=== PATIENT | female | born 1940 | race Caucasian/White ===

== ENCOUNTER 2022-04-17 00:36 | Outpatient (CLI) | payer MEDICARE, BC, SELFPAY ==
--- NOTE | 2022-04-17 10:15 | DI.US_ITS ---
APPROVED REPORT EXAM: Comprehensive 2D, Doppler, and color-flow Echocardiogram Patient Location: Out-Patient Interactive Media Designer: Paula Roque RDCS (AE) Indications: Severe Aortic Regurgitation Other Information Study Quality: Adequate Conclusion Normal left ventricular wall thickness and chamber size. Estimated ejection fraction is 60 to 65%. Wall motion is normal Normal right ventricular size and systolic function Left atrium is mildly dilated. Right atrial size is normal Aortic valve is calcified and trileaflet. There is no aortic stenosis. There is moderate to severe aortic regurgitation Normal mitral valve with trace to mild regurgitation Normal tricuspid valve with mild to moderate regurgitation. Estimated right ventricular systolic pre ssure is 32 mmHg Related ascending aorta measuring 4.09 cm Wall motion Left Ventricle The left ventricle is normal size. The left ventricular systolic function is normal. The left ventric ular ejection fraction is within the normal range. There is normal left ventricular wall thickness. T here is normal LV segmental wall motion. There is no ventricular septal defect visualized. LVEF is 60 -65%. Right Ventricle The right ventricle is normal size. The right ventricular systolic function is normal. The RVSP is 32 .2 mmHg. Atria Left atrium is mildly dilated. The right atrium size is normal.. The interatrial septum is intact wit h no evidence for an atrial septal defect. Aortic Valve Aortic valve is calcified. Aortic valve is trileaflet. No hemodynamically significant valvular aortic stenosis. Moderate to severe aortic regurgitation Mitral Valve The mitral valve is normal in structure. No evidence of mitral valve stenosis. Trace to mild mitral r egurgitation. Tricuspid Valve The tricuspid valve is normal in structure. There is no tricuspid valve stenosis. Mild to moderate tr icuspid regurgitation. Pulmonic Valve The pulmonary valve is normal in structure. There is no pulmonic valvular stenosis. Mild pulmonic reg urgitation. Great Vessels The aortic root is normal in size. The ascending aorta is moderately dilated. Aortic arch is normal in caliber. IVC is normal in size and collapses >50% with inspiration. Pericardium There is no pericardial effusion. 2D Dimensions IVSD d PLAX 1.07 cm F: 0.6-1.0 LV Vol A2C d MOD 114.8 mL LVPW d PLAX 1.12 cm F: 0.6 - 1.0 LV Vol A4C d MOD 121.3 mL LVID d PLAX 5.24 cm F: 3.8 - 5.2 LA vol/ BSA A2C s A-L 40.3 mL/m2 LVDs 3.25 cm F: 2.2 - 3.5 LA vol/ BSA A4C s A-L 41.5 mL/m2 Ao Root d 3.07 cm F: 2.7 - 3.3 LA Vol/ BSA Biplane s A-L 41.0 mL/m2 RA Area A4C 14.24 cm2 LA Area A4C s MOD 22.53 cm2 RA Vol/ BSA A4C s A-L 20.0 mL/m2 LA Area A2C s MOD 22.16 cm2 Ao Asc Diam d 4.09 cm F: 2.3 - 3.1 LV EF A4C MOD 60.2 % LV EF Teichholz 67.4 % LV EF A2C MOD 61.7 % LVEF (Grande's) 59.93 % F: 54 - 74 LV EF Biplane MOD 59.9 % LV Volume 95.47 mL F: 46 - 106 SV 71.29 mL LV Volume Index 57.86 mL/m2 F: 29 - 61 SV Index 43.16 mL/m2 LV Vol Biplane MOD 118.9 mL FS 37.70 % M-Mode TAPSE 2.08 cm (M/F) >1.7 LV Diastology MV E' medial 0.123 (>0.07 m/s) E/A Ratio 0.7 LV E/e MED 4.40 (<14) MV E Vmax 0.55 (0.4-1.3 m/s) MV E' lateral 0.059 (>0.1 m/s) MV A Vmax 0.80 (0.4-1.3 m/s) LV E/e LAT 9.35 (<14) MV E/A Ratio 0.68 MV E/E' medial 4.45 MV E/E' lateral 9.36 Aortic Valve LVOT Area 3.02 cm2 AoV Area Vmax 2.11 cm2 LVOT Vmax 1.54 m/s AoV Area/ BSA (Vmax) 1.28 cm2/m2 LVOT Mean Ramiro. 0.96 m/s VIANEY Mean Ramiro. 2.06 cm2 LVOT Peak Grad 9.5 mmHg VIANEY Mean Ramiro. Index 1.25 cm2/m2 LVOT Mean Grad 4.4 mmHg AR DT 1748 msec LVOT VTI 0.376 m AR PHT 507 msec LVOT Diam s 1.95 cm AoV Vmax 2.21 m/s Velocity Ratio 0.70 AoV Mean Ramiro. 1.41 m/s AoV Peak Grad 19.5 mmHg LVOT SV 113.65 mL AoV Mean Grad 9.3 mmHg AoV VTI 0.454 m AoV Area VTI 2.50 cm2 AoV Area/ BSA (VTI) 1.51 cm/m2 Mitral Valve MV DT 258 (160-240 msec) MR Vmax 4.56 m/s MV PHT 75 msec MR VTI 1.755 m MV Area PHT 2.94 cm2 MR Peak Grad 83.3 mmHg MV VTI 0.320 m MR Mean Grad 57.4 mmHg MV Area VTI 3.55 (4.0-6.0 cm2) Pulmonary Valve PV Vmax 0.93 (0.5-1.5 m/s) RVOT Peak Gr. 1.70 mmHg PV Peak Grad 3.5 mmHg RVOT Mean Gr. 0.90 mmHg PV Mean Grad 1.8 mmHg RVOT VTI 0.161 m PV VTI 0.232 m RVOT Vmax 0.65 m/s Tricuspid Valve TR Peak Grad 29.1 mmHg TR Vmax 2.70 m/s RA Pressure 3.00 mmHg RVSP (TR) 32.2 mmHg
== END 2022-04-17 00:56 ==
PROVIDERS: Visit Provider Internal Medicine Cardiovascular Disease
DX: I35.1 Nonrheumatic aortic (valve) insufficiency (principal)
CPT/HCPCS: 93306

== ENCOUNTER 2022-06-05 01:31 | Outpatient (CLI) | payer MEDICARE, SELFPAY ==
[2022-06-05 13:29] LABS: Abs Immature Grans 0.02 10^3/uL (0.0-0.06); Absolute Basophil Count 0.02 10^3/uL (0.0-0.2); Absolute Eosinophil Count 0.08 10^3/uL (0.0-0.7); Absolute Lymphocyte Count 0.83 10^3/uL (1.2-3.4); Absolute Monocyte Count 0.45 10^3/uL (0.1-0.8); Absolute Neutrophil Count 3.07 10^3/uL (1.2-6.7); Basophils % 0.4; Eosinophils % 1.8; HCT 31.7 % (36.0-46.0); HGB 10.4 g/dL (11.2-15.7); Immature Grans % 0.4; Lymphocytes % 18.6; MCH 32.1 pg (27.0-33.0); MCHC 32.8 % (32.0-36.0); MCV 98 fL (80-95); MPV 10.1 fL (8.0-11.0); Monocytes % 10.1; Neutrophils % 68.7; Platelet Count 144 10^3/uL (130-400); RBC 3.24 10^6/uL (3.93-5.22); RDW-SD 46.3 fL; WBC 4.47 10^3/uL (4.4-10.8)
[2022-06-05 13:49] LABS: ALT 17 U/L (14-59); AST 16 U/L (15-37); Albumin 3.6 g/dL (3.4-5.0); Alkaline Phosphatase 104 U/L (46-116); Anion Gap 9.2 mmol/L (3-11); BUN 25 mg/dL (7-18); Bilirubin, Total 0.5 mg/dL (0.2-1.0); CO2 25.8 mmol/L (21.0-32.0); CREATININE 0.8 mg/dL (0.55-1.02); Chloride 104 mmol/L (98-107); Estimated GFR 74.44 (mL/min/1.73m2); Glucose 106 mg/dL (74-106); Potassium 3.9 mmol/L (3.5-5.1); Sodium 139 mmol/L (136-145); Total Protein 6.8 g/dL (6.4-8.2)
[2022-06-08 09:59] LABS: CA 19-9 151 U/mL (<35)
== END 2022-06-05 01:32 | disposition home or self-care (01) ==
PROVIDERS: Visit Provider Internal Medicine Hematology & Oncology
DX: C25.9 Malignant neoplasm of pancreas, unspecified (principal); C78.00 Secondary malignant neoplasm of unspecified lung
CPT/HCPCS: 36415; 80053; 85025; 86301

== ENCOUNTER 2022-09-23 16:47 | Outpatient (REF) | payer MEDICARE, BC, SELFPAY ==
[2022-09-23 17:15] LABS: HCT 31.5 % (36.0-46.0); HGB 10.2 g/dL (11.2-15.7); MCH 30.3 pg (27.0-33.0); MCHC 32.4 % (32.0-36.0); MCV 94 fL (80-95); MPV 10.6 fL (8.0-11.0); Platelet Count 177 10^3/uL (130-400); RBC 3.37 10^6/uL (3.93-5.22); RDW 13.3 % (11.7-14.6); RDW-SD 45.4 fL; WBC 5.73 10^3/uL (4.4-10.8)
[2022-09-23 17:44] LABS: Anion Gap 13.2 mmol/L (3-11); BUN 16 mg/dL (7-18); CO2 21.8 mmol/L (21.0-32.0); CREATININE 1.1 mg/dL (0.55-1.02); Calcium 8.7 mg/dL (8.5-10.1); Chloride 108 mmol/L (98-107); Estimated GFR 50.48 (mL/min/1.73m2); Glucose 100 mg/dL (74-106); Potassium 3.9 mmol/L (3.5-5.1); Sodium 143 mmol/L (136-145)
[2022-09-23 18:00] LABS: C Diff PCR Negative (Negative)
[2022-09-25 12:36] LABS: Campylobacter PCR Negative (Negative); Salmonella PCR Negative (Negative); Shiga Toxin PCR Negative (Negative); Shigella/Enteroinvasive Ecoli Negative (Negative)
== END 2022-09-23 16:48 | disposition home or self-care (01) ==
LOC: LBN 16:47
PROVIDERS: Visit Provider Physician Assistant Medical
DX: R19.7 Diarrhea, unspecified (principal)
CPT/HCPCS: 80048; 85027; 87329; 87493; 87505; 87177

== ENCOUNTER 2022-10-01 01:26 | Outpatient (CLI) | payer MEDICARE, BC, SELFPAY ==
[2022-10-01] MEDS: Barium Sulfate 2% W/V-Berry Smoothie 450 ML BTL PO ×2 (07:30)
[2022-10-01] MEDS: Normal Saline Flush 10 ML SYR IJ (09:41)
[2022-10-01] MEDS: Normal Saline - Diluent 50 ML VIAL IJ (09:41)
[2022-10-01] MEDS: Omnipaque 350 MG/ML 500 ML BTL-Imaging package 100 ML IJ (09:47)
--- NOTE | 2022-10-01 09:54 | DI.CT_ITS ---
Exam(s) CT ABDOMEN PELVIS W EXAM: CT ABDOMEN PELVIS W CLINICAL HISTORY: DIARRHEA,R19.7,H/O DIVERTICULUM ON COLONOSCOPY. TECHNIQUE: Imaging Protocol: Axial computed tomography images with coronal and sagittal reformatted images were created and reviewed CONTRAST MATERIAL: Intravenous: Omnipaque-350 100cc Oral: Yes. Oral contrast was administered for bowel opacification. COMPARISON: No exams were available for comparison FINDINGS: VISUALIZED LUNG BASES: Evidence of chronic interstitial lung disease noted in the visualized lung bas es but there are no ominous pulmonary nodules evident in the lung bases and there are no pleural effu sions.. ABDOMEN: There is no ascites. LIVER: There is a subtle in abnormal area of hypodensity in the subcapsular aspect of the right hepat ic lobe measuring 1.8 by 1.8 cm. A few other slightly smaller similar hypodensities noted in the rig ht hepatic lobe. These are not cysts. May represent of angiomas but cannot exclude metastatic disea se on this type of study. Also, without priors for comparison. There is some air within intrahepatic ducts in this patient who has had prior Whipple's procedure. GALLBLADDER/BILIARY: Gallbladder surgically absent. PANCREAS: Pancreatic body and tail are somewhat atrophic. There is and a area of abnormal density ad jacent to the superior mesenteric artery which measures 3.4 by 3.0 x 2.8 cm. There is also a 2 x 2.4 cm hypodensity just above this level. This is just below the portal vein confluence. This may rela joanne to a small bowel loop. There is surgical material in this region. This is difficult to differen tiate between unopacified bowel loop versus mass at this level. SPLEEN: Spleen size upper normal. No splenic lesions. Splenic and portal veins are patent. ADRENALS: There are no significant adrenal masses. KIDNEYS:No significant focal renal findings. No hydronephrosis evident. No calculi.. ABDOMINAL AORTA: Abdominal aorta is not enlarged. LYMPH NODES:There is no retroperitoneal nor paraaortic adenopathy. ABDOMINAL WALL: No evidence of significant anterior abdominal wall nor inguinal hernia. GI: There is no evidence of bowel obstruction, free air, nor abscess. PELVIS: GI: No evidence of appendicitis.Redundant sigmoid without evidence of obvious significant diverticula r disease. LYMPH NODES: There is no intrapelvic nor inguinal adenopathy. REPRODUCTIVE: Uterus is atrophic or surgically. Pelvis. URINARY BLADDER: No calculi nor obvious masses evident OSSEOUS: No fractures and no significant osseous lesions. Anterolisthesis L5 upon S1 due to pars defects at L5 level and there is advanced disc space narrowing at this level also evident. IMPRESSION: 1. Evidence of previous Whipple's procedure. 2. There are 2 areas of abnormal density in the retroperitoneum in the region of the presumably resec joanne pancreatic head/neck, with measurements as above. May represent recurrent neoplastic disease but interpretation is somewhat difficult because of lack of oral contrast in the immediately adjacent bi easton enterostomy small-bowel loop. Nevertheless, suspect significant disease at this surgical site le kelly. 3. There are abnormal areas of subtle hypodensity in the liver which measure up to 1.8 x 1.8 cm, thes e not being cysts. May represent atypical appearing metastatic disease. 4. Recommend comparison to prior CT scans which are not available time of this interpretation. Other consideration would be for PET-CT scan and/or MRI. RADIATION DOSE DELIVERED: 1,277.84mGy.cm Total DLP DATA REPOSITORY: All CT scans at this facility are submitted to the National Radiology Data Registry (NRDR) Dose Index Registry (DIR) with the [employer] (ACR). RADIATION OPTIMIZATION: All CT scans at this facility use at least one of these dose optimization te chniques: automated exposure control; mA and/or kV adjustment per patient size (includes targeted exa ms where dose is matched to clinical indication); or iterative reconstruction.
--- NOTE | 2022-10-01 12:43 | DI.VRAD_ITS ---
Addendum created by Suman Dove MD on 10/01/2022 12:52:01 PM EDT: THIS REPORT CONTAINS FINDINGS THAT MAY BE CRITICAL TO PATIENT CARE. The findings were verbally communicated via telephone conference at 12:51 PM EDT on 10/01/2022 with [place]. The findings were acknowledged and understood. Initial report created on 10/01/2022 12:43:02 PM EDT: PROCEDURE INFORMATION: Exam: CT Abdomen And Pelvis With Contrast Exam date and time: 10/01/2022 9:45 AM Age: 82 years old Clinical indication: Other: Diarrhea, h/o diverticulum on colonoscopy; Additional info: PT has pancreatic cancer, had a whipple procedure in 2020 TECHNIQUE: Imaging protocol: Computed tomography of the abdomen and pelvis with contrast. 1747image(s) are provided. Contrast material: 350; Contrast volume: 100 ml; Contrast route: INTRAVENOUS (IV); Other technique: Axial images are available with sagittal and coronal reconstruction views. Automated dose exposure control is utilized. The DLP is 1278. COMPARISON: No relevant prior studies are currently available to evaluate for stability or interval change. FINDINGS: Tubes, catheters and devices: There appears to be a right port catheter on the partnership marketing manager radiograph. Lungs: There is some subsegmental atelectasis versus post inflammatory interstitial fibrotic scarring demonstrated.No lobar consolidation is appreciated. Heart: There is some cardiac chamber enlargement overall. No significant pericardial fluid collection is appreciated. Liver: There is some slightly heterogeneous overall attenuation of the liver parenchyma along with some subtle periportal tracking and some biliary air. For example there is overall some central and subcortical heterogeneity including the right liver lobe and cortical margins. The central focus measures approximately 1.3 x 1.4 cm. Gallbladder and bile ducts: There appear to be cholecystectomy changes. Pancreas: There are postsurgical appearing changes of the pancreas. There is some cystic irregularity about the expected proximal pancreas and postsurgical margin. This area measures approximately 2.5 x 2.7 cm with the adjacent interventional clip type appearing changes. There is some bandlike density within and could be seen with some intervention or drainage type related change. There is some subtle stranding of the adjacent. Some inflammation could also present in this fashion. Spleen: There is some cystic or hemangioma type averaging of the spleen also present. Adrenal glands: Unremarkable. Kidneys and ureters: There is relatively homogeneous renal parenchymal enhancement with subcentimeter fluid dense cystic appearance and some extrarenal pelvis averaging. No radiopaque obstructive calculus or overt hydronephrosis is appreciated along the expected course. There is some chronic left superior renal cortical scarring and thinning. Stomach and bowel: Some aspects of the colon are undistended. This may also be peristaltic related.There is abundant stool present limiting mucosal detail evaluation.The bowel gas pattern appears nonobstructive. There is a small sliding-type hiatal hernia demonstrated with some gastroesophageal fold thickening. There appears to be some ingested gastric level content. There is some luminal fluid demonstrated of the [place] duodenal C-loop. There is some sigmoid redundancy demonstrated. There is incomplete overall contrast filling of the colon. For example there appears to be some transitioning of the descending colon level as well as some prominence of the ileocecal valve. There is also some narrowing for example at the splenic flexure. There is subtle stranding of the adjacent. Appendix: The appendix is not definitively identified for evaluation although no adjacent fluid collections are currently appreciated. Intraperitoneal space: There is some subtle mesenteric and omental stranding overall. No gross free air or organized fluid collections are currently appreciated. Vasculature: No saccular aortic aneurysmal dilatation or intimal irregularity is appreciated with overall branch vessel enhancement. There is overall narrowing of the superior mesenteric vein with the adjacent lesional and postsurgical related change. There appears to be some overall vascular collateralization. Lymph nodes: There are some reactive borderline appearing perivascular and mesenteric lymph nodes. Urinary bladder: The bladder is incompletely fluid filled for evaluation which may exagerate the wall thickness. This can also be seen with post inflammation sequela. Reproductive: There are hysterectomy changes present. Bones/joints: Osseous alignment is maintained.No displaced fracture or dislocation is appreciated.There is slightly decreased bone mineralization overall. There are chronic appearing degenerative changes present. There is chronic disc space narrowing along with spondylolysis and slight anterolisthesis at the lumbosacral junction. Soft tissues: No radiopaque foreign body or subcutaneous emphysema is appreciated. There appears to be some subtle subcutaneous overall edematous appearance. IMPRESSION: 1. There are areas of incomplete overall colonic filling and narrowing which could be peristaltic related although some processes including internal filling defects mucosal thickening with narrowing could also present in this fashion. For example there is some transitioning demonstrated at the descending colon persisting on both phases of the study. Some focal narrowing or lesional related change as well as transient intussusception could also present in this fashion with some subtle stranding directly adjacent. Colonoscopy is recommended. 2. There is history of pancreatic cancer and Whipple procedure provided. There is some cystic dense mass-effect about the expected proximal pancreas and surgical site. Without comparison studies currently available residual or recurrent changes could also present in this fashion with the adjacent bowel loop averaging. 3. There is some heterogeneity of the liver overall which could represent lesional or infiltrative related change. Consider comparison previous if clinically available or PET-CT if clinically feasible. Otherwise consider MRI of the abdomen with and without contrast for further evaluation. Dictated and Authenticated by: Suman Dove MD. Ordering:APRIL Villa MD
== END 2022-10-01 01:46 ==
PROVIDERS: Visit Provider Physician Assistant Medical
DX: R19.7 Diarrhea, unspecified (principal); K76.89 Other specified diseases of liver; Z90.49 Acquired absence of other specified parts of digestive tract; Z98.890 Other specified postprocedural states; C25.9 Malignant neoplasm of pancreas, unspecified
CPT/HCPCS: 96523; 74177

== ENCOUNTER 2022-10-02 15:39 | Outpatient (REF) | payer MEDICARE, BC, SELFPAY ==
[2022-10-02 16:59] LABS: C Diff PCR Negative (Negative)
== END 2022-10-02 15:40 | disposition home or self-care (01) ==
LOC: LBN 15:39
PROVIDERS: Visit Provider Physician Assistant Medical
DX: R19.7 Diarrhea, unspecified (principal)
CPT/HCPCS: 87493

== ENCOUNTER 2022-10-18 | Outpatient (RCR) | payer MEDICARE, BC, SELFPAY ==
[2022-10-01] MEDS: Normal Saline Flush 10 ML SYR IVP (07:06)
[2022-10-01] MEDS: Heparin 500 UNITS/5 ML SYRINGE IVP (07:07)
[2022-10-07] MEDS: Normal Saline Flush 10 ML SYR IVP (11:22)
[2022-10-07] MEDS: Heparin 500 UNITS/5 ML SYRINGE IV (11:23)
[2022-10-07 11:44] LABS: Abs Immature Grans 0.02 10^3/uL (0.0-0.06); Absolute Basophil Count 0.01 10^3/uL (0.0-0.2); Absolute Lymphocyte Count 0.42 10^3/uL (1.2-3.4); Absolute Monocyte Count 0.33 10^3/uL (0.1-0.8); Absolute Neutrophil Count 3.36 10^3/uL (1.2-6.7); Basophils % 0.2; Eosinophils % 2.4; HCT 28.8 % (36.0-46.0); HGB 9.1 g/dL (11.2-15.7); Immature Grans % 0.5; Lymphocytes % 9.9; MCH 30.3 pg (27.0-33.0); MCHC 31.6 % (32.0-36.0); MCV 96 fL (80-95); MPV 10.3 fL (8.0-11.0); Monocytes % 7.8; Neutrophils % 79.2; Platelet Count 121 10^3/uL (130-400); RDW-SD 49.1 fL; WBC 4.24 10^3/uL (4.4-10.8)
[2022-10-07 11:58] LABS: ALT 13 U/L (14-59); AST 15 U/L (15-37); Albumin 3.1 g/dL (3.4-5.0); Alkaline Phosphatase 112 U/L (46-116); Anion Gap 10.3 mmol/L (3-11); BUN 6 mg/dL (7-18); Bilirubin, Total 0.5 mg/dL (0.2-1.0); CO2 21.7 mmol/L (21.0-32.0); CREATININE 0.9 mg/dL (0.55-1.02); Calcium 8.2 mg/dL (8.5-10.1); Chloride 110 mmol/L (98-107); Estimated GFR 64.23 (mL/min/1.73m2); Glucose 102 mg/dL (74-106); Potassium 3.2 mmol/L (3.5-5.1); Sodium 142 mmol/L (136-145); Total Protein 6.2 g/dL (6.4-8.2)
[2022-10-09 16:12] LABS: CA 19-9 14718 U/mL (<35)
[2022-10-16] MEDS: Normal Saline Flush 10 ML SYR IVP (11:25)
[2022-10-16 11:47] LABS: Abs Immature Grans 0.03 10^3/uL (0.0-0.06); Absolute Basophil Count 0.03 10^3/uL (0.0-0.2); Absolute Eosinophil Count 0.14 10^3/uL (0.0-0.7); Absolute Monocyte Count 0.54 10^3/uL (0.1-0.8); Absolute Neutrophil Count 4.76 10^3/uL (1.2-6.7); Basophils % 0.5; Eosinophils % 2.2; HCT 33.3 % (36.0-46.0); HGB 10.5 g/dL (11.2-15.7); Immature Grans % 0.5; Lymphocytes % 14.1; MCHC 31.5 % (32.0-36.0); MCV 95 fL (80-95); MPV 10.1 fL (8.0-11.0); Monocytes % 8.4; Neutrophils % 74.3; Platelet Count 167 10^3/uL (130-400); RDW 14.3 % (11.7-14.6); RDW-SD 49.4 fL
[2022-10-16 12:03] LABS: ALT 23 U/L (14-59); AST 22 U/L (15-37); Albumin 3.5 g/dL (3.4-5.0); Alkaline Phosphatase 146 U/L (46-116); Anion Gap 11.1 mmol/L (3-11); BUN 19 mg/dL (7-18); Bilirubin, Total 0.7 mg/dL (0.2-1.0); CO2 20.9 mmol/L (21.0-32.0); CREATININE 0.9 mg/dL (0.55-1.02); Calcium 8.7 mg/dL (8.5-10.1); Chloride 107 mmol/L (98-107); Estimated GFR 64.23 (mL/min/1.73m2); Glucose 102 mg/dL (74-106); Sodium 139 mmol/L (136-145)
[2022-10-18 12:52] VITALS: BP 137/75; PULSE 61; RESP 18; TEMP 36.9; O2SAT 98
[2022-10-21 13:02] LABS: CA 19-9 18354 U/mL (<35)
== END 2022-10-19 23:59 | disposition home or self-care (01) ==
LOC: INF
PROVIDERS: Internal Medicine Hematology & Oncology; Visit Provider Physician Assistant Medical
DX: R19.7 Diarrhea, unspecified (principal); C25.9 Malignant neoplasm of pancreas, unspecified; Z45.2 Encounter for adjustment and management of vascular access device
CPT/HCPCS: 36591; 80053; 96523; 85025; 86301; 87230

== ENCOUNTER 2022-10-30 14:31 | Observation (INO) | payer MEDICARE, BC, SELFPAY ==
[2022-10-30] VITALS (40 sets, daily range): BP systolic 112–176; BP diastolic 54–98; PULSE 58–121; RESP 13–31; TEMP 35.9–37; O2SAT 96–98
--- NOTE | 2022-10-30 14:30 | RT.EKG_ITS ---
APPROVED REPORT Exam: Resting ECG Reason for Exam: sob Patient Location: E HR:70 bpm ECG Measurements Heart Rate 70 AXIS ND 166 P 0 QRSd 97 QRS -8 QT 424 T 22 QTc 459 Conclusion Sinus rhythm...normal P axis, V-rate 60- 99 LAD, Q waves in I, aVL no STEMI
--- NOTE | 2022-10-30 15:00 | DI.CT_ITS ---
Exam(s) CT CHEST PE CTA EXAM: CT CHEST PE CTA CLINICAL HISTORY: h/o metastatic CA, Acute SOB/hypoxia. TECHNIQUE: Imaging Protocol: Axial CT angiography was performed with multi-slice acquisition and mu lti-planar reconstructions as well as axial, coronal and sagittal MIP reconstructions. CONTRAST MATERIAL: Intravenous: Omnipaque 350 Contrast volume:100 ml COMPARISON: CT CT ABDOMEN PELVIS W from 10/01/2022 FINDINGS: Pulmonary Arteries: Prominent. No evidence of filling defect to suggest pulmonary emboli. Tracheobronchial tree: Patent where visualized. Mediastinum and Keysha: No dominant adenopathy or fluid collection. Pulmonary parenchyma: Mild emphysematous. Changes. Severe fibrotic changes. No consolidation or do minant measurable mass. Pleura: No effusion or pneumothorax. Heart: The heart is moderately dilated. Coronary artery calcifications are seen. Aorta: Ascending aorta measures 4.2 cm.. No aneurysm. No dissection. Upper abdomen: Prior Whipple procedure. Air in the biliary ducts. Bones: Scoliosis and degenerative changes. Port over right upper chest wall. IMPRESSION: No evidence of pulmonary embolism. Severe pulmonary fibrosis. No acute abnormality. RADIATION DOSE DELIVERED: 260.03mGy.cm Total DLP DATA REPOSITORY: All CT scans at this facility are submitted to the National Radiology Data Registry (NRDR) Dose Index Registry (DIR) with the [employer] (ACR). RADIATION OPTIMIZATION: All CT scans at this facility use at least one of these dose optimization te chniques: automated exposure control; mA and/or kV adjustment per patient size (includes targeted exa ms where dose is matched to clinical indication); or iterative reconstruction.
--- NOTE | 2022-10-30 15:15 | W.ED.GENAD ---
Discharge Plan Discharge Details Chief Complaint: SOB/SuddenOnset Admit Date/Time: 10/30/22 17:37 Admit Provider: Aj Hicks Attending Provider: Aj Hicks Primary Care Provider: None,None ED Provider: Rochelle Hogan Medical Decision Making This is an unfortunate 82-year-old female with recurrent metastatic pancreatic cancer who presents with acute onset of shortness of breath that began after finishing chemotherapy. She does appear very dyspneic but her lungs are clear. The concern is for pulmonary embolus since cancer is a predisposing factor. It appears that the patient was here earlier today but she did not volunteer this. Her renal function was checked and was normal so we can proceed with a CTA of the chest. We will keep her on a nonrebreather. I have reviewed her EKG which does not show any acute ST elevation. She is not having any chest pain. She does not have any respiratory symptoms that would indicate a infectious process. Other acute causes for shortness of breath would include a pneumothorax though she has bilateral breath sounds and no evidence of tension. Given her clinical condition she will likely be admitted. She repeated several times that she is healthy as a horse, except for cancer. She would like everything done. We will consider thrombolytics if she does have a large PE. Differential Diagnosis Differential Diagnosis: Pulmonary embolus, congestive heart failure, pneumothorax, pneumonia, [place] Medical Records Medical records reviewed: Yes I reviewed the patient's medical records. Medical records narrative: Recurrent pancreatic carcinoma Imaging Data Radiologic Study: Imaging: CT Scan (CT angio of the chest) Radiologist's impression: No evidence of pulmonary embolus. Severe pulmonary fibrosis. No acute abnormality. Lab Data Lab results reviewed: Yes I reviewed the patient's lab results. Lab results narrative: Mild renal insufficiency, respiratory alkalosis ECG Data Attestation: I personally reviewed and interpreted this ECG (s) as follows: Prior ECG tracings: available for review HPI General Date/Time Provider Initiated Documentation: 10/30/22 14:57. Limitations to Documentation: no limitations and physical limitation (The patient is very short of breath). Information obtained by: patient, family, RN notes reviewed and old records reviewed. History of Present Illness described as severe, HPI Narrative: Time seen was 1500 in bed 7. The patient is an 82-year-old female with recurrent metastatic pancreatic cancer who has no history of PE or underlying lung disease. She presents today with acute onset of shortness of breath not associated with chest pain that began just prior to arrival as she was leaving after her second chemotherapy appointment. The patient tells me that in the past she has had a Whipple procedure for pancreatic cancer and underwent an initial round of treatment. Recently she was found to have mets and has restarted on chemotherapy. She is denying any pain. She denies any leg pain or swelling. She denies any previous similar episodes. No other aggravating or alleviating factors. The shortness of breath was acute in onset. It began while she was leaving the chemotherapy center. No history of fever, sore throat, URI symptoms, chest pain, abdominal pain, leg pain. The patient does not smoke. The patient states that she would like everything done including intubation. Related Data Home Medications Medication Instructions Recorded Confirmed amlodipine 5 mg tablet 5 mg PO PRN PRN 10/30/22 10/30/22 gabapentin 300 mg capsule 300 mg PO PRN PRN 10/30/22 10/30/22 hydrochlorothiazide 25 mg tablet 25 mg PO DAILY 10/30/22 10/30/22 losartan 100 mg tablet 100 mg PO DAILY 10/30/22 10/30/22 potassium chloride 20 mEq 20 meq PO DAILY 10/30/22 10/30/22 tablet,extended release(part/cryst) tramadol 50 mg tablet 50 mg PO PRN PRN 10/30/22 10/30/22 Allergies Allergy/AdvReac Type Severity Reaction Status Date / Time acetaminophen [From [facility]] AdvReac Dizziness/L Unverified 10/30/22 14:42 [place] hydrocodone [From [facility]] AdvReac Dizziness/L Unverified 10/30/22 14:42 [place] General Stated Complaint: SOB/SuddenOnset HANNAH: 3 Review of Systems Narrative: see hpi Constitutional Constitutional: Denies chills and Denies fever(s) Eyes Eyes: Reports as per HPI and Denies blurry vision ENT Ears, Nose, Mouth, and Throat: Denies change in voice, Denies dental pain, Denies dysphagia, Denies mouth lesions, Denies nasal discharge, Denies odynophagia and Denies tongue swelling Cardiovascular Cardiovascular: Reports as per HPI, Denies chest pain and Reports dyspnea Respiratory Respiratory: Reports as per HPI, Reports cough, Denies pain on inspiration and Reports dyspnea Comments: After the initial evaluation the patient endorsed a history of pulmonary fibrosis. She was first diagnosed after a trip to [place] where she contracted a respiratory infection. The pulmonary fibrosis was worsened after her first chemotherapy treatments following her initial diagnosis and what the procedure Gastrointestinal Gastrointestinal: Denies abdominal pain, Denies dysphagia and Denies odynophagia Genitourinary Genitourinary: Reports system reviewed and no additional complaints, except as documented and Reports as per HPI Musculoskeletal Comments: No leg pain or swelling Neurologic Neurologic: Reports system reviewed and no additional complaints, except as documented Hematologic/Lymphatic Hematologic/Lymphatic: Reports system reviewed and no additional complaints, except as documented Allergic/Immunologic Allergic/Immunologic: Denies tongue swelling Comments: The patient does have some immunocompromise PFSH All Active Problems Essential hypertension (Acute) Pancreatic cancer (Acute) Congestive heart failure (Chronic) Pulmonary fibrosis (Acute) Social History Smoking/Tobacco Use Status: Never Smoking risk assessment performed?: Yes Housing: apartment Exam Narrative Exam Narrative: The patient is a thin well-developed female who is dyspneic at rest on a nonrebreather. Her sats are 99% on the nonrebreather. She is normotensive. She is not tachycardic. She is afebrile. She is unable to speak in full sentences. She is obviously using accessory muscles. There is no stridor. She has normal phonation. She does appear thin. GCS is 15. She is normocephalic atraumatic. Pupils are equal round react light. Her extraocular muscles are intact. No photophobia. Her nasopharynx is clear. There is no evidence of upper airway obstruction. No evidence of Ludewig's angina. Her neck is supple. Her trachea is midline. No cricoid tenderness no meningeal signs. Her chest is nontender. She has mild retractions. She has symmetric expansion. She had normal inspiratory and expiratory phase. Her lungs are clear to auscultation without wheezing rales or rhonchi. Her heart has regular rate and rhythm. There is no murmur rub or gallop. PMI is not displaced. Her abdomen is soft. She has well-healed surgical scars. Her extremities are without edema cyanosis or clubbing. No Homans signs or cords. No unilateral leg swelling. Peripheral pulses are intact. Cap refills less than 2 seconds. Neurologic exam cranial nerves II through XII are intact. No gross focal neurologic deficits. Psychiatric: The patient appears to have capacity make medical decisions. She is not clinically intoxicated Const General: cooperative, well developed, well groomed and well hydrated Nutritional Appearance: thin and underweight Orientation: alert, awake and oriented x3 Other: The patient was tachypneic on arrival as above. [facility] Head: normal to inspection, normocephalic and atraumatic Ears: hearing grossly normal bilaterally and external ears normal General nose exam: external nose normal, nares normal and no nasal discharge Face and sinus: normal facial exam, sinuses nontender and face symmetric Mouth: oral mucosae normal, lip normal, tongue normal, oropharynx normal, moist mucous membranes, no drooling, No mouth trauma, no muffled voice, oral mucosa abnormal and other (Normal phonation. The patient is handling secretions.) Throat: posterior oropharynx normal and uvula midline Other: No stridor normal phonation Eyes General: appearance normal, both eyes and all related structures Eyelids: eyelids normal Conjunctivae: conjunctivae normal Sclera: sclerae normal Cornea: corneas normal Pupils: PERRL EOM: EOM intact bilaterally and No nystagmus Neck Neck: normal visual inspection, full ROM, no lymphadenopathy, no meningeal signs, trachea midline and supple Lymphatic: no lymphadenopathy noted Chest Chest: normal inspection of the chest Resp Effort & Inspection: no audible wheezes, no nasal flaring, no respiratory distress, no retractions, no stridor, tachypneic, no tracheal deviation, no use of accessory muscles, No prolonged expiratory phase and other (Normal inspiratory to expiratory ratio.) Auscultation: clear to auscultation bilaterally, no rales, no rhonchi, no wheezes and no rubs Tactile Fremitus: tactile fremitus absent Other: The patient is tachypneic Cardio Jugular venous pressure: no JVD Palpation: normal PMI Rate: regular rate Rhythm: regular rhythm Heart Sounds: S1 normal, S2 normal, no gallops, no murmurs and no rubs GI Inspection: normal to inspection and non-distended Palpation: soft, no hepatosplenomegaly, no guarding and nontender Percussion: normal to percussion Auscultation: normal bowel sounds General: No CVA tenderness Back/Spine/Pelvis Back: no CVA tenderness and No back tenderness Cervical Spine: normal cervical lordosis, cervical ROM normal, No cervical muscular tenderness, No pain with cervical ROM, No cervical spinal tenderness and No step off deformity Thoracic/Lumbar Spine: thoracic and lumbar spine normal to inspection, No thoracic spinal tenderness and No lumbar spinal tenderness Pelvis: no pain with anterior-posterior compression and no pain with lateral compression Skin General skin exam: no rashes or lesions noted, turgor normal, no petechiae, no purpura and other (Skin is normal for ethnicity.) Lesions: no lesions Rashes: no rashes Trauma: no lacerations or abrasions Neuro General: patient alert, patient awake, patient oriented x3, moves all extremities, no meningeal signs, no focal motor deficits and CN's II-XI intact bilaterally Cranial Nerves: CN's II-XI intact bilaterally, PERRL, accommodation normal, EOM intact bilaterally, no nystagmus, facial strength normal, tongue midline, hearing normal and no nystagmus Cognition: normal cognition Speech: speech normal Motor: muscle tone normal throughout and strength 5/5 throughout Sensory Exam: no sensory deficits noted Extrem General: normal to inspection, full ROM, capillary refill normal, no clubbing, cyanosis or edema and no calf tenderness Other: No Homans signs or cords Psych Appearance: grossly normal Affect: normal affect Attitude: cooperative Thought Process: normal Thought Content: normal Insight: insight good Judgment: judgment good Other: The patient appears to have capacity make medical decisions. Course The patient improved while in the emergency department. She was weaned off oxygen and appears more comfortable without any significant intervention Vital Signs Vital signs: Vital Signs Temperature 37.0 C 10/30/22 14:37 Pulse 77 10/30/22 14:37 Respiratory Rate 20 10/30/22 14:37 Blood Pressure 147/98 H 10/30/22 14:37 Pulse Oximetry 98 10/30/22 14:37 Temperature 37.0 C 10/30/22 14:37 Temperature Source Oral 10/30/22 14:37 Pulse 72 10/30/22 15:01 Pulse 69 10/30/22 15:01 Respiratory Rate 17 10/30/22 15:01 Respiratory Effort Labored 10/30/22 14:47 Respiratory Depth Normal 10/30/22 14:47 Respiratory Pattern Normal 10/30/22 14:47 Blood Pressure 176/70 H 10/30/22 15:01 Blood Pressure Mean 96 10/30/22 15:01 Pulse Oximetry 98 10/30/22 14:37 Oxygen Delivery Method Room Air 10/30/22 14:37 Oxygen Flow Rate 0 10/30/22 14:37 Pain Level 0 10/30/22 14:37 Lab/Test Results Lab/Test Results: Labs reveal a respiratory alkalosis. Elevated BNP and mild renal insufficiency Critical Care Time Critical Care Time Critical Care Time: Yes Total Critical Care Time: 38 Attestation: This includes time at the bedside, review of old records and review of radiographs and interpretation of EKG, and consultation with hospitalist
[2022-10-30 15:30] LABS: Abs Immature Grans 0.03 10^3/uL (0.0-0.06); Absolute Basophil Count 0.02 10^3/uL (0.0-0.2); Absolute Eosinophil Count 0.07 10^3/uL (0.0-0.7); Absolute Lymphocyte Count 0.96 10^3/uL (1.2-3.4); Absolute Monocyte Count 0.21 10^3/uL (0.1-0.8); Absolute Neutrophil Count 5.33 10^3/uL (1.2-6.7); Basophils % 0.3; Eosinophils % 1.1; HCT 31.4 % (36.0-46.0); HGB 10.1 g/dL (11.2-15.7); Immature Grans % 0.5; Lymphocytes % 14.5; MCH 29.9 pg (27.0-33.0); MCHC 32.2 % (32.0-36.0); MCV 93 fL (80-95); MPV 10.2 fL (8.0-11.0); Monocytes % 3.2; Neutrophils % 80.4; Platelet Count 226 10^3/uL (130-400); RBC 3.38 10^6/uL (3.93-5.22); RDW 15.9 % (11.7-14.6); RDW-SD 53.1 fL; WBC 6.62 10^3/uL (4.4-10.8)
[2022-10-30 15:36] LABS: BE -7 mmol/L (-2-3); HCO3 16 mmol/L (22-26); pH 7.53 (7.35-7.45); pO2 145 mmHg (80-105); sO2 95 % (95-98); tCO2 15 mmol/L (23-27)
[2022-10-30 15:39] LABS: Site Left Radial; pCO2 20 mmHg (35-45)
[2022-10-30] MEDS: Normal Saline - Diluent 50 ML VIAL IJ (15:46)
[2022-10-30] MEDS: Omnipaque 350 MG/ML 500 ML BTL-Imaging package IJ (15:47)
[2022-10-30 15:51] LABS: INR 1.1 (0.9-1.1); PTT Activated 28.5 sec (21.5-31.9); Prothrombin Time 10.9 sec (9.3-11.0)
[2022-10-30 16:07] LABS: ALT 13 U/L (14-59); AST 16 U/L (15-37); Albumin 3.7 g/dL (3.4-5.0); Alkaline Phosphatase 146 U/L (46-116); Anion Gap 15.5 mmol/L (3-11); BUN 14 mg/dL (7-18); Bilirubin, Total 0.7 mg/dL (0.2-1.0); CO2 19.5 mmol/L (21.0-32.0); CREATININE 0.9 mg/dL (0.55-1.02); Chloride 103 mmol/L (98-107); Estimated GFR 64.23 (mL/min/1.73m2); Glucose 131 mg/dL (74-106); Magnesium 1.9 mg/dL (1.8-2.4); NT-proBNP 2151 pg/mL (<300); Potassium 3.5 mmol/L (3.5-5.1); Sodium 138 mmol/L (136-145); Total Protein 7.4 g/dL (6.4-8.2); Troponin I < 50 ng/L (<or=60)
[2022-10-30 16:09] LABS: D-Dimer 1830 ng/mlFEU (<500)
[2022-10-30] MEDS: Furosemide 20 MG/2 ML VIAL IVP (17:37)
--- NOTE | 2022-10-30 17:44 | HPE_ITS ---
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 Not on supplemental O2 and now back on RA. Monitor. (2) Congestive heart failure: Status: Chronic Assessment and plan: Elevated BNP. Troponin negative; repeat is pending. Diereses to continue with IV lasix. Monitor K and creatinine. Will need an echocardiogram that won't be available this weekend. Should be OK to obtain as outpt. (3) Pancreatic cancer: Status: Acute Assessment and plan: She has a PMH of Whipple procedure in 2020. Now undergoing chemotherapy for metastatic pancreatic CA. She has also undergone radiation treatment of lung mets. Day of this admission she received her second round of chemotherapy. She did not have any untoward side effects with the initial chemo. (4) Essential hypertension: Status: Acute Assessment and plan: Cont amlodipine and losartan Monitor. History of Present Illness History of Present Illness Chief Complaint: Shortness of breath Narrative: This is an 82 yo female with a PMH of recurrent metastatic pancreatic cancer actively undergoing chemotherapy, pulmonary fibrosis, HTN. On the day of admission she walking out of her treatment when she experienced a sudden onset of shortness of breath. No CP/palpitations, fever/chills. She was noted to be tachynpneic on arrival and placed on a nonrebreather. She was subsequently weaned back to room air and was only mildly to moderately tachypneic. WBC count normal. Hgb 10.1. Initial troponin negative. Second troponin pending at time of admission. CT chest w/o pulmonary embolism but + for extensive pulmonary fibrosis. NTProBNP elevated at 2151. She was administered IV lasix in the ED. She has no history of previous CHF. She will be admitted as observation for further diuresis. Review of Systems All systems reviewed & are unremarkable except as noted in HPI and below PFSH All Active Problems (Updated 10/31/22 @ 00:47 by Castro Strickland) Atrial arrhythmia (Acute) NSTEMI (non-ST elevated myocardial infarction) (Acute) Essential hypertension (Acute) Pancreatic cancer (Acute) Congestive heart failure (Chronic) Pulmonary fibrosis (Acute) Social History Smoking/Tobacco Use Status: Never Smoking risk assessment performed?: Yes Housing: apartment Meds Allergies and Home Medications Allergies Allergy/AdvReac Type Severity Reaction Status Date / Time acetaminophen [From [place]] AdvReac Dizziness/L Unverified 10/30/22 14:42 [place] hydrocodone [From [place]] AdvReac Dizziness/L Unverified 10/30/22 14:42 [place] Home Medications Medication Instructions Recorded Confirmed Type amlodipine 5 mg tablet 5 mg PO PRN PRN 10/30/22 10/30/22 History gabapentin 300 mg capsule 300 mg PO PRN PRN 10/30/22 10/30/22 History hydrochlorothiazide 25 mg tablet 25 mg PO DAILY 10/30/22 10/30/22 History losartan 100 mg tablet 100 mg PO DAILY 10/30/22 10/30/22 History potassium chloride 20 mEq 20 meq PO DAILY 10/30/22 10/30/22 History tablet,extended release(part/cryst) tramadol 50 mg tablet 50 mg PO PRN PRN 10/30/22 10/30/22 History Exam Narrative Exam Narrative: GEn: Pt is sitting upright in bed. Smiling and conversant. No c/o CP or shortn ess of breath. HEENT: sclera clear. Pupils equal. MMM Neck: No JVD, FROM. Lungs: crackles throughout. Nonlabored breathing. CV: RRR. Abd: soft, NT, +BS Neuro: No focal motor deficits. No facial asymmetry. Exts: No edema, cyanosis, calf tenderness. Psych: affect is appropriate. Medical fund of knowledge regarding her diagnoses is good. Results Labs 10/30/22 15:00 10/31/22 06:45 Labs: Laboratory Results - last 24 hr 10/30/22 10/30/22 10/30/22 15:00 15:00 15:00 WBC 6.62 RBC 3.38 L Hgb 10.1 L Hct 31.4 L MCV 93 MCH 29.9 MCHC 32.2 RDW 15.9 H Plt Count 226 MPV 10.2 Immature Gran % 0.5 Neutrophils % 80.4 Lymphocytes % 14.5 Monocytes % 3.2 Eosinophils % 1.1 Basophils % 0.3 Nucleated RBC % 0.0 Absolute Neutrophils 5.33 Absolute Lymphocytes 0.96 L Absolute Monocytes 0.21 Absolute Eosinophils 0.07 Absolute Basophils 0.02 PT 10.9 INR 1.1 APTT 28.5 D-Dimer 1830 H ABG Sample Site ABG pH ABG pCO2 ABG pO2 ABG HCO3 ABG Total CO2 ABG O2 Saturation ABG Base Excess Sodium 138 Potassium 3.5 Chloride 103 Carbon Dioxide 19.5 L Anion Gap 15.5 H BUN 14 Creatinine 0.9 Est GFR (CKD-EPI 2020) 64.23 Glucose 131 H Calcium 9.0 Magnesium 1.9 Total Bilirubin 0.7 AST 16 ALT 13 L Alkaline Phosphatase 146 H Troponin I < 50 NT-Pro-B Natriuret Pep 2151 H Total Protein 7.4 Albumin 3.7 10/30/22 15:11 WBC RBC Hgb Hct MCV MCH MCHC RDW Plt Count MPV Immature Gran % Neutrophils % Lymphocytes % Monocytes % Eosinophils % Basophils % Nucleated RBC % Absolute Neutrophils Absolute Lymphocytes Absolute Monocytes Absolute Eosinophils Absolute Basophils PT INR APTT D-Dimer ABG Sample Site Left Radial ABG pH 7.53 H ABG pCO2 20 L ABG pO2 145 H ABG HCO3 16 L ABG Total CO2 15 L ABG O2 Saturation 95 ABG Base Excess -7 L Sodium Potassium Chloride Carbon Dioxide Anion Gap BUN Creatinine Est GFR (CKD-EPI 2020) Glucose Calcium Magnesium Total Bilirubin AST ALT Alkaline Phosphatase Troponin I NT-Pro-B Natriuret Pep Total Protein Albumin Last Vital Signs Temp 37.0 C 10/30/22 14:37 Pulse 60 10/30/22 16:31 Resp 25 H 10/30/22 16:40 BP 134/59 L 10/30/22 16:31 Pulse Ox 98 10/30/22 14:37 Time Spent Time spent with Patient: 40-54 minutes Time was spent: preparing to see the patient(eg.review tests), obtaining and/or reviewing separately otained hiistory, ordering medications,tests, procedures, referring, communicating with other health director critical care, indepentently interpreting results, counseling the patient and care coordination
[2022-10-30] MEDS: Potassium Chloride 20 MEQ TABCR PO (19:34)
[2022-10-30] MEDS: Cholestyramine/Aspartame PKT 1 EACH PO (20:41)
--- NOTE | 2022-10-30 22:30 | RT.EKG_ITS ---
APPROVED REPORT Exam: Resting ECG Reason for Exam: critical troponin Patient Location: I HR:90 bpm ECG Measurements Heart Rate 90 AXIS NM [id number] P [id number] QRSd 97 QRS -28 QT 379 T 85 QTc 464 Conclusion Sinus rhythm with PACs Ventricular bigeminy...bigeminy string>4 w/ V complexes Borderline left axis deviation...QRS axis (-15,-29) Probable lateral infarct, old...Q>35mS, abnormal ST-T, V5-6 I aVL
[2022-10-31] VITALS (59 sets, daily range): BP systolic 92–116; BP diastolic 50–67; PULSE 58–133; RESP 12–34; TEMP 36–36.7; O2SAT 94–97
[2022-10-31 00:19] LABS: Troponin I 5663 ng/L (<or=60)
[2022-10-31] MEDS: Atorvastatin 40 MG TAB 80 MG PO ×2 (00:45→00:46)
[2022-10-31] MEDS: Aspirin 81 MG CHEW 324 MG CH (00:45)
--- NOTE | 2022-10-31 00:45 | W.PM.PROGNOT ---
Date of Service Date of service: 10/31/22 Time of Service: 00:45 Assessment and Plan Assessment and plan (1) NSTEMI (non-ST elevated myocardial infarction): Status: Acute Assessment and plan: With troponin bump, this likely reflects an acute coronary event that caused her initial presentation. I did repeat troponin given the rapid rise to confirm. Case reviewed with Dr. Dempsey stock preparer at [facility] [place]. Will start ASA and heparin drip, atorvastatin, low dose metoprolol. They accepted the patient under cardiology Dr. Zelalem Dyson for possible PCI tomorrow. She was made NPO. SHe does see Dr. Kim at [facility] [place], history of Aortic Insufficiency. (2) Atrial arrhythmia: Status: Acute Assessment and plan: Afib vs many PACs. Does not change acute management. Subjective Subjective Interval history since last seen: SOB much better. No chest pain. back pain bothers her, for past 1-2 mo. Exam Narrative Exam Narrative: GEN: A&O, NAD LUNGS: CTAB, nl effort at rest CV: Irregular, no murmurs, rubs ext: No C/C/E Objective Last Vital Signs Temp 35.9 C L 10/30/22 22:34 Pulse 94 H 10/31/22 00:00 Resp 18 10/30/22 23:40 BP 115/65 10/30/22 23:40 Pulse Ox 96 10/30/22 23:40 Laboratory Results - last 24 hr 10/30/22 10/30/22 10/30/22 15:00 15:00 15:00 WBC 6.62 RBC 3.38 L Hgb 10.1 L Hct 31.4 L MCV 93 MCH 29.9 MCHC 32.2 RDW 15.9 H Plt Count 226 MPV 10.2 Immature Gran % 0.5 Neutrophils % 80.4 Lymphocytes % 14.5 Monocytes % 3.2 Eosinophils % 1.1 Basophils % 0.3 Nucleated RBC % 0.0 Absolute Neutrophils 5.33 Absolute Lymphocytes 0.96 L Absolute Monocytes 0.21 Absolute Eosinophils 0.07 Absolute Basophils 0.02 PT 10.9 INR 1.1 APTT 28.5 D-Dimer 1830 H ABG Sample Site ABG pH ABG pCO2 ABG pO2 ABG HCO3 ABG Total CO2 ABG O2 Saturation ABG Base Excess Sodium 138 Potassium 3.5 Chloride 103 Carbon Dioxide 19.5 L Anion Gap 15.5 H BUN 14 Creatinine 0.9 Est GFR (CKD-EPI 2020) 64.23 Glucose 131 H Calcium 9.0 Magnesium 1.9 Total Bilirubin 0.7 AST 16 ALT 13 L Alkaline Phosphatase 146 H Troponin I < 50 NT-Pro-B Natriuret Pep 2151 H Total Protein 7.4 Albumin 3.7 10/30/22 10/30/22 10/30/22 15:11 21:55 23:42 WBC RBC Hgb Hct MCV MCH MCHC RDW Plt Count MPV Immature Gran % Neutrophils % Lymphocytes % Monocytes % Eosinophils % Basophils % Nucleated RBC % Absolute Neutrophils Absolute Lymphocytes Absolute Monocytes Absolute Eosinophils Absolute Basophils PT INR APTT D-Dimer ABG Sample Site Left Radial ABG pH 7.53 H ABG pCO2 20 L ABG pO2 145 H ABG HCO3 16 L ABG Total CO2 15 L ABG O2 Saturation 95 ABG Base Excess -7 L Sodium Potassium Chloride Carbon Dioxide Anion Gap BUN Creatinine Est GFR (CKD-EPI 2020) Glucose Calcium Magnesium Total Bilirubin AST ALT Alkaline Phosphatase Troponin I 4161 H* 5663 H* NT-Pro-B Natriuret Pep Total Protein Albumin Time Spent with Patient Time Spent with Patient: 35-49 minutes Time was spent: preparing to see the patient(eg.review tests), obtaining and/or reviewing separately otained hiistory, ordering medications,tests, procedures, referring, communicating with other health pharmacy care coordinator, indepentently interpreting results and counseling the patient
[2022-10-31] MEDS: Heparin in 0.45% NaCl 25,000 UNIT/250 ML BAG 7 UNIT IV (00:57)
[2022-10-31] MEDS: Metoprolol 12.5 MG TAB PO (01:06)
[2022-10-31] MEDS: traMADol 50 MG TAB PO (01:14)
[2022-10-31 07:04] LABS: Anion Gap 11.5 mmol/L (3-11); BUN 20 mg/dL (7-18); CO2 22.5 mmol/L (21.0-32.0); CREATININE 0.9 mg/dL (0.55-1.02); Calcium 8.3 mg/dL (8.5-10.1); Chloride 106 mmol/L (98-107); Estimated GFR 64.23 (mL/min/1.73m2); Glucose 112 mg/dL (74-106); Magnesium 1.7 mg/dL (1.8-2.4); Potassium 3.5 mmol/L (3.5-5.1); Sodium 140 mmol/L (136-145)
[2022-10-31] MEDS: Normal Saline Flush 10 ML SYR IVP (07:38)
[2022-10-31] MEDS: Furosemide 20 MG/2 ML VIAL IVP (07:39)
[2022-10-31 07:53] LABS: PTT Activated > 155.0 sec (21.5-31.9)
[2022-10-31 08:30] LABS: Troponin I 5529 ng/L (<or=60)
--- NOTE | 2022-10-31 12:45 | RT.EKG_ITS ---
APPROVED REPORT Exam: Resting ECG Reason for Exam: NSTEMI. Upper back pain currently Patient Location: I HR:74 bpm ECG Measurements Heart Rate 74 AXIS OH 168 P -6 QRSd 98 QRS -14 QT 458 T 155 QTc 509 Conclusion Sinus rhythm...normal P axis, V-rate 50- 99 Low voltage, precordial leads...precordial leads <1.0mV Abnrm T, consider ischemia, anterolateral lds...T <-0.20mV, I aVL V2-V6 Prolonged QT interval...QTc >500mS
[2022-10-31] MEDS: nitroGLYcerin 0.4 MG TAB SL (12:55)
--- NOTE | 2022-10-31 13:00 | RT.EKG_ITS ---
APPROVED REPORT Exam: Resting ECG Reason for Exam: Back pain w/elevated trops (right sided EKG) Patient Location: I HR:61 bpm ECG Measurements Heart Rate 61 AXIS NV 178 P 53 QRSd 101 QRS -20 QT 470 T 147 QTc 474 Conclusion Sinus rhythm...normal P axis, V-rate 50- 99 Borderline left axis deviation...QRS axis (-15,-29) Probable lateral infarct, age indeterminate...Q >35mS, T neg, V5-V6 I aVL
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
--- NOTE | 2022-10-31 13:32 | PDOC.CMIN ---
Date of service: 10/31/22 Time of Service: 13:32 Care Management Initial Assmt Initial Assessment REASON FOR HOSPITALIZATION:: Congestive Heart Failure PREVIOUS FUNCTIONAL STATUS/SOCIAL/FAMILY SUPPORTS:: Sarita lives in [facility], [facility]. She recently moved to [place] from [place], to be closer to her daughter, Eliza, and her grand daughter. She has another daughter who lives in [place]. Her children are very supportive, and Sarita is very independent. CURRENT FUNCTIONAL STATUS:: Sarita was visiting with her daughter, Eliza, when CM met with her. She was pleasant and engaged well in conversation. She stated that she feels she is being taken care of very well at [facility], and is appreciative of the staff. She stated that per [place], she has been accepted in transfer to [facility], awaiting bed availability. She will be transported via EMS once a bed becomes available. CM will continue to follow. ADVANCE DIRECTIVES:: Not on file, CM will offer forms. Has patient been provided with info about the portal/API?: Yes Did the patient sign up for the portal?: Yes CODE STATUS:: Full Code INSURANCE COVERAGE / FINANCIAL ISSUES:: MCR/BCBS CURRENT HOME/COMMUNITY SERVICES/EQUIPMENT:: No current services or equipment. PRIMARY CARE PHYSICIAN:: No local PCP POTENTIAL DISCHARGE NEEDS:: transfer to [facility], transportation PATIENT/FAMILY EDUCATION NEEDS:: Review discharge instructions, expectations for transfer of care. ANTICIPATED BARRIERS TO DISCHARGE:: Bed availability at accepting facility. TRANSPORTATION:: EMS transport PLAN:: Sarita was accepted in transfer to [facility], pending bed availability. RN field pipelines supervisor will coordinate EMS transport once a bed becomes available. She will follow up with her discharge plan of care. CM will continue to follow. PFSH All Active Problems (Updated 10/31/22 @ 00:47 by Castro Strickland) Atrial arrhythmia (Acute) NSTEMI (non-ST elevated myocardial infarction) (Acute) Essential hypertension (Acute) Pancreatic cancer (Acute) Congestive heart failure (Chronic) Pulmonary fibrosis (Acute) Social History Smoking/Tobacco Use Status: Never Smoking risk assessment performed?: Yes Housing: apartment
[2022-10-31] MEDS: Normal Saline 500 ML 250 ML IV (13:55)
--- NOTE | 2022-10-31 14:07 | NUR.NOTE ---
Nursing Note: Patient transferred to ICU 14:00, report given to Pam Angelo RN at that time. Patient and all belongings were brought to room 222.
[2022-10-31 14:13] LABS: PTT Activated 69.5 sec (21.5-31.9)
[2022-10-31] MEDS: nitroGLYcerin in D5W 50 MG/250 ML BTL IV (14:34)
--- NOTE | 2022-10-31 15:13 | DSE_ITS ---
Date of service: 10/31/22 Time of Service: 15:19 DS: Diagnosis Discharge Diagnosis (1) NSTEMI (non-ST elevated myocardial infarction): Status: Acute Asessment and Plan: Initial troponin negative. She has had intermittent upper back pain between the scapula. She does now state that this was occurring at the time of her acute shortness of air that brought in to the ED. Her back pain is likely an anginal equivelent. On day of discharge she was noted to have EKG changes on telemetry. EKG showed new lateral T-wave inversions. At the same time she endorsed upper back pain between her scapula as well as a pressure-like discomfort in the lower left chest. She was given a nitorglycerine and a bolus of 250ml NS given SBP of 98. [facility] cardiology consulted. Nitro drip initiated. Continuing on a heparin drip. On Aspirin and atorvastatin. (2) Pulmonary fibrosis: Status: Acute Asessment and Plan: Known history. Is not followed by pulmonary medicine but is agreeable to being referred. Not on supplemental O2 chronically. (3) Congestive heart failure: Status: Chronic Asessment and Plan: New onset. No peripheral edema. Diuresed with lasix. Secondary to NSTEMI. (4) Pancreatic cancer: Status: Acute Asessment and Plan: [place]ipple in 2020 with more recent recurrence and mets to lung. Lung mets responded to radiation tx. She has now received 2 rounds of chemotherapy. On Creon with meals as well as cholestyramine. (5) Essential hypertension: Status: Acute Asessment and Plan: Holding antihypertensives at this time d/t low BP. Discharge Plan Disposition Patient Disposition: Transfer-Acute Inpatient Care Specific Acute In Facility: [facility] Condition: Serious Discharge Details Reason For Visit: NSTEMI, Congestive heart failure Admit Date/Time: 10/30/22 17:37 Admit Provider: Aj Hicks Attending Provider: Aj Hicks Primary Care Provider: None,None Hospital Course Hospital Course: This is an 82 yo female with a PMH of recurrent metastatic pancreatic cancer actively undergoing chemotherapy, pulmonary fibrosis, HTN.? On the day of admission she walking out of her treatment when she experienced a sudden onset of shortness of breath.? No CP/palpitations, fever/chills.? She was noted to be tachynpneic on arrival and placed on a nonrebreather.? She was subsequently weaned back to room air and was only mildly to moderately tachypneic.? WBC count normal. Hgb 10.1.? Initial troponin negative.? Second troponin pending at time of admission. CT chest w/o pulmonary embolism but + for extensive pulmonary fibrosis.? NTProBNP elevated at 2151. She was administered IV lasix in the ED.? She has no history of previous CHF.? She will be admitted as observation for further diuresis. See Diagnosis Home Meds and New Rx's Prescriptions: No Action amlodipine 5 mg tablet 5 mg PO PRN PRN Patient Comments: TAKE ONE TABLET BY MOUTH EVERY DAY tramadol 50 mg tablet 50 mg PO PRN PRN Patient Comments: TAKE 1 TABLET BY MOUTH EVERY 6 HOURS NEEDED FOR PAIN potassium chloride 20 mEq tablet,ER particles/crystals 20 meq PO DAILY Patient Comments: TAKE ONE TABLET BY MOUTH EVERY DAY gabapentin 300 mg capsule 300 mg PO PRN PRN Patient Comments: TAKE ONE CAPSULE BY MOUTH THREE TIMES DAILY hydrochlorothiazide 25 mg tablet 25 mg PO DAILY Patient Comments: TAKE 1 TABLET BY MOUTH DAILY losartan 100 mg tablet 100 mg PO DAILY Patient Comments: TAKE ONE TABLET BY MOUTH EVERY DAY Discharge Instructions Activity:: bedrest Equipment/Supplies:: No Equipment Needed Diet:: per [facility] Discharge Orders Discharge Orders: Discharge Order (Routine); Ordered 10/31/22 Ordered By: Aj Hicks DS: Summary Time Spent with Patient providing and/or coordinating discharge services: Greater than 30 minutes Status at Discharge Functional status at discharge: independent ambulation Overall status at discharge: patient is not back to baseline Mental Status: mental status grossly normal Speech and Movement: speech and movement normal Mood: congruent mood Affect: normal affect Exam Psych Mental Status: mental status grossly normal Speech and Movement: speech and movement normal Mood: congruent mood Affect: normal affect DS: Data Vitals/I&O Vitals and I&O: Vital Signs Temperature 36.2 C L 10/31/22 14:49 Temperature Source Temporal Artery Scan 10/31/22 14:49 Pulse 60 10/31/22 14:49 Pulse Rhythm Irregular 10/31/22 09:10 Pulse 70 10/31/22 14:31 Respiratory Rate 20 10/31/22 14:49 Respiratory Effort Normal, Non-Labored 10/31/22 14:49 Respiratory Depth Normal 10/31/22 14:49 Respiratory Pattern Normal 10/31/22 14:49 Blood Pressure 111/56 L 10/31/22 14:49 Blood Pressure Mean 74 10/31/22 14:49 Pulse Oximetry 95 10/31/22 14:49 Oxygen Delivery Method Room Air 10/31/22 12:46 Oxygen Flow Rate 0 10/31/22 12:46 Pain Level 5 10/31/22 14:49 Intake & Output 10/30/22 10/31/22 10/31/22 23:59 11:59 23:59 Intake Total 49.35 / 49.35 0 / 49.35 Output Total 400 / 900 500 / 900 Balance -350.65 / -850.65 -500 / -850.65 Weight 60.328 kg 59.2 kg 59.2 kg Intake: IV 49.35 / 49.35 0 / 49.35 Output: Urine 400 / 900 500 / 900 Other: Urine Color Yellow Yellow Urine Appearance Clear Clear Cloudy Data Completed and Pending Labs on day of discharge: Labs from last 24 hours 10/31/22 10/31/22 10/31/22 13:30 07:50 06:45 WBC RBC Hgb Hct MCV MCH MCHC RDW Plt Count MPV Immature Gran % Neutrophils % Lymphocytes % Monocytes % Eosinophils % Basophils % Nucleated RBC % Absolute Neutrophils Absolute Lymphocytes Absolute Monocytes Absolute Eosinophils Absolute Basophils PT INR APTT 69.5 H > 155.0 H* D-Dimer ABG Sample Site ABG pH ABG pCO2 ABG pO2 ABG HCO3 ABG Total CO2 ABG O2 Saturation ABG Base Excess Sodium Potassium Chloride Carbon Dioxide Anion Gap BUN Creatinine Est GFR (CKD-EPI 2020) Glucose Calcium Magnesium Total Bilirubin AST ALT Alkaline Phosphatase Troponin I 5529 H* NT-Pro-B Natriuret Pep Total Protein Albumin 10/31/22 10/30/22 10/30/22 06:45 23:42 21:55 WBC RBC Hgb Hct MCV MCH MCHC RDW Plt Count MPV Immature Gran % Neutrophils % Lymphocytes % Monocytes % Eosinophils % Basophils % Nucleated RBC % Absolute Neutrophils Absolute Lymphocytes Absolute Monocytes Absolute Eosinophils Absolute Basophils PT INR APTT D-Dimer ABG Sample Site ABG pH ABG pCO2 ABG pO2 ABG HCO3 ABG Total CO2 ABG O2 Saturation ABG Base Excess Sodium 140 Potassium 3.5 Chloride 106 Carbon Dioxide 22.5 Anion Gap 11.5 H BUN 20 H Creatinine 0.9 Est GFR (CKD-EPI 2020) 64.23 Glucose 112 H Calcium 8.3 L Magnesium 1.7 L Total Bilirubin AST ALT Alkaline Phosphatase Troponin I 5663 H* 4161 H* NT-Pro-B Natriuret Pep Total Protein Albumin 10/30/22 10/30/22 10/30/22 15:11 15:00 15:00 WBC 6.62 RBC 3.38 L Hgb 10.1 L Hct 31.4 L MCV 93 MCH 29.9 MCHC 32.2 RDW 15.9 H Plt Count 226 MPV 10.2 Immature Gran % 0.5 Neutrophils % 80.4 Lymphocytes % 14.5 Monocytes % 3.2 Eosinophils % 1.1 Basophils % 0.3 Nucleated RBC % 0.0 Absolute Neutrophils 5.33 Absolute Lymphocytes 0.96 L Absolute Monocytes 0.21 Absolute Eosinophils 0.07 Absolute Basophils 0.02 PT 10.9 INR 1.1 APTT 28.5 D-Dimer 1830 H ABG Sample Site Left Radial ABG pH 7.53 H ABG pCO2 20 L ABG pO2 145 H ABG HCO3 16 L ABG Total CO2 15 L ABG O2 Saturation 95 ABG Base Excess -7 L Sodium Potassium Chloride Carbon Dioxide Anion Gap BUN Creatinine Est GFR (CKD-EPI 2020) Glucose Calcium Magnesium Total Bilirubin AST ALT Alkaline Phosphatase Troponin I NT-Pro-B Natriuret Pep Total Protein Albumin 10/30/22 15:00 WBC RBC Hgb Hct MCV MCH MCHC RDW Plt Count MPV Immature Gran % Neutrophils % Lymphocytes % Monocytes % Eosinophils % Basophils % Nucleated RBC % Absolute Neutrophils Absolute Lymphocytes Absolute Monocytes Absolute Eosinophils Absolute Basophils PT INR APTT D-Dimer ABG Sample Site ABG pH ABG pCO2 ABG pO2 ABG HCO3 ABG Total CO2 ABG O2 Saturation ABG Base Excess Sodium 138 Potassium 3.5 Chloride 103 Carbon Dioxide 19.5 L Anion Gap 15.5 H BUN 14 Creatinine 0.9 Est GFR (CKD-EPI 2020) 64.23 Glucose 131 H Calcium 9.0 Magnesium 1.9 Total Bilirubin 0.7 AST 16 ALT 13 L Alkaline Phosphatase 146 H Troponin I < 50 NT-Pro-B Natriuret Pep 2151 H Total Protein 7.4 Albumin 3.7 PFSH All Active Problems Atrial arrhythmia (Acute) NSTEMI (non-ST elevated myocardial infarction) (Acute) Essential hypertension (Acute) Pancreatic cancer (Acute) Congestive heart failure (Chronic) Pulmonary fibrosis (Acute) Social History Smoking/Tobacco Use Status: Never Smoking risk assessment performed?: Yes Housing: apartment Time Spent with Patient Time Spent with Patient: 45-69 minutes Time was spent: preparing to see the patient(eg.review tests), obtaining and/or reviewing separately otained hiistory, referring, communicating with other [facility] child caregiver private home, counseling the patient and care coordination
--- NOTE | 2022-10-31 21:40 | NUR.NOTE ---
SEE scan chart for written RN notes & vitals during [facility] transport to [facility] Note:
[2022-11-06 07:03] LABS: Troponin I 4161 ng/L (<or=60)
== END 2022-10-31 15:45 | disposition short-term general hospital (02) ==
LOC: ER 17:44 → MS 18:20 → ICU 10-31 14:00
PROVIDERS: Family Medicine; Admitting Provider Family Medicine; Emergency Provider Emergency Medicine Emergency Medical Services; Visit Provider Family Medicine
DX: I21.4 Non-ST elevation (NSTEMI) myocardial infarction (principal); J84.10 Pulmonary fibrosis, unspecified; Z79.899 Other long term (current) drug therapy; I11.0 Hypertensive heart disease with heart failure; I50.9 Heart failure, unspecified; D84.9 Immunodeficiency, unspecified; R63.6 Underweight; Z68.21 Body mass index [BMI] 21.0-21.9, adult; C78.00 Secondary malignant neoplasm of unspecified lung
CPT/HCPCS: 36591; 71275; 80048; 80053; 82805; 93005; 96361; 96365; 96366; 96374; 96375; 96376; 99291; 36600; 83735; 83880; 84484; 85025; 85379; 85610; 85730; 86301; 87230; 93010; 99223; 99239; G0378; J1941; J3490

== ENCOUNTER 2022-11-13 00:53 | Outpatient (RCR) | payer MEDICARE, BC, SELFPAY ==
[2022-10-20 00:08] VITALS: BP 137/75; PULSE 61; RESP 18; TEMP 36.9
[2022-10-30] MEDS: Normal Saline Flush 10 ML SYR IVP (09:57)
[2022-10-30 10:07] LABS: Abs Immature Grans 0.04 10^3/uL (0.0-0.06); Absolute Basophil Count 0.02 10^3/uL (0.0-0.2); Absolute Eosinophil Count 0.11 10^3/uL (0.0-0.7); Absolute Lymphocyte Count 0.73 10^3/uL (1.2-3.4); Absolute Monocyte Count 0.56 10^3/uL (0.1-0.8); Basophils % 0.4; Eosinophils % 1.9; HCT 27.5 % (36.0-46.0); HGB 8.9 g/dL (11.2-15.7); Immature Grans % 0.7; Lymphocytes % 12.9; MCHC 32.4 % (32.0-36.0); MCV 93 fL (80-95); MPV 9.9 fL (8.0-11.0); Monocytes % 9.9; Neutrophils % 74.2; Platelet Count 180 10^3/uL (130-400); RBC 2.97 10^6/uL (3.93-5.22); RDW 15.7 % (11.7-14.6); RDW-SD 51.8 fL; WBC 5.66 10^3/uL (4.4-10.8)
[2022-10-30 10:22] LABS: ALT 13 U/L (14-59); AST 14 U/L (15-37); Albumin 3.2 g/dL (3.4-5.0); Alkaline Phosphatase 128 U/L (46-116); Anion Gap 11.8 mmol/L (3-11); BUN 16 mg/dL (7-18); Bilirubin, Total 0.7 mg/dL (0.2-1.0); CO2 21.2 mmol/L (21.0-32.0); CREATININE 0.9 mg/dL (0.55-1.02); Calcium 8.5 mg/dL (8.5-10.1); Chloride 107 mmol/L (98-107); Estimated GFR 64.23 (mL/min/1.73m2); Glucose 97 mg/dL (74-106); Potassium 3.2 mmol/L (3.5-5.1); Sodium 140 mmol/L (136-145); Total Protein 6.4 g/dL (6.4-8.2)
[2022-11-02 13:59] LABS: CA 19-9 23446 U/mL (<35)
[2022-11-12 08:31] LABS: C Difficile Cytotoxin Ab <1:2 titer (<1:2)
[2022-11-13 10:05] LABS: Abs Immature Grans 0.02 10^3/uL (0.0-0.06); Absolute Basophil Count 0.03 10^3/uL (0.0-0.2); Absolute Eosinophil Count 0.07 10^3/uL (0.0-0.7); Absolute Lymphocyte Count 0.75 10^3/uL (1.2-3.4); Absolute Monocyte Count 0.59 10^3/uL (0.1-0.8); Absolute Neutrophil Count 5.43 10^3/uL (1.2-6.7); Basophils % 0.4; Immature Grans % 0.3; Lymphocytes % 10.9; MCH 30.1 pg (27.0-33.0); MCHC 32.3 % (32.0-36.0); MCV 93 fL (80-95); MPV 10.2 fL (8.0-11.0); Monocytes % 8.6; Neutrophils % 78.8; Platelet Count 155 10^3/uL (130-400); RBC 3.32 10^6/uL (3.93-5.22); RDW 15.7 % (11.7-14.6); RDW-SD 53.5 fL; WBC 6.89 10^3/uL (4.4-10.8)
[2022-11-13 10:10] VITALS: BP 149/73; PULSE 97; RESP 24; TEMP 36.3; O2SAT 98
[2022-11-13] MEDS: Normal Saline Flush 10 ML SYR IVP (10:11)
[2022-11-13 10:34] LABS: ALT 15 U/L (14-59); AST 20 U/L (15-37); Alkaline Phosphatase 107 U/L (46-116); Anion Gap 14.7 mmol/L (3-11); BUN 12 mg/dL (7-18); Bilirubin, Total 0.7 mg/dL (0.2-1.0); CO2 18.3 mmol/L (21.0-32.0); CREATININE 0.8 mg/dL (0.55-1.02); Calcium 8.4 mg/dL (8.5-10.1); Chloride 106 mmol/L (98-107); Estimated GFR 73.98 (mL/min/1.73m2); Glucose 114 mg/dL (74-106); Potassium 3.1 mmol/L (3.5-5.1); Sodium 139 mmol/L (136-145); Total Protein 6.6 g/dL (6.4-8.2)
[2022-11-16 16:19] LABS: CA 19-9 23825 U/mL (<35)
== END 2022-11-19 23:59 | disposition home or self-care (01) ==
LOC: INF 00:53
PROVIDERS: Physician Assistant Medical; Visit Provider Internal Medicine Hematology & Oncology
DX: C25.9 Malignant neoplasm of pancreas, unspecified (principal); C78.7 Secondary malignant neoplasm of liver and intrahepatic bile duct; Z45.2 Encounter for adjustment and management of vascular access device
CPT/HCPCS: 36591; 80053; 85025; 86301; 87230

== ENCOUNTER 2022-11-13 09:56 | Inpatient (IN) | payer MEDICARE, BC, SELFPAY ==
[2022-11-13] VITALS (69 sets, daily range): BP systolic 117–156; BP diastolic 52–80; PULSE 63–131; RESP 12–23; TEMP 36.2–37; O2SAT 87–99
--- NOTE | 2022-11-13 09:45 | RT.EKG_ITS ---
APPROVED REPORT Exam: Resting ECG Reason for Exam: Dyspnea Patient Location: E HR:93 bpm ECG Measurements Heart Rate 93 AXIS IA 200 P 43 QRSd 90 QRS -16 QT 414 T 154 QTc 514 Conclusion Sinus rhythm...normal P axis, V-rate 60- 99 Abnrm T, consider ischemia, anterolateral lds...T <-0.20mV, I aVL V2-V6 Prolonged QT interval...QTc >500mS V2 biphasic
[2022-11-13 10:30] LABS: Abs Immature Grans 0.04 10^3/uL (0.0-0.06); Absolute Basophil Count 0.03 10^3/uL (0.0-0.2); Absolute Eosinophil Count 0.05 10^3/uL (0.0-0.7); Absolute Lymphocyte Count 0.57 10^3/uL (1.2-3.4); Absolute Monocyte Count 0.45 10^3/uL (0.1-0.8); Absolute Neutrophil Count 4.99 10^3/uL (1.2-6.7); Basophils % 0.5; Eosinophils % 0.8; HCT 30.6 % (36.0-46.0); HGB 9.7 g/dL (11.2-15.7); Immature Grans % 0.7; Lymphocytes % 9.3; MCH 29.7 pg (27.0-33.0); MCHC 31.7 % (32.0-36.0); MCV 94 fL (80-95); MPV 9.4 fL (8.0-11.0); Monocytes % 7.3; Neutrophils % 81.4; Platelet Count 133 10^3/uL (130-400); RBC 3.27 10^6/uL (3.93-5.22); RDW 15.5 % (11.7-14.6); RDW-SD 52.5 fL; WBC 6.13 10^3/uL (4.4-10.8)
[2022-11-13 10:42] LABS: INR 1.1 (0.9-1.1); PTT Activated 29.7 sec (21.5-31.9); Prothrombin Time 11.6 sec (9.3-11.0)
[2022-11-13 10:53] LABS: ALT 14 U/L (14-59); AST 18 U/L (15-37); Albumin 2.9 g/dL (3.4-5.0); Alkaline Phosphatase 106 U/L (46-116); Anion Gap 16.1 mmol/L (3-11); BUN 12 mg/dL (7-18); Bilirubin, Total 0.7 mg/dL (0.2-1.0); CO2 16.9 mmol/L (21.0-32.0); CREATININE 0.8 mg/dL (0.55-1.02); Calcium 8.5 mg/dL (8.5-10.1); Chloride 106 mmol/L (98-107); Estimated GFR 73.98 (mL/min/1.73m2); Glucose 110 mg/dL (74-106); Magnesium 1.7 mg/dL (1.8-2.4); NT-proBNP 10662 pg/mL (<300); Sodium 139 mmol/L (136-145); Total Protein 6.4 g/dL (6.4-8.2)
[2022-11-13 10:55] LABS: Troponin I 69 ng/L (<or=60)
--- NOTE | 2022-11-13 11:00 | DI.CT_ITS ---
Exam(s) CT CHEST PE CTA EXAM: CT CHEST PE CTA CLINICAL HISTORY: Shortness of breath. TECHNIQUE: Imaging Protocol: Axial CT angiography was performed with multi-slice acquisition and mu lti-planar and/or 3D reconstructions. CONTRAST MATERIAL: Intravenous: Omnipaque 350 contrast volume:100 mL COMPARISON: CT CT ABDOMEN PELVIS W from 10/01/[address] CHEST PE CTA from 10/30/2022 FINDINGS: The examination is limited due to patient motion artifact. Tracheobronchial tree: Patent where visualized. Pulmonary parenchyma: Extensive pulmonary fibrosis. There are increased interstitial markings seen p redominantly in the lung bases. This may represent edema or pneumonia. No focal consolidating infil trates are seen. Pulmonary Arteries: No evidence of filling defect to suggest pulmonary emboli. Mediastinum and Keysha: No dominant adenopathy or fluid collection. The esophagus is unremarkable. Th ere is a small hiatal hernia. Visualized thyroid gland: Unremarkable. Pleura: No effusion or pneumothorax. Heart: Cardiomegaly. Coronary artery calcifications are present. No pericardial effusion. Aorta: Thoracic aorta non-dilated. No evidence of dissection. Atherosclerosis. Upper abdomen: Pneumobilia is again seen. There is a stable hypodense mass in the right lobe of the liver peripherally. Tubes, Catheters, and Lines: The Port-A-Cath is in place. Soft tissues: Unremarkable. Bones: Within normal limits for the patient's age. IMPRESSION: 1. No evidence of pulmonary embolism, thoracic aortic dissection or aneurysm. 2. Increased interstitial markings bilaterally which may represent edema or pneumonia. 3. Stable hepatic mass. 4. Findings were discussed with Raymond Bender at 3:12 p.m. on 11/13/2022. RADIATION DOSE DELIVERED: 312.74mGy.cm Total DLP DATA REPOSITORY: All CT scans at this facility are submitted to the National Radiology Data Registry (NRDR) Dose Index Registry (DIR) with the [employer] ([employer]). RADIATION OPTIMIZATION: All CT scans at this facility use at least one of these dose optimization te chniques: automated exposure control; mA and/or kV adjustment per patient size (includes targeted exa ms where dose is matched to clinical indication); or iterative reconstruction.
[2022-11-13 11:05] LABS: COVID-19 PCR Negative (Negative); Influenza A PCR Negative (Negative); Influenza B PCR Negative (Negative); RSV PCR Negative (Negative)
[2022-11-13 11:07] LABS: Source Nasopharynx
[2022-11-13] MEDS: Magnesium Oxide 400 MG TAB PO (11:13)
[2022-11-13] MEDS: Potassium Chloride 20 MEQ TABCR 40 MEQ PO (11:13)
--- NOTE | 2022-11-13 11:53 | W.ED.GENAD ---
Discharge Plan Disposition Patient Disposition: Admit to [facility] Discharge Details Clinical Impression: Congestive heart failure, Pancreatic cancer, Pulmonary fibrosis Admit Date/Time: 11/13/22 15:57 Admit Provider: Aj Hicks Attending Provider: Aj Hicks Primary Care Provider: Gibran Hinkle ED Provider: Raymond Bender Discharge Data Discharge Date/Time-TO BE ENTERED AT DEPARTURE: 11/13/22 17:07 Medical Decision Making Patient presenting to the emergency department for chief complaint of increasing fatigue, shortness of breath especially with activity, and mild intermittent cough. Patient was recently admitted to [facility] for NSTEMI and was just discharged a couple days ago. Patient was anemic while at [facility] and did receive a blood transfusion. Patient has significant past medical history of CHF, pancreatic cancer, essential hypertension, pulmonary fibrosis. Patient denies any fever chills, abdominal pain nausea vomiting. Physical exam shows fairly significant diminished lung sounds bilaterally in the bases with slightly diminished and otherwise normal lung sounds in upper [place]. Normal cardiac exam and exam is otherwise nondiagnostic. We will plan on checking labs, EKG, and advanced imaging of chest. Please see physician interpretation for full interpretation of EKG but upon my review patient is in sinus rhythm, rate of 93, abnormal T waves with T wave inversion in V2 that does seem to be new from previous EKG. Machine does note prolonged QT interval. At this time I do not feel patient meets criteria for acute STEMI but will continue to monitor. Reviewed patient's labs and does show anemia with hemoglobin 9.7 otherwise nondiagnostic CBC, patient is slightly hypokalemic with potassium of 3.0, low magnesium of 1.7, carbon dioxide is low at 16.9 and anion gap elevated at 16, initial troponin is slightly positive at 69 but when patient did have NSTEMI value was greater than 5000. So I question if this is more residual given that she was just discharged a couple days ago so we will continue to monitor. BNP is 10,662 which is significantly elevated from previous reading of 1999. Patient negative for COVID flu and RSV. Pending CT imaging and repeat troponin patient did seem to have intermittent atrial fibrillation noted on the monitor with rate going up to 120s. EKG was performed and shows deepening T waves in V2 otherwise very similar to previous EKG. We will continue to monitor. Pending CT imaging repeat troponin did slightly increase to 89. Patient denies severe chest pain or discomfort. Discussed patient about her department stay which she stated she had an unremarkable angiogram but they felt that her cardiac issues and cardiac/heart weakness was due to her chemotherapy. Patient has not received any further chemo since being admitted to [facility]. After CT imaging we will plan on consulting with [facility] cardiology group. CT imaging shows findings that may suggest pulmonary edema. I do feel that that fits with patient's picture of increased shortness of breath and significantly elevated BNP. We will give 40 mg IV push of Lasix and contact [facility]. Spoke with Dr. Vital model maker fiberglass fellow at [facility]. After review of the case he feels that patient is having some further symptoms of CHF. Recommended diuresis starting with 40 mg IV push Lasix which is already been given in the ED. He recommended getting patient to dry weight of 60 kg which today she is at 62.2. Also recommended discharging patient on daily diuretic on top of the metoprolol she is already on. Otherwise made no further recommendations after review of EKG and discussion of case. Called and spoke to hospitalist group. Agreed to admit patient for CHF. Medical Records Medical records reviewed: Yes I reviewed the patient's medical records. Imaging Data Radiologic Study: Imaging: CT Scan Radiologist's impression: COMPARISON: CT CT ABDOMEN PELVIS W from 10/01/[address] CHEST PE CTA from 10/30/2022 FINDINGS: The examination is limited due to patient motion artifact. Tracheobronchial tree: Patent where visualized. Pulmonary parenchyma: Extensive pulmonary fibrosis. There are increased interstitial markings seen predominantly in the lung bases. This may represent edema or pneumonia. No focal consolidating infiltrates are seen. Pulmonary Arteries: No evidence of filling defect to suggest pulmonary emboli. Mediastinum and Keysha: No dominant adenopathy or fluid collection. The esophagus is unremarkable. There is a small hiatal hernia. Visualized thyroid gland: Unremarkable. Pleura: No effusion or pneumothorax. Heart: Cardiomegaly. Coronary artery calcifications are present. No pericardial effusion. Aorta: Thoracic aorta non-dilated. No evidence of dissection. Atherosclerosis. Upper abdomen: Pneumobilia is again seen. There is a stable hypodense mass in the right lobe of the liver peripherally. Tubes, Catheters, and Lines: The Port-A-Cath is in place. Soft tissues: Unremarkable. Bones: Within normal limits for the patient's age. IMPRESSION: 1. No evidence of pulmonary embolism, thoracic aortic dissection or aneurysm. 2. Increased interstitial markings bilaterally which may represent edema or pneumonia. 3. Stable hepatic mass. 4. Findings were discussed with Raymond Bender at 3:12 p.m. on 11/13/2022. Lab Data Lab results reviewed: Yes I reviewed the patient's lab results. HPI General Mode of arrival: wheelchair. Date/Time Provider Initiated Documentation: 11/13/22 09:59. Limitations to Documentation: no limitations. Information obtained by: patient, family and RN notes reviewed. History of Present Illness 82 year old F presents to the emergency department with the chief complaint of Fatigue, shortness of breath, intermittent cough, described as moderate, Patient started experiencing this day(s) (3) and it has been constant. No relieving factors improve symptom(s), No exacerbating factors reported . Patient did receive the following treatments prior to arrival, none Related Data Home Medications Medication Instructions Recorded Confirmed amlodipine 5 mg tablet 5 mg PO PRN PRN 10/30/22 10/30/22 gabapentin 300 mg capsule 300 mg PO PRN PRN 10/30/22 10/30/22 hydrochlorothiazide 25 mg tablet 25 mg PO DAILY 10/30/22 10/30/22 losartan 100 mg tablet 100 mg PO DAILY 10/30/22 10/30/22 potassium chloride 20 mEq 20 meq PO DAILY 10/30/22 10/30/22 tablet,extended release(part/cryst) tramadol 50 mg tablet 50 mg PO PRN PRN 10/30/22 11/13/22 cholestyramine (with sugar) 4 gram 1 packet PO 3XD 11/13/22 11/13/22 powder for susp in a packet [id number]-[id number]-[id number] cap PO 11/13/22 24,000-76,000-120,000 unit capsule,delayed rel (Creon) metoprolol succinate 25 mg 25 mg PO 1XD 11/13/22 11/13/22 tablet,extended release 24 hr Allergies Allergy/AdvReac Type Severity Reaction Status Date / Time acetaminophen [From [place]] AdvReac Dizziness/L Unverified 11/13/22 10:13 ighthead hydrocodone [From [place]] AdvReac Dizziness/L Unverified 11/13/22 10:13 ighthead General Stated Complaint: SOB HANNAH: 3 Review of Systems Constitutional Constitutional: Denies chills, Reports fatigue, Denies fever(s), Denies headache(s), Reports lethargy and Reports malaise ENT Ears, Nose, Mouth, and Throat: Denies headache(s) Cardiovascular Cardiovascular: Denies chest pain, Denies syncope, Denies leg edema, Denies lightheadedness and Reports dyspnea Respiratory Respiratory: Reports as per HPI, Reports cough, Denies excessive phlegm production, Denies pain on inspiration, Denies pain with cough and Reports dyspnea Gastrointestinal Gastrointestinal: Denies abdominal pain and Denies nausea Integumentary/Breasts Skin/Breast: Denies rash Neurologic Neurologic: Denies syncope and Denies headache(s) Endocrine Endocrine: Reports fatigue PFSH All Active Problems (Updated 11/13/22 @ 16:00 by Raymond Bender NP) NSTEMI (non-ST elevated myocardial infarction) (Acute) Essential hypertension (Acute) Pancreatic cancer (Acute) Congestive heart failure (Chronic) Pulmonary fibrosis (Acute) Social History Smoking/Tobacco Use Status: Never Smoking risk assessment performed?: Yes Substance use type: does not use Housing: apartment Exam Const General: cooperative, no acute distress and ill appearing acutely and chronically Nutritional Appearance: thin Orientation: alert, awake and oriented x3 HENMT Mouth: moist mucous membranes Resp Effort & Inspection: normal respiratory effort, able to speak in complete sentences, no respiratory distress and no use of accessory muscles Auscultation: diminished lung sounds bilaterally in the lower lung [place] Cardio Rate: regular rate Rhythm: regular rhythm Heart Sounds: S1 normal and S2 normal Skin General skin exam: no rashes or lesions noted Neuro General: patient alert, patient awake, patient oriented x3, moves all extremities and no focal motor deficits Sensory Exam: no sensory deficits noted Course Vital Signs Vital signs: Vital Signs Temperature 36.5 C 11/13/22 10:05 Pulse 91 H 11/13/22 10:05 Respiratory Rate 20 11/13/22 10:05 Blood Pressure 156/62 H 11/13/22 10:05 Pulse Oximetry 96 11/13/22 10:05 Temperature 36.5 C 11/13/22 10:05 Temperature Source Oral 11/13/22 10:05 Pulse 82 11/13/22 11:31 Pulse 84 11/13/22 11:31 Respiratory Rate 20 11/13/22 11:31 Respiratory Effort Normal 11/13/22 10:08 Respiratory Depth Normal 11/13/22 10:08 Respiratory Pattern Normal 11/13/22 10:08 Blood Pressure 131/53 L 11/13/22 11:31 Blood Pressure Mean 73 11/13/22 11:31 Blood Pressure Position Sitting 11/13/22 10:05 Pulse Oximetry 97 11/13/22 11:31 Oxygen Delivery Method Room Air 11/13/22 10:05 Oxygen Flow Rate 0 11/13/22 10:05 Lab/Test Results Lab/Test Results: Laboratory Tests Range/Units 11/13/22 11/13/22 11/13/22 10:20 10:20 10:20 WBC (4.4-10.8) 10^3/uL 6.13 RBC (3.93-5.22) 10^6/uL 3.27 L Hgb (11.2-15.7) g/dL 9.7 L Hct (36.0-46.0) % 30.6 L MCV (80-95) fL 94 MCH (27.0-33.0) pg 29.7 MCHC (32.0-36.0) % 31.7 L RDW (11.7-14.6) % 15.5 H Plt Count (130-400) 10^3/uL 133 MPV (8.0-11.0) fL 9.4 Immature Gran % 0.7 Neutrophils % 81.4 Lymphocytes % 9.3 Monocytes % 7.3 Eosinophils % 0.8 Basophils % 0.5 Nucleated RBC % (0.0-0.3) % 0.0 Absolute Neutrophils (1.2-6.7) 10^3/uL 4.99 Absolute Lymphocytes (1.2-3.4) 10^3/uL 0.57 L Absolute Monocytes (0.1-0.8) 10^3/uL 0.45 Absolute Eosinophils (0.0-0.7) 10^3/uL 0.05 Absolute Basophils (0.0-0.2) 10^3/uL 0.03 PT (9.3-11.0) sec INR (0.9-1.1) APTT (21.5-31.9) sec Sodium (136-145) mmol/L 139 Potassium (3.5-5.1) mmol/L 3.0 L Chloride (98-107) mmol/L 106 Carbon Dioxide (21.0-32.0) mmol/L 16.9 L Anion Gap (3-11) mmol/L 16.1 H BUN (7-18) mg/dL 12 Creatinine (0.55-1.02) mg/dL 0.8 Est GFR (CKD-EPI 2020) (mL/min/1.73m2) 73.98 Glucose (74-106) mg/dL 110 H Calcium (8.5-10.1) mg/dL 8.5 Magnesium (1.8-2.4) mg/dL 1.7 L Total Bilirubin (0.2-1.0) mg/dL 0.7 AST (15-37) U/L 18 ALT (14-59) U/L 14 Alkaline Phosphatase (46-116) U/L 106 Troponin I (<or=60) ng/L 69 H* NT-Pro-B Natriuret Pep (<300) pg/mL 64976 H Total Protein (6.4-8.2) g/dL 6.4 Albumin (3.4-5.0) g/dL 2.9 L COVID-19 Source Nasopharynx SARS-CoV-2 (PCR) (Negative) Negative Influenza Type A (PCR) (Negative) Negative Influenza Type B (PCR) (Negative) Negative RSV (PCR) (Negative) Negative Range/Units 11/13/22 10:20 WBC (4.4-10.8) 10^3/uL RBC (3.93-5.22) 10^6/uL Hgb (11.2-15.7) g/dL Hct (36.0-46.0) % MCV (80-95) fL MCH (27.0-33.0) pg MCHC (32.0-36.0) % RDW (11.7-14.6) % Plt Count (130-400) 10^3/uL MPV (8.0-11.0) fL Immature Gran % Neutrophils % Lymphocytes % Monocytes % Eosinophils % Basophils % Nucleated RBC % (0.0-0.3) % Absolute Neutrophils (1.2-6.7) 10^3/uL Absolute Lymphocytes (1.2-3.4) 10^3/uL Absolute Monocytes (0.1-0.8) 10^3/uL Absolute Eosinophils (0.0-0.7) 10^3/uL Absolute Basophils (0.0-0.2) 10^3/uL PT (9.3-11.0) sec 11.6 H INR (0.9-1.1) 1.1 APTT (21.5-31.9) sec 29.7 Sodium (136-145) mmol/L Potassium (3.5-5.1) mmol/L Chloride (98-107) mmol/L Carbon Dioxide (21.0-32.0) mmol/L Anion Gap (3-11) mmol/L BUN (7-18) mg/dL Creatinine (0.55-1.02) mg/dL Est GFR (CKD-EPI 2020) (mL/min/1.73m2) Glucose (74-106) mg/dL Calcium (8.5-10.1) mg/dL Magnesium (1.8-2.4) mg/dL Total Bilirubin (0.2-1.0) mg/dL AST (15-37) U/L ALT (14-59) U/L Alkaline Phosphatase (46-116) U/L Troponin I (<or=60) ng/L NT-Pro-B Natriuret Pep (<300) pg/mL Total Protein (6.4-8.2) g/dL Albumin (3.4-5.0) g/dL COVID-19 Source SARS-CoV-2 (PCR) (Negative) Influenza Type A (PCR) (Negative) Influenza Type B (PCR) (Negative) RSV (PCR) (Negative)
--- NOTE | 2022-11-13 13:45 | RT.EKG_ITS ---
APPROVED REPORT Exam: Resting ECG Reason for Exam: Tachycardia Patient Location: E HR:98 bpm ECG Measurements Heart Rate 98 AXIS IN 221 P 79 QRSd 89 QRS -18 QT 403 T 147 QTc 492 Conclusion Sinus rhythm...normal P axis, V-rate 60- 99 Atrial premature complexes...SV complexes w/ short R-R intvls Prolonged IN interval...IN >215, V-rate 91-120 Abnrm T, consider ischemia, anterolateral lds...T <-0.20mV, I aVL V2-V6 intermittent afib?
[2022-11-13] MEDS: Omnipaque 350 MG/ML 100 ML BTL IJ (14:28)
[2022-11-13] MEDS: Normal Saline Flush 10 ML SYR IVP (14:29)
[2022-11-13] MEDS: Normal Saline - Diluent 50 ML VIAL IJ (14:29)
[2022-11-13 14:31] LABS: Troponin I 84 ng/L (<or=60)
[2022-11-13] MEDS: Furosemide 40 MG/4 ML VIAL IVP (15:44)
--- NOTE | 2022-11-13 15:51 | HPE_ITS ---
Date of service: 11/13/22 Time of Service: 15:51 Assessment and Plan Assessment and plan (1) Congestive heart failure: Status: Chronic Assessment and plan: Elevated BNP. Troponin negative; repeat is pending. Diereses to continue with IV lasix. Monitor K and creatinine. Will need an echocardiogram that won't be available this weekend. Should be OK to obtain as outpt. (2) Pancreatic cancer: Status: Acute Assessment and plan: She has a PMH of Whipple procedure in 2020. Now undergoing chemotherapy for metastatic pancreatic CA. She has also undergone radiation treatment of lung mets. Day of this admission she received her second round of chemotherapy. She did not have any untoward side effects with the initial chemo. (3) Essential hypertension: Status: Acute Assessment and plan: Cont amlodipine and losartan Monitor. History of Present Illness History of Present Illness Chief Complaint: shortness of breath Review of Systems All systems reviewed & are unremarkable except as noted in HPI and below PFSH All Active Problems (Updated 11/14/22 @ 16:49 by Diane Velez NP) Diarrhea (Chronic) Hypokalemia (Acute) NSTEMI (non-ST elevated myocardial infarction) (Acute) Essential hypertension (Acute) Pancreatic cancer (Acute) Congestive heart failure (Chronic) Pulmonary fibrosis (Acute) Social History Smoking/Tobacco Use Status: Never Smoking risk assessment performed?: Yes Substance use type: does not use Housing: apartment Meds Allergies and Home Medications Allergies Allergy/AdvReac Type Severity Reaction Status Date / Time acetaminophen [From [place]] AdvReac Dizziness/L Unverified 11/13/22 10:13 ighthead hydrocodone [From [place]] AdvReac Dizziness/L Unverified 11/13/22 10:13 ighthead Home Medications Medication Instructions Recorded Confirmed Type amlodipine 5 mg tablet 5 mg PO PRN PRN 10/30/22 10/30/22 History gabapentin 300 mg capsule 300 mg PO PRN PRN 10/30/22 10/30/22 History hydrochlorothiazide 25 mg tablet 25 mg PO DAILY 10/30/22 10/30/22 History losartan 100 mg tablet 100 mg PO DAILY 10/30/22 10/30/22 History potassium chloride 20 mEq 20 meq PO DAILY 10/30/22 10/30/22 History tablet,extended release(part/cryst) tramadol 50 mg tablet 50 mg PO PRN PRN 10/30/22 11/13/22 History cholestyramine (with sugar) 4 gram 1 packet PO 3XD 11/13/22 11/13/22 History powder for susp in a packet [id number]-[id number]-goinqbc cap PO 11/13/22 History 24,000-76,000-120,000 unit capsule,delayed rel (Creon) metoprolol succinate 25 mg 25 mg PO 1XD 11/13/22 11/13/22 History tablet,extended release 24 hr Exam Const General: cooperative, no acute distress and frail appearing Nutritional Appearance: thin Orientation: alert, awake and oriented x3 HENMT Head: normal to inspection and normocephalic Face and sinus: normal facial exam Neck Neck: no JVD Resp Effort & Inspection: normal respiratory effort Auscultation: rales (bases) bilaterally and no wheezes Cardio Rate: regular rate Rhythm: regular rhythm GI Inspection: normal to inspection Skin General skin exam: no rashes or lesions noted Neuro General: patient alert, patient awake, patient oriented x3 and no focal motor deficits Extrem General: normal to inspection and no pedal edema Results Labs 11/14/22 05:35 11/14/22 05:35 Labs: Laboratory Results - last 24 hr 11/13/22 11/13/22 11/13/22 10:20 10:20 10:20 WBC 6.13 RBC 3.27 L Hgb 9.7 L Hct 30.6 L MCV 94 MCH 29.7 MCHC 31.7 L RDW 15.5 H Plt Count 133 MPV 9.4 Immature Gran % 0.7 Neutrophils % 81.4 Lymphocytes % 9.3 Monocytes % 7.3 Eosinophils % 0.8 Basophils % 0.5 Nucleated RBC % 0.0 Absolute Neutrophils 4.99 Absolute Lymphocytes 0.57 L Absolute Monocytes 0.45 Absolute Eosinophils 0.05 Absolute Basophils 0.03 PT INR APTT Sodium 139 Potassium 3.0 L Chloride 106 Carbon Dioxide 16.9 L Anion Gap 16.1 H BUN 12 Creatinine 0.8 Est GFR (CKD-EPI 2020) 73.98 Glucose 110 H Calcium 8.5 Magnesium 1.7 L Total Bilirubin 0.7 AST 18 ALT 14 Alkaline Phosphatase 106 Troponin I 69 H* NT-Pro-B Natriuret Pep 30454 H Total Protein 6.4 Albumin 2.9 L COVID-19 Source Nasopharynx SARS-CoV-2 (PCR) Negative Influenza Type A (PCR) Negative Influenza Type B (PCR) Negative RSV (PCR) Negative 11/13/22 11/13/22 10:20 14:00 WBC RBC Hgb Hct MCV MCH MCHC RDW Plt Count MPV Immature Gran % Neutrophils % Lymphocytes % Monocytes % Eosinophils % Basophils % Nucleated RBC % Absolute Neutrophils Absolute Lymphocytes Absolute Monocytes Absolute Eosinophils Absolute Basophils PT 11.6 H INR 1.1 APTT 29.7 Sodium Potassium Chloride Carbon Dioxide Anion Gap BUN Creatinine Est GFR (CKD-EPI 2020) Glucose Calcium Magnesium Total Bilirubin AST ALT Alkaline Phosphatase Troponin I 84 H* NT-Pro-B Natriuret Pep Total Protein Albumin COVID-19 Source SARS-CoV-2 (PCR) Influenza Type A (PCR) Influenza Type B (PCR) RSV (PCR) Last Vital Signs Temp 36.5 C 11/13/22 10:05 Pulse 97 H 11/13/22 13:31 Resp 16 11/13/22 13:40 BP 131/56 L 11/13/22 13:31 Pulse Ox 96 11/13/22 13:40 Time Spent Time spent with Patient: 40-54 minutes Time was spent: preparing to see the patient(eg.review tests), ordering medications,tests, procedures and counseling the patient
[2022-11-13] MEDS: traMADol 50 MG TAB PO (19:28)
[2022-11-13] MEDS: Cholestyramine/Aspartame PKT 1 EACH PO (20:50)
[2022-11-13] MEDS: Normal Saline-STERILE FIELD 0.9% 10 ML SYR (23:23)
[2022-11-14] VITALS (11 sets, daily range): BP systolic 102–144; BP diastolic 58–74; PULSE 53–91; RESP 14–18; TEMP 35.8–37.3; O2SAT 94–97
[2022-11-14] MEDS: Cholestyramine/Aspartame PKT 1 EACH PO ×3 (05:37→16:40)
[2022-11-14 07:11] LABS: Abs Immature Grans 0.03 10^3/uL (0.0-0.06); Absolute Basophil Count 0.02 10^3/uL (0.0-0.2); Absolute Lymphocyte Count 0.71 10^3/uL (1.2-3.4); Absolute Monocyte Count 0.59 10^3/uL (0.1-0.8); Absolute Neutrophil Count 2.96 10^3/uL (1.2-6.7); Basophils % 0.5; Eosinophils % 2.3; HCT 31.1 % (36.0-46.0); HGB 9.8 g/dL (11.2-15.7); Immature Grans % 0.7; Lymphocytes % 16.1; MCH 29.8 pg (27.0-33.0); MCHC 31.5 % (32.0-36.0); MCV 95 fL (80-95); MPV 10.3 fL (8.0-11.0); Monocytes % 13.4; Platelet Count 121 10^3/uL (130-400); RBC 3.29 10^6/uL (3.93-5.22); RDW 15.9 % (11.7-14.6); WBC 4.41 10^3/uL (4.4-10.8)
[2022-11-14 07:35] LABS: ALT 11 U/L (14-59); AST 17 U/L (15-37); Albumin 2.4 g/dL (3.4-5.0); Alkaline Phosphatase 90 U/L (46-116); Anion Gap 15.2 mmol/L (3-11); BUN 9 mg/dL (7-18); Bilirubin, Total 0.5 mg/dL (0.2-1.0); CO2 16.8 mmol/L (21.0-32.0); CREATININE 0.7 mg/dL (0.55-1.02); Calcium 7.5 mg/dL (8.5-10.1); Chloride 108 mmol/L (98-107); Estimated GFR 86.83 (mL/min/1.73m2); Glucose 76 mg/dL (74-106); Magnesium 1.6 mg/dL (1.8-2.4); NT-proBNP 8638 pg/mL (<300); Sodium 140 mmol/L (136-145); Total Protein 5.4 g/dL (6.4-8.2)
[2022-11-14 07:40] LABS: Potassium 2.9 mmol/L (3.5-5.1)
[2022-11-14 07:41] LABS: Troponin I 61 ng/L (<or=60)
[2022-11-14] MEDS: Losartan 50 MG TAB 100 MG PO (08:10)
[2022-11-14] MEDS: Potassium Chloride 20 MEQ TABCR 40 MEQ PO ×3 (08:10→16:41)
[2022-11-14] MEDS: Metoprolol CR 25 MG TABCR PO (08:11)
[2022-11-14] MEDS: Furosemide 40 MG/4 ML VIAL IVP ×2 (08:11→15:34)
[2022-11-14] MEDS: hydroCHLOROthiazide 25 MG TAB PO (08:11)
[2022-11-14] MEDS: Normal Saline Flush 10 ML SYR IVP ×2 (08:12→15:34)
[2022-11-14] MEDS: traMADol 50 MG TAB PO ×2 (13:16→22:20)
--- NOTE | 2022-11-14 14:16 | W.PM.PROGNOT ---
Date of Service Date of service: 11/14/22 Time of Service: 14:16 Assessment and Plan Assessment and plan (1) Congestive heart failure: Status: Chronic Assessment and plan: responding well to diuresis with weight down today. will continue with IV lasix BID dosing, with close monitoring of I&O and weight. Monitor K and creatinine. Will need an echocardiogram that won't be available this weekend. Should be OK to obtain as outpt. (2) Pancreatic cancer: Status: Acute Assessment and plan: She has a PMH of Whipple procedure in 2020. Now undergoing chemotherapy for metastatic pancreatic CA. She has also undergone radiation treatment of lung mets. Day of this admission she received her second round of chemotherapy. She did not have any untoward side effects with the initial chemo. (3) Essential hypertension: Status: Acute Assessment and plan: Cont amlodipine and losartan Monitor. (4) Hypokalemia: Status: Acute Assessment and plan: replete and following worsened by diuresis and diarrhea (5) Diarrhea: Status: Chronic Assessment and plan: chronic, will continue cholestyramine discussed with DR Hicks Subjective Subjective Patient reports: no new complaints, feels better, tolerating liquids well, tolerating a regular diet and afebrile; denies shortness of breath Exam Const General: cooperative, no acute distress and frail appearing Nutritional Appearance: thin Orientation: alert, awake and oriented x3 HENMT Head: normal to inspection and normocephalic Face and sinus: normal facial exam Neck Neck: no JVD Resp Effort & Inspection: normal respiratory effort Auscultation: rales (bases) bilaterally and no wheezes Cardio Rate: regular rate Rhythm: regular rhythm GI Inspection: normal to inspection Skin General skin exam: no rashes or lesions noted Neuro General: patient alert, patient awake, patient oriented x3 and no focal motor deficits Extrem General: normal to inspection and no pedal edema Objective Last Vital Signs Temp 36.8 C 11/14/22 10:55 Pulse 62 11/14/22 10:55 Resp 16 11/14/22 10:55 BP 107/58 L 11/14/22 10:55 Pulse Ox 94 11/14/22 10:55 Laboratory Results - last 24 hr 11/13/22 11/14/22 11/14/22 14:00 05:35 05:35 WBC 4.41 RBC 3.29 L Hgb 9.8 L Hct 31.1 L MCV 95 MCH 29.8 MCHC 31.5 L RDW 15.9 H Plt Count 121 L MPV 10.3 Immature Gran % 0.7 Neutrophils % 67.0 Lymphocytes % 16.1 Monocytes % 13.4 Eosinophils % 2.3 Basophils % 0.5 Nucleated RBC % 0.0 Absolute Neutrophils 2.96 Absolute Lymphocytes 0.71 L Absolute Monocytes 0.59 Absolute Eosinophils 0.10 Absolute Basophils 0.02 Sodium 140 Potassium 2.9 L Chloride 108 H Carbon Dioxide 16.8 L Anion Gap 15.2 H BUN 9 Creatinine 0.7 Est GFR (CKD-EPI 2020) 86.83 Glucose 76 Calcium 7.5 L Magnesium 1.6 L Total Bilirubin 0.5 AST 17 ALT 11 L Alkaline Phosphatase 90 Troponin I 84 H* 61 H NT-Pro-B Natriuret Pep 8638 H Total Protein 5.4 L Albumin 2.4 L Time Spent with Patient Time Spent with Patient: 25-34 minutes Time was spent: preparing to see the patient(eg.review tests), ordering medications,tests, procedures, indepentently interpreting results and counseling the patient
[2022-11-14] MEDS: MAGNESIUM SULFATE 2 GM/50 ML BAG IVPB (15:34)
--- NOTE | 2022-11-14 17:43 | INITIAL_ITS ---
Date of service: 11/14/22 Time of Service: 17:43 Care Management Initial Assmt Initial Assessment REASON FOR HOSPITALIZATION:: CHF PREVIOUS FUNCTIONAL STATUS/SOCIAL/FAMILY SUPPORTS:: Sarita lives alone in an apartment in [facility]. She moved here about a year ago to be closer to family. She has a daughter in [facility] and one in [place]. She has one granddaughter who lives locally. 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 She receives no community services and is independent at baseline. Sarita does use a cane for balance when ambulating outside. CURRENT FUNCTIONAL STATUS:: Sarita was sitting up in bed when CM met with her. She was very pleasant and engaged readily with CM. Sarita spoke about her family and her career and the fact that she has pancreatic cancer. She moved to [place] to be near her daughter and grand daughter but did not anticipate the turn her health would take. She does not wish to be a burden but is happy she is close to her family. Has patient been provided with info about the portal/API?: Yes Did the patient sign up for the portal?: Yes CODE STATUS:: Full Code INSURANCE COVERAGE / FINANCIAL ISSUES:: Medicare /[facility] CURRENT HOME/COMMUNITY SERVICES/EQUIPMENT:: none PRIMARY CARE PHYSICIAN:: Gibran Hinkle POTENTIAL DISCHARGE NEEDS:: follow up with community providers PATIENT/FAMILY EDUCATION NEEDS:: review of discharge instructions, diet, medications, follow up plan, discuss [employer] Me [employer] TRANSPORTATION:: via private vehicle with family PLAN:: Anticipate Sarita will be discharged home with no new services. She will follow up with her community providers and plan of care and transport with family. CM will continue to support Sarita and her discharge planning needs. PFSH All Active Problems (Updated 11/14/22 @ 16:49 by Diane Velez NP) Diarrhea (Chronic) Hypokalemia (Acute) NSTEMI (non-ST elevated myocardial infarction) (Acute) Essential hypertension (Acute) Pancreatic cancer (Acute) Congestive heart failure (Chronic) Pulmonary fibrosis (Acute) Social History Smoking/Tobacco Use Status: Never Smoking risk assessment performed?: Yes Substance use type: does not use Housing: apartment
[2022-11-15] VITALS (8 sets, daily range): BP systolic 100–122; BP diastolic 62–68; PULSE 62–91; RESP 14–16; TEMP 35.7–36.9; O2SAT 95–97
[2022-11-15 07:12] LABS: Abs Immature Grans 0.07 10^3/uL (0.0-0.06); Absolute Basophil Count 0.03 10^3/uL (0.0-0.2); Absolute Eosinophil Count 0.15 10^3/uL (0.0-0.7); Absolute Lymphocyte Count 0.63 10^3/uL (1.2-3.4); Basophils % 0.5; Eosinophils % 2.3; HCT 31.5 % (36.0-46.0); HGB 10.1 g/dL (11.2-15.7); Immature Grans % 1.1; Lymphocytes % 9.6; MCH 30.4 pg (27.0-33.0); MCHC 32.1 % (32.0-36.0); MCV 95 fL (80-95); MPV 9.8 fL (8.0-11.0); Monocytes % 10.6; Neutrophils % 75.9; Platelet Count 142 10^3/uL (130-400); RBC 3.32 10^6/uL (3.93-5.22); RDW 15.9 % (11.7-14.6); RDW-SD 54.8 fL; WBC 6.58 10^3/uL (4.4-10.8)
[2022-11-15 07:40] LABS: Anion Gap 10.6 mmol/L (3-11); BUN 21 mg/dL (7-18); CO2 22.4 mmol/L (21.0-32.0); CREATININE 0.9 mg/dL (0.55-1.02); Calcium 8.9 mg/dL (8.5-10.1); Chloride 105 mmol/L (98-107); Estimated GFR 64.23 (mL/min/1.73m2); Glucose 97 mg/dL (74-106); Magnesium 2.4 mg/dL (1.8-2.4); Potassium 4.3 mmol/L (3.5-5.1); Sodium 138 mmol/L (136-145)
[2022-11-15] MEDS: Potassium Chloride 20 MEQ TABCR 40 MEQ PO (07:49)
[2022-11-15] MEDS: Metoprolol CR 25 MG TABCR PO (07:49)
[2022-11-15] MEDS: hydroCHLOROthiazide 25 MG TAB PO (07:49)
[2022-11-15] MEDS: Furosemide 40 MG/4 ML VIAL IVP (07:49)
[2022-11-15] MEDS: Losartan 50 MG TAB 100 MG PO (07:49)
[2022-11-15] MEDS: Cholestyramine/Aspartame PKT 1 EACH PO ×3 (07:50→16:56)
[2022-11-15] MEDS: Normal Saline Flush 10 ML SYR IVP (07:50)
[2022-11-15] MEDS: Lidocaine 5% Patch 1 PATCH TP (08:52)
[2022-11-15] MEDS: traMADol 50 MG TAB PO ×3 (08:52→22:32)
--- NOTE | 2022-11-15 11:45 | DI.RAD_ITS ---
Exam(s) XR CHEST 2V PA LATERAL EXAM: XR CHEST 2V PA LATERAL CLINICAL HISTORY: shortness of breath TECHNIQUE: 2D digital imaging was performed of the chest. Two images were obtained. PA and lateral views were obtained. COMPARISON: No exams were available for comparison FINDINGS: MEDIASTINUM: Normal. HEART: Cardiomegaly. PULMONARY VASCULATURE: There is atherosclerosis and tortuosity of the thoracic aorta. LUNGS: There is pulmonary fibrosis present. No focal consolidating infiltrates are seen. PLEURAL SPACE: No pleural effusion or pneumothorax. BONE:Within normal limits for the patient's age. There is exaggeration of the thoracic kyphosis. OTHER FINDINGS:The tip of the infusion port is in good position in the superior vena cava. IMPRESSION: 1. No acute pulmonary findings. 2. Chronic interstitial fibrosis. DATA REPOSITORY: RADIATION DOSE DELIVERED:
--- NOTE | 2022-11-15 12:04 | DI.VRAD_ITS ---
PROCEDURE INFORMATION: Exam: XR Chest Exam date and time: 11/15/2022 11:52 AM Age: 82 years old Clinical indication: Other: Shortness of breath.No history of trauma or recent surgery is provided. TECHNIQUE: Imaging protocol: Radiologic exam of the chest. 2image(s) are provided. Views: 2 views. COMPARISON: CT CHEST PE CTA 11/13/2022 2:29 PM FINDINGS: Tubes, catheters and devices: There is a right port catheter present. Lungs: There is chronic interstitial fibrotic scarring related change demonstrated similar overall. No lobar consolidation is appreciated. Pleural spaces: No interval pneumothorax or pleural effusion is appreciated. Heart/Mediastinum: The cardiomediastinal silhouette is upper normal in size.This can be seen with central averaging as well as alexis enlargement.No cardiac decompensation is appreciated. There is some small hiatal hernia averaging. Diaphragm: The hemidiaphragms are symmetric. Bones/joints: Osseous alignment is maintained.No interval displaced fracture or dislocation is appreciated. There are chronic appearing degenerative changes of the shoulders. There is slightly decreased bone mineralization overall. Soft tissues: No radiopaque foreign body or subcutaneous emphysema is appreciated. Other findings: No other significant interval changes are appreciated. IMPRESSION: There are chronic interstitial fibrotic scarring related changes with no consolidation appreciated.No interval acute cardiopulmonary changes are appreciated. Dictated and Authenticated by: Suman Dove MD. Ordering:GIOVANI Contreras MD
[2022-11-15] MEDS: Potassium Chloride 20 MEQ TABCR PO ×2 (12:35→16:56)
[2022-11-15 13:08] LABS: NT-proBNP 4083 pg/mL (<300)
--- NOTE | 2022-11-15 15:21 | PGE_ITS ---
Date of Service Date of service: 11/15/22 Time of Service: 15:21 Assessment and Plan Assessment and plan (1) Congestive heart failure: Status: Chronic Assessment and plan: responding well to diuresis with weight stable but still having her sob. will downstep to oral lasix BID dosing, with close monitoring of I&O and weight. consider pulmonary fibrosis as etiology also. Monitor K and creatinine. echocardiogram Wednesday. echo in Mar 2022 Conclusion Normal left ventricular wall thickness and chamber size.? Estimated ejection fraction is 60 to 65%.? Wall motion is normal Normal right ventricular size and systolic function Left atrium is mildly dilated.? Right atrial size is normal Aortic valve is calcified and trileaflet.? There is no aortic stenosis.? There is moderate to severe aortic regurgitation Normal mitral valve with trace to mild regurgitation Normal tricuspid valve with mild to moderate regurgitation.? Estimated right ventricular systolic pressure is 32 mmHg Related ascending aorta measuring 4.09 cm will repeat labs and cxr today as she reports no improvement in symptoms. (2) Pancreatic cancer: Status: Acute Assessment and plan: She has a PMH of Whipple procedure in 2020. Now undergoing chemotherapy for metastatic pancreatic CA. She has also undergone radiation treatment of lung mets. Day of this admission she received her second round of chemotherapy. She did not have any untoward side effects with the initial chemo. (3) Essential hypertension: Status: Acute Assessment and plan: Cont amlodipine and losartan Monitor. (4) Hypokalemia: Status: Acute Assessment and plan: replete and following worsened by diuresis and diarrhea (5) Diarrhea: Status: Chronic Assessment and plan: chronic, will continue cholestyramine discussed with DR Hicks Subjective Subjective Patient reports: tolerating liquids well, tolerating a regular diet, shortness of breath and afebrile Interval history since last seen: reports no improvement in her symptoms, no fever, no chest pain Exam Const General: cooperative, no acute distress and frail appearing Nutritional Appearance: thin Orientation: alert, awake and oriented x3 HENMT Head: normal to inspection and normocephalic Face and sinus: normal facial exam Neck Neck: no JVD Resp Effort & Inspection: normal respiratory effort Auscultation: rales (bases) bilaterally and no wheezes Cardio Rate: regular rate Rhythm: regular rhythm GI Inspection: normal to inspection Skin General skin exam: no rashes or lesions noted Neuro General: patient alert, patient awake, patient oriented x3 and no focal motor deficits Extrem General: normal to inspection and no pedal edema Objective Last Vital Signs Temp 36.9 C 11/15/22 10:59 Pulse 73 11/15/22 10:59 Resp 14 11/15/22 10:59 BP 100/62 11/15/22 10:59 Pulse Ox 96 11/15/22 10:59 Laboratory Results - last 24 hr 11/15/22 11/15/22 11/15/22 06:30 06:30 06:30 WBC 6.58 RBC 3.32 L Hgb 10.1 L Hct 31.5 L MCV 95 MCH 30.4 MCHC 32.1 RDW 15.9 H Plt Count 142 MPV 9.8 Immature Gran % 1.1 Neutrophils % 75.9 Lymphocytes % 9.6 Monocytes % 10.6 Eosinophils % 2.3 Basophils % 0.5 Nucleated RBC % 0.0 Absolute Neutrophils 5.00 Absolute Lymphocytes 0.63 L Absolute Monocytes 0.70 Absolute Eosinophils 0.15 Absolute Basophils 0.03 Sodium 138 Potassium 4.3 D Chloride 105 Carbon Dioxide 22.4 Anion Gap 10.6 BUN 21 H Creatinine 0.9 Est GFR (CKD-EPI 2020) 64.23 Glucose 97 Calcium 8.9 Magnesium 2.4 NT-Pro-B Natriuret Pep 4083 H Time Spent with Patient Time Spent with Patient: 25-34 minutes Time was spent: preparing to see the patient(eg.review tests), obtaining and/or reviewing separately otained hiistory, ordering medications,tests, procedures, referring, communicating with other health home health care social worker, indepentently interpreting results and counseling the patient
[2022-11-15] MEDS: Patch Removal 1 EACH TP (22:33)
[2022-11-16] VITALS (7 sets, daily range): BP systolic 95–123; BP diastolic 51–70; PULSE 52–77; RESP 16–18; TEMP 35.9–36.5; O2SAT 92–96
[2022-11-16] MEDS: traMADol 50 MG TAB PO ×2 (06:52→13:33)
--- NOTE | 2022-11-16 07:30 | DI.US_ITS ---
APPROVED REPORT EXAM: Comprehensive 2D, Doppler, and color-flow Echocardiogram Other Information Study Quality: Good Conclusion Normal left ventricular wall thickness and chamber size. Ejection fraction is 60 to 65%. Wall motio n is normal Normal right ventricular size and systolic function Both atria are normal in size Aortic valve is sclerotic and trileaflet with moderate regurgitation. There is no hemodynamically si gnificant aortic stenosis Dilated ascending aorta measuring 3.9 cm Wall motion Left Ventricle The left ventricle is normal size. The left ventricular systolic function is normal. The left ventric ular ejection fraction is within the normal range. There is normal left ventricular wall thickness. T here is normal LV segmental wall motion. There is no ventricular septal defect visualized. LVEF is 60 -65%. Right Ventricle The right ventricle is normal size. Right ventricular systolic function is grossly normal. The RVSP i s 33.2 mmHg. Atria The left atrium size is normal. The right atrium size is normal. The interatrial septum is intact wit h no evidence for an atrial septal defect. Aortic Valve Aortic valve is calcified. Aortic valve is trileaflet. No hemodynamically significant valvular aortic stenosis. Moderate aortic regurgitation Mitral Valve The mitral valve is normal in structure. No evidence of mitral valve stenosis. There is no mitral lorraine ve regurgitation noted. Tricuspid Valve The tricuspid valve is normal in structure. There is no tricuspid valve stenosis. Trace tricuspid reg urgitation. Pulmonic Valve The pulmonary valve is normal in structure. There is no pulmonic valvular stenosis. Mild pulmonic reg urgitation. Great Vessels The aortic root is normal in size. The ascending aorta is mildly dilated. Aortic arch is normal in ca liber. IVC is normal in size and collapses >50% with inspiration. Pericardium There is no pericardial effusion. 2D Dimensions IVSD d PLAX 1.04 cm F: 0.6-1.0 LVPW d PLAX 1.01 cm F: 0.6 - 1.0 LVID d PLAX 4.36 cm F: 3.8 - 5.2 LVDs 2.95 cm F: 2.2 - 3.5 Ao Root d 3.24 cm F: 2.7 - 3.3 RA Area A4C 11.40 cm2 Ao Asc Diam d 3.90 cm F: 2.3 - 3.1 LV EF Teichholz 60.0 % FS 31.70 % M-Mode TAPSE 2.08 cm (M/F) >1.7 LV Diastology MV E' medial 0.083 (>0.07 m/s) E/A Ratio 0.8 LV E/e MED 7.10 (<14) MV E Vmax 0.59 (0.4-1.3 m/s) MV E' lateral 0.074 (>0.1 m/s) MV A Vmax 0.70 (0.4-1.3 m/s) LV E/e LAT 7.95 (<14) MV E/E' medial 7.10 MV E/E' lateral 7.95 MV (E/E' average) 7.50 Aortic Valve LVOT Vmax 1.79 m/s AoV Area Vmax 2.04 cm2 LVOT Peak Grad 12.8 mmHg LVOT Mean Grad 6.4 mmHg LVOT Diam s 1.95 cm AoV Vmax 2.66 m/s Velocity Ratio 0.67 AoV Peak Grad 28.4 mmHg LVOT SV 77.43 mL AoV Mean Grad 15.9 mmHg AoV Area VTI 2.06 cm2 Mitral Valve MV DT 145 (160-240 msec) Pulmonary Valve PV Mean Grad 2.1 mmHg RVOT Peak Gr. 2.31 mmHg RVOT Mean Gr. 1.10 mmHg RVOT VTI 0.104 m RVOT Vmax 0.76 m/s Tricuspid Valve TR Peak Grad 30.2 mmHg TR Vmax 2.75 m/s RA Pressure 3.00 mmHg RVSP (TR) 33.2 mmHg
[2022-11-16] MEDS: Normal Saline Flush 10 ML SYR IVP ×2 (07:44→17:45)
[2022-11-16] MEDS: Potassium Chloride 20 MEQ TABCR PO ×3 (08:56→16:15)
[2022-11-16] MEDS: Metoprolol CR 25 MG TABCR PO (08:56)
[2022-11-16] MEDS: Losartan 50 MG TAB 100 MG PO (08:56)
[2022-11-16] MEDS: Lidocaine 5% Patch 1 PATCH TP (08:56)
[2022-11-16] MEDS: Cholestyramine/Aspartame PKT 1 EACH PO ×3 (08:57→16:15)
[2022-11-16] MEDS: hydroCHLOROthiazide 25 MG TAB PO (08:57)
[2022-11-16] MEDS: Furosemide 20 MG TAB PO ×2 (08:57→16:15)
[2022-11-16 09:15] LABS: Abs Immature Grans 0.07 10^3/uL (0.0-0.06); Absolute Basophil Count 0.04 10^3/uL (0.0-0.2); Absolute Eosinophil Count 0.12 10^3/uL (0.0-0.7); Absolute Lymphocyte Count 0.76 10^3/uL (1.2-3.4); Absolute Monocyte Count 0.88 10^3/uL (0.1-0.8); Absolute Neutrophil Count 6.35 10^3/uL (1.2-6.7); Basophils % 0.5; Eosinophils % 1.5; HCT 33.5 % (36.0-46.0); HGB 10.5 g/dL (11.2-15.7); Immature Grans % 0.9; Lymphocytes % 9.2; MCH 29.8 pg (27.0-33.0); MCHC 31.3 % (32.0-36.0); MCV 95 fL (80-95); Monocytes % 10.7; Neutrophils % 77.2; Platelet Count 186 10^3/uL (130-400); RBC 3.52 10^6/uL (3.93-5.22); RDW-SD 54.8 fL; WBC 8.22 10^3/uL (4.4-10.8)
[2022-11-16 09:18] LABS: Anion Gap 11.2 mmol/L (3-11); BUN 30 mg/dL (7-18); CO2 19.8 mmol/L (21.0-32.0); Calcium 8.8 mg/dL (8.5-10.1); Chloride 103 mmol/L (98-107); Glucose 99 mg/dL (74-106); Potassium 4.6 mmol/L (3.5-5.1); Sodium 134 mmol/L (136-145)
--- NOTE | 2022-11-16 10:11 | PDOC.CMPRO ---
Date of service: 11/16/22 Time of Service: 10:11 Care Management Progress Note Progress Note Text Progress Note Text: S/O: A: Sarita is an 82 year old woman admitted on 11/13/22 with CHF P:?Anticipate Sarita will be discharged home with no new services. She will follow up with her community providers and plan of care and transport with family. will continue to support Sarita and her discharge planning needs.
--- NOTE | 2022-11-16 13:42 | W.PM.DS.N ---
Date of service: 11/16/22 Time of Service: 13:42 DS: Diagnosis Discharge Diagnosis (1) Congestive heart failure: Status: Chronic (2) Pancreatic cancer: Status: Acute (3) Essential hypertension: Status: Acute (4) Hypokalemia: Status: Acute (5) Diarrhea: Status: Chronic Discharge Plan Disposition Condition: Stable Discharge Details Reason For Visit: Heart Failure Admit Date/Time: 11/13/22 15:57 Admit Provider: Aj Hicks Attending Provider: Aj Hicks Primary Care Provider: Gibran Hinkle Hospital Course Hospital Course: This is an 82-year-old female patient past medical history significant for recent non-STEMI congestive heart feel pancreatic cancer pulmonary fibrosis who presents to the emergency department with increased shortness of breath. Her work-up in the emergency department was concerning for congestive heart failure. She was diuresed with good effect. She remained hemodynamically stable and oxygenating well on room air. She continued to have chronic diarrhea unchanged no new abdominal pain or other symptoms. She continued to have some shortness of breath with activity and has been unable to walk from her hallway to the exit in her building due to her increased weakness and shortness of breath and would definitely benefit from a wheelchair moving forward. She has been eating and drinking and medically stable for discharge to home. She will be initiated on daily diuretics and will follow-up with her primary care provider and outpatient team for further recommendations and monitoring. An echocardiogram has been completed. Discharged home with no services discharge discussed with Dr. Hicks Home Meds and New Rx's Prescriptions: New lidocaine 5 % Adhesive Patch,Medicated 1 patch topical Q24H Qty: 10 0RF furosemide [Lasix] 20 mg tablet 20 mg PO DAILY Qty: 30 0RF Continued amlodipine 5 mg tablet 5 mg PO PRN PRN Patient Comments: TAKE ONE TABLET BY MOUTH EVERY DAY tramadol 50 mg tablet 50 mg PO PRN PRN Patient Comments: TAKE 1 TABLET BY MOUTH EVERY 6 HOURS NEEDED FOR PAIN potassium chloride 20 mEq tablet,ER particles/crystals 20 meq PO DAILY Patient Comments: TAKE ONE TABLET BY MOUTH EVERY DAY gabapentin 300 mg capsule 300 mg PO PRN PRN Patient Comments: TAKE ONE CAPSULE BY MOUTH THREE TIMES DAILY hydrochlorothiazide 25 mg tablet 25 mg PO DAILY Patient Comments: TAKE 1 TABLET BY MOUTH DAILY losartan 100 mg tablet 100 mg PO DAILY Patient Comments: TAKE ONE TABLET BY MOUTH EVERY DAY metoprolol succinate 25 mg tablet extended release 24 hr 25 mg PO 1XD cholestyramine (with sugar) 4 gram powder in packet 1 packet PO 3XD Patient Comments: TAKE 1 PACKET BY MOUTH THREE TIMES A DAY WITH MEALS Creon 24,000-76,000 -120,000 unit capsule,delayed release(DR/EC) PO Rx Instructions: 24,000 each tab, take 2 tabs every meals and PRN for snacks. Discharge Instructions Instructions: Heart Failure (DC), Low-Sodium Diet (DC) Additional Instructions: weigh yourself 3 times weekly and record. report weight gain of greater than 5 pounds per week to your doctor. Referrals: Gibran Hinkle MD [Primary Care Provider] - Activity:: Activity as Tolerated Equipment/Supplies:: W/C Diet:: Low Sodium DS: Summary Time Spent with Patient providing and/or coordinating discharge services: Less than 30 minutes Status at Discharge Functional status at discharge: uses cane/walker Overall status at discharge: patient is progressing back to baseline Mental Status: mental status grossly normal Speech and Movement: speech and movement normal Mood: congruent mood Affect: normal affect Exam Const General: cooperative, no acute distress and frail appearing Nutritional Appearance: thin Orientation: alert, awake and oriented x3 HENMT Head: normal to inspection and normocephalic Face and sinus: normal facial exam Neck Neck: no JVD Resp Effort & Inspection: normal respiratory effort Auscultation: rales (bases) bilaterally and no wheezes Cardio Rate: regular rate Rhythm: regular rhythm GI Inspection: normal to inspection Skin General skin exam: no rashes or lesions noted Neuro General: patient alert, patient awake, patient oriented x3 and no focal motor deficits Extrem General: normal to inspection and no pedal edema Psych Mental Status: mental status grossly normal Speech and Movement: speech and movement normal Mood: congruent mood Affect: normal affect DS: Data Vitals/I&O Vitals and I&O: Vital Signs Temperature 35.9 C L 11/16/22 11:26 Temperature Source Tympanic 11/16/22 11:26 Pulse 69 11/16/22 11:26 Pulse Rhythm Regular 11/16/22 07:50 Pulse 74 11/13/22 16:40 Respiratory Rate 18 11/16/22 11:26 Respiratory Effort Normal, Non-Labored 11/16/22 07:50 Respiratory Depth Normal 11/16/22 07:50 Respiratory Pattern Normal 11/16/22 07:50 Blood Pressure 114/63 11/16/22 11:26 Blood Pressure Mean 80 11/13/22 16:01 Blood Pressure Position Sitting 11/13/22 10:05 Pulse Oximetry 95 11/16/22 11:26 Oxygen Delivery Method Room Air 11/16/22 11:26 Oxygen Flow Rate 0 11/16/22 11:26 Pain Level 4 11/16/22 13:33 Intake & Output 11/15/22 11/16/22 11/16/22 23:59 11:59 23:59 Intake Total 250 / 250 Balance 250 / 250 Weight 55.4 kg Intake: Oral 250 / 250 Other: Urine Appearance Clear Clear Voiding Methods Toilet Data Completed and Pending Labs on day of discharge: Labs from last 24 hours 11/16/22 11/16/22 08:40 08:40 WBC 8.22 RBC 3.52 L Hgb 10.5 L Hct 33.5 L MCV 95 MCH 29.8 MCHC 31.3 L RDW 16.0 H Plt Count 186 MPV 10.0 Immature Gran % 0.9 Neutrophils % 77.2 Lymphocytes % 9.2 Monocytes % 10.7 Eosinophils % 1.5 Basophils % 0.5 Nucleated RBC % 0.0 Absolute Neutrophils 6.35 Absolute Lymphocytes 0.76 L Absolute Monocytes 0.88 H Absolute Eosinophils 0.12 Absolute Basophils 0.04 Sodium 134 L Potassium 4.6 Chloride 103 Carbon Dioxide 19.8 L Anion Gap 11.2 H BUN 30 H Creatinine 1.0 Est GFR (CKD-EPI 2020) 56.60 Glucose 99 Calcium 8.8 PFSH All Active Problems (Updated 11/14/22 @ 16:49 by Diane Velez NP) Diarrhea (Chronic) Hypokalemia (Acute) NSTEMI (non-ST elevated myocardial infarction) (Acute) Essential hypertension (Acute) Pancreatic cancer (Acute) Congestive heart failure (Chronic) Pulmonary fibrosis (Acute) Social History Smoking/Tobacco Use Status: Never Smoking risk assessment performed?: Yes Substance use type: does not use Housing: apartment Time Spent with Patient Time Spent with Patient: <45 minutes Time was spent: preparing to see the patient(eg.review tests), obtaining and/or reviewing separately otained hiistory, ordering medications,tests, procedures, indepentently interpreting results, counseling the patient and care coordination
--- NOTE | 2022-11-16 16:22 | PDOC.CMDIS ---
Date of service: 11/16/22 Time of Service: 16:22 LACE Index Scoring Tool Questions: Length of Stay (in days): 3 Was the patient admitted via the E.D.?: Yes Comorbidities: Previous M.I., Congestive Heart Failure and Metastatic Solid Tumor E.D. Visits: 2 Answers: Total Score: 13 Risk of Readmission: High Risk Care Management Discharge Plan Reason for Hospitalization: CHF Discharge Plan: Sarita will be discharged home with no new services. She will follow up with her community providers and plan of care and transport with family. An order for a wheelchair was sent to [facility] today but no determination has been made. Patient/Family Education Needs: review of discharge instructions, diet, medications, follow up plan, discuss Ask Me Three
[2022-11-16] MEDS: Heparin 500 UNITS/5 ML SYRINGE IV (17:46)
== END 2022-11-16 18:11 | disposition home or self-care (01) | DRG 281 ==
LOC: ER 16:13 → MS 17:07
PROVIDERS: Family Medicine; Nurse Practitioner Acute Care; Admitting Provider Family Medicine; Emergency Provider Nurse Practitioner Family; PCP Family Medicine; Visit Provider Family Medicine
DX: I11.0 Hypertensive heart disease with heart failure (principal); I21.4 Non-ST elevation (NSTEMI) myocardial infarction; C25.9 Malignant neoplasm of pancreas, unspecified; C78.00 Secondary malignant neoplasm of unspecified lung; I50.9 Heart failure, unspecified; J84.10 Pulmonary fibrosis, unspecified; D64.9 Anemia, unspecified; E87.6 Hypokalemia; I08.3 Combined rheumatic disorders of mitral, aortic and tricuspid valves; K52.9 Noninfective gastroenteritis and colitis, unspecified
CPT/HCPCS: 36415; 36591; 71275; 80048; 80053; 87637; 93005; 93306; 96374; 99285; 71046; 83735; 83880; 84484; 85025; 85610; 85730; 86301; 93010; 99223; 99233; 99238; J1940; J3490

== ENCOUNTER 2022-11-27 01:35 | Outpatient (RCR) | payer MEDICARE, BC, SELFPAY ==
[2022-11-20 00:05] VITALS: BP 149/73; PULSE 97; RESP 24; TEMP 36.3
[2022-11-27] MEDS: Normal Saline Flush 10 ML SYR IVP (09:29)
[2022-11-27 09:37] LABS: Abs Immature Grans 0.08 10^3/uL (0.0-0.06); Absolute Basophil Count 0.06 10^3/uL (0.0-0.2); Absolute Eosinophil Count 0.19 10^3/uL (0.0-0.7); Absolute Monocyte Count 0.91 10^3/uL (0.1-0.8); Absolute Neutrophil Count 9.18 10^3/uL (1.2-6.7); Basophils % 0.5; Eosinophils % 1.7; HCT 33.1 % (36.0-46.0); HGB 10.6 g/dL (11.2-15.7); Immature Grans % 0.7; Lymphocytes % 9.2; MCH 29.7 pg (27.0-33.0); MCV 93 fL (80-95); MPV 10.2 fL (8.0-11.0); Monocytes % 7.9; Platelet Count 168 10^3/uL (130-400); RBC 3.57 10^6/uL (3.93-5.22); RDW-SD 54.1 fL; WBC 11.47 10^3/uL (4.4-10.8)
[2022-11-27 09:40] LABS: Absolute Lymphocyte Count 1.06 10^3/uL (1.2-3.4)
[2022-11-27 10:57] LABS: ALT 15 U/L (14-59); AST 23 U/L (15-37); Albumin 2.8 g/dL (3.4-5.0); Alkaline Phosphatase 131 U/L (46-116); Anion Gap 14.2 mmol/L (3-11); BUN 27 mg/dL (7-18); Bilirubin, Total 0.9 mg/dL (0.2-1.0); CO2 20.8 mmol/L (21.0-32.0); CREATININE 1.2 mg/dL (0.55-1.02); Calcium 8.5 mg/dL (8.5-10.1); Chloride 99 mmol/L (98-107); Estimated GFR 45.48 (mL/min/1.73m2); Glucose 136 mg/dL (74-106); Potassium 3.1 mmol/L (3.5-5.1); Sodium 134 mmol/L (136-145); Total Protein 6.7 g/dL (6.4-8.2)
== END 2022-12-19 23:59 | disposition home or self-care (01) ==
LOC: INF 01:35
PROVIDERS: PCP Family Medicine; Visit Provider Internal Medicine Hematology & Oncology
DX: C25.9 Malignant neoplasm of pancreas, unspecified (principal); C78.7 Secondary malignant neoplasm of liver and intrahepatic bile duct; Z45.2 Encounter for adjustment and management of vascular access device
CPT/HCPCS: 36591; 80053; 85025; 86301

== ENCOUNTER 2022-11-28 12:24 | Inpatient (IN) | payer MEDICARE, BC, SELFPAY ==
[2022-11-28] VITALS (33 sets, daily range): BP systolic 84–124; BP diastolic 38–65; PULSE 58–126; RESP 12–27; TEMP 35.5; O2SAT 94–100
--- NOTE | 2022-11-28 12:15 | RT.EKG_ITS ---
APPROVED REPORT Exam: Resting ECG Reason for Exam: chest pain Patient Location: E HR:122 bpm ECG Measurements Heart Rate 122 AXIS WA 124 P 0 QRSd 91 QRS -18 QT 398 T 147 QTc 570 Conclusion Sinus tachycardia...rate> 99 Atrial premature complexes...SV complexes w/ short R-R intvls Repol abnrm suggests ischemia, anterolateral...ST dep, T neg, I aVL V2-V6 Prolonged QT interval...QTc >500mS
--- NOTE | 2022-11-28 12:29 | ED.GENADUL_ITS ---
Discharge Plan Disposition Patient Disposition: Admit to [facility] Condition: Stable Discharge Details Chief Complaint: Chest Pain Clinical Impression: Pancreatic cancer, Cancer associated pain, Chest pain, Abdominal pain, Dehydration Primary Care Provider: Gibran Hinkle ED Provider: Hero Queen Home Meds and New Rx's Prescriptions: No Action amlodipine 5 mg tablet 5 mg PO PRN PRN Patient Comments: TAKE ONE TABLET BY MOUTH EVERY DAY tramadol 50 mg tablet 50 mg PO DAILY Patient Comments: TAKE 1 TABLET BY MOUTH EVERY 6 HOURS PAIN potassium chloride 20 mEq tablet,ER particles/crystals 20 meq PO DAILY Patient Comments: TAKE ONE TABLET BY MOUTH EVERY DAY gabapentin 300 mg capsule 300 mg PO PRN PRN Patient Comments: TAKE ONE CAPSULE BY MOUTH THREE TIMES DAILY hydrochlorothiazide 25 mg tablet 25 mg PO DAILY Patient Comments: TAKE 1 TABLET BY MOUTH DAILY losartan 100 mg tablet 100 mg PO DAILY Patient Comments: TAKE ONE TABLET BY MOUTH EVERY DAY metoprolol succinate 25 mg tablet extended release 24 hr 25 mg PO 1XD cholestyramine (with sugar) 4 gram powder in packet 1 packet PO 3XD Patient Comments: TAKE 1 PACKET BY MOUTH THREE TIMES A DAY WITH MEALS Creon 24,000-76,000 -120,000 unit capsule,delayed release(DR/EC) PO Rx Instructions: 24,000 each tab, take 2 tabs every meals and PRN for snacks. lidocaine 5 % Adhesive Patch,Medicated 1 patch topical Q24H Qty: 10 0RF furosemide [Lasix] 20 mg tablet 20 mg PO DAILY Qty: 30 0RF Medical Decision Making 82 yo female with hx of metastatic pancreatic cancer comes in with ems with chest pain starting around 6am this morning. She had an elevated troponin in [place] and [place] [facility] [place] she had cath showing nonobstructing coronary artery disease less then 25% obstructing in all vessels, and had TTE during that admission showing apical hypokinesis consistent with stress induced cardiomyopathy thought to be due to her chemotherapy. She was told by oncology there were no further therapies and that I should try and live the best she can until she dies (pt became very tearful when recounting this). She denies fevers, chills, states she also has abdominal pain. Caox4 speaking clearly during exam. Has clear lungs, no murmurs, soft abdomen with luq and ruq tenderness. EKG nondiagnostic, will proceed with troponin and CTA of the chest/abd/pelvis to evaluate for dissection vs pe and surgical pathology of the abdomen. labs without significant acute abnormalities, imaging shows worsening progression of her known cancer, and dilation of her esophagus likely from slow transit with her pancreatic cancer. No vomiting, hemodynamically stable. Discussed results with her and her daughter, given her general weakness and inability to take po well do not feel comfortable with d/c and don't feel they will be able to control pain at home. Will discuss with hospitalist about admission Medical Records Medical records reviewed: Yes I reviewed the patient's medical records. Imaging Data Radiologic Study: Attestation: I personally reviewed and interpreted this imaging study as follows: Imaging: CT Scan Radiologist's impression: IMPRESSION: 1. Multiple small low-attenuation areas in the liver may represent metastatic disease. For example 15 mm in the right lobe of the liver series 4, image 45. 2 cm in the lateral aspect of the right lobe of the liver. Enhancing central component. Series 4, image 48 12 mm nodule more posteriorly in the right lobe of the liver series 4, image 50 additional smaller areas in the liver. These are thought to represent hepatic metastasis. 2. Ill-defined low-attenuation mass in the pancreas has increased in size since October 01. It measures 4.6 x 3.5 cm series 4, image 56 and may represent recurrent pancreatic cancer.. 3. No evidence of pulmonary embolus to the segmental level. 4. No aneurysm of the aorta. 5. No dissection of the aorta. 6. Dilatation of the entire esophagus. It is dilated 3.6 cm and has an air-fluid level. There is slowed motility in the distal esophagus.. Recommend further evaluation for esophageal pathology if clinically indicated 7 10 mm nodule anterior right kidney 36 Hounsfield units.Recommend MR without and with contrast or CT without and with contrast. MR is preferred for masses under 1.5 cm. Lab Data Lab results reviewed: Yes I reviewed the patient's lab results. ECG Data Attestation: I personally reviewed and interpreted this ECG (s) as follows: Prior ECG tracings: available for review Interpretation: 1st ekg sinus tachycardia rate of 122, no stemi 2nd ekg sinus rate of 79 pr 166 no stemi HPI General Mode of arrival: EMS . Date/Time Provider Initiated Documentation: 11/28/22 12:25 . Limitations to Documentation: no limitations . Information obtained by: patient . History of Present Illness 82 year old F presents to the emergency department with the chief complaint of chest pain, described as moderate, Quality is described as stabbing, and is localized to the chest. Patient abdomen. Patient started experiencing this hour(s) (7) and it has been constant. No relieving factors improve symptom(s), No exacerbating factors reported . Patient notes no other symptoms.. Patient did receive the following treatments prior to arrival, none Related Data Home Medications Medication Instructions Recorded Confirmed amlodipine 5 mg tablet 5 mg PO PRN PRN 10/30/22 10/30/22 gabapentin 300 mg capsule 300 mg PO PRN PRN 10/30/22 11/28/22 hydrochlorothiazide 25 mg tablet 25 mg PO DAILY 10/30/22 10/30/22 losartan 100 mg tablet 100 mg PO DAILY 10/30/22 11/28/22 potassium chloride 20 mEq 20 meq PO DAILY 10/30/22 11/28/22 tablet,extended release(part/cryst) tramadol 50 mg tablet 50 mg PO DAILY 10/30/22 11/28/22 cholestyramine (with sugar) 4 gram 1 packet PO 3XD 11/13/22 11/28/22 powder for susp in a packet [id number] cap PO 11/13/22 24,000-76,000-120,000 unit capsule,delayed rel (Creon) metoprolol succinate 25 mg 25 mg PO 1XD 11/13/22 11/28/22 tablet,extended release 24 hr furosemide 20 mg tablet (Lasix) 20 mg PO DAILY #30 tabs 11/16/22 11/28/22 lidocaine 5 % topical patch 1 patch topical Q24H #10 ea 11/16/22 11/28/22 Previous Rx's Medication Instructions Recorded furosemide 20 mg tablet (Lasix) 20 mg PO DAILY #30 tabs 11/16/22 lidocaine 5 % topical patch 1 patch topical Q24H #10 ea 11/16/22 Allergies Allergy/AdvReac Type Severity Reaction Status Date / Time acetaminophen [From [place]] AdvReac Dizziness/L Unverified 11/28/22 12:32 [place]head hydrocodone [From [place]] AdvReac Dizziness/L Unverified 11/28/22 12:32 ighthead General HANNAH: 3 Review of Systems All systems reviewed & are unremarkable except as noted in HPI and below Constitutional Constitutional: Denies chills, Denies fever(s) and Denies weakness Cardiovascular Cardiovascular: Reports chest pain and Denies dyspnea Respiratory Respiratory: Denies cough and Denies dyspnea Gastrointestinal Gastrointestinal: Reports abdominal pain, Denies nausea and Denies vomiting Integumentary/Breasts Skin/Breast: Denies rash Neurologic Neurologic: Denies weakness PFSH All Active Problems (Updated 11/28/22 @ 14:41 by Hero Queen MD) Cancer associated pain (Acute) Chest pain (Acute) Abdominal pain (Acute) Dehydration (Acute) Diarrhea (Chronic) Hypokalemia (Acute) NSTEMI (non-ST elevated myocardial infarction) (Acute) Essential hypertension (Acute) Pancreatic cancer (Acute) Congestive heart failure (Chronic) Pulmonary fibrosis (Acute) Social History Smoking/Tobacco Use Status: Never Smoking risk assessment performed?: Yes Substance use type: does not use Housing: apartment Do you feel safe at home: Yes Do you feel safe in your relationship?: Yes Exam Const General: no acute distress Orientation: alert HENMT Head: normal to inspection Ears: external ears normal General nose exam: external nose normal Mouth: moist mucous membranes Eyes General: appearance normal, both eyes and all related structures Neck Neck: normal visual inspection Resp Effort & Inspection: normal respiratory effort and able to speak in complete sentences Auscultation: clear to auscultation bilaterally Cardio Jugular venous pressure: no JVD Heart Sounds: no murmurs GI Palpation: soft and tender Skin General skin exam: no rashes or lesions noted Neuro General: patient alert and patient oriented x3 Extrem General: normal to inspection Psych Mental Status: mental status grossly normal
--- NOTE | 2022-11-28 12:30 | DI.CT_ITS ---
Exam(s) CT THORAX ABD/PEL CTA EXAM: CT THORAX ABD/PEL CTA CLINICAL HISTORY: chest and abdomen pain, ?dissection. TECHNIQUE: Imaging Protocol: Axial computed tomography images with coronal and sagittal reformatted images were created and reviewed CONTRAST MATERIAL: Intravenous: Omnipaque 350 Contrast volume:100 ml Oral: None COMPARISON: CT CT CHEST PE CTA from 10/30/[address] CHEST PE CTA from 11/13/2022 FINDINGS: CHEST: AORTA:The diameter of the ascending thoracic aorta is 3.8 cm. there is no evidence of aortic dissect ion, as per request. abdominal aorta is intact and not aneurysmal. also no dissection. aortoiliac segments are age-appropriate. no dissection. no significant aneurysms. LUNGS: Pulmonary fibrosis again noted both lung burton. No new confluent infiltrates nor pleural eff usions. No pneumothorax. No new findings in the trachea and mainstem bronchi. MEDIASTINUM: No mediastinal hematoma. No hilar nor mediastinal adenopathy. The esophagus is signifi cantly dilated, and there is moderate size hiatal hernia evident. CARDIAC: Mild cardiomegaly. No pericardial effusion. Coronary artery calcification noted. Distal tip of right Port-A-Cath is in the SVC RA junction level. ABDOMEN: There is no evidence of abdominal aortic aneurysm nor dissection.There is no aneurysmal dilatation of the common iliac arteries.The celiac and superior mesenteric arteries are patent. There is no ascites. LIVER: Multiple hepatic lesions are noted which is somewhat difficult to assess on arterial phase adam dy but are suspicious for metastatic lesions . There is also air within intrahepatic ducts both lobe s. GALLBLADDER/BILIARY: Gallbladder not seen and presumed to be surgically absent. PANCREAS: There appears to be a mass in the head of the pancreas. Although there are multiple bowel loops in this region from probable prior bili 0 enterostomy, there is still a suspicion for mass the pancreatic head here. Pancreatic body and tail appear unremarkable. Pancreatic duct is not signific antly dilated. SPLEEN: Spleen size minimally prominent. ADRENALS: There are no significant adrenal masses. KIDNEYS: Small 8 millimeter cyst evident in the inferior pole right kidney. Another similar size cys t is seen more superiorly in the right kidney. Some cortical scarring left kidney is noted. No calc heidi nor hydronephrosis. No ominous solid renal masses. ABDOMINAL AORTA: The abdominal aorta is not enlarged. LYMPH NODES: There is no retroperitoneal nor para-aortic adenopathy. No obvious mesenteric masses. ABDOMINAL WALL: No evidence of significant anterior abdominal wall hernia. GI: There is no evidence of bowel obstruction, free air, nor abscess. PELVIS: LYMPH NODES: There is no intrapelvic nor inguinal adenopathy. GI: No evidence of appendicitis.No evidence of sigmoid diverticulitis. URINARY BLADDER: No calculi nor masses evident REPRODUCTIVE: Uterus atrophic or surgically absent. No abnormal adnexal masses. No free fluid in th e pelvis OSSEOUS: No significant osseous lesions. Anterolisthesis L5 upon S1 with advanced disc space narrowing L5-S1 level noted. IMPRESSION: 1. No evidence of aortic dissection, as per request. No significant aneurysms. 2. Hypodense mass in the pancreatic head suspicious for neoplasm. There are also multiple lesions in the liver which are probably metastatic. However, please note that evaluation of both the pancreas and liver is less than optimal as this is an arterial phase only study. If clinically indicated repe at contrast infused CT scan can be performed wished additional postcontrast phase imaging for added s ensitivity and specificity. 3. There is significant dilatation of the esophagus and there is a moderate size hiatal hernia. This finding was not evident on CT scan 10/30/2022. RADIATION DOSE DELIVERED: 914.24mGy.cm Total DLP DATA REPOSITORY: All CT scans at this facility are submitted to the National Radiology Data Registry (NRDR) Dose Index Registry (DIR) with the [employer] (ACR). RADIATION OPTIMIZATION: All CT scans at this facility use at least one of these dose optimization te chniques: automated exposure control; mA and/or kV adjustment per patient size (includes targeted exa ms where dose is matched to clinical indication); or iterative reconstruction.
[2022-11-28 12:40] LABS: Abs Immature Grans 0.07 10^3/uL (0.0-0.06); Absolute Basophil Count 0.04 10^3/uL (0.0-0.2); Absolute Eosinophil Count 0.05 10^3/uL (0.0-0.7); Absolute Lymphocyte Count 0.49 10^3/uL (1.2-3.4); Absolute Monocyte Count 0.45 10^3/uL (0.1-0.8); Absolute Neutrophil Count 8.29 10^3/uL (1.2-6.7); Basophils % 0.4; Eosinophils % 0.5; HCT 33.9 % (36.0-46.0); HGB 10.9 g/dL (11.2-15.7); Immature Grans % 0.7; Lymphocytes % 5.2; MCH 29.9 pg (27.0-33.0); MCHC 32.2 % (32.0-36.0); MCV 93 fL (80-95); MPV 10.5 fL (8.0-11.0); Monocytes % 4.8; Neutrophils % 88.4; Platelet Count 112 10^3/uL (130-400); RBC 3.64 10^6/uL (3.93-5.22); RDW 16.1 % (11.7-14.6); RDW-SD 55.2 fL; WBC 9.39 10^3/uL (4.4-10.8)
[2022-11-28] MEDS: Normal Saline Flush 10 ML SYR IVP ×2 (12:48→16:47)
[2022-11-28] MEDS: Normal Saline - Diluent 50 ML VIAL IJ (12:53)
[2022-11-28] MEDS: Omnipaque 350 MG/ML 100 ML BTL 70 ML IJ (12:54)
[2022-11-28 12:56] LABS: INR 1.1 (0.9-1.1); PTT Activated 29.8 sec (21.5-31.9); Prothrombin Time 11.6 sec (9.3-11.0)
[2022-11-28 13:00] LABS: ALT 16 U/L (14-59); AST 29 U/L (15-37); Albumin 2.8 g/dL (3.4-5.0); Alkaline Phosphatase 142 U/L (46-116); Anion Gap 15.3 mmol/L (3-11); BUN 23 mg/dL (7-18); Bilirubin, Total 1.1 mg/dL (0.2-1.0); CO2 20.7 mmol/L (21.0-32.0); CREATININE 1.1 mg/dL (0.55-1.02); Calcium 8.6 mg/dL (8.5-10.1); Chloride 101 mmol/L (98-107); Estimated GFR 50.48 (mL/min/1.73m2); Glucose 116 mg/dL (74-106); Lipase < 10 U/L (16-77); Magnesium 1.8 mg/dL (1.8-2.4); NT-proBNP 5466 pg/mL (<300); Potassium 3.2 mmol/L (3.5-5.1); Sodium 137 mmol/L (136-145); Total Protein 6.9 g/dL (6.4-8.2); Troponin I < 50 ng/L (<or=60)
[2022-11-28] MEDS: fentaNYL 100 MCG/2 ML VIAL 50 MCG IVP (13:13)
[2022-11-28] MEDS: Normal Saline 250 ML 500 ML IV (13:17)
--- NOTE | 2022-11-28 13:59 | DI.VRAD_ITS ---
Addendum created by Sincere Vasquez MD on 11/28/2022 2:04:32 PM EDT: THIS REPORT CONTAINS FINDINGS THAT MAY BE CRITICAL TO PATIENT CARE. The findings were verbally communicated via telephone conference with Hero Queen at 2:04 PM EDT on 11/28/2022. The findings were acknowledged and understood. Initial report created on 11/28/2022 1:58:33 PM EDT: PROCEDURE INFORMATION: Exam: CTA Chest With Contrast CTA Abdomen and Pelvis With Contrast Exam date and time: 11/28/2022 12:55 PM Age: 82 years old Clinical indication: Other: Chest and abdomen pain, ? dissection. History of pancreatic cancer and Whipple procedure TECHNIQUE: Imaging protocol: Computed tomographic angiography of the chest with contrast. Exam focused on the arteries. Computed tomographic angiography of the abdomen and pelvis with contrast. Exam focused on the arteries. 3D rendering (Not supervised by radiologist): MIP and/or 3D reconstructed images were created by the technologist. Radiation optimization: All CT scans at this facility use at least one of these dose optimization techniques: automated exposure control; mA and/or kV adjustment per patient size (includes targeted exams where dose is matched to clinical indication); or iterative reconstruction. Contrast material: OMNI 350; Contrast volume: 70 ml; Contrast route: INTRAVENOUS (IV); COMPARISON: CT CHEST PE CTA 11/13/2022 2:29 PM FINDINGS: Tubes, catheters and devices: MediPort terminates in the superior vena cava VASCULATURE: Pulmonary arteries: No evidence of pulmonary embolus to the segmental level. Aorta: No aneurysm of the aorta. No dissection of the aorta. Celiac trunk and mesenteric arteries: No occlusion or significant stenosis. Renal arteries: No occlusion or significant stenosis. Right iliac arteries: No occlusion or significant stenosis. Left iliac arteries: No occlusion or significant stenosis. CHEST: Lungs: Unremarkable. No consolidation. No masses. Pleural spaces: Unremarkable. No pneumothorax. No pleural effusion. Heart: Unremarkable. No cardiomegaly. No pericardial effusion. Coronary arteries: Coronary artery calcifications may indicate coronary artery disease. Mediastinal space: Dilatation of the entire esophagus. It is dilated 3.6 cm and has an air-fluid level. There is slowed motility in the distal esophagus.. ABDOMEN AND PELVIS: Liver: Multiple small low-attenuation areas in the liver may represent metastatic disease. For example 15 mm in the right lobe of the liver series 4, image 45. 2 cm in the lateral aspect of the right lobe of the liver. Enhancing central component. Series 4, image 48 12 mm nodule more posteriorly in the right lobe of the liver series 4, image 50 additional smaller areas in the liver. These are thought to represent hepatic metastasis. . Gallbladder and bile ducts: Again noted is pneumobilia in the liver . Cholecystectomy Pancreas: Ill-defined low-attenuation mass in the pancreas has increased in size since October 01. It measures 4.6 x 3.5 cm series 4, image 56 and may represent recurrent pancreatic cancer.. Spleen: Unremarkable. No splenomegaly. Adrenal glands: Unremarkable. No mass. Kidneys and ureters: 10 mm nodule anterior right kidney 36 Hounsfield units. Stomach and bowel: Findings consistent with constipation. Appendix: No evidence of appendicitis. Intraperitoneal space: Unremarkable. No free air. No significant fluid collection. Urinary bladder: Unremarkable. No mass. Reproductive: Surgical resection of the uterus Lymph nodes: Unremarkable. No enlarged lymph nodes. Bones/joints: Unremarkable. No acute fracture. Soft tissues: Unremarkable. IMPRESSION: 1. Multiple small low-attenuation areas in the liver may represent metastatic disease. For example 15 mm in the right lobe of the liver series 4, image 45. 2 cm in the lateral aspect of the right lobe of the liver. Enhancing central component. Series 4, image 48 12 mm nodule more posteriorly in the right lobe of the liver series 4, image 50 additional smaller areas in the liver. These are thought to represent hepatic metastasis. . 2. Ill-defined low-attenuation mass in the pancreas has increased in size since October 01. It measures 4.6 x 3.5 cm series 4, image 56 and may represent recurrent pancreatic cancer.. 3. No evidence of pulmonary embolus to the segmental level. 4. No aneurysm of the aorta. 5. No dissection of the aorta. 6. Dilatation of the entire esophagus. It is dilated 3.6 cm and has an air-fluid level. There is slowed motility in the distal esophagus.. Recommend further evaluation for esophageal pathology if clinically indicated 7 10 mm nodule anterior right kidney 36 Hounsfield units.Recommend MR without and with contrast or CT without and with contrast. MR is preferred for masses under 1.5 cm. Dictated and Authenticated by: Sincere Vasquez MD. Ordering:TAMI Monahan MD
[2022-11-28 14:26] LABS: Bilirubin Negative (Negative); Blood Trace-intact (Negative); Clarity Clear (Clear); Glucose Negative (Negative); Ketones Negative (Negative); Leukocyte Esterase Negative (Negative); Nitrite Negative (Negative); Urobilinogen 0.2 mg/dL (Up to 0.2); pH 5.5 (5-8)
[2022-11-28 14:35] LABS: Bacteria Negative HPF (Negative); C & S Indicated? No; Casts Negative LPF (Negative); Crystals Negative HPF (Negative); Epithelial Cells Few HPF (Negative); Mucus Negative (Negative); RBC 0-2 HPF (0-2); WBC 0-2 HPF (0-5)
[2022-11-28] MEDS: HYDROmorphone 2 MG/ML SYR 1 MG IVP (14:41)
[2022-11-28] MEDS: Normal Saline 1,000 ML 125 ML IV (14:42)
--- NOTE | 2022-11-28 15:00 | HPE_ITS ---
Date of service: 11/28/22 Time of Service: 15:00 Assessment and Plan Assessment and plan (1) Chest pain: Status: Acute Assessment and plan: Appears to be costochondritis. Pain reproducible with compression of sternum. Toradol now and then Q6H prn Lidoderm patch to chest wall. Dilaudid IV 0.5 Q4h prn. Troponin neg x 1; second draw is pending. She was recently started on flecainide by her [facility] educational technician; 3 doses taken. Records requested. (2) Pancreatic cancer: Status: Acute Assessment and plan: Metastatic. No further treatment options per oncology. Daughter is present (pts DPOA). They wanted to discuss palliative care and hospice. Discussed her code status which is currently a full code. She now realizes this is not likely the status that is in her best interest and is cons idering a DNR status. Palliative consulted. PT consulted. Has required assistance with transferring to and from her wheelchair to bed in the last 1 1/2-2 weeks. (3) Esophageal dilatation: Status: Acute Assessment and plan: Esophagus dilated throughout its' entirity per CT findings. Difficulty swallowing even liquids. Has a globus sensation. Full liquid diet. Speech consulted. (4) Congestive heart failure: Status: Chronic Assessment and plan: Echocardiogram on 11/16/22 showed an EF of 60-65%. 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 Apical hypokinesis. Will hold diuretic now; poor intake and mildly dehydrated on admission. (5) Abdominal pain: Status: Acute Assessment and plan: Likely related to her pancreatic cancer. Currently w/o pain, N/V. (6) Hypokalemia: Status: Acute Assessment and plan: IV repletion and monitor. (7) NSTEMI (non-ST elevated myocardial infarction): Status: Acute Assessment and plan: Cardiac cath recently at [facility] showed no obstructing lesions. (8) Essential hypertension: Status: Acute Assessment and plan: Monitor. Holding losartan d/t low to low-normal BP. (9) Pulmonary fibrosis: Status: Acute Assessment and plan: Dyspnea on exertion. No acute exacerbation. (10) Discharge planning issues: Status: Acute Assessment and plan: Palliative consulted. Likely a hospice candidate. History of Present Illness History of Present Illness Chief Complaint: Chest pain Narrative: This is an 82 yo female with recurrent pancreatic cancer with mets, NSTEMI, CHF, HTN, pulmonary fibrosis. She presented with CP that began at appx 6 AM on the morning of admission. She is s/p an NSTEMI after presented to [facility] initially then being transferred to [facility] on 11/03/22. Cardiac catheterization showed no obstructive lesions. TTE at that time showed apical hypokinesis consistent with stress induced cardiomyopathy likely due to her chemotherapy. Since her last admission here, oncology has informed her that there is no further treatments to offer. She does endorse abd discomfort but no fever/chills. No shortness of air/cough. Initial troponin neg. EKG nondiagnostic. Normal WBC count. Hgb 10.9. Na 137. K 3.2. BUN 23. Creatinine 1.1. Mg 1.8. Total bilirubin 1.1 (previously normal). AST and ALT normal. Lipase < 10. NTProBNP 5466. UA unremarkable. CT chest/abd/pelvis: 1. ? Multiple small low-attenuation areas in the liver may represent metastatic disease. For example 15 mm in the right lobe of the liver series 4, image 45. 2 cm in the lateral aspect of the right lobe of the liver. Enhancing central component. Series 4, image 48 12 mm nodule more posteriorly in the right lobe of the liver series 4, image 50 additional smaller areas in the liver. These are thought to represent hepatic metastasis. . 2. ? Ill-defined low-attenuation mass in the pancreas has increased in size since October 01. It measures 4.6 x 3.5 cm series 4, image 56 and may represent recurrent pancreatic cancer.. 3. ? No evidence of pulmonary embolus to the segmental level. 4. ? No aneurysm of the aorta. 5. ? No dissection of the aorta. 6. ? Dilatation of the entire esophagus. It is dilated 3.6 cm and has an air-fluid level. There is slowed motility in the distal esophagus..? Recommend further evaluation for esophageal pathology if clinically indicated 7? 10 mm nodule anterior right kidney 36 Hounsfield units.Recommend MR without and with contrast or CT without and with contrast. MR is preferred for masses under 1.5 cm. She was given IV fluids in the ED initially. Admitted for further evaluation and palliative care consult. Review of Systems All systems reviewed & are unremarkable except as noted in HPI and below PFSH All Active Problems (Updated 11/28/22 @ 16:37 by Aj Hicks MD) Esophageal dilatation (Acute) Discharge planning issues (Acute) Cancer associated pain (Acute) Chest pain (Acute) Abdominal pain (Acute) Dehydration (Acute) Diarrhea (Chronic) Hypokalemia (Acute) NSTEMI (non-ST elevated myocardial infarction) (Acute) Essential hypertension (Acute) Pancreatic cancer (Acute) Congestive heart failure (Chronic) Pulmonary fibrosis (Acute) Social History Smoking/Tobacco Use Status: Never Smoking risk assessment performed?: Yes Substance use type: does not use Housing: apartment Do you feel safe at home: Yes Do you feel safe in your relationship?: Yes Meds Allergies and Home Medications Allergies Allergy/AdvReac Type Severity Reaction Status Date / Time acetaminophen [From [place]] AdvReac Dizziness/L Unverified 11/28/22 12:32 [place] hydrocodone [From [place]] AdvReac Dizziness/L Unverified 11/28/22 12:32 [place] Home Medications Medication Instructions Recorded Confirmed Type amlodipine 5 mg tablet 5 mg PO PRN PRN 10/30/22 10/30/22 History gabapentin 300 mg capsule 300 mg PO PRN PRN 10/30/22 11/28/22 History hydrochlorothiazide 25 mg tablet 25 mg PO DAILY 10/30/22 10/30/22 History losartan 100 mg tablet 100 mg PO DAILY 10/30/22 11/28/22 History potassium chloride 20 mEq 20 meq PO DAILY 10/30/22 11/28/22 History tablet,extended release(part/cryst) tramadol 50 mg tablet 50 mg PO DAILY 10/30/22 11/28/22 History cholestyramine (with sugar) 4 gram 1 packet PO 3XD 11/13/22 11/28/22 History powder for susp in a packet audnlg-[id number]-cevtbct cap PO 11/13/22 History 24,000-76,000-120,000 unit capsule,delayed rel (Creon) metoprolol succinate 25 mg 25 mg PO 1XD 11/13/22 11/28/22 History tablet,extended release 24 hr furosemide 20 mg tablet (Lasix) 20 mg PO DAILY #30 tabs 11/16/22 11/28/22 Rx lidocaine 5 % topical patch 1 patch topical Q24H #10 ea 11/16/22 11/28/22 Rx Results Labs 11/28/22 12:15 11/28/22 12:15 Labs: Laboratory Results - last 24 hr 11/28/22 11/28/22 11/28/22 12:15 12:15 12:38 WBC 9.39 RBC 3.64 L Hgb 10.9 L Hct 33.9 L MCV 93 MCH 29.9 MCHC 32.2 RDW 16.1 H Plt Count 112 L MPV 10.5 Immature Gran % 0.7 Neutrophils % 88.4 Lymphocytes % 5.2 Monocytes % 4.8 Eosinophils % 0.5 Basophils % 0.4 Nucleated RBC % 0.0 Absolute Neutrophils 8.29 H Absolute Lymphocytes 0.49 L Absolute Monocytes 0.45 Absolute Eosinophils 0.05 Absolute Basophils 0.04 PT 11.6 H INR 1.1 APTT 29.8 Sodium 137 Potassium 3.2 L Chloride 101 Carbon Dioxide 20.7 L Anion Gap 15.3 H BUN 23 H Creatinine 1.1 H Est GFR (CKD-EPI 2020) 50.48 Glucose 116 H Calcium 8.6 Magnesium 1.8 Total Bilirubin 1.1 H AST 29 ALT 16 Alkaline Phosphatase 142 H Troponin I < 50 NT-Pro-B Natriuret Pep 5466 H Total Protein 6.9 Albumin 2.8 L Lipase < 10 L Urine Color Urine Clarity Urine pH Ur Specific [place] Urine Protein Urine Ketones Urine Blood Urine Nitrite Urine Bilirubin Urine Urobilinogen Ur Leukocyte Esterase Urine RBC Urine WBC Ur Epithelial Cells Urine Crystals Urine Bacteria Urine Casts Urine Mucus Ur Culture Indicated? Urine Glucose 11/28/22 14:10 WBC RBC Hgb Hct MCV MCH MCHC RDW Plt Count MPV Immature Gran % Neutrophils % Lymphocytes % Monocytes % Eosinophils % Basophils % Nucleated RBC % Absolute Neutrophils Absolute Lymphocytes Absolute Monocytes Absolute Eosinophils Absolute Basophils PT INR APTT Sodium Potassium Chloride Carbon Dioxide Anion Gap BUN Creatinine Est GFR (CKD-EPI 2020) Glucose Calcium Magnesium Total Bilirubin AST ALT Alkaline Phosphatase Troponin I NT-Pro-B Natriuret Pep Total Protein Albumin Lipase Urine Color Yellow Urine Clarity Clear Urine pH 5.5 Ur Specific [place] 1.010 Urine Protein Trace H Urine Ketones Negative Urine Blood Trace-intact H Urine Nitrite Negative Urine Bilirubin Negative Urine Urobilinogen 0.2 Ur Leukocyte Esterase Negative Urine RBC 0-2 Urine WBC 0-2 Ur Epithelial Cells Few Urine Crystals Negative Urine Bacteria Negative Urine Casts Negative Urine Mucus Negative Ur Culture Indicated? No Urine Glucose Negative Last Vital Signs Pulse 107 H 11/28/22 12:25 Resp 18 11/28/22 12:41 BP 84/47 L 11/28/22 12:25 Pulse Ox 95 11/28/22 12:25 Time Spent Time spent with Patient: 40-54 minutes Time was spent: preparing to see the patient(eg.review tests), obtaining and/or reviewing separately otained hiistory, ordering medications,tests, procedures, referring, communicating with other health insurance healthcare consultant, indepentently interpreting results, counseling the patient and care coordination
[2022-11-28] MEDS: POTASSIUM CHLORIDE 10 MEQ/100 ML BAG 100 MEQ IVPB ×3 (15:32→17:47)
[2022-11-28] MEDS: Ketorolac 30 MG/ML VIAL IVP (16:46)
[2022-11-28] MEDS: Lidocaine 5% Patch 1 PATCH TP (16:46)
[2022-11-28 17:14] LABS: Troponin I < 50 ng/L (<or=60)
[2022-11-28] MEDS: Magic Mouthwash 119 ML BTL 10 ML MM (17:23)
[2022-11-28] MEDS: HYDROmorphone 2 MG/ML SYR 0.5 MG IVP (19:29)
[2022-11-28] MEDS: Ketorolac 15 MG/ML VIAL IVP (20:50)
[2022-11-29] VITALS (7 sets, daily range): BP systolic 91–137; BP diastolic 52–75; PULSE 58–79; RESP 18–20; TEMP 35.9–36.4; O2SAT 95–98
[2022-11-29] MEDS: HYDROmorphone 2 MG/ML SYR 0.5 MG IVP ×4 (01:38→19:48)
[2022-11-29] MEDS: Prochlorperazine 10 MG/2 ML VIAL 5 MG IVP (06:08)
[2022-11-29 06:09] LABS: HCT 27.1 % (36.0-46.0); HGB 8.6 g/dL (11.2-15.7); MCH 30.2 pg (27.0-33.0); MCHC 31.7 % (32.0-36.0); MCV 95 fL (80-95); MPV 10.6 fL (8.0-11.0); RBC 2.85 10^6/uL (3.93-5.22); RDW 16.2 % (11.7-14.6); RDW-SD 56.5 fL; WBC 4.22 10^3/uL (4.4-10.8)
[2022-11-29] MEDS: Patch Removal 1 EACH TP (06:14)
[2022-11-29 06:25] LABS: Anion Gap 11.5 mmol/L (3-11); BUN 26 mg/dL (7-18); CO2 21.5 mmol/L (21.0-32.0); Calcium 8.2 mg/dL (8.5-10.1); Chloride 104 mmol/L (98-107); Glucose 96 mg/dL (74-106); Sodium 137 mmol/L (136-145)
[2022-11-29 06:49] LABS: Platelet Count 73 10^3/uL (130-400)
--- NOTE | 2022-11-29 08:48 | PDOC.CMIN ---
Date of service: 11/29/22 Time of Service: 08:48 Care Management Initial Assmt Initial Assessment REASON FOR HOSPITALIZATION:: Metastatic pancreatic cancer, abdominal pain PREVIOUS FUNCTIONAL STATUS/SOCIAL/FAMILY SUPPORTS:: Sarita lives in an apartment in [facility]. She has pancreatic cancer and is becoming increasing weak and is having difficulty walking. Her daughter Eliza recently started staying with her to assist her with ADL's. She also has a daughter Rosa Elena who lives in [place] and the two have a good relationship. CURRENT FUNCTIONAL STATUS:: Sarita was sleeping each time CM attempted to meet with her. Information for this interview is obtained via chart review and provided by her daughter Eliza via phone. ADVANCE DIRECTIVES:: None on file Has patient been provided with info about the portal/API?: Yes Did the patient sign up for the portal?: Yes (Prior to admission) CODE STATUS:: Full Code INSURANCE COVERAGE / FINANCIAL ISSUES:: Medicare /[facility] CURRENT HOME/COMMUNITY SERVICES/EQUIPMENT:: [place] PRIMARY CARE PHYSICIAN:: Gibran Hinkle POTENTIAL DISCHARGE NEEDS:: Evaluation for further needs PATIENT/FAMILY EDUCATION NEEDS:: Review discharge instructions, limitations, medications and plan to follow up with community providers. Discuss ask me three and goals of self care. ANTICIPATED BARRIERS TO DISCHARGE:: None identified TRANSPORTATION:: Dependent on disposition and mobility level at time of discharge. PLAN:: Awaiting Palliative consult to discuss goals of care, including code status and Hospice services. Sarita is currently a full code. CM will continue to support Sarita and her discharge planning needs. PFSH All Active Problems (Updated 11/28/22 @ 16:37 by Aj Hicks MD) Esophageal dilatation (Acute) Discharge planning issues (Acute) Cancer associated pain (Acute) Chest pain (Acute) Abdominal pain (Acute) Dehydration (Acute) Diarrhea (Chronic) Hypokalemia (Acute) NSTEMI (non-ST elevated myocardial infarction) (Acute) Essential hypertension (Acute) Pancreatic cancer (Acute) Congestive heart failure (Chronic) Pulmonary fibrosis (Acute) Social History Smoking/Tobacco Use Status: Never Smoking risk assessment performed?: Yes Substance use type: does not use Housing: apartment Do you feel safe at home: Yes Do you feel safe in your relationship?: Yes Readmission Within the Past 30 Days Yes or No: Yes Date of First Admission Date of 1st Admission: 11/13/22 Date of this Admission Date of Admission: 11/28/22 This admission was: Through ED Office Visit Since 1st Admission Have you seen your PCP in the office since discharge?: No Had an appointment Been Scheduled?: No Speicalist Appointments Have you seen any other specialist since your 1st Admission?: Yes
[2022-11-29] MEDS: dilTIAZem 60 MG TAB PO (08:53)
[2022-11-29] MEDS: Lidocaine 5% Patch 1 PATCH TP (08:54)
[2022-11-29] MEDS: Normal Saline Flush 10 ML SYR IVP (08:54)
[2022-11-29] MEDS: Pantoprazole 40 MG VIAL IVP (09:01)
[2022-11-29] MEDS: Lactated Ringers 1,000 ML 80 ML IV (10:06)
--- NOTE | 2022-11-29 11:40 | PGE_ITS ---
Date of Service Date of service: 11/29/22 Time of Service: 11:40 Assessment and Plan Assessment and plan (1) Chest pain: Status: Acute Assessment and plan: Appears to be costochondritis. Pain reproducible with compression of sternum. Toradol now and then Q6H prn Lidoderm patch to chest wall. Dilaudid IV 0.5 Q4h prn. Troponin neg x 1; second draw is pending. She was recently started on flecainide by her [facility] panel cutter; 3 doses taken. Records requested. (2) Pancreatic cancer: Status: Acute Assessment and plan: Metastatic. No further treatment options per oncology. Daughter is pts DPOA. Pt, daughter and I discussed palliative care and hospice at time of admision.. Discussed her code status which is currently a full code. She now realizes this is not likely the status that is in her best interest and is considering a DNR status. Palliative consulted. PT consulted. Has required assistance with transferring to and from her wheelchair to bed in the last 1 1/2-2 weeks. (3) Esophageal dilatation: Status: Acute Assessment and plan: Esophagus dilated throughout its' entirety per CT findings. Difficulty swallowing even liquids. Has a globus sensation. Full liquid diet. IV PPI Dose of oral diltiazem this AM for questionable esophageal spasms. Speech consulted. (4) Congestive heart failure: Status: Chronic Assessment and plan: Echocardiogram on 11/16/22 showed an EF of 60-65%. TTE [place] [facility] showed stress induced cardiomyopathy thought secondary to chemotherapy. Apical hypokinesis. Will hold diuretic now; poor intake and mildly dehydrated on admission. (5) Abdominal pain: Status: Acute Assessment and plan: Likely related to her pancreatic cancer. Currently w/o pain, N/V. (6) Hypokalemia: Status: Acute Assessment and plan: IV repletion and monitor. K is 4.0 today. (7) NSTEMI (non-ST elevated myocardial infarction): Status: Acute Assessment and plan: Previous admission. Troponin now neg x 2. Cardiac cath recently at [facility] showed no obstructing lesions. (8) Essential hypertension: Status: Acute Assessment and plan: Monitor. Holding losartan d/t low to low-normal BP. (9) Pulmonary fibrosis: Status: Acute Assessment and plan: Dyspnea on exertion. No acute exacerbation. (10) Discharge planning issues: Status: Acute Assessment and plan: Palliative consulted. Likely a hospice candidate. Subjective Subjective Patient reports: afebrile; denies tolerating liquids well, nausea, vomiting or shortness of breath Exam Const General: no acute distress Orientation: alert and oriented x3 HENMT Head: normal to inspection Ears: hearing grossly normal bilaterally Mouth: moist mucous membranes Eyes General: appearance normal, both eyes and all related structures Sclera: sclerae normal Neck Neck: normal visual inspection and no JVD Resp Effort & Inspection: normal respiratory effort and able to speak in complete sentences Auscultation: clear to auscultation bilaterally Cardio Rate: regular rate Heart Sounds: S1 normal, S2 normal and no murmurs GI Palpation: soft and tender Skin General skin exam: no rashes or lesions noted Neuro General: patient alert, patient oriented x3 and no focal motor deficits Extrem General: normal to inspection, no pedal edema and no calf tenderness Psych Mental Status: mental status grossly normal Affect: normal affect Attitude: cooperative Thought Process: normal Objective Last Vital Signs Temp 35.9 C L 11/29/22 06:41 Pulse 58 L 11/29/22 07:00 Resp 18 11/29/22 06:41 BP 105/70 11/29/22 06:41 Pulse Ox 98 11/29/22 06:41 Laboratory Results - last 24 hr 11/28/22 11/28/22 11/28/22 12:15 12:15 12:38 WBC 9.39 RBC 3.64 L Hgb 10.9 L Hct 33.9 L MCV 93 MCH 29.9 MCHC 32.2 RDW 16.1 H Plt Count 112 L MPV 10.5 Immature Gran % 0.7 Neutrophils % 88.4 Lymphocytes % 5.2 Monocytes % 4.8 Eosinophils % 0.5 Basophils % 0.4 Nucleated RBC % 0.0 Absolute Neutrophils 8.29 H Absolute Lymphocytes 0.49 L Absolute Monocytes 0.45 Absolute Eosinophils 0.05 Absolute Basophils 0.04 PT 11.6 H INR 1.1 APTT 29.8 Sodium 137 Potassium 3.2 L Chloride 101 Carbon Dioxide 20.7 L Anion Gap 15.3 H BUN 23 H Creatinine 1.1 H Est GFR (CKD-EPI 2020) 50.48 Glucose 116 H Calcium 8.6 Magnesium 1.8 Total Bilirubin 1.1 H AST 29 ALT 16 Alkaline Phosphatase 142 H Troponin I < 50 NT-Pro-B Natriuret Pep 5466 H Total Protein 6.9 Albumin 2.8 L Lipase < 10 L Urine Color Urine Clarity Urine pH Ur Specific [place] Urine Protein Urine Ketones Urine Blood Urine Nitrite Urine Bilirubin Urine Urobilinogen Ur Leukocyte Esterase Urine RBC Urine WBC Ur Epithelial Cells Urine Crystals Urine Bacteria Urine Casts Urine Mucus Ur Culture Indicated? Urine Glucose 11/28/22 11/28/22 11/29/22 14:10 16:45 06:00 WBC RBC Hgb Hct MCV MCH MCHC RDW Plt Count MPV Immature Gran % Neutrophils % Lymphocytes % Monocytes % Eosinophils % Basophils % Nucleated RBC % Absolute Neutrophils Absolute Lymphocytes Absolute Monocytes Absolute Eosinophils Absolute Basophils PT INR APTT Sodium 137 Potassium 4.0 Chloride 104 Carbon Dioxide 21.5 Anion Gap 11.5 H BUN 26 H Creatinine 1.0 Est GFR (CKD-EPI 2020) 56.60 Glucose 96 Calcium 8.2 L Magnesium Total Bilirubin AST ALT Alkaline Phosphatase Troponin I < 50 NT-Pro-B Natriuret Pep Total Protein Albumin Lipase Urine Color Yellow Urine Clarity Clear Urine pH 5.5 Ur Specific [place] 1.010 Urine Protein Trace H Urine Ketones Negative Urine Blood Trace-intact H Urine Nitrite Negative Urine Bilirubin Negative Urine Urobilinogen 0.2 Ur Leukocyte Esterase Negative Urine RBC 0-2 Urine WBC 0-2 Ur Epithelial Cells Few Urine Crystals Negative Urine Bacteria Negative Urine Casts Negative Urine Mucus Negative Ur Culture Indicated? No Urine Glucose Negative 11/29/22 06:00 WBC 4.22 L RBC 2.85 L Hgb 8.6 L D Hct 27.1 L MCV 95 MCH 30.2 MCHC 31.7 L RDW 16.2 H Plt Count 73 L MPV 10.6 Immature Gran % Neutrophils % Lymphocytes % Monocytes % Eosinophils % Basophils % Nucleated RBC % Absolute Neutrophils Absolute Lymphocytes Absolute Monocytes Absolute Eosinophils Absolute Basophils PT INR APTT Sodium Potassium Chloride Carbon Dioxide Anion Gap BUN Creatinine Est GFR (CKD-EPI 2020) Glucose Calcium Magnesium Total Bilirubin AST ALT Alkaline Phosphatase Troponin I NT-Pro-B Natriuret Pep Total Protein Albumin Lipase Urine Color Urine Clarity Urine pH Ur Specific [place] Urine Protein Urine Ketones Urine Blood Urine Nitrite Urine Bilirubin Urine Urobilinogen Ur Leukocyte Esterase Urine RBC Urine WBC Ur Epithelial Cells Urine Crystals Urine Bacteria Urine Casts Urine Mucus Ur Culture Indicated? Urine Glucose Time Spent with Patient Time Spent with Patient: 25-34 minutes Time was spent: preparing to see the patient(eg.review tests), obtaining and/or reviewing separately otained hiistory, ordering medications,tests, procedures, referring, communicating with other health health care sanitary technician, indepentently interpreting results, counseling the patient and care coordination
[2022-11-29] MEDS: Ketorolac 15 MG/ML VIAL IVP ×2 (12:24→19:50)
[2022-11-29] MEDS: Magic Mouthwash 119 ML BTL 10 ML MM (12:24)
[2022-11-29] MEDS: Lidocaine Patch Removal 1 EACH TP (20:14)
[2022-11-30] VITALS (7 sets, daily range): BP systolic 103–114; BP diastolic 56–65; PULSE 63–82; RESP 16–18; TEMP 35.6–37; O2SAT 97–100
[2022-11-30] MEDS: HYDROmorphone 2 MG/ML SYR 0.5 MG IVP ×3 (03:59→20:25)
[2022-11-30 06:52] LABS: Abs Immature Grans 0.02 10^3/uL (0.0-0.06); Absolute Basophil Count 0.01 10^3/uL (0.0-0.2); Absolute Eosinophil Count 0.09 10^3/uL (0.0-0.7); Absolute Monocyte Count 0.33 10^3/uL (0.1-0.8); Absolute Neutrophil Count 3.08 10^3/uL (1.2-6.7); Basophils % 0.3; Eosinophils % 2.3; HCT 25.8 % (36.0-46.0); HGB 8.2 g/dL (11.2-15.7); Immature Grans % 0.5; Lymphocytes % 10.2; MCH 30.4 pg (27.0-33.0); MCHC 31.8 % (32.0-36.0); MCV 96 fL (80-95); Monocytes % 8.4; Neutrophils % 78.3; RDW 16.3 % (11.7-14.6); RDW-SD 56.1 fL; WBC 3.93 10^3/uL (4.4-10.8)
[2022-11-30] MEDS: Ketorolac 15 MG/ML VIAL IVP ×3 (07:00→23:17)
[2022-11-30] MEDS: Normal Saline Flush 10 ML SYR IVP ×4 (07:15→23:18)
[2022-11-30 07:28] LABS: Platelet Count 75 10^3/uL (130-400)
[2022-11-30 07:29] LABS: Diff Comment Diff Reviewed
[2022-11-30 07:34] LABS: Hypochromasia 2+
[2022-11-30 07:35] LABS: Polychromasia Present
[2022-11-30] MEDS: Pantoprazole 40 MG VIAL IVP (07:53)
[2022-11-30] MEDS: Lidocaine 5% Patch 1 PATCH TP ×2 (07:54→13:25)
[2022-11-30] MEDS: dilTIAZem 60 MG TAB PO ×2 (09:06→20:15)
--- NOTE | 2022-11-30 09:32 | CMPROGNOTE_ITS ---
Date of service: 11/30/22 Time of Service: 09:32 Care Management Progress Note Progress Note Text Progress Note Text: S/O:Sarita was sitting up in bed visiting with her daughter when CM met with her. She engaged readily with CM, known to her from a previous admission.Sarita has not been doing well at home. She shared that she has not been able to swallow and has gotten very weak. She is also having difficulty transferring to and from her wheelchair. Sarita had a Palliative consult this morning with Dr. Gallagher as she is still a full code. She was not able to commit to a change in code status at that time but informed CM that she is thinking about it. She still has questions about her current situation and likely prognosis. She reported that she is no longer able to receive treatment for her cancer and knows it has spread.At this time the cause of her dysphagia is unknown. Sarita realizes that her ability to eat or drink will affect her outcome and may affect her decisions regarding code status. A: Sarita is an 82 year old woman admitted on 11/28/22 with metastatic pancreatic cancer P:Awaiting Palliative consult to discuss goals of care, including code status and Hospice services. Sarita is currently a full code. CM will continue to s upport Sarita and her discharge planning needs.
--- NOTE | 2022-11-30 09:40 | OT.INIE ---
Occupational Therapy Notes Inpatient Occupational Therapy Evaluation Date: 11/30/22 Referring Doctor:Dr. Hicks OT Orders: Non Urgent Precautions: Fall, standard, full PATIENT PROFILE/ADMITTING DIAGNOSIS: Pt is a 82 year old female admitted to Med Surg with the following dx of palliative care patient, esophageal dilation, cancer associated pain, chest pain, abdominal pain, dehydration, diarrhea, hypokalmeia, NSTEMI, essential HTN, pancreatic cancer, congestive heart failure, pulmonary fibrosis. Past Medical History: All Active Problems?(Updated 11/28/22 @ 16:37 by Aj Hicks MD) Esophageal dilatation (Acute) Discharge planning issues (Acute) Cancer associated pain (Acute) Chest pain (Acute) Abdominal pain (Acute) Dehydration (Acute) Diarrhea (Chronic) Hypokalemia (Acute) NSTEMI (non-ST elevated myocardial infarction) (Acute) Essential hypertension (Acute) Pancreatic cancer (Acute) Congestive heart failure (Chronic) Pulmonary fibrosis (Acute) Social History/Home Situation: Pt lives alone in an apartment at her baseline level of function. She does note that she is living with her daughter so she has (A) with her ADL/IADL Routines. SUBJECTIVE: Pt was sitting in bed with her daughter present. She notes that she is hoping to find out more medically what is going on with her. OBJECTIVE: General Observation: Pleasant, IV in (L) UE Mental Status: A&Ox4 Pain: non remarkable ROM: RUE AROM WFL L UE AROM WFL STRENGTH: RUE 4/5 LUE 3+/5 FUNCTIONAL MOBILITY/ADLS: BATHING Pt denies at todays session. She has AROM to perform this (I) and we will assess at tomorrows session. DRESSING Dressing UE (I) [facility] gown Dressing LE NT at todays session but pt is able to reach her (B) while sitting in bed GROOMING (I) with hand to mouth EATING Pt states that she is having difficulty swallowing her food/pills. She is utilizing a liquid diet. This is unclear if this is her request or provider requested. She notes that she would like to not progress this until she can hold down liquids. OT recommends TELESALES TEAM LEADER evaluation which MD says is placed. BALANCE: Static sitting Normal Dynamic Sitting Normal SPECIAL TESTS: Daily Activity Limitations [facility] ?[facility] clicks? Daily Activity Inpatient Short Form: Raw score: 18 INFORMED CONSENT/EDUCATION: Pt instructed in purpose of OT Consult and plan of care. ASSESSMENT: Patient is a 82-year-old female referred to occupational therapy services with diagnosis of palliative care patient, esophageal dilation, cancer associated pain, chest pain, abdominal pain, dehydration, diarrhea, hypokalmeia, NSTEMI, essential HTN, pancreatic cancer, congestive heart failure, pulmonary fibrosis. Patient presents with clinical signs and symptoms consistent with dx, as demonstrated by the following impairment level findings/ functional limitations: Impairments in ADL/IADL and leisure activities, pain associated with cancer dx, decreased functional mobility, decreased functional activity tolerance. Chronic medical issues. AMPAC score 18 Patient is assessed as a Moderate 51295 complexity based on the following: History: see above Examination: see functional limitations as noted above Presentation: evolving Decision Making: AMPAC score 18 GOALS Goals x1 week 1. Grooming- seated (I) 2. Dressing- seated in chair (I) 3. Bathing- standing at sink (I) 4. Toileting- on toilet (I) 5. Eating- (I) PLAN OF CARE/TREATMENT PLAN: 1x/day, 5 days/ week x 1week Initiate Occupational Therapy Services for bathing, dressing, grooming, toileting, eating, transfer training. DISCHARGE RECOMMENDATIONS [facility] TREATMENT TIME/MINUTES/CODES 51902, 20 minutes [facility] [place], [place]
--- NOTE | 2022-11-30 10:50 | W.PALLCONSUL ---
Date of service: 11/30/22 Time of Service: 07:00 History of Present Illness History of Present Illness Chief Complaint: sob,code status, goals of care Narrative: From H and P History of Present Illness?Chief Complaint: Chest pain?Narrative: This is an 82 yo female with recurrent pancreatic cancer with mets, NSTEMI, CHF, HTN, pulmonary fibrosis.? She presented with CP that began at appx 6 AM on the morning of admission.? She is s/p an NSTEMI after presented to [facility] initially then being transferred to [facility] on 11/03/22.? Cardiac catheterization showed no obstructive lesions.? TTE at that time showed apical hypokinesis consistent with stress induced cardiomyopathy likely due to her chemotherapy.? Since her last admission here, oncology has informed her that there is no further treatments to offer.? She does endorse abd discomfort but no fever/chills.? No shortness of air/cough.? Initial troponin neg.? EKG nondiagnostic.? Normal WBC count.? Hgb 10.9.? Na 137. K 3.2. BUN 23. Creatinine 1.1. Mg 1.8. Total bilirubin 1.1 (previously normal). AST and ALT normal.? Lipase < 10. NTProBNP 5466. UA unremarkable. CT chest/abd/pelvis:??1. ? Multiple small low-attenuation areas in the liver may represent metastatic disease. For example 15 mm in the right lobe of the liver series 4, image 45. 2 cm in the lateral aspect of the right lobe of the liver. Enhancing central component. Series 4, image 48 12 mm nodule more posteriorly in the right lobe of the liver series 4, image 50 additional smaller areas in the liver. These are thought to represent hepatic metastasis. . 2. ? Ill-defined low-attenuation mass in the pancreas has increased in size since October 01. It measures 4.6 x 3.5 cm series 4, image 56 and may represent recurrent pancreatic cancer.. 3. ? No evidence of pulmonary embolus to the segmental level. 4. ? No aneurysm of the aorta. 5. ? No dissection of the aorta. 6. ? Dilatation of the entire esophagus. It is dilated 3.6 cm and has an air-fluid level. There is slowed motility in the distal esophagus..? Recommend further evaluation for esophageal pathology if clinically indicated 7? 10 mm nodule anterior right kidney 36 Hounsfield units.Recommend MR without and with contrast or CT without and with contrast. MR is preferred for masses under 1.5 cm. Interim History I was asked to see is still by Dr. Hicks.. I had called Sarita's daughter Eliza last evening and told her I would be at the hospital at 7 AM. Eliza said that she would meet me here. Unfortunately she was unable to come until almost 7:50. Sarita is an 82-year-old woman with a history of pancreatic cancer now metastatic with mets to the liver increased size of the pancreas and possible right kidney. She was having increasing problems with shortness of breath and was brought to [facility]. She was found to have dilatation of her esophagus. In talking with Dr. Hicks there was concern about her CODE STATUS i.e. she is presently a full code. Her daughter Eliza is her DPOA. She would like further discussion about CODE STATUS and next steps is regarding care. When I went in to see is still she states that she was put on FOLFOX and she had a reaction to it injuring her heart which caused her to collapse. She went to [facility] and stayed for a week. She has had recurrent episodes of CHF. She is not certain about what is causing her shortness of breath and she is concerned about her esophagus. She does have a speech evaluation today. She had an echo last visit to the hospital. She had a normal EF. She has been placed on steroids for the inflammation. She feels that it helps. Consults Consult date: 11/30/22 Requesting physician: Aj Hicks Assessment and Plan Assessment and plan (1) Esophageal dilatation: Status: Acute (2) Cancer associated pain: Status: Acute (3) Chest pain: Status: Acute (4) Palliative care patient: Status: Acute Assessment and plan: Esophageal dilatation?she does have a speech evaluation today. Uncertain if this is from the effects of her cancer versus another cause. She very much wants to have a cause before she decides what to do. Chest pain?she ruled out for an [place]. Her most recent echo was good. Dr. Castro felt that it was costochondritis as he was pushing on her chest and there was definite discomfort Anemia has worsened over the last week. She has pancytopenia. Probably an effect of her metastatic cancer CODE STATUS. We discussed CODE STATUS and what CPR is, the success rate of this in the general population. She was adamant that she did NOT want to be a DO NOT RESUSCITATE. She also wanted to talk to her daughter Eliza who unfortunately was only able to make the last 5 minutes of the meeting. We did speak briefly of the downside of CPR i.e. fractured ribs, casillas, being on the machine and not able to interact with family etc. she stated that she wanted 24 hours to think about this She was quite guarded during much of our meeting today. I asked her to let the staff know that if she requests I will come back in so that we can talk about these, hopefully with Eliza. We also spoke about the specialty of palliative care. However I try to understand what the patient wants and then help their symptoms to best meet their goals. I spoke with both Eliza and Sarita about symptom management specifically pain, nausea, constipation etc. I did explain that I am happy to follow Sariat both inpatient and outpatient. Eliza her daughter felt that this would be a valuable service I also spoke to Dr. Hicks about Sarita. We await the swallowing consult from speech therapy to gain more information about her esophageal dilatation Again I am happy to meet with this style at any time if she chooses. Please contact me. Review of Systems Narrative: She states that right now her biggest complaint is shortness of breath, she also has pain in her anterior chest, difficult for her to take p.o. PFSH All Active Problems (Updated 11/30/22 @ 13:04 by Laurie Gallagher MD, DC) Palliative care patient (Acute) Esophageal dilatation (Acute) Discharge planning issues (Acute) Cancer associated pain (Acute) Chest pain (Acute) Abdominal pain (Acute) Dehydration (Acute) Diarrhea (Chronic) Hypokalemia (Acute) NSTEMI (non-ST elevated myocardial infarction) (Acute) Essential hypertension (Acute) Pancreatic cancer (Acute) Congestive heart failure (Chronic) Pulmonary fibrosis (Acute) Social History Smoking/Tobacco Use Status: Never Smoking risk assessment performed?: Yes Substance use type: does not use Housing: apartment Do you feel safe at home: Yes Do you feel safe in your relationship?: Yes Exam Narrative Exam Narrative: Sarita is lying in bed. At times she grimaces and she looks like she has pain. She is talking in complete sentences. I went into her room last time she was at [facility] to's ask her about palliative care and give her an introduction to it. At that time she looks very different i.e. she was sitting up straight in her bed, she had make-up on, she looked refreshed. Today she looked much more tired Results Last Vital Signs Temp 98.2 F 11/30/22 08:15 Pulse 82 11/30/22 08:15 Resp 17 11/30/22 08:15 BP 114/64 11/30/22 08:15 Pulse Ox 98 11/30/22 08:15 Labs 11/30/22 06:30 11/29/22 06:00 Labs: Laboratory Results - last 24 hr 11/30/22 06:30 WBC 3.93 L RBC 2.70 L Hgb 8.2 L Hct 25.8 L MCV 96 H MCH 30.4 MCHC 31.8 L RDW 16.3 H Plt Count 75 L MPV 11.0 Immature Gran % 0.5 Neutrophils % 78.3 Lymphocytes % 10.2 Monocytes % 8.4 Eosinophils % 2.3 Basophils % 0.3 Nucleated RBC % 0.0 Absolute Neutrophils 3.08 Absolute Lymphocytes 0.40 L Absolute Monocytes 0.33 Absolute Eosinophils 0.09 Absolute Basophils 0.01 RBC Morphology See Below Polychromasia Present Hypochromasia 2+ Imaging Additional studies: Laboratory Tests 11/16/22 11/27/22 11/28/22 08:40 09:20 12:15 Hgb 10.5 L Hct Plt Count 168 BUN Creatinine Calcium Alkaline Phosphatase 142 H Troponin I NT-Pro-B Natriuret Pep 5466 H Albumin 2.8 L Lipase < 10 L 11/28/22 11/29/22 11/30/22 16:45 06:00 06:30 Hgb Hct 25.8 L Plt Count 75 L BUN 26 H Creatinine 1.0 Calcium 8.2 L Alkaline Phosphatase Troponin I < 50 NT-Pro-B Natriuret Pep Albumin Lipase Conclusion Normal left ventricular wall thickness and chamber size.? Ejection fraction is 60 to 65%.? Wall motion is normal Normal right ventricular size and systolic function Both atria are normal in size Aortic valve is sclerotic and trileaflet with moderate regurgitation.? There is no hemodynamically significant aortic stenosis Dilated ascending aorta measuring 3.9 cm
--- NOTE | 2022-11-30 13:02 | SP_ITS ---
Date of service: 11/30/22 Time of Service: 13:02 Subjective Clinical (Bedside) Swallow Evaluation Speech Language Pathology Patient referred for clinical swallow evaluation from Dr Hicks given esophageal dysphagia report. Precautions: Full code, fall risk, standard SUBJECTIVE: Patient received alert/awake, and agreeable to evaluation, able to communicate wants/needs effectively; able to demonstrate comprehension of recommendations for safe p.o. intake upon discharge once deemed medically stable.?Pt's daughter was present. Pt was repositioned using head of bed controls to mimic upright position. 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 Additional CANCER GENETICS ASSISTANT Ronda Ahn also present during this session for training purposes. ? HPI: Pt is a 82 year old female admitted with chest pain and with complaints of esophageal discomfort and unable to take PO. Predisposing dysphagia risk factors: GERD, hiatal hernia Clinical signs of possible chronic dysphagia: esophageal complaints Precipitating dysphagia risk factors / triggering event: metastatic disease ? IMPRESSIONS & PLAN: Patient presents with primarily esophageal phase deficits based on her report. Appears to tolerate liquids and solids without s/sx aspiration but reports stasis, chest pressure and discomfort with solids and liquids though this is improving in the last 18 hours, possibly secondary to medication changes. It is unclear if sx are purely result of effects of chronic GERD or if there are further anatomical factors at play secondary to medical status. Recommend to advance diet with precautions as outlined below with focus on reflux management and prevention. Pending progress and pending goals of care, she may benefit from further workup with GI. Further CANCER GENETICS ASSISTANT services: inpatient / patient to be followed while on unit, additional CANCER GENETICS ASSISTANT services TBD after discharge pending progress and goals of care ? Instrumentation: Consider MBSS vs Esophagram while inpatient or outpatient pending progress ? PROVIDER RECOMMENDATIONS Gastroenterology Diet Texture Modification(s): IDDSI Level(s) SOLIDS 4-Pureed Solids LIQUIDS 0-Thin Liquids Medication Intake: Crushed, if able, or whole with puree, followed by liquid wash. Medications only as advised by MD or Pharmacist RISK MANAGEMENT: HOB upright as tolerated; upright for all PO intake. Oral hygiene BID/2x per day ? Level of Assistance/Supervision: Independent PO intake only when awake/alert? Strategies/Adaptations/Assistive Equipment: Small sips and bites when eating Slow rate of intake Alternate intake of liquids and solids Small+frequent meals throughout day Posture/Positioning Needs: Maintain upright position at least 30 minutes after meals Avoid meals/snacks 2-3 hours prior to reclining/sleeping Sleep with head of bed elevated to reduce likelihood of nocturnal reflux PFSH All Active Problems?(Updated 11/28/22 @ 16:37 by Aj Hicks MD) Esophageal dilatation (Acute) Discharge planning issues (Acute) Cancer associated pain (Acute) Chest pain (Acute) Abdominal pain (Acute) Dehydration (Acute) Diarrhea (Chronic) Hypokalemia (Acute) NSTEMI (non-ST elevated myocardial infarction) (Acute) Essential hypertension (Acute) Pancreatic cancer (Acute) Congestive heart failure (Chronic) Pulmonary fibrosis (Acute) ? OBJECTIVE: Respiratory: room air, tolerates well, sporadic intermittent dry cough Language: Grossly WFL Hearing: WFL Mental Status: Alert and Oriented Recall of current events intact Speech: WFL Oral Motor Exam: ? Dentition ? Natural dentition ? Fair condition with 1 tooth partial dentre ? Oral Mucosa ? Moist ? Good oral care ? CN V - Trigeminal ? Jaw Movement ? WFL ? CN VII ? Labial/Facial ? WFL ? CN IX ? Palate ? WFL ? CN X ? Laryngeal ?Vocal quality ? WFL for age and gender, mildly rough ? Volitional cough ? Sharp & strong ? CN XII ? Lingual ? WFL ? Volitional Swallow ? Suspect reduced laryngeal elevation ? Suspect delayed onset of swallow ? Food items tested: ?? IDDSI 0: cup edge single sips IDDSI 4: small tsp puree IDDSI 7: very small bite cracker Oral phase: WFL Pharyngeal phase: Delayed swallow initiation suspected Provided education to: Patient, Family, Nursing Topics Addressed: anatomy/physiology of swallowing mechanism, overt s/sx to monitor for re: potential aspiration of food / liquids, relationship between respiratory function changes and deglutition, Rationale for recommendations as outlined below, reflux precautions Outcome: Verbalized/demonstrated understanding handouts provided Goals: Patient will safely and efficiently tolerate least restrictive diet. Patient/caregiver will be independent with aspiration precautions, diet tom fications, and safe swallowing strategies. CANCER GENETICS ASSISTANT CPT Code: 08677 Clinical Swallowing Evaluation Time spent: 40 minutes Coding Diagnoses CPT Codes EVALUATE SWALLOWING FUNCTION - 54632 ([id number])
--- NOTE | 2022-11-30 14:10 | W.NUTRFU ---
Date of service: 11/30/22 Time of Service: 14:10 Nutrition Note NOTE: Mr Burger is an 82yo female admitted with esophageal dilation and abdominal pain with a hx of pancreatic cancer. full liquid diet ordered currently, although pt states swallow eval completed earlier by speech therapy and they will recommend puree consistency with thin liquids. intake has been low due to multiple factors and wt loss noted of 11 pounds in less than 1 month. She has declines oral nutrition supplements as she doesn't like the milky taste of ensure and others offered. We talked about liquid protein to help meet her protein needs and she did a taste test with approval to take 1 pkt a day for now to help boost her protein intake. Current nutrition needs assessed at 1128kcals, 55g protein and 1128mL fluid. Would recommend Active Liquid Protein pkt at one per day, which would supply 20g protein and help meet at least 1/3 of Sarita's protein needs She was also educated on eating higher kcal and protein menu items first and we will work on other ideas that fall within her consistency restrictions while she is of inpatitent status. Time Spent in Nutritional Counseling and Treatment: 15 minutes
--- NOTE | 2022-11-30 16:20 | PTTR_ITS ---
Date of service: 11/30/22 Time of Service: 14:47 PT Notes Visit Reasons: Metastatic Pancreatic Cancer, Chest Pain Inpatient Physical Therapy Treatment Note [facility] Date: 11/30/22 PRECAUTIONS: Fall, standard, activity as tolerated SUBJECTIVE: Patient reports feeling better, enjoyed working with GAMMA OPERATOR Ariana very much. Feels like her food is settling better now, causing much less overall discomfort. Hesitant in her agreement to participate in therapy. Patient and daughter both report that patient has been unable to walk and essentially bed bound for several weeks prior to coming to the hospital. OBJECTIVE: Patient sitting up in bed with HOB maximally elevated. Patient appears to have slid down, is resting on her sacrum. Daughter also present in room. ? PAIN: Reports discomfort (05/29) in area of sacrum, where she has been resting. Remarks when HOB is lowered Oh! That's why my butt hurts! I slid down too far!. VITALS: monitored by nursing staff ??? BED MOBILITY/TRANSFERS? Rolling L/R: independent Supine-sit: modified independent with maximally elevated HOB? Sit-supine: min assist to swing legs up into bed ? Sit-stand: CGA ? Stand-sit: CGA? Bed-Chair: CGA ? Chair-bed: CGA Gait Training ([id number]): Direct one-on-one instruction and skilled instruction in: [] employing an assistive device [] modified weight-bearing status [x] movement sequencing [x] turning and movement with proper form [x] Provided verbal cues for equipment management and technique [] Provided instruction in gait pattern [x] Patient education regarding pacing and breathing techniques to maximize activity tolerance? GAIT? Assistive Device: FWW ? Weight bearing: Full Assist: CGA ? Distance:? Side step up and down bed; 5 steps, seated rest x3. 15 feet, seated rest x2. ? Deviation: Patient becomes noticeably short of breath after extremely short distances. Reports fatigue, denies feeling shaky or dizzy. ? ASSESSMENT:? Patient tolerates therapy well, although it does take several minutes for her breathing to return to baseline after returning to sitting in the bed. Patient reports feeling worn out but also states that this was necessary for [her] mental health, not just [her] strength PLAN: Continue global strengthening per plan of care. TREATMENT CODE/TIME: 25 minutes beginning at 14:47
--- NOTE | 2022-11-30 16:45 | W.PM.PROGNOT ---
Date of Service Date of service: 11/30/22 Time of Service: 16:45 Assessment and Plan Assessment and plan (1) Chest pain: Status: Acute Assessment and plan: Appears to be costochondritis. Pain reproducible with compression of sternum. Toradol now and then Q6H prn Lidoderm patch to chest wall. Dilaudid IV 0.5 Q4h prn. Troponin neg x 2 She was recently started on flecainide by her [facility] associate professor of pathology; 3 doses taken. Records requested. (2) Pancreatic cancer: Status: Acute Assessment and plan: Metastatic. No further treatment options per oncology. Daughter is pts DPOA. Pt, daughter and I discussed palliative care and hospice at time of admision.. Discussed her code status which is currently a full code. She now realizes this is not likely the status that is in her best interest and is considering a DNR status. Palliative consulted and Dr Gallagher also discussed her goals of care and code status. She continues to be noncommital in changing to a DNR/DNI status though she states she probably should. Her daughter believes she will decide to change her code status. PT consulted. Has required assistance with transferring to and from her wheelchair to bed in the last 1 1/2-2 weeks. (3) Esophageal dilatation: Status: Acute Assessment and plan: Esophagus dilated throughout its' entirety per CT findings. Difficulty swallowing even liquids. Has a globus sensation. Improving IV PPI Speech consulted and have placed her on a pureed diet. (4) Congestive heart failure: Status: Chronic Assessment and plan: Echocardiogram on 11/16/22 showed an EF of 60-65%. TTE at [facility] showed stress induced cardiomyopathy thought secondary to chemotherapy. Apical hypokinesis. Will hold diuretic now; poor intake and mildly dehydrated on admission. (5) SVT (supraventricular tachycardia): Status: Chronic Assessment and plan: Noted on telemetry intermittently. Holding flecainide currently and started cardizem 60mg po BID (6) Abdominal pain: Status: Acute Assessment and plan: Likely related to her pancreatic cancer. Currently w/o pain, N/V. (7) Hypokalemia: Status: Acute Assessment and plan: IV repletion and monitor. (8) NSTEMI (non-ST elevated myocardial infarction): Status: Acute Assessment and plan: Previous admission. Troponin now neg x 2. Cardiac cath recently at [facility] showed no obstructing lesions. (9) Essential hypertension: Status: Acute Assessment and plan: Monitor. Holding losartan d/t low to low-normal BP. (10) Pulmonary fibrosis: Status: Acute Assessment and plan: Dyspnea on exertion. No acute exacerbation. (11) Discharge planning issues: Status: Acute Assessment and plan: Palliative consulted. Likely a hospice candidate. She desires to return to home but her daughter cannot continue to stay with her mother and cannot manage her care 24H/day. Care management to discuss SNF options. Subjective Subjective Patient reports: no new complaints and afebrile; denies nausea, vomiting or shortness of breath Interval history since last seen: She notes some improvement in swallowing ability and comfort. Exam Const General: no acute distress Orientation: alert and oriented x3 HENMT Head: normal to inspection Ears: hearing grossly normal bilaterally Mouth: moist mucous membranes Eyes General: appearance normal, both eyes and all related structures Sclera: sclerae normal Neck Neck: normal visual inspection and no JVD Chest Chest: tenderness sternum (improved) Resp Effort & Inspection: normal respiratory effort and able to speak in complete sentences Auscultation: clear to auscultation bilaterally Cardio Rate: regular rate Rhythm: regular rhythm Heart Sounds: S1 normal, S2 normal and no murmurs GI Palpation: soft Skin General skin exam: no rashes or lesions noted Neuro General: patient alert, patient oriented x3 and no focal motor deficits Extrem General: normal to inspection, no pedal edema and no calf tenderness Psych Mental Status: mental status grossly normal Affect: normal affect Attitude: cooperative Thought Process: normal Objective Last Vital Signs Temp 37 C 11/30/22 14:47 Pulse 82 11/30/22 15:00 Resp 17 11/30/22 14:47 BP 106/59 L 11/30/22 14:47 Pulse Ox 97 11/30/22 14:47 Laboratory Results - last 24 hr 11/30/22 06:30 WBC 3.93 L RBC 2.70 L Hgb 8.2 L Hct 25.8 L MCV 96 H MCH 30.4 MCHC 31.8 L RDW 16.3 H Plt Count 75 L MPV 11.0 Immature Gran % 0.5 Neutrophils % 78.3 Lymphocytes % 10.2 Monocytes % 8.4 Eosinophils % 2.3 Basophils % 0.3 Nucleated RBC % 0.0 Absolute Neutrophils 3.08 Absolute Lymphocytes 0.40 L Absolute Monocytes 0.33 Absolute Eosinophils 0.09 Absolute Basophils 0.01 RBC Morphology See Below Polychromasia Present Hypochromasia 2+ Time Spent with Patient Time Spent with Patient: 25-34 minutes Time was spent: preparing to see the patient(eg.review tests), obtaining and/or reviewing separately otained hiistory, ordering medications,tests, procedures, referring, communicating with other health career technical education instructor, indepentently interpreting results, counseling the patient and care coordination
--- NOTE | 2022-11-30 17:25 | IN_ITS ---
Date of service: 11/30/22 Time of Service: 09:40 PT Notes Visit Reasons: Metastatic Pancreatic Cancer, Chest Pain Physical Therapy Inpatient Initial Evaluation Date: 11/30/2022 Referring Doctor: Aj Hicks MD PT Orders: PT CONSULT: Eval/Treat Precautions: Fall. Standard. Activity as tolerated. Patient Profile/Admitting Diagnosis: Eliza is a 82-year-old female who presented to the ED on 11/28/2022 via EMS due to reports of chest pain and generalized weakness patient is admitted for management of. Chest pain, pancreatic cancer with metastasis, esophageal dilatation, CHF, abdominal pain, hypokalemia, NSTEMI, essential hypertension, and u pulmonary fibrosis. PMHX: All Active Problems?(Updated 11/28/22 @ 16:37 by Aj Hicks MD) Esophageal dilatation (Acute) Discharge planning issues (Acute) Cancer associated pain (Acute) Chest pain (Acute) Abdominal pain (Acute) Dehydration (Acute) Diarrhea (Chronic) Hypokalemia (Acute) NSTEMI (non-ST elevated myocardial infarction) (Acute) Essential hypertension (Acute) Pancreatic cancer (Acute) Congestive heart failure (Chronic) Pulmonary fibrosis (Acute) Social History/Home Situation: Lives alone in an apartment in town. Has a daughter who has been a good support. Independent with FWW indoors although admittedly patient states that it has been becoming difficult to manage alone at home as far as mobility is concerned. Equipment Owned/DME: FWW Subjective: Per Nurse Renetta, patient wants to use commode. Firm about not walking to the toilet, wants to put commode as close to the bed to use it. Unsure of whether she can do anything with PT today. Complains of generalized pain and fatigue. Objective: General Observation: Supine in bed. Mental Status: Alert and oriented as to person, place, time, and purpose. Able to pay attention, focus, and respond appropriately. Pain: 4-5/10 generalized pain Vital Signs: Closely monitored by nursing staff ROM: Right Upper Extremity: Shoulder Flexion lacks the last 25% of AROM. Shoulder abduction lacks the last 25% of AROM. Elbow flexion WFL. Wrist flexion WFL. Functional opening and closing of hand WFL. Left Upper Extremity: Shoulder Flexion lacks the last 25% of AROM. Shoulder abduction lacks the last 25% of AROM. Elbow flexion WFL. Wrist flexion WFL. Functional opening and closing of hand WFL. Right Lower Extremity: Hip flexion lacks the last 25% of AROM. Hip abduction WFL. Knee flexion WFL. Ankle dorsiflexion to neutral only. Ankle plantarflexion WFL. Left Lower Extremity: Hip flexion lacks the last 25% of AROM. Hip abduction WFL. Knee flexion WFL. Ankle dorsiflexion to neutral only. Ankle plantarflexion WFL. Strength: Right Upper Extremity: Shoulder flexors 3-/5. Shoulder abductors 3-/5. Elbow flexors 4-/5. Elbow extensors 4-/5. Supervisor Wet Pour strong. Left Upper Extremity: Shoulder flexors 3-/5. Shoulder abductors 3-/5. Elbow flexors 4-/5. Elbow extensors 4-/5. Supervisor Wet Pour strong. Right Lower Extremity: Hip flexors 3-/5. Hip abductors 3-/5. Knee flexors 4-/5. Knee extensors 4-/5. Ankle dorsiflexors 3-/5. Ankle plantarflexors 4-/5. Left Lower Extremity: Hip flexors 3-/5. Hip abductors 3-/5. Knee flexors 4-/5. Knee extensors 4-/5. Ankle dorsiflexors 3-/5. Ankle plantarflexors 4-/5. Bed Mobility/Transfers: Rolling stand by assist Supine to sit stand by assist Sit to stand contatct guard assist with FWW, cues provided with hand placement onto edge of bed for safety and increased independence Stand to sit with contact guard assist with FWW, cues provided with hand placement onto edge of bed for safety and increased independence Bed to bedside commode contatct guard assist with FWW, cues provided with hand placement onto edge of bed for safety and increased independence Gait: Instructed patient with level surface ambulation of 5 small steps requiring contact guard assist. Complained of fatigue and generalized pain after activity. Minimally short of breath. Provided moderate cueing for AD management, posture, self-pacing, and encouragement to compete task. Balance: Static Sitting: Normal Dynamic Sitting: Good Static Standing: Fair Dynamic Standing: Fair Special Tests: Mobility Limitations Standardized Measure [facility] AM-PAC 6 clicks Basic Mobility Inpatient Short Form: Raw Score: 18 CMS Score: 47% deficit Informed Consent/Education: Patient was instructed in purpose of PT consult and plan of care. Agreeable to proceed with established PT POC to achieve personal goals. ASSESSMENT: Level of motivation and ability to toerate mobility tasks are limited due to pain and fatigue from ongoing cancer process and admitting diagnoses. Will work on gradually increasing strength, activity tolerance, and balance skills as tolerated. Will ensure that timing of sessions with pain medications are coordinated to maximize functional performance. Patient presents with clinical signs and symptoms consistent with current/admitting diagnoses that have resulted to mobility limitations, gait instability, generalized weakness, and overall ADL decline as demonstrated by the following impairment level findings: 1. Decreased strength to B UE/LE major muscle groups 2. Impaired sitting/standing balance 3. Impaired activity tolerance 4. Limitation of joint range of motion in B shoulders and hips 5. Shortness of breath Impairments are contributing to the following functional limitations: 1. Decline in bed mobility skills 2. Decline in transfer skills 3. Difficulty with ambulation without assistive device and physical assistance 4. Increased completion time for mobility ADL performance 5. Increased risk for falls Patient is assessed as a 04319 moderate complexity based on the following: History: 82-year-old female with past medical history as indicated above Examination: Demonstrable impairment in strength, balance, and mobility level with underlying impairments and functional limitations as exhibited above as well as deficit score of 47% utilizing the [facility] Mobility Inpatient Short Form Presentation: Evolving Decision Makin moderate complexity Goals: Goals X1 week 1. Supine-Sit independent 2. Sit-Supine independent 3. Sit-Stand independent 4. Stand-Sit independent with FWW 5. Bed-Chair independent with FWW 6. Chair-Bed independent with FWW 7. Independent gait on level surface with use of FWW for at least 50 feet without report of pain nor dyspnea 8. Independent stair negotiation while holding onto B rails for at least 3 steps without report of pain nor dyspnea 9. Good static and dynamic standing balance/tolerance Plan of Care/Treatment Plan: -1-2x/day, 7 days/week x 1 week. -Plan of care has been reviewed with the [facility] [employer] providing the service under Physical Therapy direction. -Initiate Physical Therapy intervention for pain management as needed, strengthe sarthak, bed mobility, transfers, gait, stairs, balance training, and use of assistive device as toelrate. -Provide adequate time/opportunity to rest to minimize fatigue and pain. DISCHARGE RECOMMENDATIONS: [] Home with no services [] [] Home with services [specify] [] Home with outpatient PT [] [] SNF for continued rehabilitation [] [] [facility] [] [X] SNF versus LTC based on ability to participate and progress TREATMENT CODE/TIME: 32450 x 15 minutes (1 unit) beginning at 9:40 AM. Thank you for the opportunity to participate in the care of this patient. Carine Bernabe PT, DPT, CLT [facility] [place], [place]
[2022-11-30] MEDS: Lidocaine Patch Removal 1 EACH TP ×2 (20:15)
[2022-12-01 05:32] VITALS: BP 128/67; PULSE 56; RESP 18; TEMP 36.3; O2SAT 95
[2022-12-01 06:07] LABS: Abs Immature Grans 0.01 10^3/uL (0.0-0.06); Absolute Basophil Count 0.02 10^3/uL (0.0-0.2); Absolute Eosinophil Count 0.08 10^3/uL (0.0-0.7); Absolute Lymphocyte Count 0.38 10^3/uL (1.2-3.4); Absolute Monocyte Count 0.27 10^3/uL (0.1-0.8); Basophils % 0.7; Eosinophils % 2.6; HCT 25.9 % (36.0-46.0); HGB 8.1 g/dL (11.2-15.7); Immature Grans % 0.3; Lymphocytes % 12.4; MCH 29.7 pg (27.0-33.0); MCHC 31.3 % (32.0-36.0); MCV 95 fL (80-95); MPV 10.4 fL (8.0-11.0); Monocytes % 8.8; Neutrophils % 75.2; RBC 2.73 10^6/uL (3.93-5.22); RDW-SD 56.1 fL; WBC 3.06 10^3/uL (4.4-10.8)
[2022-12-01 06:16] LABS: Anion Gap 9.3 mmol/L (3-11); BUN 21 mg/dL (7-18); CO2 22.7 mmol/L (21.0-32.0); CREATININE 0.9 mg/dL (0.55-1.02); Calcium 8.1 mg/dL (8.5-10.1); Chloride 109 mmol/L (98-107); Estimated GFR 64.23 (mL/min/1.73m2); Glucose 94 mg/dL (74-106); Potassium 3.7 mmol/L (3.5-5.1); Sodium 141 mmol/L (136-145)
[2022-12-01 07:14] LABS: Diff Comment Diff Reviewed; Hypochromasia 2+; Platelet Count 75 10^3/uL (130-400)
[2022-12-01 08:39] VITALS: BP 119/67; PULSE 58; RESP 20; TEMP 36.7; O2SAT 99
[2022-12-01] MEDS: Pantoprazole 40 MG VIAL IVP (08:50)
[2022-12-01] MEDS: Lidocaine 5% Patch 1 PATCH TP ×2 (08:51)
[2022-12-01] MEDS: Normal Saline Flush 10 ML SYR IVP ×2 (08:51→15:02)
[2022-12-01] MEDS: Ketorolac 15 MG/ML VIAL IVP ×3 (08:52→20:37)
--- NOTE | 2022-12-01 09:43 | OT.INTREAT ---
Occupational Therapy Notes Occupational Therapy Inpatient Treatment Note Date: 12/01/22 PRECAUTIONS: Fall, Standard, Full SUBJECTIVE: Pt was sitting in bed when OT arrived. She is agreeable to OT session and reports that she would like to shower which RN is planning to take pt to do. OBJECTIVE: PAIN:no c/o pain with OT FUNCTIONAL MOBILITY Rolling L/R: (I) Sit-stand: (S) Stand-sit: (S) Bed-Toilet: SBA Toilet-bed: SBA GROOMING: Standing at sink with FWW (I) with washing hands and with oral hygiene, SBA and min VC for standing balance TOILETING: Device: Toilet Assist: (I) with min (A) with sit to stand from toilet height. EATING: seated in bed (I) ASSESSMENT: Pt has notable fatigue post performance of the above ADLs. She requires rest in bed and has heavy breathing but is able to rest for 2-3 minutes with good recovery. OT and pt discuss beginning stages of energy conservation and OT will continue to work with pt on this to increase her functional activity tolerance and (I) with her ADL/IADL routines. TREATMENT CODES/TIME: [id number], 25 minutes Mariia Lopez OTR/L [facility] [place], [place]
[2022-12-01] MEDS: dilTIAZem 30 MG TAB PO ×2 (09:44→20:32)
[2022-12-01 11:43] VITALS: BP 113/70; PULSE 74; RESP 18; TEMP 36.3; O2SAT 92
--- NOTE | 2022-12-01 11:46 | PDOC.CMPRO ---
Date of service: 12/01/22 Time of Service: 11:46 Care Management Progress Note Progress Note Text Progress Note Text: S/O:Sarita was sitting up in bed visiting with her daughter when CM met with her. She engaged in conversation easily with CM. This morning she met with Dr. Hicks and made the decision to change her code status to DNR/DNI. When CM discussed this with her and asked if she was comfortable with the decision, she smiled and said very comfortable. Sarita went on to talk about how wonderful the care has been at [facility] and how kind and supportive every person has been. She stated that she could not say enough good things about her experience here at [facility]. This afternoon CM met with Eliza, her daughter, privately. Eliza had many questions about options for care after discharge. Eliza stated that she does not believe her mother would agree to go to a SNF. She had a very bad experience at a rehab facility in [facility] and is not open to another such experience. Hospice, home health, private caregivers and swing bed were all discussed. CM explained about the short duration and limited availability with the swing bed program, but did not rule it out. Further discussions will be had with providers, nursing supervision and other care managers and bed availability will also be evaluated. CM was asked to assist with the completion of a COLST form with [employer] at the end of the day. They had partially completed the form but still had questions. CM read all of the questions out loud and discussed the implications and nuances of each of the choices. The decision was made to have Sarita think about things tonight with a goal of finalizing the document tomorrow. A: Sarita is an 82 year old woman admitted on 11/28/22 with metastatic pancreatic cancer P: Sarita has changed her code status to DNR/DNI. A COLST form has been initiated but not as yet finalized. Discussions are underway regarding care options when Sarita no longer meets criteris for an acute care admission CM will continue to support Sarita and her discharge planning needs.
--- NOTE | 2022-12-01 12:05 | W.PM.PROGNOT ---
Date of Service Date of service: 12/01/22 Time of Service: 12:06 Assessment and Plan Assessment and plan (1) Chest pain: Status: Acute Assessment and plan: Appears to be costochondritis. Pain reproducible with compression of sternum. Toradol now and then Q6H prn Lidoderm patch to chest wall. PRN Tramadol Troponin neg x 2 She was recently started on flecainide by her [facility] hosiery mender; 3 doses taken. Records requested. (2) Pancreatic cancer: Status: Acute Assessment and plan: Metastatic. No further treatment options per oncology. PT consulted. Has required assistance with transferring to and from her wheelchair to bed in the last 1 1/2-2 weeks. Palliative following. (3) GERD (gastroesophageal reflux disease): Status: Chronic Assessment and plan: Causing globus sensation in upper esophagus; resolving. Cont PPI (4) Congestive heart failure: Status: Chronic Assessment and plan: Echocardiogram on 11/16/22 showed an EF of 60-65%. 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 Apical hypokinesis. Will hold diuretic now; poor intake and mildly dehydrated on admission. (5) SVT (supraventricular tachycardia): Status: Chronic Assessment and plan: Noted on telemetry intermittently. Holding flecainide currently and started cardizem now dosing at 30mg po BID (6) Abdominal pain: Status: Acute Assessment and plan: Likely related to her pancreatic cancer. Currently w/o pain, N/V. (7) Hypokalemia: Status: Acute Assessment and plan: IV repletion and monitor. (8) NSTEMI (non-ST elevated myocardial infarction): Status: Acute Assessment and plan: Previous admission. Troponin now neg x 2. Cardiac cath recently at [facility] showed no obstructing lesions. (9) Essential hypertension: Status: Acute Assessment and plan: Monitor. Holding losartan d/t low to low-normal BP. (10) Pulmonary fibrosis: Status: Acute Assessment and plan: Dyspnea on exertion. No acute exacerbation. (11) Discharge planning issues: Status: Acute Assessment and plan: Palliative consulted. Likely a hospice candidate but she is not ready to consider it at this time. She has agreed to a DNR/DNI status. She desires to return to home but her daughter cannot continue to stay with her mother and cannot manage her care 24H/day. Care management to discuss SNF options. Subjective Subjective Patient reports: no new complaints and afebrile; denies diarrhea, nausea, vomiting or shortness of breath Interval history since last seen: No longer has sensation something is getting caughter in upper esophagus with eating. Back pain continues to be present. Exam Narrative Exam Narrative: Daughter present. Const General: no acute distress Orientation: alert and oriented x3 HENMT Head: normal to inspection Ears: hearing grossly normal bilaterally Mouth: moist mucous membranes Eyes General: appearance normal, both eyes and all related structures Sclera: sclerae normal Neck Neck: normal visual inspection and no JVD Chest Chest: tenderness sternum (improved) Resp Effort & Inspection: normal respiratory effort and able to speak in complete sentences Auscultation: clear to auscultation bilaterally Cardio Rate: regular rate Rhythm: regular rhythm Heart Sounds: S1 normal, S2 normal and no murmurs GI Palpation: soft Skin General skin exam: no rashes or lesions noted Neuro General: patient alert, patient oriented x3 and no focal motor deficits Extrem General: normal to inspection, no pedal edema and no calf tenderness Psych Mental Status: mental status grossly normal Speech and Movement: speech clear Mood: congruent mood Affect: normal affect Attitude: cooperative Thought Process: normal Objective Last Vital Signs Temp 36.3 C L 12/01/22 11:43 Pulse 74 12/01/22 11:43 Resp 18 12/01/22 11:43 BP 113/70 12/01/22 11:43 Pulse Ox 92 12/01/22 11:43 Laboratory Results - last 24 hr 12/01/22 12/01/22 05:45 05:45 WBC 3.06 L RBC 2.73 L Hgb 8.1 L Hct 25.9 L MCV 95 MCH 29.7 MCHC 31.3 L RDW 16.0 H Plt Count 75 L MPV 10.4 Immature Gran % 0.3 Neutrophils % 75.2 Lymphocytes % 12.4 Monocytes % 8.8 Eosinophils % 2.6 Basophils % 0.7 Nucleated RBC % 0.0 Absolute Neutrophils 2.30 Absolute Lymphocytes 0.38 L Absolute Monocytes 0.27 Absolute Eosinophils 0.08 Absolute Basophils 0.02 RBC Morphology See Below Hypochromasia 2+ Sodium 141 Potassium 3.7 Chloride 109 H Carbon Dioxide 22.7 Anion Gap 9.3 BUN 21 H Creatinine 0.9 Est GFR (CKD-EPI 2021) 64.23 Glucose 94 Calcium 8.1 L Time Spent with Patient Time Spent with Patient: 25-34 minutes Time was spent: preparing to see the patient(eg.review tests), obtaining and/or reviewing separately otained hiistory, ordering medications,tests, procedures, referring, communicating with other health healthcare management, indepentently interpreting results, counseling the patient and care coordination
--- NOTE | 2022-12-01 14:21 | PT.INTREAT ---
Date of service: 12/01/22 Time of Service: 13:58 PT Notes Visit Reasons: Metastatic Pancreatic Cancer, Chest Pain Inpatient Physical Therapy Treatment Note [facility] Date: 12/01/22 PRECAUTIONS: Fall, standart, activity as tolerated. SUBJECTIVE: Patient appears in good spirits, reports having listened to dulcimer music and also recieving a spa-like shower this morning. OBJECTIVE: ?Patient reclined in semi fowlers position in bed. CM Bhakti present initially. Agreeable to therapy. ? PAIN: yes, patient indicates pain at sternum initially, pain at bilateral lower ribs at end of therapy. VITALS: monitored by nursing staff ? ? BED MOBILITY/TRANSFERS? Rolling L/R: Independent Supine-sit: modified independent with HOB elevated to approximately 40 degrees? Sit-supine: ?modified independent with HOB elevated to approximately 40 degrees ? Sit-stand: SBA? Stand-sit: SBA? Bed-Chair: CGA ? Chair-bed: CGA ? Therapeutic Exercises ([id number]): Direct one-on-one instruction in therapeutic exercises to develop strength, endurance, range of motion and flexibility. ?Ambulation ? Assistive Device: FWW? Weight bearing: full Assist: CGA to SBA ? Distance:? 50 feet, seated rest, 50 feet ? Deviation: Adequate step height, reduced stride length. Frequent pauses to stretch back (pauses approximately every 15 feet). Becomes short of breath with exertion, requires somewhat extended rest to return to baseline breathing. ? Provided skilled instruction in proper exercise performance Provided skilled manual cues to facilitate proper muscle recruitment and/or form: verbal cues for seated rest as needed, tactile facilitation of postural alignment. ASSESSMENT:? Patient tolerates therapy well, reports that she feels inspired to do more based on her performance today. PLAN: Continue training global strength, stamina, muscular endurance per plan of care until patient is medically cleared for discharge. TREATMENT CODE/TIME: 22 minutes beginning at 13:58
--- NOTE | 2022-12-01 15:11 | CHAPLAIN ---
Sarita was resting in bed when I visited. She has make up and easily engages in a conversation. She told me that she moved to [facility] from [place] to be closer to family and worries that she has become a burden to them. She has been diagnosed with pancreatic cancer and yesterday met with Dr. Gallagher from Palliative Care. After a conversation about code status, Zaina said she wanted to remain full code, and wait at least a day to talk about it with her daugther Eliza. Sarita talked about what it was like to live in when she first moved there 26 years ago, and what it's like now. She said she choose to live in [facility] because it's more city[place]. Her daughter leaves nearly [id number]. I will continue to visit.
[2022-12-01] MEDS: oxyCODONE 5 MG TAB 2.5 MG PO (18:40)
[2022-12-01 19:39] VITALS: BP 113/62; PULSE 65; RESP 18; TEMP 37.1; O2SAT 98
[2022-12-01] MEDS: Gabapentin 300 MG CAP PO (20:37)
[2022-12-01] MEDS: Lidocaine Patch Removal 1 EACH TP ×2 (20:41→20:42)
[2022-12-01 23:19] VITALS: BP 93/51; PULSE 78; RESP 16; TEMP 36.3; O2SAT 97
[2022-12-02 03:15] VITALS: BP 115/70; PULSE 58; RESP 16; TEMP 35.6; O2SAT 95
[2022-12-02 07:14] VITALS: BP 101/54; PULSE 58; TEMP 37.5; O2SAT 98
[2022-12-02] MEDS: Lidocaine 5% Patch 1 PATCH TP ×2 (08:06)
[2022-12-02] MEDS: Pantoprazole 40 MG VIAL IVP (08:06)
[2022-12-02] MEDS: dilTIAZem 30 MG TAB PO ×2 (08:22→20:14)
--- NOTE | 2022-12-02 09:18 | OT.INTREAT ---
Occupational Therapy Notes Occupational Therapy Inpatient Treatment Note Date: 12/02/22 PRECAUTIONS: Fall, Standard, DNR/DNI SUBJECTIVE:?Pt was sitting in bed when OT arrived. She is agreeable to OT session and reports that she is doing well. She is very appreciative of her care at [facility]. OBJECTIVE:? PAIN:no c/o pain with OT ? FUNCTIONAL MOBILITY Rolling L/R: (I) ? Sit-stand: (S) ? Stand-sit: (S) ? Bed-Toilet: SBA ? Toilet-bed: SBA GROOMING:?Standing at sink with FWW (I) with washing hands and with oral hygiene, SBA and min VC for standing balance with use of FWW in front of pt to provide (A) for balance as needed. TOILETING: Device: Toilet Assist: (I) with toileting hygiene with min (A) with sit to stand from toilet height. EATING:?seated in bed (I)- OT and pt discuss energy conservation with eating and trying foods within [employer] guidelines that she likes. ? ASSESSMENT:?Pt has notable fatigue post performance of the above ADLs. She requires rest in bed but tolerated this better than yesterday. She continues to make gains in regards to her functional activity tolerance. If Pt returns home- OT recommends services for (A) of care for pt in the home setting Education and training for family on transfers and support for ADLs Raised toilet seat to decrease energy expenditure and promote increased safety for pt with toileting routine Shower seat to improve pts safety in her bathing routines ? TREATMENT CODES/TIME:?[id number], 25 minutes Mariia Lopez OTR/[facility] [place], [place]?
--- NOTE | 2022-12-02 09:19 | PDOC.CMPRO ---
Date of service: 12/02/22 Time of Service: 09:19 Care Management Progress Note Progress Note Text Progress Note Text: S/O:Sarita was sitting up in bed visiting with her daughter when CM met with her. She was smiling and appeared to be in good spirits. Sarita stated that she has been doing well with PT and is having less difficulty swallowing. CM discussed transitioning Sarita to SB-1 tomorrow . She and Eliza expressed that they were very pleased about the plan as Sarita seems to be making good progress. At the end of a 7-10 day stay, it should be clearer what Sarita's baseline will be as well as her ability to function independently. A: Sarita is an 82 year old woman admitted on 11/28/22 with metastatic pancreatic cancer P: Sarita has changed her code status to DNR/DNI. A COLST form has been initiated but not as yet finalized; it requires the signature of a provider. The plan is to transition Sarita to SB-1 status tomorrow for continued rehab. Her final discharge plan will be determined by her progress. CM will continue to support Sarita and her discharge planning needs.
[2022-12-02 11:45] VITALS: BP 96/60; PULSE 66; RESP 18; TEMP 37.4; O2SAT 96
--- NOTE | 2022-12-02 12:36 | PGE_ITS ---
Date of Service Date of service: 12/02/22 Time of Service: 12:36 Assessment and Plan Assessment and plan (1) Pancreatic cancer: Status: Acute Assessment and plan: Metastatic. No further treatment options per oncology. PT consulted. Has required assistance with transferring to and from her wheelchair to bed in the last 1 1/2-2 weeks. Palliative following. (2) Chest pain: Status: Acute Assessment and plan: Appears to be costochondritis. Pain reproducible with compression of sternum. Toradol now and then Q6H prn Lidoderm patch to chest wall. Tramadol d/c'd. Oxycodone 2.5mg Q6h prn initiated. She was recently started on flecainide by her [facility] acquisition cost estimator; 3 doses taken. Now on cardizem 30mg BID. (3) GERD (gastroesophageal reflux disease): Status: Chronic Assessment and plan: Causing globus sensation in upper esophagus; resolving. Cont PPI (4) Congestive heart failure: Status: Chronic Assessment and plan: Echocardiogram on 11/16/22 showed an EF of 60-65%. TTE at 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 Apical hypokinesis. Will hold diuretic now; poor intake and mildly dehydrated on admission. (5) SVT (supraventricular tachycardia): Status: Chronic Assessment and plan: Noted on telemetry intermittently. Holding flecainide currently and started cardizem now dosing at 30mg po BID (6) Abdominal pain: Status: Acute Assessment and plan: Likely related to her pancreatic cancer. Currently w/o pain, N/V. (7) Hypokalemia: Status: Acute Assessment and plan: IV repletion and monitor. (8) NSTEMI (non-ST elevated myocardial infarction): Status: Acute Assessment and plan: Previous admission. Troponin now neg x 2. Cardiac cath recently at [facility] showed no obstructing lesions. (9) Essential hypertension: Status: Acute Assessment and plan: Monitor. Holding losartan d/t low to low-normal BP. (10) Pulmonary fibrosis: Status: Acute Assessment and plan: Dyspnea on exertion. No acute exacerbation but does have an intermittent dry cough, occassional clear phlegm. This could be respiratory but could also be GI/reflux related. (11) Discharge planning issues: Status: Acute Assessment and plan: Palliative consulted. Likely a hospice candidate but she is not ready to consider it at this time. She has agreed to a DNR/DNI status. She desires to return to home but her daughter cannot continue to stay with her mother and cannot manage her care 24H/day. Care management discussed options of SNF vs possible swing bed. Subjective Subjective Patient reports: no new complaints, feels better and bowel movement; denies nausea or vomiting Interval history since last seen: cough; mostly dry but has clear phlegm at times. Exam Narrative Exam Narrative: Sitting up in bed. Pleasant, smiling, conversant. Const General: no acute distress Orientation: alert and oriented x3 HENMT Head: normal to inspection Ears: hearing grossly normal bilaterally Mouth: moist mucous membranes Eyes General: appearance normal, both eyes and all related structures Sclera: sclerae normal Neck Neck: normal visual inspection and no JVD Chest Chest: tenderness sternum (improved) Resp Effort & Inspection: normal respiratory effort and able to speak in complete sentences Auscultation: clear to auscultation bilaterally Cardio Rate: regular rate Rhythm: regular rhythm Heart Sounds: S1 normal, S2 normal and no murmurs GI Palpation: soft Auscultation: hyperactive bowel sounds Skin General skin exam: no rashes or lesions noted Neuro General: patient alert, patient oriented x3 and no focal motor deficits Extrem General: normal to inspection, no pedal edema and no calf tenderness Psych Mental Status: mental status grossly normal Speech and Movement: speech clear Mood: congruent mood Affect: normal affect Attitude: cooperative Thought Process: normal Thought Content: normal Objective Last Vital Signs Temp 37.4 C 12/02/22 11:45 Pulse 66 12/02/22 11:45 Resp 18 12/02/22 11:45 BP 96/60 L 12/02/22 11:45 Pulse Ox 96 12/02/22 11:45 Time Spent with Patient Time Spent with Patient: 25-34 minutes Time was spent: preparing to see the patient(eg.review tests), obtaining and/or reviewing separately otained hiistory, ordering medications,tests, procedures, referring, communicating with other health day care assistant and indepentently interpreting results
[2022-12-02] MEDS: Normal Saline 250 ML IV (13:24)
--- NOTE | 2022-12-02 13:57 | PTTR_ITS ---
Date of service: 12/02/22 Time of Service: 10:05 PT Notes Visit Reasons: Metastatic Pancreatic Cancer, Chest Pain Inpatient Physical Therapy Treatment Note [facility] Date: 12/01/22 PRECAUTIONS: Fall. Standard. Activity as tolerated. SUBJECTIVE: Patient reports a dry cough that comes out of nowhere, not triggered by eating or drinking, and feels as though it leaves her with no energy at all. OBJECTIVE: a.m. Patient supine in bed. Initially agreeable to therapy, then a coughing spell apparently drains her of energy. ? p.m. Patient supine in bed, agreeable to therapy.? PAIN: yes. Coughing triggers chest pain. Indicates middle of chest / sternum. VITALS: monitored by nursing staff.? BED MOBILITY/TRANSFERS? Rolling L/R: independent Supine-sit: min assist with HOB maximally elevated ? Sit-supine: min assist to swing legs into bed ? Sit-stand: CGA ? Stand-sit: CGA ? Bed-Chair: CGA with FWW? Chair-bed: CGA with FWW ? Therapeutic Exercises ([id number]): Direct one-on-one instruction in therapeutic exercises to develop strength, endurance, range of motion and flexibility. ? Exercises: * 10x heel slides - tactile cues to keep knee pointed straight up * 2x5 SLR - verbal cues to maximally straighten knee * 2x5 hip ab/adduction * 10x LAQ's seated EOB * 10x marching seated EOB ? Provided skilled instruction in proper exercise performance Provided skilled manual cues to facilitate proper muscle recruitment and/or form. Neuromuscular Re-education ([id number]): Activities that facilitate re-education of movement balance, posture, coordination, and proprioception or kinesthetic sense, requiring skilled tactile and verbal cues ? Exercises/techniques: * Educated patient on use of incentive inspirometer. Provided education on slow deep breaths in, long active exhalation. * Educated patient on pursed lip breathing, in through nose. Practiced with patient in supine and seated EOB. * Session frequently interrupted by dry cough. Encouraged patient to mention this to BLOOD BANK SPECIALIST Ariana Streeter. ASSESSMENT:? Patient tolerates therapy well x2. Demonstrates cough suppression techniques taught by BLOOD BANK SPECIALIST Ariana Streeter in the afternoon, seems very excited about these. Noticeably less coughing during afternoon session. PLAN: Continue global strengthening per plan of care until patient is medically cleared for discharge. TREATMENT CODE/TIME: 25 minutes beginning at 10:05, 24 minutes beginning at 16:09
--- NOTE | 2022-12-02 14:18 | CHAPLAIN ---
I had a short visit with Sarita today to bring her a prayer shawl which she seemed to really appreciate. According to Care Management notes, Sarita changed her code status to DNR/DNI and is working on completing a COLST form with Care Management, and they are discussing discharge options with Sarita and her daughter.
--- NOTE | 2022-12-02 14:20 | STREC_ITS ---
Date of service: 12/02/22 Time of Service: 14:20 Speech Therapy Recommendations Report ST Recommendations: J2EE ANDROID DEVELOPER COMMUNICATION/RECOMMENDATION NOTE J2EE ANDROID DEVELOPER Contacting patient to check in but no PO trials were observed. Patient and MD both reporting improving tolerance with reflux precautions and PPI in place. Patient is agreeable to diet upgrade to minced/moist, with instructions to downgrade again to puree if not tolerated well due to esophageal symptoms. If she tolerates upgrade well for at least 24 hrs, there is no reason not to continue to advance diet as tolerated and per her preference. Patient also c/o new dry, irritated coughing spasms that feel uncontrolled. Per nursing, no other respiratory noises, coughing has been dry. Provided rationale for further reflux management. Provided cough suppression techniques handout (e .g., quick release breathing, losenges, etc). Diet Texture Modification(s): IDDSI Level(s) SOLIDS 5-Minced & Moist LIQUIDS 0-Thin Liquids Medication Intake: Crushed, if able, or whole with puree, followed by liquid wash. Medications only as advised by MD or Pharmacist RISK MANAGEMENT: HOB upright as tolerated; upright for all PO intake. Oral hygiene BID/2x per day ? Level of Assistance/Supervision: Independent PO intake only when awake/alert? Strategies/Adaptations/Assistive Equipment: Small sips and bites when eating Slow rate of intake Alternate intake of liquids and solids Small+frequent meals throughout day Posture/Positioning Needs: Maintain upright position at least 30 minutes after meals Avoid meals/snacks 2-3 hours prior to reclining/sleeping Sleep with head of bed elevated to reduce likelihood of nocturnal reflux Coding
[2022-12-02 15:02] VITALS: BP 98/65; PULSE 64; RESP 24; TEMP 36.9; O2SAT 96
[2022-12-02] MEDS: Gabapentin 300 MG CAP PO ×2 (15:04→20:14)
[2022-12-02] MEDS: Ketorolac 15 MG/ML VIAL IVP (15:04)
[2022-12-02] MEDS: Normal Saline Flush 10 ML SYR IVP (15:05)
--- NOTE | 2022-12-02 16:07 | PHACLINREV_ITS ---
Pharmacy Admission Review Admission Clinical Review Admission Pharmacy Review: (Updated 12/01/22 @ 12:12 by Aj Hicks MD) Palliative care patient (Acute) Esophageal dilatation (Acute) Discharge planning issues (Acute) Cancer associated pain (Acute) Chest pain (Acute) Abdominal pain (Acute) Dehydration (Acute) Hypokalemia (Acute) NSTEMI (non-ST elevated myocardial infarction) (Acute) Essential hypertension (Acute) Pancreatic cancer (Acute) Pulmonary fibrosis (Acute) acetaminophen [From [place]] Adverse Reaction (Unverified 11/28/22 12:32) Dizziness/Lighthead hydrocodone [From [place]] Adverse Reaction (Unverified 11/28/22 12:32) Dizziness/Lighthead Resuscitation Status DNR/DNI Height 5 ft Weight 55.338 kg Pharmacy Admission Review Renal Dosing Renal Dosing: BUN 21 mg/dL (7-18) H 12/01/22 05:45 Creatinine 0.9 mg/dL (0.55-1.02) 12/01/22 05:45 Medications needing adjustments: Reviewed (crcl = 34, currently no adjustments needed. monitor for changes in renal fxn/addition of new meds) Anticoagulation Anticoagulation: Hgb 8.1 g/dL (11.2-15.7) L 12/01/22 05:45 Hct 25.9 % (36.0-46.0) L 12/01/22 05:45 Plt Count 75 10^3/uL (130-400) L 12/01/22 05:45 INR 1.1 (0.9-1.1) 11/28/22 12:38 Creatinine 0.9 mg/dL (0.55-1.02) 12/01/22 05:45 DVT Prophylaxis: Reviewed (Teds. no chemical ppx currently ordered...discussed with Dr. Hicks, he will consider ordering if needed (ambulation improving, will be made swing bed status soon)) Therapeutic Anticoagulation: N/A Opiate Usage Evaluate Pain Scale/Pains Meds: Reviewed (low dose oxycodone (2.5 mg) prn (switched from IV hydromorphone 0.5 mg). Also using 2 lidocaine patches/day (chest wall, lower back)) Scheduled Bowel Reg ordered if on Opiates?: No (PRN) Relevant Labs Relevant Labs: Sodium 141 mmol/L (136-145) 12/01/22 05:45 Potassium 3.7 mmol/L (3.5-5.1) 12/01/22 05:45 Chloride 109 mmol/L (98-107) H 12/01/22 05:45 Magnesium 1.8 mg/dL (1.8-2.4) 11/28/22 12:15 Electrolytes, C-Reactive P, ESR: Reviewed DM Control DM Control: N/A Cardiac Review Cardiac Review: Troponin I < 50 ng/L (<or=60) 11/28/22 16:45 NT-Pro-B Natriuret Pep 5466 pg/mL (<300) H 11/28/22 12:15 BP, HR, EF%: Reviewed QTc Review QTc: Reviewed (QTc = 570 on 11/28 avoid QT prolonging meds (not currently on any)) IV to PO Switch IV Medications: Reviewed (IV hydromorphone switched to oxycodone yesterday. continue IVP prochlorperazine for now, switch to PO when tolerated (avoid using zofran d/t QT prolongation)) Home Meds Home Med List reviewed: Reviewed Relevent Home Meds Not ordered & why?: amlodipine, furosemide, HCTZ, losartan -- dehydration, low BP. potassium on hold (K+ = 3.7) Current Meds Current Medication Order Review: Reviewed
[2022-12-02 19:49] VITALS: BP 103/52; PULSE 63; RESP 16; TEMP 37.7; O2SAT 98
[2022-12-02] MEDS: Lidocaine Patch Removal 1 EACH TP ×2 (20:15→20:16)
[2022-12-02] MEDS: oxyCODONE 5 MG TAB 2.5 MG PO (20:15)
[2022-12-02] MEDS: Simethicone 80 MG CHEW PO (20:17)
[2022-12-02 23:52] VITALS: BP 101/54; PULSE 62; RESP 16; TEMP 37.2; O2SAT 97
[2022-12-03] VITALS (8 sets, daily range): BP systolic 89–168; BP diastolic 51–84; PULSE 61–102; RESP 16–21; TEMP 36.8–38.9; O2SAT 95–97
[2022-12-03] MEDS: Lactated Ringers 1,000 ML 100 ML IV (03:38)
[2022-12-03] MEDS: Lidocaine 5% Patch 1 PATCH TP ×2 (08:25)
[2022-12-03] MEDS: dilTIAZem 30 MG TAB PO ×2 (08:25→21:22)
[2022-12-03] MEDS: Pantoprazole 40 MG VIAL IVP (08:25)
[2022-12-03] MEDS: Normal Saline Flush 10 ML SYR IVP ×2 (08:25→11:53)
[2022-12-03 09:15] LABS: ALT 14 U/L (14-59); AST 17 U/L (15-37); Alkaline Phosphatase 96 U/L (46-116); Anion Gap 9.5 mmol/L (3-11); BUN 20 mg/dL (7-18); Bilirubin, Total 0.6 mg/dL (0.2-1.0); CO2 21.5 mmol/L (21.0-32.0); CREATININE 0.8 mg/dL (0.55-1.02); Calcium 7.9 mg/dL (8.5-10.1); Chloride 107 mmol/L (98-107); Estimated GFR 73.98 (mL/min/1.73m2); Glucose 84 mg/dL (74-106); Potassium 3.8 mmol/L (3.5-5.1); Sodium 138 mmol/L (136-145); Total Protein 4.6 g/dL (6.4-8.2)
[2022-12-03 10:27] LABS: Abs Immature Grans 0.02 10^3/uL (0.0-0.06); Absolute Basophil Count 0.01 10^3/uL (0.0-0.2); Absolute Lymphocyte Count 0.31 10^3/uL (1.2-3.4); Absolute Neutrophil Count 2.66 10^3/uL (1.2-6.7); Basophils % 0.3; Eosinophils % 2.9; HCT 24.3 % (36.0-46.0); HGB 7.6 g/dL (11.2-15.7); Immature Grans % 0.6; Lymphocytes % 9.1; MCH 29.9 pg (27.0-33.0); MCHC 31.3 % (32.0-36.0); MCV 96 fL (80-95); MPV 10.9 fL (8.0-11.0); Monocytes % 8.8; Neutrophils % 78.3; RBC 2.54 10^6/uL (3.93-5.22); RDW-SD 55.7 fL
[2022-12-03 10:38] LABS: Platelet Count 74 10^3/uL (130-400)
[2022-12-03 10:40] LABS: Diff Comment Diff Reviewed; Hypochromasia 2+; Poikilocytes 2+
--- NOTE | 2022-12-03 11:20 | PT.INTREAT ---
Date of service: 12/03/22 Time of Service: 11:23 PT Notes Visit Reasons: Metastatic Pancreatic Cancer, Chest Pain Inpatient Physical Therapy Treatment Note [facility] Date: 12/03/22 PRECAUTIONS: Fall, standard, activity as tolerated. SUBJECTIVE: Patient reports being terrified of catching COVID. Reports being fully vaccinated and having disowned friends due to their actions during the pandemic. OBJECTIVE: Patient supine in bed, agreeable to therapy? PAIN: none reported VITALS: monitored by nursing staff ? ? ? BED MOBILITY/TRANSFERS? Rolling L/R: independent Supine-sit: independent ? Sit-supine: independent ? Sit-stand: CGA ? Stand-sit: CGA ? Bed-Chair: CGA ? Chair-bed: CGA Gait Training ([id number]): Direct one-on-one instruction and skilled instruction in: [] employing an assistive device [] modified weight-bearing status [x] movement sequencing [x] turning and movement with proper form [x] Provided verbal cues for equipment management and technique [x] Provided instruction in gait pattern [x] Patient education regarding pacing and breathing techniques to maximize activity tolerance? GAIT? Assistive Device: FWW ? Weight bearing: full Assist: CGA ? Distance:? 25 feet ? ASSESSMENT:? Patient tolerates therapy well. Ends treatment session sitting up in chair for dinner, call trevizo in easy reach PLAN: Continue global strengthening per plan of care until patient has a safe discharge plan. TREATMENT CODE/TIME: 21 minutes beginning at 11:23
[2022-12-03] MEDS: Ketorolac 15 MG/ML VIAL IVP (11:52)
--- NOTE | 2022-12-03 11:53 | PDOC.CMPRO ---
Date of service: 12/03/22 Time of Service: 11:53 Care Management Progress Note Progress Note Text Progress Note Text: S/O:Sarita will transition to SB-1 today for continued rehab before returning home. A: Sarita is an 82 year old woman admitted on 11/28/22 with metastatic pancreatic cancer P: Sarita has changed her code status to DNR/DNI. A COLST form has been initiated but not as yet finalized; it requires the signature of a provider. The plan is to transition Sarita to SB-1 status today for continued rehab. Her final discharge plan will be determined by her progress. CM will continue to support Sarita and her discharge planning needs.
[2022-12-03 16:18] LABS: Source Nasal/Nares
[2022-12-03 16:51] LABS: COVID-19 PCR POSITIVE (Negative)
--- NOTE | 2022-12-03 16:51 | W.PM.PROGNOT ---
Date of Service Date of service: 12/03/22 Time of Service: 18:51 Assessment and Plan Assessment and plan (1) Pancreatic cancer: Status: Acute Assessment and plan: Continued assistance with transferring to and from her wheelchair to bed in the last 1 1/2-2 weeks. PT seeing Palliative following. (2) Chest pain: Assessment and plan: Toradol relieves pain Lidoderm patch to chest wall. Continue oxycodone 2.5mg Q6h prn initiated. Continue cardizem 30mg BID. (3) GERD (gastroesophageal reflux disease): Status: Chronic Assessment and plan: Cont PPI (4) Congestive heart failure: Assessment and plan: Echocardiogram on 11/16/22 showed an EF of 60-65%. 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 Apical hypokinesis. continue to hold diuretic now; poor intake and mildly dehydrated on admission. (5) Abdominal pain: Status: Acute Assessment and plan: Likely related to her pancreatic cancer; oxycodone Currently w/o pain, N/V. (6) Hypokalemia: Status: Acute Assessment and plan: 3.8 today - monitor (7) Essential hypertension: Status: Acute Assessment and plan: Monitor. Continue to hold Losartan d/t low to low-normal BP. (8) Pulmonary fibrosis: Assessment and plan: Dyspnea on exertion. No acute exacerbation but does have an intermittent dry cough, occassional clear phlegm. Benzonatate and guafenesin prn (9) Anemia: Status: Chronic Assessment and plan: Hemoglobin 7.6 down from 8.1 yesterday, one unit of RBC given, recheck at 2000h (10) COVID-19: Status: Acute Assessment and plan: Fever today, 38 Tmax - Ibuprofen for fever (allergy to acetaminophen) Tested for Covid 19 today , positive, Remdesivir started No oxygen requirement (11) Discharge planning issues: Status: Acute Assessment and plan: Palliative consulted. Likely a hospice candidate but she is not ready to consider it at this time. She has agreed to a DNR/DNI status. She desires to return to home but her daughter cannot continue to stay with her mother and cannot manage her care 24H/day. Covid + today - remdesivir started, no oxygen requirement - patient is DNR DNI discussed with Dr Jeffries Subjective Subjective Patient reports: no new complaints, tolerating liquids well, tolerating a regular diet, voiding w/o difficulty and fever (Tmax 38 - ibuprofen given (allergic acetaminophen)); denies diarrhea, nausea, vomiting or shortness of breath Exam Narrative Exam Narrative: Sitting up in bed. C/AO x4, pleasant, conversant Const General: no acute distress Orientation: alert and oriented x3 HENMT Head: normal to inspection Ears: hearing grossly normal bilaterally Mouth: moist mucous membranes Eyes General: appearance normal, both eyes and all related structures Sclera: sclerae normal Neck Neck: normal visual inspection and no JVD Chest Chest: tenderness sternum (improved) Resp Effort & Inspection: normal respiratory effort and able to speak in complete sentences Auscultation: clear to auscultation bilaterally Cardio Rate: regular rate Rhythm: regular rhythm Heart Sounds: S1 normal, S2 normal and no murmurs GI Palpation: soft Auscultation: hyperactive bowel sounds Skin General skin exam: no rashes or lesions noted Neuro General: patient alert, patient oriented x3 and no focal motor deficits Extrem General: normal to inspection, no pedal edema and no calf tenderness Psych Mental Status: mental status grossly normal Speech and Movement: speech clear Mood: congruent mood Affect: normal affect Attitude: cooperative Thought Process: normal Thought Content: normal Objective Last Vital Signs Temp 37.3 C 12/03/22 15:21 Pulse 70 12/03/22 15:21 Resp 16 12/03/22 15:21 BP 103/67 12/03/22 15:21 Pulse Ox 97 12/03/22 15:21 Laboratory Results - last 24 hr 12/03/22 12/03/22 12/03/22 05:50 05:50 16:15 WBC 3.40 L RBC 2.54 L Hgb 7.6 L Hct 24.3 L MCV 96 H MCH 29.9 MCHC 31.3 L RDW 16.0 H Plt Count 74 L MPV 10.9 Immature Gran % 0.6 Neutrophils % 78.3 Lymphocytes % 9.1 Monocytes % 8.8 Eosinophils % 2.9 Basophils % 0.3 Nucleated RBC % 0.0 Absolute Neutrophils 2.66 Absolute Lymphocytes 0.31 L Absolute Monocytes 0.30 Absolute Eosinophils 0.10 Absolute Basophils 0.01 RBC Morphology See Below Hypochromasia 2+ Poikilocytosis 2+ Sodium 138 Potassium 3.8 Chloride 107 Carbon Dioxide 21.5 Anion Gap 9.5 BUN 20 H Creatinine 0.8 Est GFR (CKD-EPI 2020) 73.98 Glucose 84 Calcium 7.9 L Total Bilirubin 0.6 AST 17 ALT 14 Alkaline Phosphatase 96 Total Protein 4.6 L Albumin 2.0 L Urine Color Urine Clarity Urine pH Ur Specific [place] Urine Protein Urine Ketones Urine Blood Urine Nitrite Urine Bilirubin Urine Urobilinogen Ur Leukocyte Esterase Urine RBC Urine WBC Ur Epithelial Cells Urine Crystals Urine Bacteria Urine Casts Urine Mucus Ur Culture Indicated? Urine Glucose COVID-19 Source Nasal/Nares SARS-CoV-2 (PCR) POSITIVE A* Crossmatch 12/03/22 12/03/22 18:00 18:40 WBC RBC Hgb Hct MCV MCH MCHC RDW Plt Count MPV Immature Gran % Neutrophils % Lymphocytes % Monocytes % Eosinophils % Basophils % Nucleated RBC % Absolute Neutrophils Absolute Lymphocytes Absolute Monocytes Absolute Eosinophils Absolute Basophils RBC Morphology Hypochromasia Poikilocytosis Sodium Potassium Chloride Carbon Dioxide Anion Gap BUN Creatinine Est GFR (CKD-EPI 2020) Glucose Calcium Total Bilirubin AST ALT Alkaline Phosphatase Total Protein Albumin Urine Color Yellow Urine Clarity Clear Urine pH 6.0 Ur Specific [place] 1.020 Urine Protein Trace H Urine Ketones Trace H Urine Blood Negative Urine Nitrite Negative Urine Bilirubin Negative Urine Urobilinogen 0.2 Ur Leukocyte Esterase Trace H Urine RBC 3-5 H Urine WBC 3-5 Ur Epithelial Cells Moderate Urine Crystals Negative Urine Bacteria Few Urine Casts Negative Urine Mucus Negative Ur Culture Indicated? No/Sq. Contamination Urine Glucose Negative COVID-19 Source SARS-CoV-2 (PCR) Crossmatch See Detail Time Spent with Patient Time Spent with Patient: 35-49 minutes Time was spent: preparing to see the patient(eg.review tests), ordering medications,tests, procedures, referring, communicating with other health furnace caretaker, indepentently interpreting results, counseling the patient and care coordination
[2022-12-03 18:13] LABS: Bilirubin Negative (Negative); Blood Negative (Negative); Clarity Clear (Clear); Glucose Negative (Negative); Ketones Trace mg/dL (Negative); Leukocyte Esterase Trace (Negative); Nitrite Negative (Negative); Urobilinogen 0.2 mg/dL (Up to 0.2)
[2022-12-03 18:21] LABS: Epithelial Cells Moderate HPF (Negative)
[2022-12-03 18:22] LABS: Bacteria Few HPF (Negative); C & S Indicated? No/Sq. Contamination; Casts Negative LPF (Negative); Crystals Negative HPF (Negative); Mucus Negative (Negative)
--- NOTE | 2022-12-03 18:46 | CMPROGNOTE_ITS ---
Date of service: 12/03/22 Time of Service: 18:46 Care Management Progress Note Progress Note Text Progress Note Text: S/O:Sarita did not transition to SB-1 today as planned. She developed a fever today and tested positive for Covid. She is very upset about having Covid and shared with CM that she has taken the Covid pandemic very seriously and has done everything she can to avoid infection. Knowing she is immunocompromised has increased her anxiety. CM met with her before she was tested when she shared her concerns. Eliza, her daughter, did come to visit this afternoon after Sarita was found to have covid. She informed CM that she tested herself and was negative and will continue to test daily. Sarita also required a unit of blood today as her Hgb dropped to 7.6 from 8.1. A: Sarita is an 82 year old woman admitted on 11/28/22 with metastatic pancreatic cancer P: Sarita has changed her code status to DNR/DNI. A COLST form has been initiated but not as yet finalized; it requires the signature of a provider. The plan was to transition Sarita to SB-1 status today.. The onset of Covid has necessitated that be delayed. She will be treated with remdesevir and monitored closely. When she is better, she will transition to SB-1 as planned for c ontinued PT. Sarita's final discharge plan will be determined by her progress. CM will continue to support Sarita and her discharge planning needs.
[2022-12-03] MEDS: REMDESIVIR 200 MG in Normal Saline 250 ML 250 MG IVPB (18:49)
[2022-12-03] MEDS: Ibuprofen 100 MG/5 ML CUP 550 MG PO (18:56)
[2022-12-03] MEDS: Benzonatate 100 MG CAP PO (21:22)
[2022-12-03] MEDS: Lidocaine Patch Removal 1 EACH TP ×2 (21:22)
[2022-12-03] MEDS: guaiFENesin 600 MG TABCR PO (21:22)
[2022-12-03] MEDS: Ascorbic Acid 500 MG TAB PO (21:22)
[2022-12-03] MEDS: oxyCODONE 5 MG TAB 2.5 MG PO (21:23)
[2022-12-03] MEDS: Gabapentin 300 MG CAP PO (21:24)
--- NOTE | 2022-12-03 22:58 | RESPIRATORY ---
RT Assessment Start: 12/03/22 19:37 Freq: .q shift and prn Status: Active Protocol: Document 12/03/22 22:20 RT.HOSM (Rec: 12/03/22 22:40 RT.HOSM [id number]) RT Assessment Smoking History Smoking/Tobacco Use Status Never OXYGEN HISTORY: Current Respiratory Symptoms Current Respiratory Symptoms Cough,Shortness of breath Activity Activity Level Moderately active Respiratory Breath Sounds Breath Sounds Clear Pulse Rate >100 Respiratory Rate 18-25 Shortness of Breath On exertion Respiratory Therapy Score Total 3 Assessment and Plan RT Treatment Protocol Bronchodilator Aerosol Therapy Protocol,No RT treatment protocols required at this time, re-consult if change Note Pt states she has never smoked , no second hand exposure, and has no hx of lung disease. Pt states she was able to garden over this summer and around the yard and house and states she could do pretty much everything for activity level . Pt could benefit from PRN Albuterol for SOB.
[2022-12-03] MEDS: Acetaminophen 500 MG TAB 1000 MG PO (23:30)
[2022-12-04] VITALS (14 sets, daily range): BP systolic 81–131; BP diastolic 38–67; PULSE 55–115; RESP 16–22; TEMP 36–36.8; O2SAT 94–98
[2022-12-04] MEDS: Ibuprofen 100 MG/5 ML CUP 550 MG PO (02:47)
[2022-12-04] MEDS: Lactated Ringers 500 ML 125 ML IV (03:21)
[2022-12-04 03:42] LABS: Abs Immature Grans 0.06 10^3/uL (0.0-0.06); Absolute Basophil Count 0.03 10^3/uL (0.0-0.2); Absolute Eosinophil Count 0.02 10^3/uL (0.0-0.7); Absolute Lymphocyte Count 0.14 10^3/uL (1.2-3.4); Absolute Monocyte Count 0.26 10^3/uL (0.1-0.8); Absolute Neutrophil Count 4.58 10^3/uL (1.2-6.7); Basophils % 0.6; Eosinophils % 0.4; HCT 28.9 % (36.0-46.0); HGB 9.4 g/dL (11.2-15.7); Immature Grans % 1.2; Lymphocytes % 2.8; MCH 30.7 pg (27.0-33.0); MCHC 32.5 % (32.0-36.0); MCV 94 fL (80-95); MPV 11.4 fL (8.0-11.0); Monocytes % 5.1; Neutrophils % 89.9; RBC 3.06 10^6/uL (3.93-5.22); RDW 15.7 % (11.7-14.6); RDW-SD 54.2 fL; WBC 5.09 10^3/uL (4.4-10.8)
[2022-12-04 03:47] LABS: Anion Gap 11.3 mmol/L (3-11); BUN 20 mg/dL (7-18); CO2 19.7 mmol/L (21.0-32.0); CREATININE 1.1 mg/dL (0.55-1.02); Calcium 7.5 mg/dL (8.5-10.1); Chloride 105 mmol/L (98-107); Estimated GFR 50.48 (mL/min/1.73m2); Glucose 123 mg/dL (74-106); Magnesium 1.6 mg/dL (1.8-2.4); Potassium 3.5 mmol/L (3.5-5.1); Sodium 136 mmol/L (136-145)
[2022-12-04 03:54] LABS: Diff Comment Agrees w/ Instrument; Platelet Count 72 10^3/uL (130-400); RBC Morphology Normal
[2022-12-04] MEDS: Pantoprazole 40 MG VIAL IVP (08:30)
[2022-12-04] MEDS: Lidocaine 5% Patch 1 PATCH TP ×2 (08:30)
[2022-12-04] MEDS: guaiFENesin 600 MG TABCR PO ×2 (08:30→19:24)
[2022-12-04] MEDS: Zinc Sulfate 220 MG TAB PO (08:30)
[2022-12-04] MEDS: Cholecalciferol (Vitamin D3) 1,000 UNIT TAB 2 UNITS PO (08:30)
[2022-12-04] MEDS: Ascorbic Acid 500 MG TAB PO ×2 (08:30→19:19)
[2022-12-04] MEDS: Benzonatate 100 MG CAP PO ×3 (08:30→19:19)
--- NOTE | 2022-12-04 09:08 | CMPROGNOTE_ITS ---
Date of service: 12/04/22 Time of Service: 09:08 Care Management Progress Note Progress Note Text Progress Note Text: S/O:Sarita remains on Covid isolation. She has been afebrile today but her blood pressure has been low. Sarita's oxygen saturation remains in the mid to upper 90s on room air. She is receiving remdesevir for the Covid infection. Sarita was seen by Reyna from Palliative Care today. After discussion, she informed Reyna that she would like to go home on hospice after she completes her swing bed rehab. She hopes to be able to care for herself independently again for a while. Further discussions will take place about what the plan will be w hen she is no longer able to do so. A: Sarita is an 82 year old woman admitted on 11/28/22 with metastatic pancreatic cancer P: Sarita has changed her code status to DNR/DNI. A COLST form has been i nitiated but not as yet finalized; it requires the signature of a provider. The plan was to transition Sarita to SB-1 status yesterday. The onset of Covid has necessitated that be delayed. She will be treated with remdesevir and monitored closely. When she is better, she will transition to SB-1 as planned for continued PT. Sarita's final discharge plan will be determined by her progress. CM will continue to support Sarita and her discharge planning needs.
[2022-12-04] MEDS: MAGNESIUM SULFATE 2 GM/50 ML BAG IVPB (09:47)
[2022-12-04] MEDS: Normal Saline Flush 10 ML SYR IVP ×2 (09:48→17:18)
--- NOTE | 2022-12-04 13:22 | PCNE_ITS ---
Date of service: 12/04/22 Time of Service: 13:22 History of Present Illness Narrative: Sarita is an 82 year old female with metastatic pancreatic cancer, who is no longer undergoing treatment, since oncology stated that she did not have any additional treatment options. She was seen by Dr. Gallagher earlier this week for Palliative consultation. I have been asked to see her again today. She has previously established that she is a DNR/DNI. She reports that she was doing quite well until she got COVID. She tested + during this hospitalization. She feels week and SOB with activity. Her goal remains to return home to her apartment where she lives alone. We discussed her Dx of metastatic pancreatic cancer with no treatment options and no f/u planned with oncology. Discussed that she qualifies for hospice and discussed he support that hospice could offer to her. She is interested in hospice. She does not think her daughter could be her caregiver. She is clear that she does not want to go to a SNF, however, she agrees that she may think differently if she is unable to care for herself at home or if she is not safe. Assessment and Plan Assessment and plan (1) COVID-19: Status: Acute (2) Pancreatic cancer: Status: Acute (3) Anemia: Status: Chronic (4) GERD (gastroesophageal reflux disease): Status: Chronic (5) Abdominal pain: Status: Acute (6) Essential hypertension: Status: Chronic (7) Palliative care patient: Assessment and plan: Sarita is an 82 year old female with metastatic pancreatic cancer, who is no longer undergoing treatment, since oncology stated that she did not have any additional treatment options. She reports that she was doing well until she came down with COVID-19, she tested positive during the evaluation. She is now short of breath and has a decreased appetite. We had a long discussion about the pancreatic cancer and the fact that she does not have further treatment options. She does not plan to follow-up with oncology at this point. Discussed hospice and the support that hospice could offer. She likes the idea of doing a swing bed stay for 10 days and then transitioning to hospice at home. She lives alone and her daughter checks on her. She does not think that her daughter could be her caregiver. Discussed that she may need to consider either coming back into the hospital or possibly SNF if she is unable to care for herself at home. She would really like to avoid SNF if possible. Discussed with Bhakti, insurance healthcare consultant who has been following her during this hospitalization. Palliative will continue to follow along during her hospitalization. Review of Systems Narrative: She is SOB, especially with ambulation. Her appetite is decreased. PFSH All Active Problems (Updated 12/10/22 @ 11:36 by Laurie Gallagher MD, [place]) Fever (Acute) DVT prophylaxis (Acute) Left shoulder pain (Acute) Hiccough (Acute) COVID-19 (Acute) Anemia (Chronic) GERD (gastroesophageal reflux disease) (Chronic) Discharge planning issues (Acute) Abdominal pain (Acute 12/03/22) Hypokalemia (Acute) Essential hypertension (Chronic) Pancreatic cancer (Acute) Medical History (Updated 12/10/22 @ 11:36 by Laurie Gallagher MD, [place]) Cancer associated pain Chest pain Congestive heart failure Dehydration Diarrhea Esophageal dilatation NSTEMI (non-ST elevated myocardial infarction) Palliative care patient Pulmonary fibrosis SVT (supraventricular tachycardia) Social History Smoking/Tobacco Use Status: Never Smoking risk assessment performed?: Yes Substance use type: does not use Housing: apartment Do you feel safe at home: Yes Do you feel safe in your relationship?: Yes Exam Narrative Exam Narrative: General: Very pleasant, elderly female, sitting up in the bed, wearing make-up. HEENT: Normocephalic, atraumatic, EOMI, mucous membranes moist. Neck: Supple. Cardiovascular: Heart sounds regular. Nontachycardic. Respiratory: Appears mildly short of breath while talking, lung sounds are diminished bilaterally. GI: Abdomen soft, +BS, nondistended, nontender on gentle palpation. Extremities: Moves all 4 extremities, edema noted to BLEs Results Last Vital Signs Temp 36.2 C L 12/04/22 07:33 Pulse 58 L 12/04/22 07:33 Resp 17 12/04/22 07:33 BP 119/62 12/04/22 07:33 Pulse Ox 97 12/04/22 07:33 Labs 12/10/22 06:26 12/10/22 06:26 Labs: Laboratory Results - last 24 hr 12/03/22 12/03/22 12/03/22 05:50 16:15 18:00 WBC RBC Hgb Hct MCV MCH MCHC RDW Plt Count MPV Immature Gran % Neutrophils % Band Neutrophils % Lymphocytes % Atypical Lymphs % Monocytes % Eosinophils % Basophils % Metamyelocytes % Myelocytes % Promyelocytes % Other Cells % Nucleated RBC % Absolute Neutrophils Absolute Lymphocytes Absolute Monocytes Absolute Eosinophils Absolute Basophils RBC Morphology Polychromasia Hypochromasia Poikilocytosis Basophilic Stippling Anisocytosis Microcytosis Macrocytosis Spherocytes Tear Drop Cells Ovalocytes Stomatocytes [place] Bodies Agenda Cells/Echinocytes Acanthocytes (Spur) Schistocytes Sodium Potassium Chloride Carbon Dioxide Anion Gap BUN Creatinine Est GFR (CKD-EPI 2020) Glucose Calcium Magnesium Urine Color Yellow Urine Clarity Clear Urine pH 6.0 Ur Specific [place] 1.020 Urine Protein Trace H Urine Ketones Trace H Urine Blood Negative Urine Nitrite Negative Urine Bilirubin Negative Urine Urobilinogen 0.2 Ur Leukocyte Esterase Trace H Urine RBC 3-5 H Urine WBC 3-5 Ur Epithelial Cells Moderate Urine Crystals Negative Urine Bacteria Few Urine Casts Negative Urine Mucus Negative Ur Culture Indicated? No/Sq. Contamination Urine Glucose Negative COVID-19 Source Nasal/Nares SARS-CoV-2 (PCR) POSITIVE A* Patient ABO/Rh A Positive Antibody Screen Crossmatch 12/03/22 12/04/22 12/04/22 18:40 02:57 03:28 WBC Cancelled RBC Cancelled Hgb Cancelled Hct Cancelled MCV Cancelled MCH Cancelled MCHC Cancelled RDW Cancelled Plt Count Cancelled MPV Cancelled Immature Gran % Cancelled Neutrophils % Cancelled Band Neutrophils % Cancelled Lymphocytes % Cancelled Atypical Lymphs % Cancelled Monocytes % Cancelled Eosinophils % Cancelled Basophils % Cancelled Metamyelocytes % Cancelled Myelocytes % Cancelled Promyelocytes % Cancelled Other Cells % Cancelled Nucleated RBC % Cancelled Absolute Neutrophils Cancelled Absolute Lymphocytes Cancelled Absolute Monocytes Cancelled Absolute Eosinophils Cancelled Absolute Basophils Cancelled RBC Morphology Cancelled Polychromasia Cancelled Hypochromasia Cancelled Poikilocytosis Cancelled Basophilic Stippling Cancelled Anisocytosis Cancelled Microcytosis Cancelled Macrocytosis Cancelled Spherocytes Cancelled Tear Drop Cells Cancelled Ovalocytes Cancelled Stomatocytes Cancelled [place] Bodies Cancelled Agenda Cells/Echinocytes Cancelled Acanthocytes (Spur) Cancelled Schistocytes Cancelled Sodium 136 Potassium 3.5 Chloride 105 Carbon Dioxide 19.7 L Anion Gap 11.3 H BUN 20 H Creatinine 1.1 H Est GFR (CKD-EPI 2020) 50.48 Glucose 123 H Calcium 7.5 L Magnesium 1.6 L Urine Color Urine Clarity Urine pH Ur Specific [place] Urine Protein Urine Ketones Urine Blood Urine Nitrite Urine Bilirubin Urine Urobilinogen Ur Leukocyte Esterase Urine RBC Urine WBC Ur Epithelial Cells Urine Crystals Urine Bacteria Urine Casts Urine Mucus Ur Culture Indicated? Urine Glucose COVID-19 Source SARS-CoV-2 (PCR) Patient ABO/Rh A Positive Antibody Screen NEGATIVE Crossmatch See Detail 12/04/22 03:28 WBC 5.09 RBC 3.06 L Hgb 9.4 L Hct 28.9 L MCV 94 MCH 30.7 MCHC 32.5 RDW 15.7 H Plt Count 72 L MPV 11.4 H Immature Gran % 1.2 Neutrophils % 89.9 Band Neutrophils % Lymphocytes % 2.8 Atypical Lymphs % Monocytes % 5.1 Eosinophils % 0.4 Basophils % 0.6 Metamyelocytes % Myelocytes % Promyelocytes % Other Cells % Nucleated RBC % 0.0 Absolute Neutrophils 4.58 Absolute Lymphocytes 0.14 L Absolute Monocytes 0.26 Absolute Eosinophils 0.02 Absolute Basophils 0.03 RBC Morphology Normal Polychromasia Hypochromasia Poikilocytosis Basophilic Stippling Anisocytosis Microcytosis Macrocytosis Spherocytes Tear Drop Cells Ovalocytes Stomatocytes [place] Bodies Noel Cells/Echinocytes Acanthocytes (Spur) Schistocytes Sodium Potassium Chloride Carbon Dioxide Anion Gap BUN Creatinine Est GFR (CKD-EPI 2020) Glucose Calcium Magnesium Urine Color Urine Clarity Urine pH Ur Specific [place] Urine Protein Urine Ketones Urine Blood Urine Nitrite Urine Bilirubin Urine Urobilinogen Ur Leukocyte Esterase Urine RBC Urine WBC Ur Epithelial Cells Urine Crystals Urine Bacteria Urine Casts Urine Mucus Ur Culture Indicated? Urine Glucose COVID-19 Source SARS-CoV-2 (PCR) Patient ABO/Rh Antibody Screen Crossmatch
--- NOTE | 2022-12-04 14:11 | W.PM.PROGNOT ---
Date of Service Date of service: 12/04/22 Time of Service: 14:11 Assessment and Plan Assessment and plan (1) Pancreatic cancer: Status: Acute Assessment and plan: No complaint of pain PT seeing Palliative following. (2) Chest pain: Assessment and plan: Toradol relieves pain Lidoderm patch to chest wall. Continue oxycodone 2.5mg Q6h prn initiated. Continue cardizem 30mg BID. States pain is better today (3) GERD (gastroesophageal reflux disease): Status: Chronic Assessment and plan: Cont PPI (4) Congestive heart failure: Assessment and plan: Echocardiogram on 11/16/22 showed an EF of 60-65%. 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 Apical hypokinesis. continue to hold diuretic now; poor intake and mildly dehydrated on admission. 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 (6) Hypokalemia: Status: Acute Assessment and plan: 3.5 today - monitor (7) Essential hypertension: Status: Acute Assessment and plan: Monitor. Continue to hold Losartan d/t low to low-normal BP. Improved today to 119/62 (8) Pulmonary fibrosis: Assessment and plan: Dyspnea on exertion. No acute exacerbation but does have an intermittent dry cough, occassional clear phlegm. Benzonatate and guafenesin prn (9) Anemia: Status: Chronic Assessment and plan: Hemoglobin 9.4 up from 7.6 yesterday (10) COVID-19: Status: Acute Assessment and plan: Afebrile today Day 2 of Remdesivir No oxygen requirement (11) Discharge planning issues: Status: Acute Assessment and plan: Palliative consulted. Likely a hospice candidate but she is not ready to consider it at this time. She has agreed to a DNR/DNI status. She desires to return to home but her daughter cannot continue to stay with her mother and cannot manage her care 24H/day. Covid + day 2 remdesivir no oxygen requirement discussed with Dr Rasmussen Subjective Subjective Patient reports: no new complaints, tolerating liquids well, tolerating a regular diet, voiding w/o difficulty and fever (Tmax 38 - ibuprofen given (allergic acetaminophen)); denies diarrhea, nausea, vomiting or shortness of breath Exam Narrative Exam Narrative: Sitting up in bed. C/AO x4, pleasant, conversant Const General: no acute distress Orientation: alert and oriented x3 HENMT Head: normal to inspection Ears: hearing grossly normal bilaterally Mouth: moist mucous membranes Eyes General: appearance normal, both eyes and all related structures Sclera: sclerae normal Neck Neck: normal visual inspection and no JVD Chest Chest: tenderness sternum (improved) Resp Effort & Inspection: normal respiratory effort and able to speak in complete sentences Auscultation: clear to auscultation bilaterally Cardio Rate: regular rate Rhythm: regular rhythm Heart Sounds: S1 normal, S2 normal and no murmurs GI Palpation: soft Auscultation: hyperactive bowel sounds Skin General skin exam: no rashes or lesions noted Neuro General: patient alert, patient oriented x3 and no focal motor deficits Extrem General: normal to inspection, no pedal edema and no calf tenderness Psych Mental Status: mental status grossly normal Speech and Movement: speech clear Mood: congruent mood Affect: normal affect Attitude: cooperative Thought Process: normal Thought Content: normal Objective Last Vital Signs Temp 36.2 C L 12/04/22 07:33 Pulse 58 L 12/04/22 07:33 Resp 17 12/04/22 07:33 BP 119/62 12/04/22 07:33 Pulse Ox 97 12/04/22 07:33 Laboratory Results - last 24 hr 12/03/22 12/03/22 12/03/22 05:50 16:15 18:00 WBC RBC Hgb Hct MCV MCH MCHC RDW Plt Count MPV Immature Gran % Neutrophils % Band Neutrophils % Lymphocytes % Atypical Lymphs % Monocytes % Eosinophils % Basophils % Metamyelocytes % Myelocytes % Promyelocytes % Other Cells % Nucleated RBC % Absolute Neutrophils Absolute Lymphocytes Absolute Monocytes Absolute Eosinophils Absolute Basophils RBC Morphology Polychromasia Hypochromasia Poikilocytosis Basophilic Stippling Anisocytosis Microcytosis Macrocytosis Spherocytes Tear Drop Cells Ovalocytes Stomatocytes [place] Bodies Noel Cells/Echinocytes Acanthocytes (Spur) Schistocytes Sodium Potassium Chloride Carbon Dioxide Anion Gap BUN Creatinine Est GFR (CKD-EPI 2020) Glucose Calcium Magnesium Urine Color Yellow Urine Clarity Clear Urine pH 6.0 Ur Specific [place] 1.020 Urine Protein Trace H Urine Ketones Trace H Urine Blood Negative Urine Nitrite Negative Urine Bilirubin Negative Urine Urobilinogen 0.2 Ur Leukocyte Esterase Trace H Urine RBC 3-5 H Urine WBC 3-5 Ur Epithelial Cells Moderate Urine Crystals Negative Urine Bacteria Few Urine Casts Negative Urine Mucus Negative Ur Culture Indicated? No/Sq. Contamination Urine Glucose Negative COVID-19 Source Nasal/Nares SARS-CoV-2 (PCR) POSITIVE A* Patient ABO/Rh A Positive Antibody Screen Crossmatch 12/03/22 12/04/22 12/04/22 18:40 02:57 03:28 WBC Cancelled RBC Cancelled Hgb Cancelled Hct Cancelled MCV Cancelled MCH Cancelled MCHC Cancelled RDW Cancelled Plt Count Cancelled MPV Cancelled Immature Gran % Cancelled Neutrophils % Cancelled Band Neutrophils % Cancelled Lymphocytes % Cancelled Atypical Lymphs % Cancelled Monocytes % Cancelled Eosinophils % Cancelled Basophils % Cancelled Metamyelocytes % Cancelled Myelocytes % Cancelled Promyelocytes % Cancelled Other Cells % Cancelled Nucleated RBC % Cancelled Absolute Neutrophils Cancelled Absolute Lymphocytes Cancelled Absolute Monocytes Cancelled Absolute Eosinophils Cancelled Absolute Basophils Cancelled RBC Morphology Cancelled Polychromasia Cancelled Hypochromasia Cancelled Poikilocytosis Cancelled Basophilic Stippling Cancelled Anisocytosis Cancelled Microcytosis Cancelled Macrocytosis Cancelled Spherocytes Cancelled Tear Drop Cells Cancelled Ovalocytes Cancelled Stomatocytes Cancelled [place] Bodies Cancelled Noel Cells/Echinocytes Cancelled Acanthocytes (Spur) Cancelled Schistocytes Cancelled Sodium 136 Potassium 3.5 Chloride 105 Carbon Dioxide 19.7 L Anion Gap 11.3 H BUN 20 H Creatinine 1.1 H Est GFR (CKD-EPI 2020) 50.48 Glucose 123 H Calcium 7.5 L Magnesium 1.6 L Urine Color Urine Clarity Urine pH Ur Specific [place] Urine Protein Urine Ketones Urine Blood Urine Nitrite Urine Bilirubin Urine Urobilinogen Ur Leukocyte Esterase Urine RBC Urine WBC Ur Epithelial Cells Urine Crystals Urine Bacteria Urine Casts Urine Mucus Ur Culture Indicated? Urine Glucose COVID-19 Source SARS-CoV-2 (PCR) Patient ABO/Rh A Positive Antibody Screen NEGATIVE Crossmatch See Detail 12/04/22 03:28 WBC 5.09 RBC 3.06 L Hgb 9.4 L Hct 28.9 L MCV 94 MCH 30.7 MCHC 32.5 RDW 15.7 H Plt Count 72 L MPV 11.4 H Immature Gran % 1.2 Neutrophils % 89.9 Band Neutrophils % Lymphocytes % 2.8 Atypical Lymphs % Monocytes % 5.1 Eosinophils % 0.4 Basophils % 0.6 Metamyelocytes % Myelocytes % Promyelocytes % Other Cells % Nucleated RBC % 0.0 Absolute Neutrophils 4.58 Absolute Lymphocytes 0.14 L Absolute Monocytes 0.26 Absolute Eosinophils 0.02 Absolute Basophils 0.03 RBC Morphology Normal Polychromasia Hypochromasia Poikilocytosis Basophilic Stippling Anisocytosis Microcytosis Macrocytosis Spherocytes Tear Drop Cells Ovalocytes Stomatocytes [place] Bodies Noel Cells/Echinocytes Acanthocytes (Spur) Schistocytes Sodium Potassium Chloride Carbon Dioxide Anion Gap BUN Creatinine Est GFR (CKD-EPI 2020) Glucose Calcium Magnesium Urine Color Urine Clarity Urine pH Ur Specific [place] Urine Protein Urine Ketones Urine Blood Urine Nitrite Urine Bilirubin Urine Urobilinogen Ur Leukocyte Esterase Urine RBC Urine WBC Ur Epithelial Cells Urine Crystals Urine Bacteria Urine Casts Urine Mucus Ur Culture Indicated? Urine Glucose COVID-19 Source SARS-CoV-2 (PCR) Patient ABO/Rh Antibody Screen Crossmatch Time Spent with Patient Time Spent with Patient: 25-34 minutes Time was spent: preparing to see the patient(eg.review tests), ordering medications,tests, procedures, referring, communicating with other health tire care manager, indepentently interpreting results, counseling the patient and care coordination
--- NOTE | 2022-12-04 16:16 | PT.INNT ---
Date of service: 12/04/22 Time of Service: 14:37 PT Notes Visit Reasons: Metastatic Pancreatic Cancer, Chest Pain Patient is unavailable, declines due to having a meeting with Palliative Care.
--- NOTE | 2022-12-04 17:04 | PT.INTREAT ---
Date of service: 12/04/22 Time of Service: 16:30 PT Notes Visit Reasons: Metastatic Pancreatic Cancer, Chest Pain Inpatient Physical Therapy Treatment Note [facility] Date: 12/04/22 PRECAUTIONS: Fall, standard, activity as tolerated. [place] PRECAUTIONS. SUBJECTIVE: Patient very unhappy to have caught covid. Believes that she acquired the virus here in the hospital. States people need to smarten up. OBJECTIVE: Long sitting in bed. Agreeable to therapy.? PAIN: None reported VITALS: monitored by nursing staff ? ? BED MOBILITY/TRANSFERS? Rolling L/R: independent Supine-sit: modified independent with raised HOB? Sit-supine: min assist to get legs into bed ? Sit-stand: SBA? Stand-sit: SBA ? Bed-Chair: SBA ? Chair-bed: SBA Provided skilled cues and instruction on performance and technique throughout. ? Therapeutic Exercises ([id number]): Direct one-on-one instruction in therapeutic exercises to develop strength, endurance, range of motion and flexibility. ?Ambulation ? Assistive Device: FWW ? Weight bearing: Full Assist: SBA ? Distance:? 20 feet, extended seated rest, 20 feet with 2 standing rests. ? Deviation: reduced schuyler. ? Provided skilled instruction in proper exercise performance Provided skilled manual cues to facilitate proper muscle recruitment and/or form. ASSESSMENT:? Patient tolerates therapy well, reports feeling spent at the end of therapy. PLAN: continue global strengthening per plan of care. TREATMENT CODE/TIME: 32 minutes beginning at 16:30
[2022-12-04] MEDS: REMDESIVIR 100 MG in Normal Saline 250 ML 250 MG IVPB (17:18)
[2022-12-04] MEDS: Acetaminophen 500 MG TAB 1000 MG PO (19:17)
[2022-12-04] MEDS: Gabapentin 300 MG CAP PO (19:19)
[2022-12-04] MEDS: Lidocaine Patch Removal 1 EACH TP ×2 (20:43)
[2022-12-05] VITALS (8 sets, daily range): BP systolic 96–114; BP diastolic 48–66; PULSE 54–106; RESP 14–22; TEMP 36.1–37.6; O2SAT 95–98
[2022-12-05] MEDS: Acetaminophen 500 MG TAB 1000 MG PO (05:57)
[2022-12-05 06:40] LABS: Abs Immature Grans 0.03 10^3/uL (0.0-0.06); Absolute Eosinophil Count 0.09 10^3/uL (0.0-0.7); HCT 32.4 % (36.0-46.0); HGB 10.7 g/dL (11.2-15.7); MCH 30.4 pg (27.0-33.0); MCV 92 fL (80-95); MPV 11.9 fL (8.0-11.0); Platelet Count 77 10^3/uL (130-400); RBC 3.52 10^6/uL (3.93-5.22); RDW 15.7 % (11.7-14.6); RDW-SD 53.2 fL; WBC 4.72 10^3/uL (4.4-10.8)
[2022-12-05 06:53] LABS: Anion Gap 12.1 mmol/L (3-11); BUN 23 mg/dL (7-18); CO2 18.9 mmol/L (21.0-32.0); CREATININE 1.1 mg/dL (0.55-1.02); Calcium 8.1 mg/dL (8.5-10.1); Chloride 105 mmol/L (98-107); Estimated GFR 50.48 (mL/min/1.73m2); Glucose 98 mg/dL (74-106); Magnesium 2.1 mg/dL (1.8-2.4); Potassium 3.5 mmol/L (3.5-5.1); Sodium 136 mmol/L (136-145)
[2022-12-05 06:55] LABS: Absolute Lymphocyte Count 0.19 10^3/uL (1.2-3.4); Absolute Monocyte Count 0.09 10^3/uL (0.1-0.8); Absolute Neutrophil Count 4.34 10^3/uL (1.2-6.7); Bands % 1
[2022-12-05 06:56] LABS: Diff Comment Manual Differential; RBC Morphology Normal
[2022-12-05] MEDS: Lidocaine 5% Patch 1 PATCH TP ×2 (09:44)
[2022-12-05] MEDS: Normal Saline Flush 10 ML SYR IVP ×3 (09:45→20:14)
[2022-12-05] MEDS: Pantoprazole 40 MG VIAL IVP (09:46)
[2022-12-05] MEDS: Zinc Sulfate 220 MG TAB PO (09:47)
[2022-12-05] MEDS: Cholecalciferol (Vitamin D3) 1,000 UNIT TAB 2000 UNITS PO (09:47)
[2022-12-05] MEDS: Ascorbic Acid 500 MG TAB PO ×2 (09:47→20:05)
[2022-12-05] MEDS: guaiFENesin 600 MG TABCR PO ×2 (09:47→20:05)
[2022-12-05] MEDS: Benzonatate 100 MG CAP PO ×3 (09:47→20:05)
[2022-12-05 10:16] LABS: Lactate 1.5 mmol/L (0.6-1.4)
[2022-12-05] MEDS: Loperamide 2 MG CAP 4 MG PO (11:38)
[2022-12-05] MEDS: Lactated Ringers 1,000 ML 100 ML IV ×2 (12:33→22:45)
--- NOTE | 2022-12-05 14:31 | PT.INIE ---
Date of service: 12/05/22 Time of Service: 13:55 PT Notes Visit Reasons: Metastatic Pancreatic Cancer, Chest Pain Inpatient Physical Therapy Treatment Note [facility] Date: 12/05/22 PRECAUTIONS: Fall. Activity as tolerated. [place] PRECAUTIONS for COVID-[address]. SUBJECTIVE: Expressed how she is about to lose her mind waiting to get better but felt encouraged when PT and Nurse Katherine motivated her to hang in there, that she is here so we can help her to recover. Agreed to walking inside room after explaining to her that mobilizing can help shake off any phlegm that may be beginning to accumulate in her lungs and facilitate better breathing/muscle strength. Did say that she had to wake up at 3 AM early today and had an episode of diarrhea. Reported some mild chest pain after walk that subsided with rest. OBJECTIVE: Resting in bed. ?IV through R UE. Appears to be anxious but easily dispelled with gentle encouragement. PAIN: None reported VITALS: Monitored vi tele THERA ACT: Facilitated safe performance, movement execution, pacing, and energy conservation technique of bed mobility, transfers, and ambulation as indincated below. Promoted deep breathing exercises after task performance to optimize respiratory function and prevent undue fatigue post activity. BED MOBILITY/TRANSFERS: Supine-sit: modified independent with raised HOB Sit-supine: minimal assist to get right leg into bed Sit-stand: stand by assist, cues for hand placement ? Stand-sit: stand by assist, cues for hand placement ? Bed-toilet seat: stand by assist, cues for hand placement ? Toilet seat-bed: stand by assist, cues for hand placement GAIT:? Assistive Device: FWW ? Weight bearing: Full Assist: stand by assist with cues for pacing and deep breathing as she did 2 short standing rests ? Distance:? Edge of bed to toilet seat about 15 feet to void urine , toilet seat to door and then u-turn back onto bed?about 20 feet?Deviation: Gait speed slowed with SOB and report of chest pain and fatigue? ASSESSMENT: ? Anxious about the trajectory of her medical condition and with COVID compounding her hospital stay. Has been seen by palliative care and patient is agreeable to going home on hospice. Able to tolerate essential mobility tasks with pacing, AD usage, and deep breathing techniques. PLAN: Progress activity tolerance, functional mobility, and exercise performance as tolerated to prevent functional mobility decline. TREATMENT CODE/TIME: 39838 x 25 minutes, 17074 x 10 minutes beginning at 13:55 PM.
--- NOTE | 2022-12-05 16:03 | W.PM.PROGNOT ---
Date of Service Date of service: 12/05/22 Time of Service: 16:03 Assessment and Plan Assessment and plan (1) Pancreatic cancer: Status: Acute Assessment and plan: No complaint of pain PT seeing Palliative following. (2) Chest pain: Assessment and plan: Toradol relieves pain Lidoderm patch to chest wall. Continue oxycodone 2.5mg Q6h prn Continue cardizem 30mg BID. No pain today (3) GERD (gastroesophageal reflux disease): Status: Chronic Assessment and plan: Cont PPI (4) Congestive heart failure: Assessment and plan: Echocardiogram on 11/16/22 showed an EF of 60-65%. 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 Apical hypokinesis. continue to hold diuretic now; poor intake and mildly dehydrated on admission. CASINO CASHIER ~ 3 secs, no pedal edema, lungs are clear (5) Abdominal pain: Status: Resolved Assessment and plan: Likely related to her pancreatic cancer; oxycodone Currently w/o pain, no N/V. (6) Hypokalemia: Status: Acute Assessment and plan: 3.5 today - monitor (7) Essential hypertension: Status: Acute Assessment and plan: Monitor. Continue to hold Losartan d/t low to low-normal BP. 102/60 (8) Pulmonary fibrosis: Assessment and plan: Dyspnea on exertion. No acute exacerbation but does have an intermittent dry cough, occassional clear phlegm. Benzonatate and guafenesin prn (9) Anemia: Status: Chronic Assessment and plan: Hemoglobin 10.7 (10) COVID-19: Status: Acute Assessment and plan: Afebrile today Day 3 of Remdesivir No oxygen requirement RR 16, SPO2 96% RA, no increased WOB, no SOB (11) Discharge planning issues: Status: Acute Assessment and plan: Palliative consulted. Likely a hospice candidate but she is not ready to consider it at this time. She is DNR/DNI status. She desires to return to home but her daughter cannot continue to stay with her mother and cannot manage her care 24H/day. Covid + day 3 remdesivir no oxygen requirement discussed with Dr Garg Subjective Subjective Patient reports: no new complaints, tolerating liquids well, tolerating a regular diet, voiding w/o difficulty, bowel movement and afebrile; denies diarrhea, vomiting or shortness of breath Interval history since last seen: Alert, awake, pleasant, no complaints. Continues to have interest in short term rehab Exam Narrative Exam Narrative: Sitting up in bed. C/AO x4, pleasant, conversant, no complaints today, no oxygen requirement. Reports feeling improved. Const General: no acute distress Orientation: alert and oriented x3 HENMT Head: normal to inspection Ears: hearing grossly normal bilaterally Mouth: moist mucous membranes Eyes General: appearance normal, both eyes and all related structures Sclera: sclerae normal Neck Neck: normal visual inspection and no JVD Chest Chest: tenderness sternum (improved) Resp Effort & Inspection: normal respiratory effort and able to speak in complete sentences Auscultation: clear to auscultation bilaterally Cardio Rate: regular rate Rhythm: regular rhythm Heart Sounds: S1 normal, S2 normal and no murmurs GI Palpation: soft Auscultation: hyperactive bowel sounds Skin General skin exam: no rashes or lesions noted Neuro General: patient alert, patient oriented x3 and no focal motor deficits Extrem General: normal to inspection, no pedal edema and no calf tenderness Psych Mental Status: mental status grossly normal Speech and Movement: speech clear Mood: congruent mood Affect: normal affect Attitude: cooperative Thought Process: normal Thought Content: normal Objective Last Vital Signs Temp 36.9 C 12/05/22 11:40 Pulse 68 12/05/22 11:40 Resp 18 12/05/22 11:40 BP 102/63 12/05/22 11:40 Pulse Ox 96 12/05/22 11:40 Laboratory Results - last 24 hr 12/05/22 12/05/22 12/05/22 06:00 06:00 10:10 WBC 4.72 RBC 3.52 L Hgb 10.7 L Hct 32.4 L MCV 92 MCH 30.4 MCHC 33.0 RDW 15.7 H Plt Count 77 L MPV 11.9 H Immature Gran % 0.0 Neutrophils % 91.0 Band Neutrophils % 1 Lymphocytes % 4.0 Monocytes % 2.0 Eosinophils % 2.0 Basophils % 0.0 Nucleated RBC % 0.0 Absolute Neutrophils 4.34 Absolute Lymphocytes 0.19 L Absolute Monocytes 0.09 L Absolute Eosinophils 0.09 Absolute Basophils 0.00 RBC Morphology Normal VBG Lactate 1.5 H Sodium 136 Potassium 3.5 Chloride 105 Carbon Dioxide 18.9 L Anion Gap 12.1 H BUN 23 H Creatinine 1.1 H Est GFR (CKD-EPI 2020) 50.48 Glucose 98 Calcium 8.1 L Magnesium 2.1 Time Spent with Patient Time Spent with Patient: 35-49 minutes Time was spent: preparing to see the patient(eg.review tests), ordering medications,tests, procedures, referring, communicating with other health care management associate, indepentently interpreting results, counseling the patient and care coordination
[2022-12-05] MEDS: REMDESIVIR 100 MG in Normal Saline 250 ML 250 MG IVPB (18:00)
[2022-12-05] MEDS: Lidocaine Patch Removal 1 EACH TP ×2 (20:13→20:14)
[2022-12-05] MEDS: oxyCODONE 5 MG TAB 2.5 MG PO (20:33)
[2022-12-05] MEDS: Simethicone 80 MG CHEW PO (20:33)
[2022-12-05] MEDS: Zolpidem 5 MG TAB PO (22:43)
[2022-12-05] MEDS: Ibuprofen 100 MG/5 ML CUP 550 MG PO (22:53)
[2022-12-06] MEDS: oxyCODONE 5 MG TAB 2.5 MG PO ×2 (04:02→14:25)
[2022-12-06 04:03] VITALS: BP 100/58; PULSE 62; RESP 15; TEMP 36.6; O2SAT 96
[2022-12-06] MEDS: Normal Saline Flush 10 ML SYR IVP ×2 (06:08→08:28)
[2022-12-06] MEDS: Lactated Ringers 1,000 ML 100 ML IV ×2 (06:08→16:10)
[2022-12-06 06:55] LABS: Abs Immature Grans 0.04 10^3/uL (0.0-0.06); Absolute Basophil Count 0.02 10^3/uL (0.0-0.2); Absolute Eosinophil Count 0.08 10^3/uL (0.0-0.7); Absolute Lymphocyte Count 0.24 10^3/uL (1.2-3.4); Absolute Monocyte Count 0.28 10^3/uL (0.1-0.8); Absolute Neutrophil Count 3.22 10^3/uL (1.2-6.7); Basophils % 0.5; Eosinophils % 2.1; HCT 28.5 % (36.0-46.0); HGB 9.6 g/dL (11.2-15.7); Lymphocytes % 6.2; MCHC 33.7 % (32.0-36.0); MCV 92 fL (80-95); MPV 11.4 fL (8.0-11.0); Monocytes % 7.2; RDW 15.7 % (11.7-14.6); RDW-SD 53.2 fL; WBC 3.88 10^3/uL (4.4-10.8)
[2022-12-06 07:09] LABS: INR 1.8 (0.9-1.1); Prothrombin Time 18.6 sec (9.3-11.0)
[2022-12-06 07:29] LABS: Platelet Count 69 10^3/uL (130-400)
[2022-12-06 07:39] LABS: D-Dimer > 7500 ng/mlFEU (<500)
[2022-12-06 07:47] LABS: Anion Gap 10.9 mmol/L (3-11); BUN 26 mg/dL (7-18); CO2 18.1 mmol/L (21.0-32.0); Chloride 105 mmol/L (98-107); Ferritin 946 ng/mL (8-252); Glucose 92 mg/dL (74-106); Potassium 3.3 mmol/L (3.5-5.1); Sodium 134 mmol/L (136-145)
[2022-12-06 07:48] LABS: Procalcitonin 6.5 ng/mL
[2022-12-06 07:49] LABS: Vitamin D 25 Total 11.8 ng/mL (30-100)
[2022-12-06 08:01] LABS: C-Reactive Protein 11.89 mg/dL (0.0-0.3)
[2022-12-06] MEDS: Lidocaine 5% Patch 1 PATCH TP ×2 (08:28)
[2022-12-06] MEDS: dilTIAZem 30 MG TAB PO (08:29)
[2022-12-06] MEDS: Ascorbic Acid 500 MG TAB PO ×2 (08:29→20:50)
[2022-12-06] MEDS: guaiFENesin 600 MG TABCR PO ×2 (08:29→20:50)
[2022-12-06] MEDS: Cholecalciferol (Vitamin D3) 1,000 UNIT TAB 2000 UNITS PO (08:29)
[2022-12-06] MEDS: Pantoprazole 40 MG VIAL IVP (08:29)
[2022-12-06] MEDS: Benzonatate 100 MG CAP PO ×3 (08:29→20:50)
[2022-12-06] MEDS: Zinc Sulfate 220 MG TAB PO (08:30)
[2022-12-06] MEDS: Gabapentin 300 MG CAP PO (08:30)
[2022-12-06 08:42] VITALS: BP 109/62; PULSE 63; RESP 18; TEMP 37; O2SAT 96
[2022-12-06 11:13] VITALS: BP 111/68; PULSE 110; RESP 18; TEMP 36.5; O2SAT 95
--- NOTE | 2022-12-06 12:35 | PT.INTREAT ---
PT Notes Visit Reasons: Metastatic Pancreatic Cancer, Chest Pain Inpatient Physical Therapy Treatment Note [facility] Date: 12/06/22 PRECAUTIONS:COVID 19 ? Therapeutic Activities (10462z[2]): Direct one-on-one instruction in dynamic activities to improve functional performance. ? BED MOBILITY/TRANSFERS? Supine-sit: Min Ax1? Sit-supine: Min Ax1 ? Sit-stand: CGAx1? Stand-sit: CGAx1 ? Provided skilled cues and instruction on performance and technique throughout. ? GAIT? Assistive Device: FWW? Weight bearing: Full Assist: CGA? Distance:? From bed to door and back to bed. ? Pt did require vc's for breathing and energy conservation with walking.? Therapeutic Exercises ([id number][]): Direct one-on-one instruction in therapeutic exercises to develop strength, endurance, range of motion and flexibility. ? Exercises Pt completed LAQx 10 and marching x 10. ASSESSMENT:? Pt tolerated today's session fairly well. Pt was fatigued during her session today. PLAN: Cont as per PT POC. TREATMENT CODE/TIME: 11:55-12:30 (25) TAx2
[2022-12-06] MEDS: Potassium Chloride 20 MEQ TABCR 40 MEQ PO (14:19)
[2022-12-06] MEDS: Acetaminophen 325 MG TAB 650 MG PO (14:25)
[2022-12-06 14:27] VITALS: BP 102/64; PULSE 82; RESP 18; TEMP 36.4; O2SAT 96
--- NOTE | 2022-12-06 15:44 | PGE_ITS ---
Date of Service Date of service: 12/06/22 Time of Service: 15:44 Assessment and Plan Assessment and plan (1) Pancreatic cancer: Status: Acute Assessment and plan: No complaint of pain PT seeing Palliative following. (2) Chest pain: Assessment and plan: Toradol relieves pain Lidoderm patch to chest wall. Continue oxycodone 2.5mg Q6h prn Continue cardizem 30mg BID. No pain today (3) GERD (gastroesophageal reflux disease): Status: Chronic Assessment and plan: Changed PPI to H2 kirill in setting of covid (4) Congestive heart failure: Assessment and plan: Echocardiogram on 11/16/22 showed an EF of 60-65%. 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 Apical hypokinesis. 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 (6) Hypokalemia: Status: Acute Assessment and plan: 3.3 today - repleted monitor (7) Essential hypertension: Status: Acute Assessment and plan: Monitor. Continue to hold Losartan d/t low to low-normal BP. 102/64 today (8) Pulmonary fibrosis: Assessment and plan: Dyspnea on exertion. No acute exacerbation but does have an intermittent dry cough, occassional clear phlegm. Benzonatate and guafenesin prn (9) Anemia: Status: Chronic Assessment and plan: Hemoglobin 9.6 (10) COVID-19: Status: Acute Assessment and plan: Afebrile today Day 4 of Remdesivir No oxygen requirement RR 15-18, SPO2 95-97% RA, no increased WOB, no SOB, continues to be stable (11) Discharge planning issues: Status: Acute Assessment and plan: Palliative consulted. Likely a hospice candidate but she is not ready to consider it at this time. She is DNR/DNI status. She desires to return to home but her daughter cannot continue to stay with her mother and cannot manage her care 24H/day. Covid + day 4 remdesivir no oxygen requirement discussed with Dr Jeffries Subjective Subjective Patient reports: no new complaints, tolerating liquids well, tolerating a regular diet, voiding w/o difficulty, bowel movement and afebrile; denies flatus, diarrhea, blood in stool, nausea, vomiting or shortness of breath Interval history since last seen: Awake, alert, conversant, sitting semi fowlers in bed, no complaints, full make up on, bright and smiling, stating she feels better, working with PT Exam Narrative Exam Narrative: Sitting up in bed. C/AO x4, pleasant, conversant, no complaints today, continues to have no oxygen requirement. Const General: no acute distress Orientation: alert and oriented x3 HENMT Head: normal to inspection Ears: hearing grossly normal bilaterally Mouth: moist mucous membranes Eyes General: appearance normal, both eyes and all related structures Sclera: sclerae normal Neck Neck: normal visual inspection and no JVD Chest Chest: tenderness sternum (improved) Resp Effort & Inspection: normal respiratory effort and able to speak in complete sentences Auscultation: clear to auscultation bilaterally Cardio Rate: regular rate Rhythm: regular rhythm Heart Sounds: S1 normal, S2 normal and no murmurs GI Palpation: soft Auscultation: hyperactive bowel sounds Skin General skin exam: no rashes or lesions noted Neuro General: patient alert, patient oriented x3 and no focal motor deficits Extrem General: normal to inspection, no pedal edema and no calf tenderness Psych Mental Status: mental status grossly normal Speech and Movement: speech clear Mood: congruent mood Affect: normal affect Attitude: cooperative Thought Process: normal Thought Content: normal Objective Last Vital Signs Temp 36.4 C L 12/06/22 14:27 Pulse 82 12/06/22 14:27 Resp 18 12/06/22 14:27 BP 102/64 12/06/22 14:27 Pulse Ox 96 12/06/22 14:27 Laboratory Results - last 24 hr 12/06/22 12/06/22 12/06/22 06:45 06:45 06:45 WBC RBC Hgb Hct MCV MCH MCHC RDW Plt Count MPV Immature Gran % Neutrophils % Lymphocytes % Monocytes % Eosinophils % Basophils % Nucleated RBC % Absolute Neutrophils Absolute Lymphocytes Absolute Monocytes Absolute Eosinophils Absolute Basophils PT INR D-Dimer VBG Lactate 1.0 Sodium 134 L Potassium 3.3 L Chloride 105 Carbon Dioxide 18.1 L Anion Gap 10.9 BUN 26 H Creatinine 1.0 Est GFR (CKD-EPI 2020) 56.60 Glucose 92 Calcium 8.0 L Magnesium 2.0 Ferritin 946 H C-Reactive Protein 11.89 H 25-OH Vitamin D Total 11.8 L Procalcitonin 6.5 12/06/22 12/06/22 06:45 06:45 WBC 3.88 L RBC 3.10 L Hgb 9.6 L Hct 28.5 L MCV 92 MCH 31.0 MCHC 33.7 RDW 15.7 H Plt Count 69 L MPV 11.4 H Immature Gran % 1.0 Neutrophils % 83.0 Lymphocytes % 6.2 Monocytes % 7.2 Eosinophils % 2.1 Basophils % 0.5 Nucleated RBC % 0.0 Absolute Neutrophils 3.22 Absolute Lymphocytes 0.24 L Absolute Monocytes 0.28 Absolute Eosinophils 0.08 Absolute Basophils 0.02 PT 18.6 H INR 1.8 H D-Dimer > 7500 H VBG Lactate Sodium Potassium Chloride Carbon Dioxide Anion Gap BUN Creatinine Est GFR (CKD-EPI 2020) Glucose Calcium Magnesium Ferritin C-Reactive Protein 25-OH Vitamin D Total Procalcitonin Time Spent with Patient Time Spent with Patient: 35-49 minutes Time was spent: preparing to see the patient(eg.review tests), ordering medications,tests, procedures, referring, communicating with other health care p rofessionals, indepentently interpreting results, counseling the patient and care coordination
[2022-12-06 16:37] LABS: Bilirubin Negative (Negative); Blood Trace-intact (Negative); Clarity Clear (Clear); Glucose Negative (Negative); Ketones Negative (Negative); Leukocyte Esterase Moderate (Negative); Nitrite Negative (Negative); Specific Gravity 1.015 (1.005-1.025); Urobilinogen 0.2 mg/dL (Up to 0.2); pH 5.5 (5-8)
[2022-12-06 17:03] LABS: Bacteria Rare HPF (Negative); C & S Indicated? Yes; Crystals Negative HPF (Negative); Epithelial Cells Rare HPF (Negative); Mucus Negative (Negative); Other Cells Rare Transitional (Negative); RBC 0-2 HPF (0-2); WBC 20-50 HPF (0-5)
[2022-12-06] MEDS: REMDESIVIR 100 MG in Normal Saline 250 ML 250 MG IVPB (17:07)
[2022-12-06 20:57] VITALS: BP 107/64; PULSE 60; RESP 14; TEMP 36.8; O2SAT 96
[2022-12-06] MEDS: Zolpidem 5 MG TAB PO (21:00)
[2022-12-07] MEDS: Lactated Ringers 1,000 ML 100 ML IV (02:26)
[2022-12-07 06:26] VITALS: BP 114/63; PULSE 72; RESP 16; TEMP 37.2; O2SAT 95
[2022-12-07] MEDS: Normal Saline Flush 10 ML SYR IVP ×2 (07:42→17:14)
[2022-12-07] MEDS: Pantoprazole 40 MG VIAL IVP (07:42)
[2022-12-07] MEDS: Cholecalciferol (Vitamin D3) 1,000 UNIT TAB 2000 UNITS PO (07:42)
[2022-12-07] MEDS: Lidocaine 5% Patch 1 PATCH TP ×2 (07:42)
[2022-12-07] MEDS: dilTIAZem 30 MG TAB PO (07:43)
[2022-12-07] MEDS: Ascorbic Acid 500 MG TAB PO ×2 (07:43→20:09)
[2022-12-07] MEDS: Zinc Sulfate 220 MG TAB PO (07:43)
[2022-12-07] MEDS: Acetaminophen 325 MG TAB 650 MG PO ×2 (07:43→19:38)
[2022-12-07] MEDS: guaiFENesin 600 MG TABCR PO ×2 (07:44→19:38)
[2022-12-07] MEDS: oxyCODONE 5 MG TAB 2.5 MG PO ×2 (07:44→17:47)
[2022-12-07] MEDS: Benzonatate 100 MG CAP PO ×3 (07:44→19:38)
[2022-12-07 07:45] VITALS: BP 107/61; PULSE 61; RESP 18; TEMP 37.4; O2SAT 95
[2022-12-07 07:45] LABS: HCT 29.6 % (36.0-46.0); HGB 9.8 g/dL (11.2-15.7); MCH 30.5 pg (27.0-33.0); MCHC 33.1 % (32.0-36.0); MCV 92 fL (80-95); RBC 3.21 10^6/uL (3.93-5.22); RDW 15.8 % (11.7-14.6); RDW-SD 53.7 fL; WBC 4.54 10^3/uL (4.4-10.8)
--- NOTE | 2022-12-07 07:52 | W.PALPGNOTE ---
Date of service: 12/07/22 Time of Service: 07:52 Assessment and Plan Assessment and plan (1) COVID-19: Status: Acute (2) GERD (gastroesophageal reflux disease): Status: Chronic (3) Pancreatic cancer: Status: Acute (4) Hiccough: Status: Acute (5) Left shoulder pain: Status: Acute Assessment and plan: I think her left shoulder pain is referred pain from her pancreatic cancer combined with being so fatigued that she is slumped. I am hoping that after we remove her that she is more comfortable and has less of the referred pain. She probably needs more frequent dosing of her oxycodone so that it can meet her pain needs. She did state that she had hiccups. Thorazine would be a great medication if these continue. This points to an irritation of the diaphragm and this is probably from her pancreatic cancer. We did not discuss her CODE STATUS or hospice today. We mostly focused on her pain. I did speak to Dr. Mandel about Sarita. Subjective Subjective Interval history since last seen: Sarita is an 82-year-old woman with metastatic pancreatic cancer. I saw her a week ago and at that time she was adamant that she wanted to be a full code, although on reflection is now a DNR/DNI. She also did speak with Reyna last week and has decided that hospice would be a good alternative for her. Unfortunately she contracted COVID and has had a hard time with it. She feels that her fatigue is overwhelming and that it is hard for her to do anything even moving her legs seems to be a major effort. She is disappointed as she was doing quite well prior to COVID. Today she states that her left shoulder is quite painful. She is using the lidocaine patches but the pain medication does not seem to be cutting it. She thinks it might be time for her to have another pill. Exam Narrative Exam Narrative: Sarita is slumped down in the bed. Her feet are hitting the footboard. She looks very very crowded in the bed. She was unable to help me bring herself in a more upright position. Nursing did come in and the 2 of us were able to lift her still. She was not able to help us. Her heart was regular. She is breathing although it is more shallow. Mood discouraged Objective Last Vital Signs Temp 99.3 F 12/07/22 07:45 Pulse 61 12/07/22 07:45 Resp 18 12/07/22 07:45 BP 107/61 12/07/22 07:45 Pulse Ox 95 12/07/22 07:45 Laboratory Results - last 24 hr 12/06/22 12/06/22 06:45 16:26 C-Reactive Protein 11.89 H Urine Color Yellow Urine Clarity Clear Urine pH 5.5 Ur Specific [place] 1.015 Urine Protein Negative Urine Ketones Negative Urine Blood Trace-intact H Urine Nitrite Negative Urine Bilirubin Negative Urine Urobilinogen 0.2 Ur Leukocyte Esterase Moderate H Urine RBC 0-2 Urine WBC 20-50 H Ur Epithelial Cells Rare Urine Crystals Negative Urine Bacteria Rare Urine Mucus Negative Urine Other Rare Transitional Ur Culture Indicated? Yes Urine Glucose Negative
[2022-12-07 08:03] LABS: Absolute Eosinophil Count 0.23 10^3/uL (0.0-0.7); Absolute Lymphocyte Count 0.18 10^3/uL (1.2-3.4); Absolute Monocyte Count 0.18 10^3/uL (0.1-0.8); Absolute Neutrophil Count 3.95 10^3/uL (1.2-6.7); Atypical Lymphocytes % 1; Bands % 5; Platelet Count 82 10^3/uL (130-400)
[2022-12-07 08:04] LABS: Burr Cells (echinocyte) 2+; Diff Comment Manual Differential
[2022-12-07 08:11] LABS: Anion Gap 9.5 mmol/L (3-11); BUN 21 mg/dL (7-18); CO2 20.5 mmol/L (21.0-32.0); CREATININE 0.9 mg/dL (0.55-1.02); Calcium 8.1 mg/dL (8.5-10.1); Chloride 105 mmol/L (98-107); Estimated GFR 64.23 (mL/min/1.73m2); Glucose 84 mg/dL (74-106); Magnesium 1.9 mg/dL (1.8-2.4); Potassium 3.6 mmol/L (3.5-5.1); Sodium 135 mmol/L (136-145)
--- NOTE | 2022-12-07 09:30 | PDOC.CMPRO ---
Date of service: 12/07/22 Time of Service: 09:30 Care Management Progress Note Progress Note Text Progress Note Text: S/O:Sarita remains on Covid isolation. Clinically she is doing well. She is not requiring supplemental oxygen and she remains afebrile. CM was unable to see Sarita in person due to the isolation. CM attempted to reach her by phone, both cell and room phones, but was unsuccessful. Sarita continues to work with PT, even though the Covid infection has resulted in weakness and fatigue. A: Sarita is an 82 year old woman admitted on 11/28/22 with metastatic pancreatic cancer P: Sarita has changed her code status to DNR/DNI. A COLST form has been initiated but not as yet finalized; it requires the signature of a provider. The plan was to transition Sarita to SB-1 status.. The onset of Covid has necessitated that be delayed. She will be treated with remdesevir and monitored closely. When she is better, she will transition to SB-1 as planned for continued PT. Sarita's final discharge plan will be determined by her progress. CM will continue to support Sarita and her discharge planning needs.
--- NOTE | 2022-12-07 10:14 | PGE_ITS ---
Date of Service Date of service: 12/07/22 Time of Service: 10:14 Assessment and Plan Assessment and plan (1) Pancreatic cancer: Status: Acute Assessment and plan: No complaint of pain PT seeing Palliative following. (2) Chest pain: Assessment and plan: Toradol relieves pain Lidoderm patch to chest wall. Continue oxycodone 2.5mg Q6h prn Continue cardizem 30mg BID. No pain today (3) GERD (gastroesophageal reflux disease): Status: Chronic Assessment and plan: Changed PPI to H2 kirill in setting of covid (4) Congestive heart failure: Assessment and plan: Echocardiogram on 11/16/22 showed an EF of 60-65%. [place] [facility] induced cardiomyopathy thought secondary to chemotherapy. Apical hypokinesis. continue to hold diuretic now; poor intake no signs of CHF SURGICAL ELASTIC KNITTER ~ 3 secs, no pedal edema, lungs are clear (5) Abdominal pain: Status: Resolved Assessment and plan: Likely related to her pancreatic cancer; oxycodone Currently w/o pain, no N/V. (6) Hypokalemia: Status: Acute Assessment and plan: 3.6 today - monitor (7) Essential hypertension: Status: Acute Assessment and plan: Monitor. Continue to hold Losartan d/t low to low-normal BP. 130/70 today (8) Pulmonary fibrosis: Assessment and plan: Dyspnea on exertion. No acute exacerbation but does have an intermittent dry cough, occassional clear phlegm. Benzonatate and guafenesin prn (9) Anemia: Status: Chronic Assessment and plan: Hemoglobin 9.8 (10) COVID-19: Status: Acute Assessment and plan: Afebrile today Day 5 of Remdesivir No oxygen requirement RR 15-18, SPO2 95-97% RA, no increased WOB, no SOB, continues to be stable (11) Discharge planning issues: Status: Acute Assessment and plan: Palliative consulted. Likely a hospice candidate but she is not ready to consider it at this time. She is DNR/DNI status. She desires to return to home but her daughter cannot continue to stay with her mother and cannot manage her care 24H/day. Covid + day 5 remdesivir no oxygen requirement discussed with Dr Jeffries (12) Damienugh: Status: Acute Subjective Subjective Patient reports: no new complaints, tolerating liquids well, tolerating a regular diet, voiding w/o difficulty, bowel movement and afebrile; denies diarrhea, nausea or vomiting Interval history since last seen: Alert, oriented, some anxiety of being hospitalized. She is motivated to get stronger so she can go home, daughter would like her to go to SNF Exam Narrative Exam Narrative: Sitting up in bed. C/AO x4, pleasant, conversant, no complaints today, continues to have no oxygen requirement. Const General: no acute distress Orientation: alert and oriented x3 HENMT Head: normal to inspection Ears: hearing grossly normal bilaterally Mouth: moist mucous membranes Eyes General: appearance normal, both eyes and all related structures Sclera: sclerae normal Neck Neck: normal visual inspection and no JVD Chest Chest: tenderness sternum (improved) Resp Effort & Inspection: normal respiratory effort and able to speak in complete sentences Auscultation: clear to auscultation bilaterally Cardio Rate: regular rate Rhythm: regular rhythm Heart Sounds: S1 normal, S2 normal and no murmurs GI Palpation: soft Auscultation: hyperactive bowel sounds Skin General skin exam: no rashes or lesions noted Neuro General: patient alert, patient oriented x3 and no focal motor deficits Extrem General: normal to inspection, no pedal edema and no calf tenderness Psych Mental Status: mental status grossly normal Speech and Movement: speech clear Mood: congruent mood Affect: normal affect Attitude: cooperative Thought Process: normal Thought Content: normal Objective Last Vital Signs Temp 37.4 C 12/07/22 07:45 Pulse 61 12/07/22 07:45 Resp 18 12/07/22 07:45 BP 107/61 12/07/22 07:45 Pulse Ox 95 12/07/22 07:45 Laboratory Results - last 24 hr 12/06/22 12/07/22 12/07/22 16:26 06:30 06:30 WBC 4.54 RBC 3.21 L Hgb 9.8 L Hct 29.6 L MCV 92 MCH 30.5 MCHC 33.1 RDW 15.8 H Plt Count 82 L MPV 11.0 Immature Gran % 0.0 Neutrophils % 82.0 Band Neutrophils % 5 Lymphocytes % 3.0 Atypical Lymphs % 1 Monocytes % 4.0 Eosinophils % 5.0 Basophils % 0.0 Nucleated RBC % 0.0 Absolute Neutrophils 3.95 Absolute Lymphocytes 0.18 L Absolute Monocytes 0.18 Absolute Eosinophils 0.23 Absolute Basophils 0.00 RBC Morphology See Below [place] Cells/Echinocytes 2+ Sodium 135 L Potassium 3.6 Chloride 105 Carbon Dioxide 20.5 L Anion Gap 9.5 BUN 21 H Creatinine 0.9 Est GFR (CKD-EPI 2020) 64.23 Glucose 84 Calcium 8.1 L Magnesium 1.9 Urine Color Yellow Urine Clarity Clear Urine pH 5.5 Ur Specific [place] 1.015 Urine Protein Negative Urine Ketones Negative Urine Blood Trace-intact H Urine Nitrite Negative Urine Bilirubin Negative Urine Urobilinogen 0.2 Ur Leukocyte Esterase Moderate H Urine RBC 0-2 Urine WBC 20-50 H Ur Epithelial Cells Rare Urine Crystals Negative Urine Bacteria Rare Urine Mucus Negative Urine Other Rare Transitional Ur Culture Indicated? Yes Urine Glucose Negative Time Spent with Patient Time Spent with Patient: 35-49 minutes Time was spent: preparing to see the patient(eg.review tests), ordering medications,tests, procedures, referring, communicating with other health wound care physician, indepentently interpreting results, counseling the patient and care coordination
--- NOTE | 2022-12-07 10:52 | RESPIRATORY ---
RT Assessment Start: 12/03/22 19:37 Freq: .q shift and prn Status: Active Protocol: Document 12/07/22 09:13 JOANIE (Rec: 12/07/22 10:51 JOANIE [id number]) RT Assessment Pulmonary History Pulmonary History Pulmonary Fibrosis Smoking History Smoking/Tobacco Use Status Never OXYGEN HISTORY: Supplemental O2 At Rest 0 With Exertion 0 CPAP Settings N/A BIPAP Settings N/A Trilogy/AVAPS Settings N/A DME/Compliance DME N/A Current Respiratory Symptoms Current Respiratory Symptoms Cough,Shortness of breath, Sputum production Activity Activity Level Moderately active Respiratory Breath Sounds Breath Sounds Any abnormal sounds, decreased breath sounds Pulse Rate >100 Respiratory Rate 18-25 Shortness of Breath On exertion Respiratory Therapy Score Total 4 Assessment and Plan RT Treatment Protocol Lung Expansion Therapy Protocol,Bronchial Hygiene Therapy Protocol,No RT treatment protocols required at this time, re-consult if change Note Pt currently using both IS and Acapella to clear secretions, RT listened to lungs and has crackles from mid to lower back. RT instructed patient to lay on sides or stomach and to above being on back. Patient plans to move to chair and not be in bed all day, nursing informed about lung sounds.
[2022-12-07] MEDS: Simethicone 80 MG CHEW PO (12:13)
[2022-12-07 12:14] VITALS: BP 107/66; PULSE 75; RESP 20; TEMP 37.2; O2SAT 94
--- NOTE | 2022-12-07 13:40 | INPN_ITS ---
Date of service: 12/07/22 Time of Service: 13:10 PT Notes Visit Reasons: Metastatic Pancreatic Cancer, Chest Pain Physical Therapy Inpatient Progress Note Date: 12/07/2022 Dates of Service: 11/30/2022 through 12/07/2022 Referring Doctor: Aj Hicks MD PT Orders: PT CONSULT: Eval/Treat Precautions: Fall. Standard. Activity as tolerated. Patient Profile/Admitting Diagnosis:? Eliza is a 82-year-old female who presented to the ED on 11/28/2022 via EMS due to reports of chest pain and generalized weakness patient is admitted for management of.? Chest pain, pancreatic cancer with metastasis, esophageal dilatation, CHF, abdominal pain, hypokalemia, NSTEMI, essential hypertension, and u pulmonary fibrosis. PMHX: All Active Problems?(Updated 11/28/22 @ 16:37 by Aj Hicks MD) Esophageal dilatation (Acute) Discharge planning issues (Acute) Cancer associated pain (Acute) Chest pain (Acute) Abdominal pain (Acute) Dehydration (Acute) Diarrhea (Chronic) Hypokalemia (Acute) NSTEMI (non-ST elevated myocardial infarction) (Acute) Essential hypertension (Acute) Pancreatic cancer (Acute) Congestive heart failure (Chronic) Pulmonary fibrosis (Acute) Social History/Home Situation: Lives alone in an apartment in town.? Has a daughter who has been a good support.? Independent with FWW indoors although admittedly patient states that it has been becoming difficult to manage alone at home as far as mobility is concerned. Equipment Owned/DME: FWW Subjective: Feels so tired and spent. Knows that COVID is the main culprit. Still willing to work as much as she is able. Did not want to do too much today. wanted to eat salad insted of grilled cheese sandwich. Objective: General Observation: Supine in bed. Mental Status: Alert and oriented as to person, place, time, and purpose.? Able to pay attention, focus, and respond appropriately. Pain: 4-5/10 generalized pain Vital Signs: Closely monitored by nursing staff ROM: Right Upper Extremity: ? Shoulder Flexion lacks the last 25% of AROM. Shoulder abduction lacks the last 25% of AROM. Elbow flexion WFL. Wrist flexion WFL. Functional opening and closing of hand WFL. Left Upper Extremity: ? Shoulder Flexion lacks the last 25% of AROM. Shoulder abduction lacks the last 25% of AROM. Elbow flexion WFL. Wrist flexion WFL. Functional opening and closing of hand WFL. Right Lower Extremity: Hip flexion lacks the last 25% of AROM. Hip abduction WFL. Knee flexion WFL. Ankle dorsiflexion to neutral only. Ankle plantarflexion WFL. Left Lower Extremity: Hip flexion lacks the last 25% of AROM. Hip abduction WFL. Knee flexion WFL. Ankle dorsiflexion to neutral only. Ankle plantarflexion WFL. Strength: Right Upper Extremity: Shoulder flexors 3-/5. Shoulder abductors 3-/5. Elbow flexors 4-/5. Elbow extensors 4-/5. Nurse Emergency Room strong. Left Upper Extremity: Shoulder flexors 3-/5. Shoulder abductors 3-/5. Elbow flexors 4-/5. Elbow extensors 4-/5. Nurse Emergency Room strong. Right Lower Extremity: Hip flexors 3-/5. Hip abductors 3-/5. Knee flexors 4-/5. Knee extensors 4-/5. Ankle dorsiflexors 3-/5. Ankle plantarflexors 4-/5. Left Lower Extremity: Hip flexors 3-/5. Hip abductors 3-/5. Knee flexors 4-/5. Knee extensors 4-/5. Ankle dorsiflexors 3-/5. Ankle plantarflexors 4-/5. Bed Mobility/Transfers: Rolling stand by assist Supine to sit stand? by assist Sit to stand contatct guard assist with FWW,? cues provided with hand placement onto edge of bed for safety and increased independence Stand to sit with contact guard assist with FWW,? cues provided with hand placement onto edge of bed for safety and increased independence Bed to bedside commode contatct guard assist with FWW,? cues provided with hand placement onto edge of bed for safety and increased independence Gait: Able to tolerate 20 steps x 2 using FWW with contact guard assist.? Complained of fatigue and generalized pain after activity.? Minimally short of breath.? Provided moderate cueing for AD management,? posture,? self-pacing,? and encouragement to compete task. Balance: Static Sitting: Normal Dynamic Sitting: Good Static Standing: Fair Dynamic Standing: Fair Special Tests: Mobility Limitations Standardized Measure [facility] 6 clicks Basic Mobility Inpatient Short Form: Raw Score: 18? CMS Score: 47% deficit? ? ? Informed Consent/Education:? Patient was instructed in purpose of PT consult and plan of care.? Agreeable to proceed with established PT POC to achieve personal goals. ASSESSMENT: Level of motivation and ability to tolerate mobility tasks are limited due to COVID-19 infection, pain, and fatigue from ongoing cancer process and admitting diagnoses.? Will work on gradually increasing strength,? activity tolerance,? and balance skills as tolerated.? Will ensure that timing of sessions with pain medications are coordinated to maximize functional performance. Patient presents with clinical signs and symptoms consistent with current/admitting diagnoses that have resulted to mobility limitations, gait instability, generalized weakness, and overall ADL decline as demonstrated by the following impairment level findings: 1.? Decreased strength to B UE/LE major muscle groups 2.? Impaired sitting/standing balance 3.? Impaired activity tolerance 4.? Limitation of joint range of motion in B shoulders and hips 5.? Shortness of breath Impairments are contributing to the following functional limitations: 1.? Decline in bed mobility skills 2.? Decline in transfer skills 3.? Difficulty with ambulation without assistive device and physical assistance 4.? Increased completion time for mobility ADL performance 5.? Increased risk for falls Patient is assessed as a 00306 moderate complexity based on the following: History: 82-year-old female with past medical history as indicated above Examination: Demonstrable impairment in strength, balance, and mobility level with underlying impairments and functional limitations as exhibited above as well as deficit score of 47% utilizing the [facility] Mobility Inpatient Short Form Presentation: Evolving Decision Makin moderate complexity Goals: Goals X1 week 1. Supine-Sit independent NOT MET, CONTINUE 2. Sit-Supine independent NOT MET, CONTINUE 3. Sit-Stand independent NOT MET, CONTINUE 4. Stand-Sit independent with FWW NOT MET, CONTINUE 5. Bed-Chair independent with FWW NOT MET, CONTINUE 6. Chair-Bed independent with FWW NOT MET, CONTINUE 7. Independent gait on level surface with use of FWW for at least 50 feet without report of pain nor dyspnea NOT MET, CONTINUE 8. Independent stair negotiation while holding onto B rails for at least 3 steps without report of pain nor dyspnea NOT MET, CONTINUE 9. Good static and dynamic standing balance/tolerance NOT MET, CONTINUE Plan of Care/Treatment Plan: -1-2x/day, Mondays through Fridays x 2 weeks. -Plan of care has been reviewed with the INSTRUMENT PANEL ASSEMBLER providing the service under Physical Therapy direction. -Initiate Physical Therapy intervention for pain management as needed, strengthening, bed mobility, transfers, gait, stairs, balance training, and use of assistive device as toelrate. -Provide adequate time/opportunity to rest to minimize fatigue and pain. DISCHARGE RECOMMENDATIONS: [] ? Home with no services [] [] ? Home with services [specify] [] ? Home with outpatient PT [] [] ? SNF for continued rehabilitation [] [] ? Retirement Care [] [X] ? SNF versus LTC based on ability to participate and progress TREATMENT CODE/TIME: 76611 x 15 minutes (1 unit) beginning at 13:10 PM. Thank you for the opportunity to participate in the care of this patient. Carine Bernabe PT, DPT, CLT [facility] [place], [place]
[2022-12-07] MEDS: Creon, Lipase 24,000 CAPCR 2 CAP PO (16:33)
[2022-12-07] MEDS: REMDESIVIR 100 MG in Normal Saline 250 ML 250 MG IVPB (17:13)
[2022-12-07 18:22] VITALS: O2SAT 94
[2022-12-07 19:23] VITALS: BP 137/70; PULSE 73; RESP 20; TEMP 37.9; O2SAT 93
[2022-12-07] MEDS: LORazepam 2 MG/ML VIAL 0.5 MG IVP (19:37)
[2022-12-07] MEDS: Benzocaine/Menthol LOZG 15/BOX 1 EACH SUC (21:36)
[2022-12-07] MEDS: Zolpidem 5 MG TAB PO (21:37)
[2022-12-07] MEDS: guaiFENesin/D-METHORPHAN HB 5 ML CUP PO (21:37)
[2022-12-08] VITALS (9 sets, daily range): BP systolic 111–129; BP diastolic 64–75; PULSE 68–88; RESP 18–22; TEMP 36.4–37.5; O2SAT 93–98
[2022-12-08 07:22] LABS: Abs Immature Grans 0.04 10^3/uL (0.0-0.06); Absolute Basophil Count 0.02 10^3/uL (0.0-0.2); Absolute Eosinophil Count 0.07 10^3/uL (0.0-0.7); Absolute Lymphocyte Count 0.33 10^3/uL (1.2-3.4); Absolute Monocyte Count 0.31 10^3/uL (0.1-0.8); Basophils % 0.5; Eosinophils % 1.7; HCT 28.8 % (36.0-46.0); HGB 9.6 g/dL (11.2-15.7); Lymphocytes % 7.9; MCH 30.5 pg (27.0-33.0); MCHC 33.3 % (32.0-36.0); MCV 91 fL (80-95); MPV 11.4 fL (8.0-11.0); Monocytes % 7.4; Neutrophils % 81.5; RBC 3.15 10^6/uL (3.93-5.22); RDW 16.1 % (11.7-14.6); RDW-SD 54.4 fL; WBC 4.17 10^3/uL (4.4-10.8)
[2022-12-08 07:35] LABS: Anion Gap 9.3 mmol/L (3-11); BUN 15 mg/dL (7-18); CO2 19.7 mmol/L (21.0-32.0); CREATININE 0.8 mg/dL (0.55-1.02); Calcium 7.7 mg/dL (8.5-10.1); Chloride 105 mmol/L (98-107); Estimated GFR 73.98 (mL/min/1.73m2); Glucose 95 mg/dL (74-106); Magnesium 1.8 mg/dL (1.8-2.4); Potassium 3.4 mmol/L (3.5-5.1); Sodium 134 mmol/L (136-145)
[2022-12-08 07:50] LABS: Platelet Count 84 10^3/uL (130-400)
[2022-12-08 07:51] LABS: Diff Comment Diff Reviewed; RBC Morphology Normal
[2022-12-08] MEDS: Normal Saline Flush 10 ML SYR IVP (08:03)
[2022-12-08] MEDS: Lidocaine 5% Patch 1 PATCH TP ×2 (08:04→08:05)
[2022-12-08] MEDS: Zinc Sulfate 220 MG TAB PO (08:05)
[2022-12-08] MEDS: Famotidine 20 MG TAB PO ×2 (08:05→20:50)
[2022-12-08] MEDS: Creon, Lipase 24,000 CAPCR 2 CAP PO ×3 (08:05→16:43)
[2022-12-08] MEDS: dilTIAZem 30 MG TAB PO ×2 (08:06→20:50)
[2022-12-08] MEDS: Cholecalciferol (Vitamin D3) 1,000 UNIT TAB 2000 UNITS PO (08:06)
[2022-12-08] MEDS: Ascorbic Acid 500 MG TAB PO ×2 (08:06→20:49)
[2022-12-08] MEDS: Benzonatate 100 MG CAP PO ×3 (08:06→20:49)
[2022-12-08] MEDS: oxyCODONE 5 MG TAB 2.5 MG PO (08:06)
[2022-12-08] MEDS: guaiFENesin 600 MG TABCR PO ×2 (08:07→20:49)
--- NOTE | 2022-12-08 08:44 | PDOC.CMPRO ---
Date of service: 12/08/22 Time of Service: 08:44 Care Management Progress Note Progress Note Text Progress Note Text: S/O:Sarita remains on Covid isolation. She will receive her last dose of remdesevir today and will likely transition to SB-1 tomorrow for continued rehab.Clinically she remains stable. She is afebrile and her jolly signs are stable Sarita's oxygen saturation levels remain in the upper 90s on room air as well. Her only major concern at this time is shoulder and back pain. Muscle relaxers have been ordered to address this. Sarita is also weak which is the focus of SB rehab and continued PT. A: Sarita is an 82 year old woman admitted on 11/28/22 with metastatic pancreatic cancer P: Sarita has changed her code status to DNR/DNI. A COLST form has been initiated but not as yet finalized; it requires the signature of a provider. The plan was to transition Sarita to SB-1 status yesterday. The onset of Covid has necessitated that be delayed. She will be treated with remdesevir and monitored closely. When she is better, she will transition to SB-1 as planned for continued PT. Sarita's final discharge plan will be determined by her progress. CM will continue to support Sarita and her discharge planning needs.
[2022-12-08] MEDS: Gabapentin 300 MG CAP PO (12:15)
[2022-12-08] MEDS: Methocarbamol 500 MG TAB PO (14:30)
--- NOTE | 2022-12-08 15:27 | PGE_ITS ---
Date of Service Date of service: 12/08/22 Time of Service: 15:27 Assessment and Plan Assessment and plan (1) COVID-19: Status: Acute Assessment and plan: Remains afebrile Completed 5 day course o remdesivir on 12/07/2022 No oxygen requirement RR 15-18, SPO2 95-97% RA, no increased WOB, no SOB, continues to be stable (2) GERD (gastroesophageal reflux disease): Status: Chronic Assessment and plan: Changed PPI to H2 kirill in setting of covid (3) Pancreatic cancer: Status: Acute Assessment and plan: No complaint of pain PT seeing Palliative following. (4) Hiccough: Status: Acute (5) Left shoulder pain: Status: Acute Assessment and plan: Appears to be muscle strain/spasm, start PRN robaxin 500mg Q6hr (6) Chest pain: Assessment and plan: Toradol relieves pain Lidoderm patch to chest wall. Increase oxycodone from 2.5mg to 5mg Q6h prn Continue cardizem 30mg BID. No pain today (7) Congestive heart failure: Assessment and plan: Echocardiogram on 11/16/22 showed an EF of 60-65%. [place] [facility] [place] thought secondary to chemot herapy. Apical hypokinesis. 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 (9) Hypokalemia: Status: Acute Assessment and plan: 3.4 today - monitor (10) Essential hypertension: Status: Acute Assessment and plan: Monitor. Continue to hold Losartan d/t low to low-normal BP. 111/75 on 12/08 (11) Pulmonary fibrosis: Assessment and plan: Dyspnea on exertion. No acute exacerbation but does have an intermittent dry cough, occassional clear phlegm. Benzonatate and guafenesin prn (12) Anemia: Status: Chronic Assessment and plan: Hemoglobin stable (13) Discharge planning issues: Status: Acute Assessment and plan: Palliative consulted. Likely a hospice candidate but she is not ready to consider it at this time. She is DNR/DNI status. She desires to return to home but her daughter cannot continue to stay with her mother and cannot manage her care 24H/day. Covid + day 5 remdesivir no oxygen requirement Ready to transition to Swing bed on 12/09 Subjective Subjective Patient reports: still having pain Interval history since last seen: Patient continues to complain of right shoulder and back pain, described as tightness with intermittent shooting pain down her arm. Exam Const General: cooperative, comfortable and no acute distress HENMT Head: normal to inspection, normocephalic and atraumatic Ears: hearing grossly normal bilaterally Resp Effort & Inspection: normal respiratory effort, able to speak in complete sentences and no cough Auscultation: clear to auscultation bilaterally, no rhonchi and no wheezes Cardio Jugular venous pressure: no JVD Rate: regular rate Rhythm: regular rhythm Heart Sounds: S1 normal, S2 normal, no gallops, no murmurs and no rubs GI Inspection: normal to inspection Palpation: soft, no guarding and nontender Percussion: normal to percussion Auscultation: normal bowel sounds Skin Lesions: no lesions Rashes: no rashes Trauma: no lacerations or abrasions Neuro General: patient alert, patient awake and patient oriented x3 Cranial Nerves: CN's II-XI intact bilaterally Cognition: normal cognition Speech: speech normal Motor: muscle tone normal throughout and strength 5/5 throughout Sensory Exam: no sensory deficits noted Extrem General: normal to inspection and full ROM Right upper extremity: shoulder/upper arm Details: tenderness Psych Appearance: grossly normal Mental Status: mental status grossly normal Speech and Movement: speech and movement normal Mood: congruent mood Affect: normal affect Attitude: cooperative Thought Process: normal Thought Content: normal Insight: insight good Judgment: judgment good Objective Last Vital Signs Temp 37.3 C 12/08/22 14:32 Pulse 72 12/08/22 14:32 Resp 20 12/08/22 14:32 BP 111/75 12/08/22 14:32 Pulse Ox 95 12/08/22 14:32 Laboratory Results - last 24 hr 12/08/22 12/08/22 06:10 06:10 WBC 4.17 L RBC 3.15 L Hgb 9.6 L Hct 28.8 L MCV 91 MCH 30.5 MCHC 33.3 RDW 16.1 H Plt Count 84 L MPV 11.4 H Immature Gran % 1.0 Neutrophils % 81.5 Lymphocytes % 7.9 Monocytes % 7.4 Eosinophils % 1.7 Basophils % 0.5 Nucleated RBC % 0.0 Absolute Neutrophils 3.40 Absolute Lymphocytes 0.33 L Absolute Monocytes 0.31 Absolute Eosinophils 0.07 Absolute Basophils 0.02 RBC Morphology Normal Sodium 134 L Potassium 3.4 L Chloride 105 Carbon Dioxide 19.7 L Anion Gap 9.3 BUN 15 Creatinine 0.8 Est GFR (CKD-EPI 2020) 73.98 Glucose 95 Calcium 7.7 L Magnesium 1.8 Reviewed Pertinent PMH: Yes Time Spent with Patient Time Spent with Patient: >50 minutes Time was spent: preparing to see the patient(eg.review tests), ordering medications,tests, procedures, referring, communicating with other health child care group leader, indepentently interpreting results, counseling the patient and care coordination
--- NOTE | 2022-12-08 15:49 | PT.INTREAT ---
Date of service: 12/08/22 Time of Service: 15:49 PT Notes Visit Reasons: Metastatic Pancreatic Cancer, Chest Pain Physical Therapy Inpatient Treatment Note Date: 12/08/2022 Precautions: Fall. Standard. Activity as tolerated. Airborne precautions for COVID-[address] Subjective: Did not want to work with PT initially stating that she is exhausted. Feels so tired and spent.? Complained of pain in low back requiring an abrupt sit down onto bedside commode to avoid a fall walking back to bed from the restroom. Objective: General Observation: Supine in bed. B legs swollen, R leg and foot more swollen than the L. Mental Status: Alert and oriented as to person, place, time, and purpose.? Able to pay attention, focus, and respond appropriately. Pain: 4-5/10 generalized pain Vital Signs: Closely monitored by nursing staff Bed Mobility/Transfers: Rolling stand by assist Supine to sit contact guard assist Sit to stand contact guard assist with FWW,? cues provided with hand placement onto edge of bed for safety and increased independence Stand to sit with contact guard assist with FWW,? cues provided with hand placement onto edge of bed for safety and increased independence Bed to bedside commode contact guard assist with FWW,? cues provided with hand placement onto edge of bed for safety and increased independence Gait: Able to tolerate 20 steps + 20 steps using FWW with contact guard assist.? Exhausted after the first trip form bed to toilet seat. Needed to sit down on bedside commode to prevent a fall this afternoon. Complained of fatigue and generalized pain after activity, Nurse zelalem mann. Minimally short of breath.? Provided moderate cueing for AD management,? posture,? self-pacing,? and encouragement to compete task. THERA EX: Patient refused any other activity after in-room walk. Will plan to reintroduce thera bands tomorrow to initiate strengthening regimen. Balance: Static Sitting: Normal Dynamic Sitting: Good Static Standing: Fair Dynamic Standing: Fair ASSESSMENT: Could not do any other room exercises after the walk due to fatigue and pain in back. Level of motivation and ability to tolerate mobility tasks are limited due to COVID-19 infection,? pain, and fatigue from ongoing cancer process and admitting diagnoses.? Will work on gradually increasing strength,? activity tolerance,? and balance skills as tolerated.? Will ensure that timing of sessions with pain medications are coordinated to maximize functional performance. DISCHARGE RECOMMENDATIONS: [] ? Home with no services [] [] ? Home with services [specify] [] ? Home with outpatient PT [] [] ? SNF for continued rehabilitation [] [] ? [facility]dc Care [] [X] ? SNF vs. PtT vs. LTC based on ability to participate and progress TREATMENT CODE/TIME: 55080 x 45 minutes (3 units) beginning at 15:49 PM.
[2022-12-08] MEDS: oxyCODONE 5 MG TAB PO (16:43)
[2022-12-08] MEDS: Zolpidem 5 MG TAB PO (20:54)
[2022-12-09] VITALS (7 sets, daily range): BP systolic 96–117; BP diastolic 55–76; PULSE 62–77; RESP 16–20; TEMP 36.4–37.8; O2SAT 92–96
[2022-12-09 06:48] LABS: HCT 27.4 % (36.0-46.0); HGB 9.2 g/dL (11.2-15.7); MCH 30.5 pg (27.0-33.0); MCHC 33.6 % (32.0-36.0); MCV 91 fL (80-95); RBC 3.02 10^6/uL (3.93-5.22); RDW 16.1 % (11.7-14.6); RDW-SD 53.6 fL; WBC 4.15 10^3/uL (4.4-10.8)
[2022-12-09 06:54] LABS: Anion Gap 9.3 mmol/L (3-11); BUN 10 mg/dL (7-18); CO2 20.7 mmol/L (21.0-32.0); CREATININE 0.6 mg/dL (0.55-1.02); Calcium 7.6 mg/dL (8.5-10.1); Chloride 104 mmol/L (98-107); Estimated GFR 90.12 (mL/min/1.73m2); Glucose 106 mg/dL (74-106); Potassium 3.4 mmol/L (3.5-5.1); Sodium 134 mmol/L (136-145)
[2022-12-09 07:33] LABS: Platelet Count 98 10^3/uL (130-400)
[2022-12-09] MEDS: Lidocaine 5% Patch 1 PATCH TP ×2 (08:06→08:09)
[2022-12-09] MEDS: Benzonatate 100 MG CAP PO ×3 (08:07→19:36)
[2022-12-09] MEDS: Ascorbic Acid 500 MG TAB PO ×2 (08:07→19:36)
[2022-12-09] MEDS: Creon, Lipase 24,000 CAPCR 2 CAP PO ×3 (08:07→18:27)
[2022-12-09] MEDS: Cholecalciferol (Vitamin D3) 1,000 UNIT TAB 2000 UNITS PO (08:07)
[2022-12-09] MEDS: dilTIAZem 30 MG TAB PO (08:07)
[2022-12-09] MEDS: guaiFENesin 600 MG TABCR PO ×2 (08:07→19:36)
[2022-12-09] MEDS: Normal Saline Flush 10 ML SYR IVP (08:08)
[2022-12-09] MEDS: Zinc Sulfate 220 MG TAB PO (08:08)
[2022-12-09] MEDS: Famotidine 20 MG TAB PO ×2 (08:08→19:36)
[2022-12-09 08:36] LABS: Lab Add On Test DONE
[2022-12-09 08:51] LABS: Albumin 1.6 g/dL (3.4-5.0); Magnesium 1.6 mg/dL (1.8-2.4)
[2022-12-09] MEDS: Potassium Chloride 20 MEQ TABCR 40 MEQ PO (08:54)
--- NOTE | 2022-12-09 09:07 | OTTR_ITS ---
Occupational Therapy Notes Occupational Therapy Inpatient Treatment Note Date: 12/09/22 PRECAUTIONS: Fall, Covid precautions, DNR/DNI SUBJECTIVE: Pt was lying in bed when OT arrived. She notes that she is very cold and would like to get washed up but do this in a seated position. OBJECTIVE: PAIN:no c/o pain but increased fatigue FUNCTIONAL MOBILITY Rolling L/R: (I) Supine-sit: (I) Sit-supine: mod (A) with legs into bed Sit-stand: CGA x2 Stand-sit: CGAx2 Bed-Commode: CGAx2 Commode-bed: CGAx2 BATHING: seated in bed with max (A) set up/clean up Upper Body: mod (A) With min vc, (I) face Lower Body: Mod (A) (B) LE DRESSING: seated in bed Upper Extremity: Min (A) [facility] gown Lower Extremity: NT TOILETING: Device: on commode Assist: (I) toileting hygiene ASSESSMENT: Pt has a (B) leg tremor at this time. She notes that her legs feel like they are too strong and she can't control them. She does seem slightly confused today compared to other days. Nursing is aware. PLAN: OT recommends SNF when medically cleared per MD vs. Home with increased services. Pt is very weak with increased fatigue at this time. TREATMENT CODES/TIME: 58241f3, 35 minutes Mariia Lopez OTR/L [facility] [place], [place]
[2022-12-09] MEDS: Magnesium Chloride 64 MG TABCR PO ×2 (12:05→19:36)
[2022-12-09] MEDS: Acetaminophen 325 MG TAB 650 MG PO (12:13)
--- NOTE | 2022-12-09 13:22 | PDOC.CMPRO ---
Date of service: 12/09/22 Time of Service: 13:22 Care Management Progress Note Progress Note Text Progress Note Text: S/O:Sarita remains on Covid isolation. Her oxygenation and vital signs are stable however she seems to be declining overall. According to staff she has been refusing meals and has had very little to eat or drink. Her intake is documented as 0 fore the past 48 hours and her output was 100 ml yesterday and 350 ml so far today. CM was unable to reach Sarita by phone again today however was able to talk with her daughter Eliza. Eliza shared that Sarita has been having more pain and has been sleeping much of the time when she has been visiting. The plan is still to have Sarita transition to SB-1 for continued rehab, however she has not been medically cleared. A: Sarita is an 82 year old woman admitted on 11/28/22 with metastatic pancreatic cancer P: Sarita has changed her code status to DNR/DNI. A COLST form has been initiated but not as yet finalized; it requires the signature of a provider. The plan was to transition Sarita to SB-1 status yesterday. The onset of Covid has necessitated that be delayed. Sarita's final discharge plan will be determined by her progress. CM will continue to support Sarita and her discharge planning needs.
--- NOTE | 2022-12-09 17:24 | PT.INTREAT ---
PT Notes Visit Reasons: Metastatic Pancreatic Cancer, Chest Pain Physical Therapy Inpatient Treatment Note Date: 12/09/2022 Precautions: Fall. Standard. Activity as tolerated. Airborne precautions for COVID-[address] Subjective: Needed extensive encouragement to participate in session. Only wants to work in bed today. Feels that her legs are weaker. Tummy remains uncomfortable specially if she moves. Appetite significantly decreased, stated that her ability to smell is messed up which has affected her food intake. Objective: General Observation: Supine in bed. Swelling in B legs diminishing. Mental Status: Alert and oriented as to person, place, time, and purpose.? Able to pay attention, focus, and respond appropriately. Pain: 4-5/10 generalized pain Vital Signs: Closely monitored by nursing staff Bed Mobility/Transfers: N/A. Refused to get out of bed today. Was willing to sit up later in the session for seated light exercises. Gait: N/A. Does not feel safe walking this afternoon. Feels that her legs might not be able to support her. THERA EX: Ankle pumps x 20 Heel slides x 20 ASSESSMENT: Significantly diminished food intake contributing to weakness and to limiting ability to participate in session. Level of motivation and ability to tolerate mobility tasks are limited due to COVID-19 infection,? pain, and fatigue from ongoing cancer process and admitting diagnoses.? PLAN: Progress strength, balance, and mobility level as tolerated. DISCHARGE RECOMMENDATIONS: [] ? Home with no services [] [] ? Home with services [specify] [] ? Home with outpatient PT [] [] ? SNF for continued rehabilitation [] [] ? Custodial Care [] [X] ? SNF vs. HH PT vs. LTC based on ability to participate and progress TREATMENT CODE/TIME: 48739 x 29 minutes (2 units) beginning at 16:41 PM.
--- NOTE | 2022-12-09 18:20 | W.PM.PROGNOT ---
Date of Service Date of service: 12/09/22 Time of Service: 18:21 Assessment and Plan Assessment and plan (1) COVID-19: Status: Acute Assessment and plan: Resume remdesivir as now coughing. Additionally, recheck procalcitonin and obtain blood cultures. Consider repeating chest imaging. Prior procalcitonin was elevated, and she is not on antibiotics. Encourage IS/Acapella. Antiemetics/antidiarrheals. PT. Palliative care consulted. (2) GERD (gastroesophageal reflux disease): Status: Chronic Assessment and plan: Continue H2 kirill. (3) Pancreatic cancer: Status: Acute Assessment and plan: Does have some pain that the patient reports to me today. Continue prn oxycodone. Provide antiemetics/antidarrheals. F/u w/ Dr Suarez as outpatient. (4) Hiccough: Status: Acute Assessment and plan: Frequently associated with COVID. Could trial baclofen should they recur. (5) Left shoulder pain: Status: Acute Assessment and plan: Continue PRN robaxin (6) Chest pain: Assessment and plan: Noncardiac and likely MSK. Continue Toradol, Lidoderm patch, oxycydone. (7) Congestive heart failure: Assessment and plan: CHFpEF. Echocardiogram 11/16/22: LVEF of 60-65%. [place] [facility] [place] 2/2 chemotherapy with Apical hypokinesis. Given poor PO intake, will give 1 L of LR and monitor respiratory status. (8) Abdominal pain: Status: Acute Assessment and plan: in setting of pancreatic cancer. Continue oxycodone. (9) Hypokalemia: Status: Acute Assessment and plan: Replete; also replete magnesium. (10) Essential hypertension: Status: Chronic Assessment and plan: No change in therapy. tolerating cardizem. Losartan is on hold. (11) Pulmonary fibrosis: Assessment and plan: Not in acute exacerbation. Encourage pulmonary toilet. (12) Anemia: Status: Chronic Assessment and plan: Stable. Continue to monitor H/H. (13) Discharge planning issues: Status: Acute Assessment and plan: DNR/DNI. Palliative consulted. Not ready for hospice, she states. Plan for discharge home with caregivers. Not ready for swing bed at this time. (14) DVT prophylaxis: Status: Acute Assessment and plan: Sc enoxaparin Subjective Subjective Interval history since last seen: Zaina has had very poor PO intake. Nothing smells or tastes right. This started since coming to the hospital. We discussed how this could be either COVID itself, medications we use to treat COVID, or her cancer. She calls it food aversion. She states she has been drinking water. She is not giving a clear answer re nausea. She does have epigastric discomfort. She is afraid of eating also because every time she eats she has diarrhea. We had agreed that, perhaps, she could have imodium prior to food if this were to happen again. She has been coughing, but not SOB. No CP. Cough is productive of clear sputum. No dizziness or CP. Describes back pain which started prior to hospitalization. Using lidocaine patches for it has not been fully effective. Daughter is concerned that the patient's RLE looks more swollen than her left. Her daughter is also wondering when she could be tested for COVID-19 again so she can come off of isolation. We discussed the possibility of being tested after 5 days. Exam Narrative Exam Narrative: General: Tired appearing elderly female who is wearing make-up HEENT: EOMI, MMM Heart: RRR, no m/r/g Lungs: Diminished breath sounds at B bases Abdomen: soft, tender in epigastrium, nondistended Extremities: +1 BLE edema, R slightly greater than L. Objective Last Vital Signs Temp 37.6 C H 12/09/22 14:41 Pulse 77 12/09/22 12:11 Resp 20 12/09/22 12:11 BP 117/76 12/09/22 12:11 Pulse Ox 92 12/09/22 12:11 Laboratory Results - last 24 hr 12/09/22 12/09/22 12/09/22 06:10 06:10 Unknown WBC 4.15 L RBC 3.02 L Hgb 9.2 L Hct 27.4 L MCV 91 MCH 30.5 MCHC 33.6 RDW 16.1 H Plt Count 98 L MPV 11.0 Sodium 134 L Potassium 3.4 L Chloride 104 Carbon Dioxide 20.7 L Anion Gap 9.3 BUN 10 Creatinine 0.6 Est GFR (CKD-EPI 2020) 90.12 Glucose 106 Calcium 7.6 L Magnesium 1.6 L Albumin 1.6 L Add-On Test Request DONE Time Spent with Patient Time Spent with Patient: 35-49 minutes Time was spent: preparing to see the patient(eg.review tests), obtaining and/or reviewing separately otained hiistory, ordering medications,tests, procedures, referring, communicating with other health care team assistant, indepentently interpreting results and counseling the patient
[2022-12-09] MEDS: Lactated Ringers 1,000 ML 100 ML IV (18:27)
[2022-12-09] MEDS: Water,Injection,Sterile 10 ML VIAL (19:33)
[2022-12-09] MEDS: REMDESIVIR 100 MG in Normal Saline 250 ML 250 MG IVPB (19:34)
[2022-12-09] MEDS: Gabapentin 300 MG CAP PO (19:36)
[2022-12-09] MEDS: Heparin 5,000 UNITS/ML VIAL 5000 UNITS SC (19:36)
[2022-12-09] MEDS: Lidocaine Patch Removal 1 EACH TP ×2 (19:37)
[2022-12-09] MEDS: Zolpidem 5 MG TAB PO (20:41)
[2022-12-09] MEDS: CEFEPIME 2 GM in Normal Saline 100 ML IVPB (20:41)
[2022-12-09 21:29] LABS: Source Nasal/Nares
[2022-12-09 21:59] LABS: COVID-19 PCR POSITIVE (Negative)
[2022-12-09 22:47] LABS: Bilirubin Negative (Negative); Blood Negative (Negative); Clarity Clear (Clear); Glucose Negative (Negative); Ketones Negative (Negative); Leukocyte Esterase Small (Negative); Nitrite Negative (Negative); Specific Gravity 1.025 (1.005-1.025); Urobilinogen 0.2 mg/dL (Up to 0.2)
[2022-12-09 22:56] LABS: Epithelial Cells Moderate HPF (Negative); RBC 0-2 HPF (0-2); WBC 20-50 HPF (0-5)
[2022-12-09 22:57] LABS: Bacteria Rare HPF (Negative); C & S Indicated? No/Sq. Contamination; Casts 0-2 Hyaline LPF (Negative); Crystals Negative HPF (Negative); Mucus Heavy (Negative); Other Cells Rare Transitional (Negative)
[2022-12-10] VITALS (7 sets, daily range): BP systolic 97–109; BP diastolic 58–70; PULSE 66–76; RESP 14–18; TEMP 36.4–37.4; O2SAT 92–96
[2022-12-10] MEDS: CEFEPIME 2 GM in Normal Saline 100 ML IVPB ×3 (03:54→23:23)
[2022-12-10] MEDS: Acetaminophen 325 MG TAB 650 MG PO (04:57)
[2022-12-10] MEDS: Ondansetron 4 MG/2 ML VIAL IVP (04:57)
[2022-12-10] MEDS: guaiFENesin/D-METHORPHAN HB 5 ML CUP PO (04:57)
[2022-12-10 07:43] LABS: Abs Immature Grans 0.03 10^3/uL (0.0-0.06); Absolute Basophil Count 0.03 10^3/uL (0.0-0.2); Absolute Eosinophil Count 0.08 10^3/uL (0.0-0.7); Absolute Lymphocyte Count 0.28 10^3/uL (1.2-3.4); Absolute Neutrophil Count 3.21 10^3/uL (1.2-6.7); Basophils % 0.8; HCT 26.8 % (36.0-46.0); HGB 8.8 g/dL (11.2-15.7); Immature Grans % 0.8; Lymphocytes % 7.1; MCH 29.9 pg (27.0-33.0); MCHC 32.8 % (32.0-36.0); MCV 91 fL (80-95); MPV 11.6 fL (8.0-11.0); Monocytes % 7.6; Neutrophils % 81.7; Platelet Count 108 10^3/uL (130-400); RBC 2.94 10^6/uL (3.93-5.22); RDW-SD 57.1 fL; WBC 3.93 10^3/uL (4.4-10.8)
[2022-12-10 08:00] LABS: Prothrombin Time 12.7 sec (9.3-11.0)
--- NOTE | 2022-12-10 08:00 | DI.US_ITS ---
Exam(s) US EXTREMITY VENOUS BI EXAM: US EXTREMITY VENOUS BI CLINICAL HISTORY: BLE edema, concern for DVT. Pancreatic cancer. TECHNIQUE: Bilateral lower extremity venous ultrasound performed using grayscale, color-flow, and sp ectral Doppler analysis. COMPARISON: No exams were available for comparison FINDINGS: There is an extensive right DVT extending from the common femoral vein all the way into the calf and the posterior tibialis veins. The saphenofemoral junction is unremarkable. There is a 3.9 x 0.7 x 2 .7 cm Ca cyst present. The soft tissues are unremarkable. The left common femoral, and femoral vein demonstrate normal compressibility, augmentation, and color Doppler. There is thrombus seen in the popliteal vein extending into the posterior tibial veins. Th e saphenofemoral junction is unremarkable. There is no evidence of a Ca's cyst. The soft tissues are unremarkable. IMPRESSION: 1. Extensive right lower extremity DVT extending from the common femoral vein into the posterior tibi arcadio veins. 2. Left lower extremity DVT from the popliteal vein into the posterior tibialis vein. 3. Findings were discussed with Dr. Garg at 9:55 a.m. on 12/10/2022. DATA REPOSITORY:
[2022-12-10 08:02] LABS: INR 1.2 (0.9-1.1)
[2022-12-10 08:27] LABS: D-Dimer 3404 ng/mlFEU (<500)
[2022-12-10 08:29] LABS: Procalcitonin 0.5 ng/mL
--- NOTE | 2022-12-10 08:32 | PT.INTREAT ---
PT Notes Visit Reasons: Metastatic Pancreatic Cancer, Chest Pain Physical Therapy Inpatient Treatment Note Date: 12/10/2022 Precautions: Fall. Standard. Activity as tolerated. Airborne precautions for COVID-[address] Subjective: Nurse Jeannie was looking for help with moving patient as she had been trying to get out of bed. PT offerred to help. Patient did not want to engage in any conversation. Lacking energy to do anything else but essential transfers. Objective: General Observation: Supine in bed.? Swelling in B legs diminishing. Mental Status: Alert and oriented as to person, place, time, and purpose.? Able to pay attention, focus, and respond appropriately. Pain: 4-5/10 generalized pain Vital Signs: Closely monitored by nursing staff Bed Mobility/Transfers: Bed to bedside commode to void urine required minimal assistance using FWW with patient appearing tired and lacking energy to do anything Bedside commode to bed required minimal assistance using FWW with patient appearing tired and lacking energy to do anything Gait: Transfers only for today. Patient refusing any other activity aside from essential transfers THERA EX: Deferred ASSESSMENT: Will determine value(or non-value) of continued PT services inlight of continued decline from ongoing medical issues. Significantly diminished food intake contributing to weakness and to limiting ability to participate in session.? Level of motivation and ability to tolerate mobility tasks are limited due to COVID-19 infection,? pain, and fatigue from ongoing cancer process and admitting diagnoses.? PLAN: Coordinate with patient, CM, and MD regarding appropriateness of discharge from PT in the next few days. DISCHARGE RECOMMENDATIONS: [] ? Home with no services [] [] ? Home with services [specify] [] ? Home with outpatient PT [] [] ? SNF for continued rehabilitation [] [] ? [facility] [] [X] ? SNF vs. HH PT vs. LTC based on ability to participate and progress TREATMENT CODE/TIME: 09556 x 20 minutes (1 unit) beginning at 8:32 AM.
--- NOTE | 2022-12-10 08:43 | PDOC.CMPRO ---
Date of service: 12/10/22 Time of Service: 08:43 Care Management Progress Note Progress Note Text Progress Note Text: S/O:Sarita remains on Covid isolation.?CM met briefly with her daughter Eliza this afternoon and was informed that Sarita is eating better today. Eliza brought her food which she was able to eat and she plans to do the same later in the day. Sarita had blood cultures drawn yesterday and 1 of 3 is growing gram positive cocci. She has been afebrile today and her vital signs are stable. A: Sarita is an 82 year old woman admitted on 11/28/22 with metastatic pancreatic cancer P: Sarita has changed her code status to DNR/DNI. A COLST form has been initiated but not as yet finalized; it requires the signature of a provider. The plan was to transition Sarita to SB-1 status yesterday. The onset of Covid has necessitated that be delayed. Sarita's final discharge plan will be determined by her progress. CM will continue to support Sarita and her discharge planning needs.
[2022-12-10] MEDS: oxyCODONE 5 MG TAB PO ×2 (08:51→16:18)
[2022-12-10] MEDS: Creon, Lipase 24,000 CAPCR 2 CAP PO ×3 (08:51→15:54)
[2022-12-10] MEDS: guaiFENesin 600 MG TABCR PO ×2 (08:52→20:49)
[2022-12-10] MEDS: Lidocaine 5% Patch 1 PATCH TP ×2 (08:52)
[2022-12-10] MEDS: dilTIAZem 30 MG TAB PO (08:52)
[2022-12-10] MEDS: Gabapentin 300 MG CAP PO ×3 (08:52→20:47)
[2022-12-10] MEDS: Famotidine 20 MG TAB PO ×2 (08:52→20:48)
[2022-12-10] MEDS: Cholecalciferol (Vitamin D3) 1,000 UNIT TAB 2000 UNITS PO (08:52)
[2022-12-10] MEDS: Ascorbic Acid 500 MG TAB PO ×2 (08:52→20:48)
[2022-12-10] MEDS: Heparin 5,000 UNITS/ML VIAL 5000 UNITS SC (08:52)
[2022-12-10] MEDS: Benzonatate 100 MG CAP PO ×3 (08:52→20:48)
[2022-12-10] MEDS: Zinc Sulfate 220 MG TAB PO (08:53)
[2022-12-10] MEDS: Magnesium Chloride 64 MG TABCR PO ×2 (08:53→20:48)
[2022-12-10 09:15] LABS: ALT 11 U/L (14-59); AST 23 U/L (15-37); Albumin 1.7 g/dL (3.4-5.0); Alkaline Phosphatase 123 U/L (46-116); BUN 9 mg/dL (7-18); Bilirubin, Direct 0.3 mg/dL (0.0-0.2); Bilirubin, Total 0.7 mg/dL (0.2-1.0); C-Reactive Protein 9.69 mg/dL (0.0-0.3); CREATININE 0.6 mg/dL (0.55-1.02); Calcium 7.7 mg/dL (8.5-10.1); Chloride 105 mmol/L (98-107); Estimated GFR 90.12 (mL/min/1.73m2); Ferritin 878 ng/mL (8-252); Glucose 94 mg/dL (74-106); Magnesium 1.8 mg/dL (1.8-2.4); Potassium 3.6 mmol/L (3.5-5.1); Sodium 135 mmol/L (136-145); Total Protein 4.3 g/dL (6.4-8.2)
--- NOTE | 2022-12-10 10:42 | RESPIRATORY ---
RT Assessment Start: 12/03/22 19:37 Freq: .q shift and prn Status: Active Protocol: Document 12/10/22 10:32 JOANIE (Rec: 12/10/22 10:42 JOANIE [id number]) RT Assessment Pulmonary History Pulmonary History Pulmonary Fibrosis Smoking History Smoking/Tobacco Use Status Never OXYGEN HISTORY: Supplemental O2 At Rest 0 With Exertion 0 CPAP Settings N/A BIPAP Settings N/A Trilogy/AVAPS Settings N/A DME/Compliance DME N/A Current Respiratory Symptoms Current Respiratory Symptoms Chest Pain,Cough,Shortness of breath,Sputum production Activity Activity Level Moderately active Respiratory Breath Sounds Breath Sounds Faint wheezing or rhonci, decreased sounds throughout Response No change Pulse Rate <100 Respiratory Rate 18-25 Respiratory Therapy Score Total 3 Assessment and Plan RT Treatment Protocol Lung Expansion Therapy Protocol,Bronchial Hygiene Therapy Protocol Note Pt has an Acepella & IS to use , RT re-instructed patient on device. Patient has insp crackles anterior uppers and throughout posterior regions. Pt was instructed by RT to lay on sides or prone or get up to chair vs back in bed. Wednesday, patient had mild crackles posterior compared today.
--- NOTE | 2022-12-10 11:33 | W.PALPGNOTE ---
Date of service: 12/10/22 Time of Service: 07:00 Assessment and Plan Assessment and plan (1) Left shoulder pain: Status: Acute (2) Fever: Status: Acute Assessment and plan: Sarita is an 82-year-old woman with metastatic pancreatic cancer. She did talk with myself and Reyna Laguna and the plan was for her to go home on hospice. Unfortunately she contracted COVID and has been in the hospital since. There is a work-up in progress to make certain that there is not another etiology for how poorly she feels. I did speak to Dr. Garg who wants to be certain that nothing is missed. I did turn off as many lites as I was able to and shut the blinds. I had to arrange pillows to block the intense headboard light from her eyes. She felt much better after this. She felt that she could finally relax. Shoulder pain better with medication but she feels like it is time for another dose. I did relay this to nursing I did also talk to her about the option of going more to comfort measures versus the aggressive investigation. She states that this point that she is comfortable making sure that there are not other things that could be treated that would help her to feel better. This is in keeping with what she has said to me in the past. She does want aggressive investigation. I did relay this to Dr. Garg Subjective Subjective Interval history since last seen: Sarita is lying in her bed. She feels like COVID has really set her back. She wants to be certain that all problems are looked at that may have solutions that would help her to feel better. She states that she is trying to lie in bed and rest is much as possible Exam Narrative Exam Narrative: There are bright lights in the room that are on. The shades are open wide. She is squinting to keep the light out of her eyes. She looks exhausted. Her heart is regular. Air movement is decreased in the lungs. Abdomen is tender throughout Objective Last Vital Signs Temp 99.3 F 12/10/22 08:33 Pulse 73 12/10/22 08:33 Resp 14 12/10/22 08:33 BP 103/62 12/10/22 08:33 Pulse Ox 92 12/10/22 10:25 Laboratory Results - last 24 hr 12/09/22 12/09/22 12/10/22 14:31 19:46 05:35 WBC RBC Hgb Hct MCV MCH MCHC RDW Plt Count MPV Immature Gran % Neutrophils % Lymphocytes % Monocytes % Eosinophils % Basophils % Nucleated RBC % Absolute Neutrophils Absolute Lymphocytes Absolute Monocytes Absolute Eosinophils Absolute Basophils PT INR D-Dimer Sodium Potassium Chloride Carbon Dioxide Anion Gap BUN Creatinine Est GFR (CKD-EPI 2020) Glucose Calcium Magnesium Ferritin Total Bilirubin Cancelled Conjugated Bilirubin Cancelled AST Cancelled ALT Cancelled Alkaline Phosphatase Cancelled C-Reactive Protein Total Protein Cancelled Albumin Cancelled Procalcitonin Urine Color Yellow Urine Clarity Clear Urine pH 6.0 Ur Specific [place] 1.025 Urine Protein Negative Urine Ketones Negative Urine Blood Negative Urine Nitrite Negative Urine Bilirubin Negative Urine Urobilinogen 0.2 Ur Leukocyte Esterase Small H Urine RBC 0-2 Urine WBC 20-50 H Ur Epithelial Cells Moderate Urine Crystals Negative Urine Bacteria Rare Urine Casts 0-2 Hyaline Urine Mucus Heavy Urine Other Rare Transitional Ur Culture Indicated? No/Sq. Contamination Urine Glucose Negative COVID-19 Source Nasal/Nares SARS-CoV-2 (PCR) POSITIVE A* 12/10/22 12/10/22 12/10/22 06:26 06:26 06:26 WBC 3.93 L RBC 2.94 L Hgb 8.8 L Hct 26.8 L MCV 91 MCH 29.9 MCHC 32.8 RDW 17.0 H Plt Count 108 L MPV 11.6 H Immature Gran % 0.8 Neutrophils % 81.7 Lymphocytes % 7.1 Monocytes % 7.6 Eosinophils % 2.0 Basophils % 0.8 Nucleated RBC % 0.0 Absolute Neutrophils 3.21 Absolute Lymphocytes 0.28 L Absolute Monocytes 0.30 Absolute Eosinophils 0.08 Absolute Basophils 0.03 PT INR D-Dimer Sodium 135 L Potassium 3.6 Chloride 105 Carbon Dioxide 22.0 Anion Gap 8.0 BUN 9 Creatinine 0.6 Est GFR (CKD-EPI 2020) 90.12 Glucose 94 Calcium 7.7 L Magnesium 1.8 Ferritin 878 H Total Bilirubin 0.7 Conjugated Bilirubin 0.3 H AST 23 ALT 11 L Alkaline Phosphatase 123 H C-Reactive Protein 9.69 H Total Protein 4.3 L Albumin 1.7 L Procalcitonin 0.5 Urine Color Urine Clarity Urine pH Ur Specific [place] Urine Protein Urine Ketones Urine Blood Urine Nitrite Urine Bilirubin Urine Urobilinogen Ur Leukocyte Esterase Urine RBC Urine WBC Ur Epithelial Cells Urine Crystals Urine Bacteria Urine Casts Urine Mucus Urine Other Ur Culture Indicated? Urine Glucose COVID-19 Source SARS-CoV-2 (PCR) 12/10/22 06:26 WBC RBC Hgb Hct MCV MCH MCHC RDW Plt Count MPV Immature Gran % Neutrophils % Lymphocytes % Monocytes % Eosinophils % Basophils % Nucleated RBC % Absolute Neutrophils Absolute Lymphocytes Absolute Monocytes Absolute Eosinophils Absolute Basophils PT 12.7 H INR 1.2 H D-Dimer 3404 H Sodium Potassium Chloride Carbon Dioxide Anion Gap BUN Creatinine Est GFR (CKD-EPI 2020) Glucose Calcium Magnesium Ferritin Total Bilirubin Conjugated Bilirubin AST ALT Alkaline Phosphatase C-Reactive Protein Total Protein Albumin Procalcitonin Urine Color Urine Clarity Urine pH Ur Specific [place] Urine Protein Urine Ketones Urine Blood Urine Nitrite Urine Bilirubin Urine Urobilinogen Ur Leukocyte Esterase Urine RBC Urine WBC Ur Epithelial Cells Urine Crystals Urine Bacteria Urine Casts Urine Mucus Urine Other Ur Culture Indicated? Urine Glucose COVID-19 Source SARS-CoV-2 (PCR)
[2022-12-10 11:44] LABS: PTT Activated 34.2 sec (21.5-31.9)
[2022-12-10] MEDS: Heparin in 0.45% NaCl 25,000 UNIT/250 ML BAG 10 UNIT IV (12:54)
--- NOTE | 2022-12-10 13:00 | DI.US_ITS ---
APPROVED REPORT EXAM: Comprehensive 2D, Doppler, and color-flow Echocardiogram Patient Location: In-Patient Room/Bed: 216 Rv Detailer: Paula Roque RDCS (AE) Indications: Suspected PE, LTD follow up to 11/16/22, COVID Other Information Study Quality: Adequate. Technically limited study due to inability to position patient exam done sup ine bedside. Conclusion Normal left ventricular wall thickness and chamber size. Ejection fraction is 60 to 65%. Wall motio n is normal Normal right ventricular size and function Both atria are normal in size There are no significant valvular abnormalities Estimated right ventricular systolic pressure is 35 mmHg Wall motion Left Ventricle The left ventricular systolic function is normal. The left ventricular ejection fraction is within th e normal range. There is normal LV segmental wall motion. LVEF is 60-65%. Right Ventricle The right ventricle is normal size. The right ventricular systolic function is normal. Atria The left atrium size is normal. The right atrium size is normal. Great Vessels IVC is normal in size and collapses >50% with inspiration. Auto EF LV EDV A4C 104.8 mL LV EDV A2C 106.1 mL LV EDV BP 110.3 mL LV ESV A4C 38.9 mL LV ESV A2C 41.5 mL LV ESV BP 41.2 mL LVEF(%) A4C 62.9 % LVEF(%) A2C 60.9 % LVEF(%) BP 62.7 % LV SV A4C 65.9 ml LV SV A2C 64.6 ml LV SV BP 69.1 ml LV CO A4C 5.0 L/min LV CO A2C 4.7 L/min LV CO BP 4.9 L/min HR A4C 76.12 BPM HR A2C 73.17 BPM LV EDV Index (BP) Pulmonary Valve PV Vmax 1.02 (0.5-1.5 m/s) RVOT Vmax 0.79 m/s PV Peak Grad 4.2 mmHg RVOT Peak Gr. 2.5 mmHg PV Mean Ramiro 0.73 m/s RVOT VTI 0.139 m PV Mean Grad 2.4 mmHg RVOT Mean Gr. 1.1 mmHg Tricuspid Valve RA Pressure 3.00 mmHg TR Vmax 2.84 m/s TR Peak Grad 32.3 mmHg RVSP (TR) 35.3 mmHg
[2022-12-10] MEDS: Omnipaque 350 MG/ML 500 ML BTL-Imaging package IJ (14:24)
--- NOTE | 2022-12-10 14:30 | DI.CT_ITS ---
Exam(s) CT CHEST PE CTA EXAM: CT CHEST PE CTA CLINICAL HISTORY: BLE DVT, suspected PE. TECHNIQUE: Imaging Protocol: Axial CT angiography was performed with multi-slice acquisition and mu lti-planar and/or 3D reconstructions. CONTRAST MATERIAL: Intravenous: Omnipaque 350 contrast volume:59 mL COMPARISON: CT CT THORAX ABD/PEL CTA from 11/28/2022 FINDINGS: The examination is limited due to patient motion artifact. Tracheobronchial tree: Patent where visualized. Pulmonary parenchyma: There is pulmonary fibrosis. Ground-glass opacities are seen in the lungs. Th ere is a moderate left pleural effusion and subjacent small infiltrate which may represent atelectasi s or pneumonia. Pulmonary Arteries: Examination is limited by patient motion artifact. No filling defects are seen i n the pulmonary arteries to the segmental level. Mediastinum and Keysha: No dominant adenopathy or fluid collection. The esophagus is unremarkable. Th ere does appear to be a small hiatal hernia. Visualized thyroid gland: Unremarkable. Pleura: There is a small right pleural effusion. No pneumothorax. Heart: Cardiomegaly. The RV to LV ratio is less than 1. Coronary artery calcification is present. N o pericardial effusion. Aorta: Thoracic aorta non-dilated. The abdominal aorta is inadequately opacified due to bolus timing. Atherosclerosis is present. Upper abdomen: Pneumobilia is again seen. Tubes, Catheters, and Lines: There is a right-sided port. Soft tissues: There is subcutaneous edema. Bones: Within normal limits for the patient's age. IMPRESSION: 1. No evidence of a pulmonary embolism or thoracic aortic aneurysm. 2. Bilateral pleural effusions and subjacent infiltrate in the left lower lobe. 3. Ground-glass opacities in the lungs. This may represent pulmonary edema, hemorrhage or infection. RADIATION DOSE DELIVERED: 280.9mGy.cm Total DLP DATA REPOSITORY: All CT scans at this facility are submitted to the National Radiology Data Registry (NRDR) Dose Index Registry (DIR) with the [employer] (A[employer]). RADIATION OPTIMIZATION: All CT scans at this facility use at least one of these dose optimization te chniques: automated exposure control; mA and/or kV adjustment per patient size (includes targeted exa ms where dose is matched to clinical indication); or iterative reconstruction.
--- NOTE | 2022-12-10 15:59 | PGE_ITS ---
Date of Service Date of service: 12/10/22 Time of Service: 16:00 Assessment and Plan Assessment and plan (1) DVT, bilateral lower limbs: Status: Acute Assessment and plan: I cannot tell if these happened prior to or since admission. The patient did come in with anemia requiring transfusion with hematest pending, so she had mechanical DVT ppx ordered. She does have metastatic pancreatic cancer and COVID-19, both of which make her hypercoagulable. She has also been immobile. Started on heparin gtt with careful monitoring of hemoglobin to ensure that this does not make the patient bleed. PE ruled out with a negative CTA. (2) Gram-positive cocci bacteremia: Status: Acute Assessment and plan: Positive blood cultures collected from the infusaport. General surgery is consulted for infusaport removal, which is planned for tomorrow afternoon/evening. Antibiotics: vancomcyin/cefepime. Await peripheral blood culture results. Repeat blood cultures in the am. Obtain an echocardiogram to ensure no vegetations. (3) Bilateral pleural effusion: Status: Acute Assessment and plan: Resume diuretics. Obtain an echocardiogram. (4) COVID-19: Status: Acute Assessment and plan: Continue remdesivir. ?question of 2ndary bacterial process - on vancomycin/cefepime. Encourage IS/Acapella. Antiemetics/antidiarrheals. PT. Palliative care consulted: the patient would like to continue treatment. She does look a bit better today. (5) GERD (gastroesophageal reflux disease): Status: Chronic Assessment and plan: Continue H2 kirill. (6) Pancreatic cancer: Status: Acute Assessment and plan: Does have some pain, particularly in the back, which is burning and worse. Increase the dose of gabapentin. Continue prn oxycodone. Provide antiemetics/antidarrheals. F/u w/ Dr Suarez as outpatient. (7) Hiccough: Status: Acute Assessment and plan: Frequently associated with COVID. Could trial baclofen should they recur. (8) Left shoulder pain: Status: Acute Assessment and plan: Continue PRN robaxin (9) Chest pain: Assessment and plan: Noncardiac and likely MSK. Resolved. Continue Lidoderm patch, oxycydone. PE ruled out. (10) Congestive heart failure: Assessment and plan: CHFpEF. Echocardiogram 11/16/22: LVEF of 60-65%. I am repeating an echo due to bacteremia. 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 Resume diuretics. (11) Abdominal pain: Status: Acute Assessment and plan: in setting of pancreatic cancer. Continue oxycodone. (12) Hypokalemia: Status: Resolved Assessment and plan: Recheck in am. (13) Essential hypertension: Status: Chronic Assessment and plan: No change in therapy. tolerating cardizem. Losartan is on hold. (14) Pulmonary fibrosis: Assessment and plan: Not in acute exacerbation. Encourage pulmonary toilet. (15) Anemia: Status: Chronic Assessment and plan: Stable. Continue to monitor H/H. (16) Discharge planning issues: Status: Acute Assessment and plan: DNR/DNI. Palliative care saw the patient: not ready for hospice. Continue treatment as above. Plan for discharge home with caregivers when ready. Continues to require hospitalization. Subjective Subjective Interval history since last seen: Ms Burger states that she cannot eat because the food is horrible. She had not had a BM now in 3 days, she says. Denies dizziness, CP, SOB. Continues to reports a burning back pain and states that gabapentin has not worked (it was previously ordered as prn). Continues to report epigastric discomfort. We had discussed the positive findings of her BLE dopplers. We discussed the risks of initiation of anticoagulation given her anemia on admission and how we would watch for bleeding. We at the time had also discussed her getting a CTA and an echo. Met with palliative care. At the time of that discussion, continued to want to have aggressive treatment but to be DNR/DNI - not ready for hospice. Exam Narrative Exam Narrative: General: Tired appearing elderly female who is wearing make-up HEENT: EOMI, MMM Heart: RRR, no m/r/g Lungs: crackles about [facility] up B lung [place] Abdomen: soft, tender in epigastrium, nondistended Extremities: +1 BLE edema, R slightly greater than L. Objective Last Vital Signs Temp 37.1 C 12/10/22 12:51 Pulse 72 12/10/22 12:51 Resp 16 12/10/22 12:51 BP 103/63 12/10/22 12:51 Pulse Ox 95 12/10/22 12:51 Laboratory Results - last 24 hr 12/09/22 12/09/22 12/10/22 14:31 19:46 05:35 WBC RBC Hgb Hct MCV MCH MCHC RDW Plt Count MPV Immature Gran % Neutrophils % Lymphocytes % Monocytes % Eosinophils % Basophils % Nucleated RBC % Absolute Neutrophils Absolute Lymphocytes Absolute Monocytes Absolute Eosinophils Absolute Basophils PT INR APTT D-Dimer Sodium Potassium Chloride Carbon Dioxide Anion Gap BUN Creatinine Est GFR (CKD-EPI 2020) Glucose Calcium Magnesium Ferritin Total Bilirubin Cancelled Conjugated Bilirubin Cancelled AST Cancelled ALT Cancelled Alkaline Phosphatase Cancelled C-Reactive Protein Total Protein Cancelled Albumin Cancelled Procalcitonin Urine Color Yellow Urine Clarity Clear Urine pH 6.0 Ur Specific [place] 1.025 Urine Protein Negative Urine Ketones Negative Urine Blood Negative Urine Nitrite Negative Urine Bilirubin Negative Urine Urobilinogen 0.2 Ur Leukocyte Esterase Small H Urine RBC 0-2 Urine WBC 20-50 H Ur Epithelial Cells Moderate Urine Crystals Negative Urine Bacteria Rare Urine Casts 0-2 Hyaline Urine Mucus Heavy Urine Other Rare Transitional Ur Culture Indicated? No/Sq. Contamination Urine Glucose Negative COVID-19 Source Nasal/Nares SARS-CoV-2 (PCR) POSITIVE A* 12/10/22 12/10/22 12/10/22 06:26 06:26 06:26 WBC 3.93 L RBC 2.94 L Hgb 8.8 L Hct 26.8 L MCV 91 MCH 29.9 MCHC 32.8 RDW 17.0 H Plt Count 108 L MPV 11.6 H Immature Gran % 0.8 Neutrophils % 81.7 Lymphocytes % 7.1 Monocytes % 7.6 Eosinophils % 2.0 Basophils % 0.8 Nucleated RBC % 0.0 Absolute Neutrophils 3.21 Absolute Lymphocytes 0.28 L Absolute Monocytes 0.30 Absolute Eosinophils 0.08 Absolute Basophils 0.03 PT INR APTT D-Dimer Sodium 135 L Potassium 3.6 Chloride 105 Carbon Dioxide 22.0 Anion Gap 8.0 BUN 9 Creatinine 0.6 Est GFR (CKD-EPI 2020) 90.12 Glucose 94 Calcium 7.7 L Magnesium 1.8 Ferritin 878 H Total Bilirubin 0.7 Conjugated Bilirubin 0.3 H AST 23 ALT 11 L Alkaline Phosphatase 123 H C-Reactive Protein 9.69 H Total Protein 4.3 L Albumin 1.7 L Procalcitonin 0.5 Urine Color Urine Clarity Urine pH Ur Specific [place] Urine Protein Urine Ketones Urine Blood Urine Nitrite Urine Bilirubin Urine Urobilinogen Ur Leukocyte Esterase Urine RBC Urine WBC Ur Epithelial Cells Urine Crystals Urine Bacteria Urine Casts Urine Mucus Urine Other Ur Culture Indicated? Urine Glucose COVID-19 Source SARS-CoV-2 (PCR) 12/10/22 12/10/22 06:26 11:02 WBC RBC Hgb Hct MCV MCH MCHC RDW Plt Count MPV Immature Gran % Neutrophils % Lymphocytes % Monocytes % Eosinophils % Basophils % Nucleated RBC % Absolute Neutrophils Absolute Lymphocytes Absolute Monocytes Absolute Eosinophils Absolute Basophils PT 12.7 H INR 1.2 H APTT 34.2 H D-Dimer 3404 H Sodium Potassium Chloride Carbon Dioxide Anion Gap BUN Creatinine Est GFR (CKD-EPI 2020) Glucose Calcium Magnesium Ferritin Total Bilirubin Conjugated Bilirubin AST ALT Alkaline Phosphatase C-Reactive Protein Total Protein Albumin Procalcitonin Urine Color Urine Clarity Urine pH Ur Specific [place] Urine Protein Urine Ketones Urine Blood Urine Nitrite Urine Bilirubin Urine Urobilinogen Ur Leukocyte Esterase Urine RBC Urine WBC Ur Epithelial Cells Urine Crystals Urine Bacteria Urine Casts Urine Mucus Urine Other Ur Culture Indicated? Urine Glucose COVID-19 Source SARS-CoV-2 (PCR) Objective Narrative Objective Narrative: Venous dopplers BLEs; 1. Extensive right lower extremity DVT extending from the common femoral vein into the posterior tibialis veins. 2. Left lower extremity DVT from the popliteal vein into the posterior tibialis vein. CTA chest: 1. No evidence of a pulmonary embolism or thoracic aortic aneurysm. 2. Bilateral pleural effusions and subjacent infiltrate in the left lower lobe. 3. Ground-glass opacities in the lungs.? This may represent pulmonary edema, hemorrhage or infection.? Time Spent with Patient Time Spent with Patient: 35-49 minutes Time was spent: preparing to see the patient(eg.review tests), obtaining and/or reviewing separately otained hiistory, ordering medications,tests, procedures, referring, communicating with other health healthcare liaison, indepentently interpreting results, counseling the patient and care coordination
[2022-12-10] MEDS: Polyethylene Glycol 3350 17 GM PACKET PO (16:16)
[2022-12-10] MEDS: Normal Saline Flush 10 ML SYR IVP (16:16)
[2022-12-10] MEDS: Simethicone 80 MG CHEW PO (16:17)
[2022-12-10] MEDS: VANCOMYCIN/WATER (PEG) 750 MG/150 ML BAG 150 MG IVPB (18:08)
[2022-12-10 18:52] LABS: HCT 28.1 % (36.0-46.0); HGB 9.4 g/dL (11.2-15.7)
--- NOTE | 2022-12-10 19:17 | W.SURGCON ---
Date of service: 12/11/22 Time of Service: 15:33 Assessment and Plan Assessment and plan (1) Infected venous access port: Status: Acute Assessment and plan: Patient is here today for port removal. PICC Team is consulted for access. Risks of the procedure include but not limited to: Bleeding, infection, poor cosmesis, high risk for bleeding and hematomas. If this occurs then we may need to pack the wound open and heal by secondary intent. Pain, poor cosmesis, or damage to the vessel or bleeding from the main vessel, And complications from local anesthetics. 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 She is Now undergoing chemotherapy for metastatic pancreatic CA.? She has also undergone radiation treatment of lung mets. She currently also has mets to the liver. At the time of surgery she was also incidentally found to have a renal cell cancer of the kidney and so one of her kidneys was removed. She has started her first round of FOLFOX on 10/30/2022 for the liver mets from the pancreatic cancer. This threw her into acute drug-induced congestive heart failure and the FOLFOX was discontinued continued. She is basically been in the hospital since 10[place]30[place] [facility] [place] drug-induced [place]. -? on 11/03 she had cath showing nonobstructing coronary artery disease less then 25% obstructing in all vessels, and had TTE during that admission showing apical hypokinesis consistent with stress induced cardiomyopathy thought to be due to her chemotherapy. She was told by oncology there were no further therapies She was readmitted on 11/13 - 11/16 @ [facility] with an NSTEMI. -She was discharged on 11/16. She is readmitted on 11 28 with cancer associated pain dehydration and failure to thrive. She has been admitted to [facility] since that time. Since then she has developed bilateral DVTs and is maintained on heparin drip. She is also developed COVID. She is currently being maintained on a heparin drip for her DVTs. She is being treated for COVID with supportive care and remdesivir, by the hospitalist team. Cultures were drawn off the patient's port. The gram-positive cocci. LISETTE is pending She is on Vanco and cefepime for antibiotics. The port does need to be removed Patient is not candidate for anesthesia so will be done under local. Heparin was stopped at 11 a.m. She is already on antibiotics. Risks mainly include bleeding postoperative pain,, and poor cosmesis. -unfortunately she did fall this am. No Fx noted on xrays. -She did change ehr status to DNR. She has not entered hospice yet. Oncology is not going to be doing any further Tx for the pancreatic cancer. -I did review her status with Dr. Garg. She still would like her port to come out. Review of Systems All systems reviewed & are unremarkable except as noted in HPI and below PFSH All Active Problems (Updated 12/11/22 @ 17:16 by Saniya Garg MD) Fall (Acute) Infected venous access port (Acute) Dysphagia (Acute) A-fib (Chronic) Renal cell cancer (Acute) Malignant neoplasm of pancreas metastatic to liver (Acute) Drug-induced cardiomyopathy (Acute) Hiatal hernia (Chronic) Protein-calorie malnutrition, mild (Acute) Gram-positive cocci bacteremia (Acute) Bilateral pleural effusion (Acute) DVT, bilateral lower limbs (Acute) Fever (Acute) DVT prophylaxis (Acute) Left shoulder pain (Acute) Hiccough (Acute) COVID-19 (Acute) Anemia (Chronic) GERD (gastroesophageal reflux disease) (Chronic) Discharge planning issues (Acute) Abdominal pain (Acute 12/03/22) Essential hypertension (Chronic) Pancreatic cancer (Acute) Medical History Cancer associated pain Chest pain Congestive heart failure Dehydration Diarrhea Esophageal dilatation NSTEMI (non-ST elevated myocardial infarction) Palliative care patient Pulmonary fibrosis SVT (supraventricular tachycardia) Social History Smoking/Tobacco Use Status: Never Smoking risk assessment performed?: Yes Substance use type: does not use Housing: apartment Do you feel safe at home: Yes Do you feel safe in your relationship?: Yes Exam Narrative Exam Narrative: PHYSICAL EXAM GENERAL APPEARANCE: oriented, x 2, drowsy but arousable LUNGS: normal respiration/normal chest excursion. ?Clear to auscultation bilaterally. ?No wheeze. Right subclavian PowerPort. Incision is well-healed and clean dry and intact. ?HEART: A fib/rate controlled. ABDOMEN: soft and non-tender to palpation.? Results Last Vital Signs Temp 36.7 C 12/10/22 16:32 Pulse 70 12/10/22 16:32 Resp 18 12/10/22 16:32 BP 109/70 12/10/22 16:32 Pulse Ox 96 12/10/22 16:32 Labs 12/11/22 03:40 12/11/22 03:40 Labs: Laboratory Results - last 24 hr 12/09/22 12/09/22 12/10/22 14:31 19:46 05:35 WBC RBC Hgb Hct MCV MCH MCHC RDW Plt Count MPV Immature Gran % Neutrophils % Lymphocytes % Monocytes % Eosinophils % Basophils % Nucleated RBC % Absolute Neutrophils Absolute Lymphocytes Absolute Monocytes Absolute Eosinophils Absolute Basophils PT INR APTT D-Dimer Sodium Potassium Chloride Carbon Dioxide Anion Gap BUN Creatinine Est GFR (CKD-EPI 2020) Glucose Calcium Magnesium Ferritin Total Bilirubin Cancelled Conjugated Bilirubin Cancelled AST Cancelled ALT Cancelled Alkaline Phosphatase Cancelled C-Reactive Protein Total Protein Cancelled Albumin Cancelled Procalcitonin Urine Color Yellow Urine Clarity Clear Urine pH 6.0 Ur Specific [place] 1.025 Urine Protein Negative Urine Ketones Negative Urine Blood Negative Urine Nitrite Negative Urine Bilirubin Negative Urine Urobilinogen 0.2 Ur Leukocyte Esterase Small H Urine RBC 0-2 Urine WBC 20-50 H Ur Epithelial Cells Moderate Urine Crystals Negative Urine Bacteria Rare Urine Casts 0-2 Hyaline Urine Mucus Heavy Urine Other Rare Transitional Ur Culture Indicated? No/Sq. Contamination Urine Glucose Negative COVID-19 Source Nasal/Nares SARS-CoV-2 (PCR) POSITIVE A* 12/10/22 12/10/22 12/10/22 06:26 06:26 06:26 WBC 3.93 L RBC 2.94 L Hgb 8.8 L Hct 26.8 L MCV 91 MCH 29.9 MCHC 32.8 RDW 17.0 H Plt Count 108 L MPV 11.6 H Immature Gran % 0.8 Neutrophils % 81.7 Lymphocytes % 7.1 Monocytes % 7.6 Eosinophils % 2.0 Basophils % 0.8 Nucleated RBC % 0.0 Absolute Neutrophils 3.21 Absolute Lymphocytes 0.28 L Absolute Monocytes 0.30 Absolute Eosinophils 0.08 Absolute Basophils 0.03 PT INR APTT D-Dimer Sodium 135 L Potassium 3.6 Chloride 105 Carbon Dioxide 22.0 Anion Gap 8.0 BUN 9 Creatinine 0.6 Est GFR (CKD-EPI 2020) 90.12 Glucose 94 Calcium 7.7 L Magnesium 1.8 Ferritin 878 H Total Bilirubin 0.7 Conjugated Bilirubin 0.3 H AST 23 ALT 11 L Alkaline Phosphatase 123 H C-Reactive Protein 9.69 H Total Protein 4.3 L Albumin 1.7 L Procalcitonin 0.5 Urine Color Urine Clarity Urine pH Ur Specific [place] Urine Protein Urine Ketones Urine Blood Urine Nitrite Urine Bilirubin Urine Urobilinogen Ur Leukocyte Esterase Urine RBC Urine WBC Ur Epithelial Cells Urine Crystals Urine Bacteria Urine Casts Urine Mucus Urine Other Ur Culture Indicated? Urine Glucose COVID-19 Source SARS-CoV-2 (PCR) 12/10/22 12/10/22 12/10/22 06:26 11:02 18:30 WBC RBC Hgb 9.4 L Hct 28.1 L MCV MCH MCHC RDW Plt Count MPV Immature Gran % Neutrophils % Lymphocytes % Monocytes % Eosinophils % Basophils % Nucleated RBC % Absolute Neutrophils Absolute Lymphocytes Absolute Monocytes Absolute Eosinophils Absolute Basophils PT 12.7 H INR 1.2 H APTT 34.2 H D-Dimer 3404 H Sodium Potassium Chloride Carbon Dioxide Anion Gap BUN Creatinine Est GFR (CKD-EPI 2020) Glucose Calcium Magnesium Ferritin Total Bilirubin Conjugated Bilirubin AST ALT Alkaline Phosphatase C-Reactive Protein Total Protein Albumin Procalcitonin Urine Color Urine Clarity Urine pH Ur Specific [place] Urine Protein Urine Ketones Urine Blood Urine Nitrite Urine Bilirubin Urine Urobilinogen Ur Leukocyte Esterase Urine RBC Urine WBC Ur Epithelial Cells Urine Crystals Urine Bacteria Urine Casts Urine Mucus Urine Other Ur Culture Indicated? Urine Glucose COVID-19 Source SARS-CoV-2 (PCR)
[2022-12-10 19:34] LABS: PTT Activated > 155.0 sec (21.5-31.9)
[2022-12-10 20:36] LABS: PTT Activated > 155.0 sec (21.5-31.9)
[2022-12-10] MEDS: REMDESIVIR 100 MG in Normal Saline 250 ML 250 MG IVPB (20:48)
[2022-12-10] MEDS: Zolpidem 5 MG TAB PO (20:48)
[2022-12-10] MEDS: Lidocaine Patch Removal 1 EACH TP ×2 (20:50→21:00)
--- NOTE | 2022-12-10 21:05 | W.PM.PROGNOT ---
Date of Service Date of service: 12/10/22 Time of Service: 21:05 Assessment and Plan Assessment and plan (1) Gram-positive cocci bacteremia: Status: Acute Assessment and plan: Cultures were drawn off the patient's port. The gram-positive cocci. LISETTE is pending She is on Vanco and cefepime for antibiotics. The port does need to be removed Patient is not candidate for anesthesia so will be done under local. We will stop heparin. She is already on antibiotics. Risks mainly include bleeding and poor cosmesis. (2) Bilateral pleural effusion: Status: Acute (3) Anemia: Status: Chronic (4) GERD (gastroesophageal reflux disease): Status: Chronic (5) Essential hypertension: Status: Chronic (6) Pancreatic cancer: Status: Acute Assessment and plan: She has a PMH of Whipple procedure in 2020.? She is Now undergoing chemotherapy for metastatic pancreatic CA.? She has also undergone radiation treatment of lung mets. She currently also has mets to the liver. At the time of surgery she was also incidentally found to have a renal cell cancer of the kidney and so one of her kidneys was removed. She has started her first round of FOLFOX on 10/30/2022 for the liver mets from the pancreatic cancer. This threw her into acute drug-induced congestive heart failure and the FOLFOX was discontinued continued. She is basically been in the [place] [facility] [place]. -? on 11/03 she had cath showing nonobstructing coronary artery disease less then 25% obstructing in all vessels, and had TTE during that admission showing apical hypokinesis consistent with stress induced cardiomyopathy thought to be due to her chemotherapy. She was told by oncology there were no further therapies She was readmitted on 11/13 - 11/16 @ [facility] with an NSTEMI. -She was discharged on 11/16. She is readmitted on 11 28 with cancer associated pain dehydration and failure to thrive. She has been admitted to [facility] since that time. Since then she has developed bilateral DVTs and is maintained on heparin drip. She is also developed COVID. She is currently being maintained on a heparin drip for her DVTs. She is being treated for COVID with supportive care and remdesivir, by the hospitalist team. -unfortunately she did fall this am. No Fx noted on xrays. -She did change ehr status to DNR. She has not entered hospice yet. Oncology is not going to be doing any further Tx for the pancreatic cnacner. (7) SVT (supraventricular tachycardia): (8) Pulmonary fibrosis: (9) Congestive heart failure: Assessment and plan: Echo 12/10/2022 ormal left ventricular wall thickness and chamber size.? Ejection fraction is 60 to 65%.? 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 Patient is agreeable to diet upgrade to minced/moist, with instructions to downgrade again to puree if not tolerated well due to esophageal symptoms. If she tolerates upgrade well for at least 24 hrs, there is no reason not to continue to advance diet as tolerated and per her preference. Objective Last Vital Signs Temp 37.2 C 12/10/22 19:21 Pulse 76 12/10/22 19:21 Resp 16 12/10/22 19:21 BP 97/61 L 12/10/22 19:21 Pulse Ox 93 12/10/22 19:21 Laboratory Results - last 24 hr 12/09/22 12/09/22 12/10/22 14:31 19:46 05:35 WBC RBC Hgb Hct MCV MCH MCHC RDW Plt Count MPV Immature Gran % Neutrophils % Lymphocytes % Monocytes % Eosinophils % Basophils % Nucleated RBC % Absolute Neutrophils Absolute Lymphocytes Absolute Monocytes Absolute Eosinophils Absolute Basophils PT INR APTT D-Dimer Sodium Potassium Chloride Carbon Dioxide Anion Gap BUN Creatinine Est GFR (CKD-EPI 2020) Glucose Calcium Magnesium Ferritin Total Bilirubin Cancelled Conjugated Bilirubin Cancelled AST Cancelled ALT Cancelled Alkaline Phosphatase Cancelled C-Reactive Protein Total Protein Cancelled Albumin Cancelled Procalcitonin Urine Color Yellow Urine Clarity Clear Urine pH 6.0 Ur Specific [place] 1.025 Urine Protein Negative Urine Ketones Negative Urine Blood Negative Urine Nitrite Negative Urine Bilirubin Negative Urine Urobilinogen 0.2 Ur Leukocyte Esterase Small H Urine RBC 0-2 Urine WBC 20-50 H Ur Epithelial Cells Moderate Urine Crystals Negative Urine Bacteria Rare Urine Casts 0-2 Hyaline Urine Mucus Heavy Urine Other Rare Transitional Ur Culture Indicated? No/Sq. Contamination Urine Glucose Negative COVID-19 Source Nasal/Nares SARS-CoV-2 (PCR) POSITIVE A* 12/10/22 12/10/22 12/10/22 06:26 06:26 06:26 WBC 3.93 L RBC 2.94 L Hgb 8.8 L Hct 26.8 L MCV 91 MCH 29.9 MCHC 32.8 RDW 17.0 H Plt Count 108 L MPV 11.6 H Immature Gran % 0.8 Neutrophils % 81.7 Lymphocytes % 7.1 Monocytes % 7.6 Eosinophils % 2.0 Basophils % 0.8 Nucleated RBC % 0.0 Absolute Neutrophils 3.21 Absolute Lymphocytes 0.28 L Absolute Monocytes 0.30 Absolute Eosinophils 0.08 Absolute Basophils 0.03 PT INR APTT D-Dimer Sodium 135 L Potassium 3.6 Chloride 105 Carbon Dioxide 22.0 Anion Gap 8.0 BUN 9 Creatinine 0.6 Est GFR (CKD-EPI 2020) 90.12 Glucose 94 Calcium 7.7 L Magnesium 1.8 Ferritin 878 H Total Bilirubin 0.7 Conjugated Bilirubin 0.3 H AST 23 ALT 11 L Alkaline Phosphatase 123 H C-Reactive Protein 9.69 H Total Protein 4.3 L Albumin 1.7 L Procalcitonin 0.5 Urine Color Urine Clarity Urine pH Ur Specific [place] Urine Protein Urine Ketones Urine Blood Urine Nitrite Urine Bilirubin Urine Urobilinogen Ur Leukocyte Esterase Urine RBC Urine WBC Ur Epithelial Cells Urine Crystals Urine Bacteria Urine Casts Urine Mucus Urine Other Ur Culture Indicated? Urine Glucose COVID-19 Source SARS-CoV-2 (PCR) 12/10/22 12/10/22 12/10/22 06:26 11:02 18:30 WBC RBC Hgb 9.4 L Hct 28.1 L MCV MCH MCHC RDW Plt Count MPV Immature Gran % Neutrophils % Lymphocytes % Monocytes % Eosinophils % Basophils % Nucleated RBC % Absolute Neutrophils Absolute Lymphocytes Absolute Monocytes Absolute Eosinophils Absolute Basophils PT 12.7 H INR 1.2 H APTT 34.2 H D-Dimer 3404 H Sodium Potassium Chloride Carbon Dioxide Anion Gap BUN Creatinine Est GFR (CKD-EPI 2020) Glucose Calcium Magnesium Ferritin Total Bilirubin Conjugated Bilirubin AST ALT Alkaline Phosphatase C-Reactive Protein Total Protein Albumin Procalcitonin Urine Color Urine Clarity Urine pH Ur Specific [place] Urine Protein Urine Ketones Urine Blood Urine Nitrite Urine Bilirubin Urine Urobilinogen Ur Leukocyte Esterase Urine RBC Urine WBC Ur Epithelial Cells Urine Crystals Urine Bacteria Urine Casts Urine Mucus Urine Other Ur Culture Indicated? Urine Glucose COVID-19 Source SARS-CoV-2 (PCR) 12/10/22 12/10/22 18:30 19:55 WBC RBC Hgb Hct MCV MCH MCHC RDW Plt Count MPV Immature Gran % Neutrophils % Lymphocytes % Monocytes % Eosinophils % Basophils % Nucleated RBC % Absolute Neutrophils Absolute Lymphocytes Absolute Monocytes Absolute Eosinophils Absolute Basophils PT INR APTT > 155.0 H* > 155.0 H* D-Dimer Sodium Potassium Chloride Carbon Dioxide Anion Gap BUN Creatinine Est GFR (CKD-EPI 2020) Glucose Calcium Magnesium Ferritin Total Bilirubin Conjugated Bilirubin AST ALT Alkaline Phosphatase C-Reactive Protein Total Protein Albumin Procalcitonin Urine Color Urine Clarity Urine pH Ur Specific [place] Urine Protein Urine Ketones Urine Blood Urine Nitrite Urine Bilirubin Urine Urobilinogen Ur Leukocyte Esterase Urine RBC Urine WBC Ur Epithelial Cells Urine Crystals Urine Bacteria Urine Casts Urine Mucus Urine Other Ur Culture Indicated? Urine Glucose COVID-19 Source SARS-CoV-2 (PCR) CBC White Blood Count 6.22 10^3/uL (4.4-10.8) 12/11/22 Red Blood Count 3.20 10^6/uL (3.93-5.22) L 12/11/22 Hemoglobin 9.5 g/dL (11.2-15.7) L 12/11/22 Hematocrit 29.8 % (36.0-46.0) L 12/11/22 Mean Corpuscular Volume 93 fL (80-95) 12/11/22 Mean Corpuscular Hemoglobin 29.7 pg (27.0-33.0) 12/11/22 Mean Corpuscular Hemoglobin Concent 31.9 % (32.0-36.0) L 12/11/22 Red Cell Distribution Width 17.2 % (11.7-14.6) H 12/11/22 Platelet Count 113 10^3/uL (130-400) L 12/11/22 Mean Platelet Volume 9.8 fL (8.0-11.0) 12/11/22 Neutrophils % 85.1 12/11/22 Band Neutrophils % 5 12/07/22 Lymphocytes % 5.8 12/11/22 Monocytes % 6.3 12/11/22 Eosinophils % 1.3 12/11/22 Basophils % 0.5 12/11/22 Immature Granulocytes % 1.0 12/11/22 Anemia profile Hgb 9.5 g/dL (11.2-15.7) L 12/11/22 Hct 29.8 % (36.0-46.0) L 12/11/22 MCV 93 fL (80-95) 12/11/22 RDW 17.2 % (11.7-14.6) H 12/11/22 Ferritin 1553 ng/mL (8-252) H 12/11/22 Comprehensive Metabolic Panel Sodium 133 mmol/L (136-145) L 12/11/22 03:40 Potassium 3.5 mmol/L (3.5-5.1) 12/11/22 03:40 Chloride 103 mmol/L (98-107) 12/11/22 03:40 Carbon Dioxide 18.9 mmol/L (21.0-32.0) L 12/11/22 03:40 BUN 11 mg/dL (7-18) 12/11/22 03:40 Creatinine 0.7 mg/dL (0.55-1.02) 12/11/22 03:40 Glucose 111 mg/dL (74-106) H 12/11/22 03:40 Calcium 7.7 mg/dL (8.5-10.1) L 12/11/22 03:40 Conjugated Bilirubin 0.3 mg/dL (0.0-0.2) H 12/11/22 03:40 Total Bilirubin 0.6 mg/dL (0.2-1.0) 12/11/22 03:40 ALT 13 U/L (14-59) L 12/11/22 03:40 AST 25 U/L (15-37) 12/11/22 03:40 Alkaline Phosphatase 129 U/L (46-116) H 12/11/22 03:40 Total Protein 4.6 g/dL (6.4-8.2) L 12/11/22 03:40 Albumin 1.7 g/dL (3.4-5.0) L 12/11/22 03:40 Diabetes results Glucose 111 mg/dL (74-106) H 12/11/22 BUN 11 mg/dL (7-18) 12/11/22 Creatinine 0.7 mg/dL (0.55-1.02) 12/11/22 Est GFR (CKD-EPI 2020) 86.83 (mL/min/1.73m2) 12/11/22 Sodium 133 mmol/L (136-145) L 12/11/22 Potassium 3.5 mmol/L (3.5-5.1) 12/11/22 Chloride 103 mmol/L (98-107) 12/11/22 Carbon Dioxide 18.9 mmol/L (21.0-32.0) L 12/11/22 Calcium 7.7 mg/dL (8.5-10.1) L 12/11/22 AST 25 U/L (15-37) 12/11/22 ALT 13 U/L (14-59) L 12/11/22 Total Protein 4.6 g/dL (6.4-8.2) L 12/11/22 Albumin 1.7 g/dL (3.4-5.0) L 12/11/22 Lipid profile No Data to Display Stool tests (SJP) Stool Description Not Applicable 09/23/22 Thyroid results Thyroid Dysfunction Results: No Data to Display Time Spent with Patient Time Spent with Patient: >50 minutes Time was spent: preparing to see the patient(eg.review tests), referring, communicating with other health child care teacher, indepentently interpreting results and care coordination
[2022-12-11] VITALS (21 sets, daily range): BP systolic 91–115; BP diastolic 45–69; PULSE 60–106; RESP 12–18; TEMP 35.8–37.4; O2SAT 92–100
[2022-12-11] MEDS: oxyCODONE 5 MG TAB PO ×3 (01:20→14:16)
[2022-12-11] MEDS: Ondansetron 4 MG/2 ML VIAL IVP (01:20)
[2022-12-11 03:54] LABS: Abs Immature Grans 0.06 10^3/uL (0.0-0.06); Absolute Basophil Count 0.03 10^3/uL (0.0-0.2); Absolute Eosinophil Count 0.08 10^3/uL (0.0-0.7); Absolute Lymphocyte Count 0.36 10^3/uL (1.2-3.4); Absolute Monocyte Count 0.39 10^3/uL (0.1-0.8); Basophils % 0.5; Eosinophils % 1.3; HCT 29.8 % (36.0-46.0); HGB 9.5 g/dL (11.2-15.7); Lymphocytes % 5.8; MCH 29.7 pg (27.0-33.0); MCHC 31.9 % (32.0-36.0); MCV 93 fL (80-95); MPV 9.8 fL (8.0-11.0); Monocytes % 6.3; Neutrophils % 85.1; Platelet Count 113 10^3/uL (130-400); RDW 17.2 % (11.7-14.6); RDW-SD 58.4 fL; WBC 6.22 10^3/uL (4.4-10.8)
[2022-12-11 04:30] LABS: PTT Activated > 155.0 sec (21.5-31.9)
[2022-12-11 05:18] LABS: ALT 13 U/L (14-59); AST 25 U/L (15-37); Albumin 1.7 g/dL (3.4-5.0); Alkaline Phosphatase 129 U/L (46-116); Anion Gap 11.1 mmol/L (3-11); BUN 11 mg/dL (7-18); Bilirubin, Direct 0.3 mg/dL (0.0-0.2); Bilirubin, Total 0.6 mg/dL (0.2-1.0); CO2 18.9 mmol/L (21.0-32.0); CREATININE 0.7 mg/dL (0.55-1.02); Calcium 7.7 mg/dL (8.5-10.1); Chloride 103 mmol/L (98-107); Estimated GFR 86.83 (mL/min/1.73m2); Glucose 111 mg/dL (74-106); Magnesium 1.8 mg/dL (1.8-2.4); Potassium 3.5 mmol/L (3.5-5.1); Sodium 133 mmol/L (136-145); Total Protein 4.6 g/dL (6.4-8.2)
[2022-12-11 05:27] LABS: Ferritin 1553 ng/mL (8-252)
[2022-12-11] MEDS: VANCOMYCIN/WATER (PEG) 750 MG/150 ML BAG 150 MG IVPB ×2 (05:30→18:00)
[2022-12-11] MEDS: Lactated Ringers 1,000 ML 75 ML IV ×2 (05:30→15:03)
[2022-12-11 07:51] LABS: INR 1.4 (0.9-1.1); Prothrombin Time 13.9 sec (9.3-11.0)
[2022-12-11 08:10] LABS: D-Dimer 2191 ng/mlFEU (<500)
--- NOTE | 2022-12-11 08:28 | PDOC.CMPRO ---
Date of service: 12/11/22 Time of Service: 08:28 Care Management Progress Note Progress Note Text Progress Note Text: S/O:Sarita remains on Covid isolation.?Unfortunately, she fell this morning around 8:30 am. Xrays of her hip, pelvis and femur have been ordered, although there is no obvious injury. It appears that Sarita's call trevizo malfunctioned and she was trying to get help when she fell. She has had issues with it for a few day, intermittently. Sarita's room is being changed and she will be given a new bed, as there is also a question of the bed alarm not working. Sarita has been found to have bilateral DVTs in her legs and has a positive blood culture (gram positive cocci in 1/3 sets). She is now on a Heparin drip and Dr. Washington has been consulted to remove her Infusaport as that is where the positive blood culture was drawn from. A: Sarita is an 82 year old woman admitted on 11/28/22 with metastatic pancreatic cancer P: Sarita has changed her code status to DNR/DNI. A COLST form has been initiated but not as yet finalized; it requires the signature of a provider. The plan was to transition Sarita to SB-1 status yesterday. The onset of Covid has necessitated that be delayed. Sarita's final discharge plan will be determined by her progress. CM will continue to support Sarita and her discharge planning needs.
[2022-12-11] MEDS: Lidocaine 5% Patch 1 PATCH TP ×2 (08:49→09:20)
[2022-12-11] MEDS: Docusate Sodium 100 MG CAP PO ×2 (09:18→20:08)
[2022-12-11] MEDS: dilTIAZem 30 MG TAB PO ×2 (09:18→19:57)
[2022-12-11] MEDS: Benzonatate 100 MG CAP PO ×3 (09:18→19:57)
[2022-12-11] MEDS: guaiFENesin 600 MG TABCR PO ×2 (09:19→19:58)
[2022-12-11] MEDS: Famotidine 20 MG TAB PO ×2 (09:19→19:58)
[2022-12-11] MEDS: Furosemide 20 MG/2 ML VIAL IVP (09:21)
[2022-12-11] MEDS: Gabapentin 300 MG CAP PO ×3 (09:22→19:58)
--- NOTE | 2022-12-11 09:32 | OT.INNT ---
Occupational Therapy Notes 12/11/22 Pt unavailable to be seen this morning per nursing and she would like to put services on hold for today. aMriia Lopez, OTR/L
--- NOTE | 2022-12-11 12:15 | DI.RAD_ITS ---
Exam(s) XR FEMUR LT EXAM: XR FEMUR LT CLINICAL HISTORY: pain s/p fall. TECHNIQUE: 2D digital imaging was performed. Three views. COMPARISON: None. FINDINGS: BONES: No acute fracture is present. No bony destructive lesion is seen. JOINTS: No dislocation present. Hip and knee joints are unremarkable as visualized. Mild degenerati ve changes. SOFT TISSUE: Mild vascular calcifications. IMPRESSION: No acute abnormality DATA REPOSITORY: RADIATION DOSE DELIVERED:
--- NOTE | 2022-12-11 12:20 | DI.RAD_ITS ---
Exam(s) XR HIP PELVIS ADULT BL EXAM: XR HIP PELVIS ADULT BL CLINICAL HISTORY: s/p fall. TECHNIQUE: 2D digital imaging was performed. Three views. COMPARISON: No exams were available for comparison FINDINGS: BONES: No acute fracture is present. No bony destructive lesion is seen. JOINTS: No dislocation present. Mild degenerative changes of the hips. SOFT TISSUE: Normal vascular calcifications. IMPRESSION: No acute abnormality. DATA REPOSITORY: RADIATION DOSE DELIVERED:
--- NOTE | 2022-12-11 12:20 | DI.RAD_ITS ---
Exam(s) XR FEMUR RT EXAM: XR FEMUR RT CLINICAL HISTORY: pain s/p fall. TECHNIQUE: 2D digital imaging was performed. AP and lateral views. COMPARISON: CR XR FEMUR LT from 12/11/2022 FINDINGS: BONES: No acute fracture is present. No bony destructive lesion is seen. JOINTS: Visualized portion of knee and hip joints are unremarkable. There are mild degenerative banks ges at the hip and knee. SOFT TISSUE: Vascular calcifications IMPRESSION: Acute abnormality. DATA REPOSITORY: RADIATION DOSE DELIVERED:
[2022-12-11 13:42] LABS: PTT Activated 41.9 sec (21.5-31.9)
[2022-12-11] MEDS: Acetaminophen 325 MG TAB 650 MG PO (14:15)
[2022-12-11] MEDS: Normal Saline Flush 10 ML SYR IVP (14:15)
[2022-12-11] MEDS: CEFEPIME 2 GM in Normal Saline 100 ML IVPB (14:16)
--- NOTE | 2022-12-11 15:09 | PGE_ITS ---
Date of Service Date of service: 12/11/22 Time of Service: 09:30 Assessment and Plan Assessment and plan (1) Infected venous access port: Status: Acute Assessment and plan: For port removal today. (2) Fall: Status: Acute Assessment and plan: The patient was physically relocated to the ICU for now where we can utilize the camera (evidently, the cameras on the medical surgical floor have been turned off). The patient consents to being monitored on the camera. She has a bed alarm and we ensured her nurse call button works. No injuries on XR. (3) DVT, bilateral lower limbs: Status: Acute Assessment and plan: Continue heparin gtt. I cannot tell if these happened prior to or since admission. The patient did come in with anemia requiring transfusion with hematest pending, so she had mechanical DVT ppx ordered, though it is documented as patient refused on several occasions in the chart. She does have metastatic pancreatic cancer and COVID-19, both of which make her hypercoagulable. She has also been immobile. PE ruled out with a negative CTA. (4) Gram-positive cocci bacteremia: Status: Acute Assessment and plan: Positive blood cultures collected from the infusaport. Peripheral cultures w/ NTD. Infusaport is growing staph, not aureus. General surgery is taking the port out today. Continue vancomcyin/cefepime. Await repeat blood cultures. Echo w/o evidence of valvular disease. (5) Bilateral pleural effusion: Status: Acute Assessment and plan: Diuretics resumed. Echo w/ LVEF of 60-65%, RVSP of 35 mmHg. No valvular issues. (6) COVID-19: Status: Acute Assessment and plan: Continue remdesivir. ?question of 2ndary bacterial pneumonia on CT - on vancomycin/cefepime. Encourage IS/Acapella. Antiemetics/antidiarrheals. PT. Palliative care consulted: the patient would like to continue treatment. (7) GERD (gastroesophageal reflux disease): Status: Chronic Assessment and plan: Continue H2 kirill. (8) Pancreatic cancer: Status: Acute Assessment and plan: No longer on chemo. Infusaport is infected and is getting taken out. Does have some pain, particularly in the back, which is burning and worse. Continue gabapentin. Continue prn oxycodone. Provide antiemetics/antidarrheals. F/u w/ Dr Suarez as outpatient. (9) Hiccough: Status: Acute Assessment and plan: Frequently associated with COVID. Could trial baclofen should they recur. (10) Left shoulder pain: Status: Acute Assessment and plan: Continue PRN robaxin (11) Chest pain: Assessment and plan: Noncardiac and likely MSK. Resolved. Continue Lidoderm patch, oxycydone. PE ruled out. (12) Congestive heart failure: Assessment and plan: CHFpEF. Echocardiogram 11/16/22: LVEF of 60-65%. No evidence of valvular disease on repeat echo. TTE at [facility] [place]: stress induced cardiomyopathy 2/2 chemotherapy with Apical hypokinesis. Continue diuretics. Patient did receive some IVF while NPO, which should be stopped MARQUITA. (13) Abdominal pain: Status: Acute Assessment and plan: in setting of pancreatic cancer. Continue oxycodone. (14) Hypokalemia: Status: Resolved Assessment and plan: Recheck in am. (15) Essential hypertension: Status: Chronic Assessment and plan: No change in therapy. Tolerating cardizem. Losartan is on hold. (16) Pulmonary fibrosis: Assessment and plan: Not in acute exacerbation. Encourage pulmonary toilet. (17) Anemia: Status: Chronic Assessment and plan: Stable. Continue to monitor H/H. (18) Discharge planning issues: Status: Acute Assessment and plan: DNR/DNI. Palliative care saw the patient: not ready for hospice. Continue treatment as above. Plan for discharge home with caregivers when ready. Continues to require hospitalization. Subjective Subjective Interval history since last seen: Ms Burger fell when trying to get out of bed this morning. She landed on her buttocks and her left side. She states that the only places that her right now are her bilateral thighs. Denies lower back pain, did not hit head. She states that she had been using the nurse call button. A malfunction with this was observed when I was in the room with her and her nurse this morning after the incident. She states she spent 30 minutes on the floor. She denied dizziness, CP, SOB, n/v. No BMs and No bleeding has been reported. NPO for anticipated port removal later today. Exam Narrative Exam Narrative: General: Anxious/upset- appearing elderly female who is sitting up in bed, A&Ox3, does not appear confused HEENT: EOMI, MMM Heart: RRR, no m/r/g Lungs: CTAB anteriorly Abdomen: soft, tender in epigastrium, nondistended Extremities: +1 BLE edema, R slightly greater than L. No obvious bruises/abrasions/lacerations Objective Last Vital Signs Temp 35.8 C L 12/11/22 12:22 Pulse 70 12/11/22 12:22 Resp 18 12/11/22 12:22 BP 109/66 12/11/22 12:22 Pulse Ox 100 12/11/22 12:22 Laboratory Results - last 24 hr 12/10/22 12/10/22 12/10/22 18:30 18:30 19:55 WBC RBC Hgb 9.4 L Hct 28.1 L MCV MCH MCHC RDW Plt Count MPV Immature Gran % Neutrophils % Lymphocytes % Monocytes % Eosinophils % Basophils % Nucleated RBC % Absolute Neutrophils Absolute Lymphocytes Absolute Monocytes Absolute Eosinophils Absolute Basophils PT INR APTT > 155.0 H* > 155.0 H* D-Dimer Sodium Potassium Chloride Carbon Dioxide Anion Gap BUN Creatinine Est GFR (CKD-EPI 2020) Glucose Calcium Magnesium Ferritin Total Bilirubin Conjugated Bilirubin AST ALT Alkaline Phosphatase C-Reactive Protein Total Protein Albumin 12/11/22 12/11/22 12/11/22 03:40 03:40 03:40 WBC 6.22 RBC 3.20 L Hgb 9.5 L Hct 29.8 L MCV 93 MCH 29.7 MCHC 31.9 L RDW 17.2 H Plt Count 113 L MPV 9.8 Immature Gran % 1.0 Neutrophils % 85.1 Lymphocytes % 5.8 Monocytes % 6.3 Eosinophils % 1.3 Basophils % 0.5 Nucleated RBC % 0.0 Absolute Neutrophils 5.30 Absolute Lymphocytes 0.36 L Absolute Monocytes 0.39 Absolute Eosinophils 0.08 Absolute Basophils 0.03 PT INR APTT > 155.0 H* D-Dimer Sodium 133 L Potassium 3.5 Chloride 103 Carbon Dioxide 18.9 L Anion Gap 11.1 H BUN 11 Creatinine 0.7 Est GFR (CKD-EPI 2020) 86.83 Glucose 111 H Calcium 7.7 L Magnesium 1.8 Ferritin 1553 H Total Bilirubin 0.6 Conjugated Bilirubin 0.3 H AST 25 ALT 13 L Alkaline Phosphatase 129 H C-Reactive Protein 11.70 H Total Protein 4.6 L Albumin 1.7 L 12/11/22 12/11/22 07:05 13:00 WBC RBC Hgb Hct MCV MCH MCHC RDW Plt Count MPV Immature Gran % Neutrophils % Lymphocytes % Monocytes % Eosinophils % Basophils % Nucleated RBC % Absolute Neutrophils Absolute Lymphocytes Absolute Monocytes Absolute Eosinophils Absolute Basophils PT 13.9 H INR 1.4 H APTT 41.9 H D-Dimer 2191 H Sodium Potassium Chloride Carbon Dioxide Anion Gap BUN Creatinine Est GFR (CKD-EPI 2020) Glucose Calcium Magnesium Ferritin Total Bilirubin Conjugated Bilirubin AST ALT Alkaline Phosphatase C-Reactive Protein Total Protein Albumin Objective Narrative Objective Narrative: XR L femur 12/11/22: No acute abnormality XR R femur 12/11/22: No acute abnormality XR B hip/pelvis 12/11/22: No acute abnormality. ? Time Spent with Patient Time Spent with Patient: 35-49 minutes Time was spent: preparing to see the patient(eg.review tests), obtaining and/or reviewing separately otained hiistory, ordering medications,tests, procedures, referring, communicating with other health clinical care coordinator, indepentently interpreting results, counseling the patient and care coordination
[2022-12-11] MEDS: Lidocaine 1.5 % Pres-Free W/EPI 1/200,000 30 ML VIAL (18:32)
--- NOTE | 2022-12-11 18:53 | W.PM.OP ---
Date of service: 12/11/22 Time of Service: 18:53 Operative Note Operative Note DATE OF PROCEDURE: 12/11/22 PRE-OP DIAGNOSIS: Infected vascular access device with buried reservoir port POST-OP DIAGNOSIS: same PROCEDURE: Removal of vascular access device with buried reservoir port SURGEON: Ariana Washington ANESTHESIA TYPE: Local By Surgeon Refer to Anesthesia Record ESTIMATED BLOOD LOSS: 2 PATHOLOGY: other COMPLICATIONS: None Patient was transported to: ICU Patient's condition: stable Procedure Description: Informed consent is obtained explaining risks and benefits of the procedure including but not limited to: not removing the port, bleeding/hematoma, infection, scarring/poor cosemesis, wound healing issues, damage to vein requiring surgery, complications from anesthesia, other ?The site was prepped and draped in usual manner using a ChloraPrep scrub solution.? Time is performed per procedure.? The site is infiltrated with 20cc of 1% lidocaine with epi.. The previous incision was opened by excising the old scar. The port pocket was then opened and the port was removed from the pocket. ??The catheter is than dissected free.? It is pulled from the vessel without difficulty.? Pressure is held over the vessel for 2 minutes.? No bleeding is noted. The port pocket was then closed using a #4-0 Monocryl in subcutaneous tissue and 3-0 nylon on the skin. Pressure dressing is applied. The tip was sent for culture. The pt tolerated the procedure well without complications.
[2022-12-11] MEDS: REMDESIVIR 100 MG in Normal Saline 250 ML 250 MG IVPB (19:56)
[2022-12-11] MEDS: Ascorbic Acid 500 MG TAB PO (19:57)
[2022-12-11] MEDS: Protein Nutritional Supplement 16 GM 1 OUNCE PACKET PO (19:57)
[2022-12-11] MEDS: Magnesium Chloride 64 MG TABCR PO (19:58)
[2022-12-11] MEDS: Lidocaine Patch Removal 1 EACH TP ×2 (20:08→20:09)
[2022-12-11 22:37] LABS: PTT Activated 27.4 sec (21.5-31.9)
[2022-12-11] MEDS: Heparin in 0.45% NaCl 25,000 UNIT/250 ML BAG 13 UNIT IV (23:00)
[2022-12-12] VITALS (29 sets, daily range): BP systolic 86–125; BP diastolic 39–82; PULSE 60–119; RESP 0–24; TEMP 36.6; O2SAT 92–98
--- NOTE | 2022-12-12 | DI.CT_ITS ---
Exam(s) CT HEAD WO EXAM: CT HEAD WO CLINICAL HISTORY: new confusion. TECHNIQUE: Imaging Protocol: Axial computed tomography images with coronal and sagittal reformatted images were created and reviewed COMPARISON: No exams were available for comparison FINDINGS: Ventricles and Extra axial spaces: Normal in size and morphology for the patient's age. Hemorrhage: None. Cerebral parenchyma: There are areas of decreased attenuation in the white matter consistent with sma ll vessel ischemic disease. Midline shift: None. Brainstem/Cerebellum: Normal. There is a partially empty sella. Calvarium: Normal. Visualized Paranasal sinuses/Mastoids: Clear. Soft Tissues: Unremarkable. IMPRESSION: No acute intracranial process. RADIATION DOSE DELIVERED: 645.54mGy.cm Total DLP DATA REPOSITORY: All CT scans at this facility are submitted to the National Radiology Data Registry (NRDR) Dose Index Registry (DIR) with the [employer] ([employer]). RADIATION OPTIMIZATION: All CT scans at this facility use at least one of these dose optimization te chniques: automated exposure control; mA and/or kV adjustment per patient size (includes targeted exa ms where dose is matched to clinical indication); or iterative reconstruction.
[2022-12-12] MEDS: CEFEPIME 2 GM in Normal Saline 100 ML IVPB ×3 (02:02→14:13)
[2022-12-12] MEDS: VANCOMYCIN/WATER (PEG) 750 MG/150 ML BAG 150 MG IVPB (06:03)
[2022-12-12] MEDS: Lactated Ringers 1,000 ML 75 ML IV (06:08)
[2022-12-12 07:09] LABS: Absolute Basophil Count 0.03 10^3/uL (0.0-0.2); Absolute Eosinophil Count 0.15 10^3/uL (0.0-0.7); Absolute Monocyte Count 0.42 10^3/uL (0.1-0.8); Absolute Neutrophil Count 7.19 10^3/uL (1.2-6.7); Basophils % 0.4; Eosinophils % 1.8; HCT 29.2 % (36.0-46.0); HGB 9.3 g/dL (11.2-15.7); Immature Grans % 1.2; Lymphocytes % 7.1; MCH 29.5 pg (27.0-33.0); MCHC 31.8 % (32.0-36.0); MCV 93 fL (80-95); MPV 10.7 fL (8.0-11.0); Monocytes % 4.9; Neutrophils % 84.6; Platelet Count 123 10^3/uL (130-400); RBC 3.15 10^6/uL (3.93-5.22); RDW 17.2 % (11.7-14.6); RDW-SD 58.7 fL; WBC 8.49 10^3/uL (4.4-10.8)
[2022-12-12 07:31] LABS: ALT 11 U/L (14-59); AST 30 U/L (15-37); Albumin 1.7 g/dL (3.4-5.0); Alkaline Phosphatase 140 U/L (46-116); Anion Gap 10.9 mmol/L (3-11); BUN 10 mg/dL (7-18); Bilirubin, Direct 0.2 mg/dL (0.0-0.2); Bilirubin, Total 0.5 mg/dL (0.2-1.0); C-Reactive Protein 11.94 mg/dL (0.0-0.3); CO2 21.1 mmol/L (21.0-32.0); CREATININE 0.7 mg/dL (0.55-1.02); Chloride 105 mmol/L (98-107); Estimated GFR 86.83 (mL/min/1.73m2); Glucose 91 mg/dL (74-106); Potassium 3.3 mmol/L (3.5-5.1); Sodium 137 mmol/L (136-145); Total Protein 4.6 g/dL (6.4-8.2)
[2022-12-12 07:34] LABS: PTT Activated > 155.0 sec (21.5-31.9)
[2022-12-12 07:48] LABS: Lab Add On Test DONE
[2022-12-12 07:59] LABS: Procalcitonin 0.5 ng/mL
[2022-12-12] MEDS: Lidocaine 5% Patch 1 PATCH TP ×2 (08:05→08:07)
[2022-12-12] MEDS: Protein Nutritional Supplement 16 GM 1 OUNCE PACKET PO ×2 (08:06→20:16)
[2022-12-12] MEDS: dilTIAZem 30 MG TAB PO ×2 (08:07→20:16)
[2022-12-12] MEDS: Magnesium Chloride 64 MG TABCR PO ×2 (08:07→20:17)
[2022-12-12] MEDS: Cholecalciferol (Vitamin D3) 1,000 UNIT TAB 2000 UNITS PO (08:07)
[2022-12-12 08:08] LABS: D-Dimer 2371 ng/mlFEU (<500)
[2022-12-12] MEDS: guaiFENesin 600 MG TABCR PO ×2 (08:08→20:16)
[2022-12-12] MEDS: Zinc Sulfate 220 MG TAB PO (08:08)
[2022-12-12] MEDS: Ascorbic Acid 500 MG TAB PO ×2 (08:08→20:16)
[2022-12-12] MEDS: Famotidine 20 MG TAB PO (08:08)
[2022-12-12] MEDS: Benzonatate 100 MG CAP PO ×3 (08:08→20:17)
[2022-12-12] MEDS: Docusate Sodium 100 MG CAP PO (08:08)
[2022-12-12] MEDS: Gabapentin 300 MG CAP PO ×3 (08:08→20:16)
[2022-12-12] MEDS: Furosemide 20 MG/2 ML VIAL IVP (08:09)
[2022-12-12 08:16] LABS: INR 1.7 (0.9-1.1); NT-proBNP 4081 pg/mL (<300)
[2022-12-12 08:19] LABS: Ferritin 1814 ng/mL (8-252)
[2022-12-12] MEDS: Potassium Chloride 20 MEQ TABCR 40 MEQ PO (10:29)
[2022-12-12 10:56] LABS: Bilirubin Negative (Negative); Blood Negative (Negative); Clarity Sl Cloudy (Clear); Glucose Negative (Negative); Ketones Negative (Negative); Leukocyte Esterase Trace (Negative); Nitrite Negative (Negative); Urobilinogen 0.2 mg/dL (Up to 0.2); pH 5.5 (5-8)
[2022-12-12 11:02] LABS: Bacteria Rare HPF (Negative); Crystals Negative HPF (Negative); Epithelial Cells Few HPF (Negative); Mucus Trace (Negative); Other Cells Few Transitional (Negative); RBC 0-2 HPF (0-2)
[2022-12-12 11:03] LABS: C & S Indicated? C&S Done As Ordered; Casts 0-2 Fine Granular LPF (Negative)
--- NOTE | 2022-12-12 11:56 | DI.VRAD_ITS ---
PROCEDURE INFORMATION: Exam: CT Head Without Contrast Exam date and time: 12/12/2022 11:25 AM Age: 82 years old Clinical indication: Other: New confusion.No history of trauma or recent surgery is provided. TECHNIQUE: Imaging protocol: Computed tomography of the head without contrast. 937image(s) are provided. Radiation optimization: All CT scans at this facility use at least one of these dose optimization techniques: automated exposure control; mA and/or kV adjustment per patient size (includes targeted exams where dose is matched to clinical indication); or iterative reconstruction. Other technique: Axial images are available with sagittal and coronal reconstruction views. Automated dose exposure control is utilized. The DLP is 646.0. COMPARISON: No relevant prior studies available. FINDINGS: Brain: Scattered dural chronic calcifications are appreciated. There are moderate cerebral atrophic changes overall.There are minimal central lacunar changes demonstrated.There are chronic periventricular white matter changes present.Partially empty sella variant is demonstrated.There are minimal basal ganglia calcifications demonstrated.No mass effect or layering hemorrhage is appreciated. Fine, white matter differentiation appears maintained. Cerebral ventricles: No hydrocephalus is appreciated. Paranasal sinuses: There is some minimal patchy paranasal sinus mucosal thickening present with no significant fluid levels currently appreciated. Mastoid air cells: The mastoid air cells appear well-aerated overall. Orbital cavities: Symmetric appearance of the orbital soft tissues is demonstrated. Bones/joints: Osseous alignment is maintained.No displaced fracture or dislocation is appreciated.There is hyperostosis frontalis demonstrated. There is some chronic disc degeneration of the cervical spine overall. Soft tissues: No radiopaque foreign body or subcutaneous emphysema is appreciated. Vasculature: There is slight increased density of the vessels which could be seen with atherosclerotic change as well as slow flow. Other findings: There is some motion artifact present. IMPRESSION: No mass effect, layering hemhorrage or hydocephalus is demostrated. No acute intracranial changes are appreciated. Dictated and Authenticated by: Suman Dove MD. Ordering:JUANITO Kothari MD
--- NOTE | 2022-12-12 13:46 | PGE_ITS ---
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: Status: Acute (6) Drug-induced cardiomyopathy: Status: Acute (7) Hiatal hernia: Status: Chronic (8) Protein-calorie malnutrition, mild: Status: Acute (9) Gram-positive cocci bacteremia: Status: Acute (10) Bilateral pleural effusion: Status: Acute (11) DVT, bilateral lower limbs: Status: Acute (12) COVID-19: Status: Acute (13) Anemia: Status: Chronic (14) GERD (gastroesophageal reflux disease): Status: Chronic (15) Pancreatic cancer: Status: Acute (16) Cancer associated pain: (17) Congestive heart failure: (18) NSTEMI (non-ST elevated myocardial infarction): (19) Pulmonary fibrosis: (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 No CP or SOB. non- productive cough. no dysuria. Originally when I saw the patient this morning her surgical site was dried. After she went down and had a head CT and she had some bleeding from the port site. Probably about 100 cc. This was evaluated. And pressure held. There is no active bleeding after pressure was held. There are some mild ecchymosis. T he site is otherwise clean dry and intact. Patient was on heparin. Heparin was held for 2 hours and labs will be rechecked. I did discuss the patient's care extensively with Dr. Garg. As long as labs are stable we will try to restart the heparin. If she has a second brain bleed then I would discontinue anticoagulants. Patient has metastatic pancreatic cancer/bilateral DVTs and clot in the SM V/recent onset of A-fib/cardiomyopathy from chemo/recent NSTEMI in October, and now COVID. I do think it is in the patient's best interest to go into hospice. This would provide her more support and access to DME as well as care at home and maximize her time spent with friends and family and out of the hospital. Reevaluation by palliative care on Wednesday. 90 mins spent with the patient today. Exam Narrative Exam Narrative: incision shows some minimal ecchymosis. no active bleeding. no hematoma Objective Last Vital Signs Temp 36.6 C 12/12/22 07:35 Pulse 87 12/12/22 12:01 Resp 13 12/12/22 11:46 BP 125/82 12/12/22 12:01 Pulse Ox 94 12/12/22 11:46 Laboratory Results - last 24 hr 12/11/22 12/12/22 12/12/22 21:55 05:22 05:22 WBC RBC Hgb Hct MCV MCH MCHC RDW Plt Count MPV Immature Gran % Neutrophils % Lymphocytes % Monocytes % Eosinophils % Basophils % Nucleated RBC % Absolute Neutrophils Absolute Lymphocytes Absolute Monocytes Absolute Eosinophils Absolute Basophils PT INR APTT 27.4 > 155.0 H* D-Dimer Sodium 137 Potassium 3.3 L Chloride 105 Carbon Dioxide 21.1 Anion Gap 10.9 BUN 10 Creatinine 0.7 Est GFR (CKD-EPI 2020) 86.83 Glucose 91 Calcium 8.0 L Magnesium 2.0 Ferritin 1814 H Total Bilirubin 0.5 Conjugated Bilirubin 0.2 AST 30 ALT 11 L Alkaline Phosphatase 140 H C-Reactive Protein 11.94 H NT-Pro-B Natriuret Pep Total Protein 4.6 L Albumin 1.7 L Procalcitonin Urine Color Urine Clarity Urine pH Ur Specific [place] Urine Protein Urine Ketones Urine Blood Urine Nitrite Urine Bilirubin Urine Urobilinogen Ur Leukocyte Esterase Urine RBC Urine WBC Ur Epithelial Cells Urine Crystals Urine Bacteria Urine Casts Urine Mucus Urine Other Ur Culture Indicated? Urine Glucose Add-On Test Request 12/12/22 12/12/22 12/12/22 05:22 05:22 05:22 WBC 8.49 RBC 3.15 L Hgb 9.3 L Hct 29.2 L MCV 93 MCH 29.5 MCHC 31.8 L RDW 17.2 H Plt Count 123 L MPV 10.7 Immature Gran % 1.2 Neutrophils % 84.6 Lymphocytes % 7.1 Monocytes % 4.9 Eosinophils % 1.8 Basophils % 0.4 Nucleated RBC % 0.0 Absolute Neutrophils 7.19 H Absolute Lymphocytes 0.60 L Absolute Monocytes 0.42 Absolute Eosinophils 0.15 Absolute Basophils 0.03 PT 17.0 H INR 1.7 H APTT D-Dimer 2371 H Sodium Potassium Chloride Carbon Dioxide Anion Gap BUN Creatinine Est GFR (CKD-EPI 2020) Glucose Calcium Magnesium Ferritin Total Bilirubin Conjugated Bilirubin AST ALT Alkaline Phosphatase C-Reactive Protein NT-Pro-B Natriuret Pep Total Protein Albumin Procalcitonin 0.5 Urine Color Urine Clarity Urine pH Ur Specific [place] Urine Protein Urine Ketones Urine Blood Urine Nitrite Urine Bilirubin Urine Urobilinogen Ur Leukocyte Esterase Urine RBC Urine WBC Ur Epithelial Cells Urine Crystals Urine Bacteria Urine Casts Urine Mucus Urine Other Ur Culture Indicated? Urine Glucose Add-On Test Request 12/12/22 12/12/22 12/12/22 05:22 05:22 10:45 WBC RBC Hgb Hct MCV MCH MCHC RDW Plt Count MPV Immature Gran % Neutrophils % Lymphocytes % Monocytes % Eosinophils % Basophils % Nucleated RBC % Absolute Neutrophils Absolute Lymphocytes Absolute Monocytes Absolute Eosinophils Absolute Basophils PT INR APTT D-Dimer Sodium Potassium Chloride Carbon Dioxide Anion Gap BUN Creatinine Est GFR (CKD-EPI 2020) Glucose Calcium Magnesium Ferritin Total Bilirubin Conjugated Bilirubin AST ALT Alkaline Phosphatase C-Reactive Protein NT-Pro-B Natriuret Pep 4081 H Total Protein Albumin Procalcitonin Urine Color Yellow Urine Clarity Sl Cloudy Urine pH 5.5 Ur Specific [place] 1.010 Urine Protein Negative Urine Ketones Negative Urine Blood Negative Urine Nitrite Negative Urine Bilirubin Negative Urine Urobilinogen 0.2 Ur Leukocyte Esterase Trace H Urine RBC 0-2 Urine WBC 3-5 Ur Epithelial Cells Few Urine Crystals Negative Urine Bacteria Rare Urine Casts 0-2 Fine Granular Urine Mucus Trace Urine Other Few Transitional Ur Culture Indicated? C&S Done As Ordered Urine Glucose Negative Add-On Test Request DONE Anemia profile Hgb 7.7 g/dL (11.2-15.7) L 12/13/22 Hct 23.4 % (36.0-46.0) L 12/13/22 MCV 92 fL (80-95) 12/13/22 RDW 17.6 % (11.7-14.6) H 12/13/22 Ferritin 1814 ng/mL (8-252) H 12/12/22 CBC White Blood Count 6.61 10^3/uL (4.4-10.8) 12/13/22 Red Blood Count 2.54 10^6/uL (3.93-5.22) L 12/13/22 Hemoglobin 7.7 g/dL (11.2-15.7) L 12/13/22 Hematocrit 23.4 % (36.0-46.0) L 12/13/22 Mean Corpuscular Volume 92 fL (80-95) 12/13/22 Mean Corpuscular Hemoglobin 30.3 pg (27.0-33.0) 12/13/22 Mean Corpuscular Hemoglobin Concent 32.9 % (32.0-36.0) 11/21 07/12 Red Cell Distribution Width 17.6 % (11.7-14.6) H 12/13/22 Platelet Count 140 10^3/uL (130-400) 12/13/22 Mean Platelet Volume 10.1 fL (8.0-11.0) 12/13/22 Neutrophils % 94.1 12/13/22 Band Neutrophils % 5 12/07/22 Lymphocytes % 3.3 12/13/22 Monocytes % 0.6 12/13/22 Eosinophils % 0.8 12/13/22 Basophils % 0.3 12/13/22 Immature Granulocytes % 0.9 12/13/22 Comprehensive Metabolic Panel Sodium 137 mmol/L (136-145) 12/13/22 04:50 Potassium 3.5 mmol/L (3.5-5.1) 12/13/22 04:50 Chloride 106 mmol/L (98-107) 12/13/22 04:50 Carbon Dioxide 19.1 mmol/L (21.0-32.0) L 12/13/22 04:50 BUN 15 mg/dL (7-18) 12/13/22 04:50 Creatinine 0.8 mg/dL (0.55-1.02) 12/13/22 04:50 Glucose 79 mg/dL (74-106) 12/13/22 04:50 Calcium 7.9 mg/dL (8.5-10.1) L 12/13/22 04:50 Conjugated Bilirubin 0.3 mg/dL (0.0-0.2) H 12/13/22 04:50 Total Bilirubin 0.7 mg/dL (0.2-1.0) 12/13/22 04:50 ALT 8 U/L (14-59) L 12/13/22 04:50 AST 22 U/L (15-37) 12/13/22 04:50 Alkaline Phosphatase 125 U/L (46-116) H 12/13/22 04:50 Total Protein 4.9 g/dL (6.4-8.2) L 12/13/22 04:50 Albumin 2.5 g/dL (3.4-5.0) L 12/13/22 04:50 Diabetes results Glucose 79 mg/dL (74-106) 12/13/22 BUN 15 mg/dL (7-18) 12/13/22 Creatinine 0.8 mg/dL (0.55-1.02) 12/13/22 Est GFR (CKD-EPI 2020) 73.98 (mL/min/1.73m2) 12/13/22 Sodium 137 mmol/L (136-145) 12/13/22 Potassium 3.5 mmol/L (3.5-5.1) 12/13/22 Chloride 106 mmol/L (98-107) 12/13/22 Carbon Dioxide 19.1 mmol/L (21.0-32.0) L 12/13/22 Calcium 7.9 mg/dL (8.5-10.1) L 12/13/22 AST 22 U/L (15-37) 12/13/22 ALT 8 U/L (14-59) L 12/13/22 Total Protein 4.9 g/dL (6.4-8.2) L 12/13/22 Albumin 2.5 g/dL (3.4-5.0) L 12/13/22 Lipid profile No Data to Display Stool tests (SJP) Stool Description Not Applicable 09/23/22 Thyroid results Thyroid Dysfunction Results: No Data to Display
--- NOTE | 2022-12-12 15:16 | PGE_ITS ---
Date of Service Date of service: 12/12/22 Time of Service: 12:45 Assessment and Plan Assessment and plan (1) Infected venous access port: Status: Acute Assessment and plan: S/p port removal 12/11/22. Some bleeding from the incision today - carefully monitoring for rebleeding once heparin gtt is resumed. PTT is pending at this time. Qualifiers: Encounter type: subsequent encounter Qualified Code(s): T80.219D - Unspecified infection due to central venous catheter, subsequent encounter (2) DVT, bilateral lower limbs: Status: Acute Assessment and plan: Continue heparin gtt. H/H is actually better, even after the bleeding episode. I cannot tell if these happened prior to or since admission. The patient did come in with anemia requiring transfusion with hematest pending (the patient did have a BM overnight, but hematest was not done), and had refused mechanical DVT ppx on this admission. She does have metastatic pancreatic cancer and COVID-19, both of which make her hypercoagulable. She has also been immobile. PE ruled out with a negative CTA. Qualifiers: Affected thrombotic vein of extremity: unspecified vein of extremity Chronicity: acute Qualified Code(s): I82.403 - Acute embolism and thrombosis of unspecified deep veins of lower extremity, bilateral (3) Gram-positive cocci bacteremia: Status: Acute Assessment and plan: Positive blood cultures collected from the infusaport 12/09/22: Staph hominis and Enterococcus spp. Peripheral cultures w/ NGTD as are the repeat blood cultures. Port removed 12/11/22. Continue vancomcyin/cefepime. Await sensitivities. Echo w/o evidence of valvular disease. Will probably benefit from an ID consult once all the information is available. Catheter tip cultures were sent too. (4) Fall: Status: Acute Assessment and plan: No physical injuries. CT head today negative. I do not think that there actually was closed head injury. The patient is on fall precautions and on the camera (to which she consented). Qualifiers: Encounter type: subsequent encounter Qualified Code(s): W19.XXXD - Unspecified fall, subsequent encounter (5) Bilateral pleural effusion: Status: Acute Assessment and plan: Diuretics resumed. Echo w/ LVEF of 60-65%, RVSP of 35 mmHg. No valvular issues. (6) COVID-19: Status: Acute Assessment and plan: Continue remdesivir. ?question of 2ndary bacterial pneumonia on CT - on vancomycin/cefepime. Encourage IS/Acapella. Antiemetics/antidiarrheals. PT. Palliative care consulted: the patient would like to continue treatment. (7) GERD (gastroesophageal reflux disease): Status: Chronic Assessment and plan: Continue H2 kirill. (8) Pancreatic cancer: Status: Acute Assessment and plan: No longer on chemo. Infusaport taken out. Continue gabapentin. Continue prn oxycodone for cancer related pain. Provide antiemetics/antidiarrheals. F/u w/ Dr Suarez as outpatient. (9) Hiccough: Status: Acute Assessment and plan: Frequently associated with COVID. Could trial baclofen should they recur. (10) Left shoulder pain: Status: Acute Assessment and plan: Continue PRN robaxin (11) Chest pain: Assessment and plan: Noncardiac and likely MSK. Resolved. Continue Lidoderm patch, oxycydone. PE ruled out. (12) Congestive heart failure: Assessment and plan: CHFpEF. Echocardiogram 11/16/22: LVEF of 60-65%. No evidence of valvular disease on repeat echo. 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 Continue diuretics. Patient did receive some IVF while NPO, which should be stopped MARQUITA. (13) Abdominal pain: Status: Acute Assessment and plan: in setting of pancreatic cancer. Continue oxycodone. (14) Hypokalemia: Status: Resolved Assessment and plan: Recheck in am. (15) Essential hypertension: Status: Chronic Assessment and plan: No change in therapy. Tolerating cardizem. Losartan is on hold. (16) Pulmonary fibrosis: Assessment and plan: Not in acute exacerbation. Encourage pulmonary toilet. (17) Anemia: Status: Chronic Assessment and plan: Stable. Continue to monitor H/H while on heparin gtt. (18) Encephalopathy acute: Status: Acute Assessment and plan: ?Due to COVID-19 vs bacterial disease. Metastatic disease to the brain is also a possibility. No evidence of head trauma, CT head negative. UA negative, ammonia wnl. 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 As above (20) Discharge planning issues: Status: Acute Assessment and plan: DNR/DNI. Palliative care saw the patient: not ready for hospice. Continue treatment as above. Plan for discharge home with caregivers when ready. Continues to require hospitalization. Subjective Subjective Interval history since last seen: Ms Burger is reported to be a little confused this morning. Nursing also notes that she has had cloudy foul-smelling urine. She was placed on 2L of O2 overnight because her O2 sats had dropped, but I do not see documentation of how low they had dropped. She had a mildline placed. The incision from her infusaport being removed was bleeding earlier today. Heparin drip was stopped at that time. Otherwise, no dizziness, CP, SOB, n/v. 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 Exam Narrative Exam Narrative: General: Anxious/upset- appearing elderly female who is anxious/tearful, A&Ox3, is a little confused/forgetful. HEENT: EOMI, MMM Heart: RRR, no m/r/g Lungs: CTAB Abdomen: soft, tender in epigastrium, nondistended Extremities: covered in blankets. Objective Last Vital Signs Temp 36.6 C 12/12/22 07:35 Pulse 80 12/12/22 15:12 Resp 15 12/12/22 14:01 BP 113/62 12/12/22 14:01 Pulse Ox 95 12/12/22 14:01 Laboratory Results - last 24 hr 12/11/22 12/12/22 12/12/22 21:55 05:22 05:22 WBC RBC Hgb Hct MCV MCH MCHC RDW Plt Count MPV Immature Gran % Neutrophils % Lymphocytes % Monocytes % Eosinophils % Basophils % Nucleated RBC % Absolute Neutrophils Absolute Lymphocytes Absolute Monocytes Absolute Eosinophils Absolute Basophils PT INR APTT 27.4 > 155.0 H* D-Dimer Sodium 137 Potassium 3.3 L Chloride 105 Carbon Dioxide 21.1 Anion Gap 10.9 BUN 10 Creatinine 0.7 Est GFR (CKD-EPI 2020) 86.83 Glucose 91 Calcium 8.0 L Magnesium 2.0 Ferritin 1814 H Total Bilirubin 0.5 Conjugated Bilirubin 0.2 AST 30 ALT 11 L Alkaline Phosphatase 140 H C-Reactive Protein 11.94 H NT-Pro-B Natriuret Pep Total Protein 4.6 L Albumin 1.7 L Procalcitonin Urine Color Urine Clarity Urine pH Ur Specific [place] Urine Protein Urine Ketones Urine Blood Urine Nitrite Urine Bilirubin Urine Urobilinogen Ur Leukocyte Esterase Urine RBC Urine WBC Ur Epithelial Cells Urine Crystals Urine Bacteria Urine Casts Urine Mucus Urine Other Ur Culture Indicated? Urine Glucose Add-On Test Request Patient ABO/Rh Antibody Screen 12/12/22 12/12/22 12/12/22 05:22 05:22 05:22 WBC 8.49 RBC 3.15 L Hgb 9.3 L Hct 29.2 L MCV 93 MCH 29.5 MCHC 31.8 L RDW 17.2 H Plt Count 123 L MPV 10.7 Immature Gran % 1.2 Neutrophils % 84.6 Lymphocytes % 7.1 Monocytes % 4.9 Eosinophils % 1.8 Basophils % 0.4 Nucleated RBC % 0.0 Absolute Neutrophils 7.19 H Absolute Lymphocytes 0.60 L Absolute Monocytes 0.42 Absolute Eosinophils 0.15 Absolute Basophils 0.03 PT 17.0 H INR 1.7 H APTT D-Dimer 2371 H Sodium Potassium Chloride Carbon Dioxide Anion Gap BUN Creatinine Est GFR (CKD-EPI 2020) Glucose Calcium Magnesium Ferritin Total Bilirubin Conjugated Bilirubin AST ALT Alkaline Phosphatase C-Reactive Protein NT-Pro-B Natriuret Pep Total Protein Albumin Procalcitonin 0.5 Urine Color Urine Clarity Urine pH Ur Specific [place] Urine Protein Urine Ketones Urine Blood Urine Nitrite Urine Bilirubin Urine Urobilinogen Ur Leukocyte Esterase Urine RBC Urine WBC Ur Epithelial Cells Urine Crystals Urine Bacteria Urine Casts Urine Mucus Urine Other Ur Culture Indicated? Urine Glucose Add-On Test Request Patient ABO/Rh Antibody Screen 12/12/22 12/12/22 12/12/22 05:22 05:22 10:45 WBC RBC Hgb Hct MCV MCH MCHC RDW Plt Count MPV Immature Gran % Neutrophils % Lymphocytes % Monocytes % Eosinophils % Basophils % Nucleated RBC % Absolute Neutrophils Absolute Lymphocytes Absolute Monocytes Absolute Eosinophils Absolute Basophils PT INR APTT D-Dimer Sodium Potassium Chloride Carbon Dioxide Anion Gap BUN Creatinine Est GFR (CKD-EPI 2020) Glucose Calcium Magnesium Ferritin Total Bilirubin Conjugated Bilirubin AST ALT Alkaline Phosphatase C-Reactive Protein NT-Pro-B Natriuret Pep 4081 H Total Protein Albumin Procalcitonin Urine Color Yellow Urine Clarity Sl Cloudy Urine pH 5.5 Ur Specific [place] 1.010 Urine Protein Negative Urine Ketones Negative Urine Blood Negative Urine Nitrite Negative Urine Bilirubin Negative Urine Urobilinogen 0.2 Ur Leukocyte Esterase Trace H Urine RBC 0-2 Urine WBC 3-5 Ur Epithelial Cells Few Urine Crystals Negative Urine Bacteria Rare Urine Casts 0-2 Fine Granular Urine Mucus Trace Urine Other Few Transitional Ur Culture Indicated? C&S Done As Ordered Urine Glucose Negative Add-On Test Request DONE Patient ABO/Rh Antibody Screen 12/12/22 13:03 WBC RBC Hgb Hct MCV MCH MCHC RDW Plt Count MPV Immature Gran % Neutrophils % Lymphocytes % Monocytes % Eosinophils % Basophils % Nucleated RBC % Absolute Neutrophils Absolute Lymphocytes Absolute Monocytes Absolute Eosinophils Absolute Basophils PT INR APTT D-Dimer Sodium Potassium Chloride Carbon Dioxide Anion Gap BUN Creatinine Est GFR (CKD-EPI 2020) Glucose Calcium Magnesium Ferritin Total Bilirubin Conjugated Bilirubin AST ALT Alkaline Phosphatase C-Reactive Protein NT-Pro-B Natriuret Pep Total Protein Albumin Procalcitonin Urine Color Urine Clarity Urine pH Ur Specific [place] Urine Protein Urine Ketones Urine Blood Urine Nitrite Urine Bilirubin Urine Urobilinogen Ur Leukocyte Esterase Urine RBC Urine WBC Ur Epithelial Cells Urine Crystals Urine Bacteria Urine Casts Urine Mucus Urine Other Ur Culture Indicated? Urine Glucose Add-On Test Request Patient ABO/Rh A Positive Antibody Screen NEGATIVE Objective Narrative Objective Narrative: CT head: No acute intracranial process.? Blood culture 12/09/22: Staph hominis, enterococcus species (from bottles collected from infusaport. Sensitivities pending. Peripheral blood cultures 12/09/22: NGTD Blood cultures 12/11/22: NGTD Time Spent with Patient Time Spent with Patient: 35-49 minutes Time was spent: preparing to see the patient(eg.review tests), obtaining and/or reviewing separately otained hiistory, ordering medications,tests, procedures, referring, communicating with other health animal caretaker, indepentently interpreting results, counseling the patient and care coordination
[2022-12-12 15:27] LABS: HCT 31.5 % (36.0-46.0); HGB 10.4 g/dL (11.2-15.7)
[2022-12-12 15:36] LABS: Ammonia 32 umol/L (11-32)
[2022-12-12] MEDS: VANCOMYCIN/WATER (PEG) 750 MG/150 ML BAG 100 MG IVPB (17:29)
[2022-12-12] MEDS: ALBUMIN HUMAN 25 GM/100 ML BTL IVPB ×2 (18:30→19:19)
[2022-12-12] MEDS: LORazepam 0.5 MG TAB PO (18:48)
[2022-12-12] MEDS: Acetaminophen 325 MG TAB 650 MG PO (18:48)
[2022-12-12 20:04] LABS: C Diff PCR Negative (Negative)
[2022-12-12] MEDS: REMDESIVIR 100 MG in Normal Saline 250 ML 250 MG IVPB (20:04)
[2022-12-12] MEDS: Lidocaine Patch Removal 1 EACH TP ×2 (20:04)
[2022-12-12] MEDS: Zolpidem 5 MG TAB PO (20:16)
[2022-12-12] MEDS: Loperamide 2 MG CAP PO (20:17)
[2022-12-12] MEDS: Lidocaine 2% Jelly 11 ML SYR (20:28)
[2022-12-12 20:31] LABS: PTT Activated 40.1 sec (21.5-31.9)
[2022-12-13] VITALS (98 sets, daily range): BP systolic 61–142; BP diastolic 34–74; PULSE 48–122; RESP 11–32; TEMP 36.5–37.7; O2SAT 90–98
--- NOTE | 2022-12-13 | DI.RAD_ITS ---
Exam(s) XR PORTABLE CHEST AP EXAM: XR PORTABLE CHEST AP CLINICAL HISTORY: Hypoxia TECHNIQUE: 2D digital imaging was performed of the chest. One image was obtained. An AP view was ob tained. COMPARISON: CR,XR XR CHEST 2V PA LATERAL from 11/15/[address] CHEST PE CTA from 12/10/2022 FINDINGS: Exam limited by poor patient inspiration. MEDIASTINUM: Normal. HEART: Cardiomegaly. PULMONARY VASCULATURE: Normal. LUNGS: Bilateral pulmonary opacities are present particularly in the right lobe. PLEURAL SPACE: There is a small left pleural effusion. No right pleural effusion. No pneumothorax. BONE:Within normal limits for the patient's age. OTHER FINDINGS:There is tubing seen overlying the left lower lung field. IMPRESSION: 1. Bilateral pulmonary opacities which may represent pulmonary edema or pneumonia. 2. Masslike opacity in the right upper lobe. This may represent a pneumonia. No mass is seen on thi s area on the CT scan from 3 days prior. Focal consolidation secondary to pneumonia or compressive a telectasis is suspected. 3. Small left pleural effusion. 4. Follow-up chest x-rays to document resolution of the findings is recommended. DATA REPOSITORY: RADIATION DOSE DELIVERED:
[2022-12-13] MEDS: CEFEPIME 2 GM in Normal Saline 100 ML IVPB ×2 (00:56→14:27)
[2022-12-13] MEDS: Normal Saline Flush 10 ML SYR IVP ×4 (01:46→16:58)
[2022-12-13 02:28] LABS: PTT Activated > 155.0 sec (21.5-31.9)
[2022-12-13 05:14] LABS: Abs Immature Grans 0.06 10^3/uL (0.0-0.06); Absolute Basophil Count 0.02 10^3/uL (0.0-0.2); Absolute Eosinophil Count 0.05 10^3/uL (0.0-0.7); Absolute Lymphocyte Count 0.22 10^3/uL (1.2-3.4); Absolute Monocyte Count 0.04 10^3/uL (0.1-0.8); Absolute Neutrophil Count 6.22 10^3/uL (1.2-6.7); Basophils % 0.3; Eosinophils % 0.8; HCT 23.4 % (36.0-46.0); Immature Grans % 0.9; Lymphocytes % 3.3; MCH 30.3 pg (27.0-33.0); MCHC 32.9 % (32.0-36.0); MCV 92 fL (80-95); MPV 10.1 fL (8.0-11.0); Monocytes % 0.6; Neutrophils % 94.1; Platelet Count 140 10^3/uL (130-400); RBC 2.54 10^6/uL (3.93-5.22); RDW 17.6 % (11.7-14.6); RDW-SD 59.1 fL; WBC 6.61 10^3/uL (4.4-10.8)
[2022-12-13 05:26] LABS: HGB 7.7 g/dL (11.2-15.7)
[2022-12-13] MEDS: VANCOMYCIN/WATER (PEG) 750 MG/150 ML BAG 150 MG IVPB ×2 (05:35→18:04)
[2022-12-13] MEDS: Furosemide 20 MG/2 ML VIAL 10 MG IVP (05:43)
[2022-12-13 05:45] LABS: INR 1.7 (0.9-1.1); Prothrombin Time 17.2 sec (9.3-11.0)
[2022-12-13 05:46] LABS: ALT 8 U/L (14-59); AST 22 U/L (15-37); Albumin 2.5 g/dL (3.4-5.0); Alkaline Phosphatase 125 U/L (46-116); Anion Gap 11.9 mmol/L (3-11); BUN 15 mg/dL (7-18); Bilirubin, Direct 0.3 mg/dL (0.0-0.2); Bilirubin, Total 0.7 mg/dL (0.2-1.0); CO2 19.1 mmol/L (21.0-32.0); CREATININE 0.8 mg/dL (0.55-1.02); Calcium 7.9 mg/dL (8.5-10.1); Chloride 106 mmol/L (98-107); Estimated GFR 73.98 (mL/min/1.73m2); Glucose 79 mg/dL (74-106); Magnesium 1.7 mg/dL (1.8-2.4); Potassium 3.5 mmol/L (3.5-5.1); Sodium 137 mmol/L (136-145); Total Protein 4.9 g/dL (6.4-8.2)
--- NOTE | 2022-12-13 05:54 | DI.VRAD_ITS ---
PROCEDURE INFORMATION: Exam: XR Chest Exam date and time: 12/13/2022 5:07 AM Age: 82 years old Clinical indication: Other: Hypoxia TECHNIQUE: Imaging protocol: Radiologic exam of the chest. Views: 1 view. COMPARISON: CR XR CHEST 2V PA LATERAL 11/15/2022 11:52 AM FINDINGS: Limitations: The examination was obtained at low lung volumes. Tubes, catheters and devices: Small catheter is partially visualized overlying the left lower lung zone. Pleural catheter? Catheter outside the patient? Lungs: There is extensive hazy pulmonary opacity and hazy indistinctness of the pulmonary vascular markings. There is masslike opacity in the right upper lung zone adjacent to the upper mediastinum measuring approximately 4.5 cm. Pleural spaces: No right-sided pleural effusion is seen. A small left-sided pleural effusion is suspected.. No pneumothorax is demonstrated. Heart/Mediastinum: The cardiac silhouette is enlarged. There is atherosclerotic calcification at the apex of the aortic arch. Cardiac monitoring leads overlie the exam. Bones/joints: The visualized bony structures appear grossly intact. IMPRESSION: 1. Extensive hazy opacity and hazy indistinctness of the pulmonary vascular markings suspicious for pulmonary edema. 2. Masslike opacity in the right upper lung zone abutting the upper mediastinum measuring approximately 4.5 cm. Focal alveolar pulmonary edema, a region of consolidated pneumonia, or mass could have this appearance. Clinical correlation is recommended. Of note, no mass is seen in this location on the recent CT exam from December 10, 2022. 3. Small left-sided pleural effusion. Dictated and Authenticated by: Indra Welsh MD. Ordering:NASH Zuñiga MD
[2022-12-13 06:09] LABS: PTT Activated 86.2 sec (21.5-31.9)
[2022-12-13 06:18] LABS: D-Dimer 5044 ng/mlFEU (<500)
[2022-12-13] MEDS: Heparin in 0.45% NaCl 25,000 UNIT/250 ML BAG 16 UNIT IV (06:18)
[2022-12-13 08:16] LABS: Lactate 1.6 mmol/L (0.6-1.4)
--- NOTE | 2022-12-13 08:30 | RT.EKG_ITS ---
APPROVED REPORT Exam: Resting ECG Reason for Exam: new Afib Patient Location: I HR:97 bpm ECG Measurements Heart Rate 97 AXIS OR [id number] P [id number] QRSd 98 QRS 7 QT 362 T 148 QTc 460 Conclusion Atrial fibrillation...V-rate 60-142, irreg A-activity Low voltage, extremity leads...all extremity leads <0.5mV Nonspecific T abnormalities, lateral leads...T <-0.10mV, I aVL V5 V6
[2022-12-13 08:43] LABS: Lab Add On Test DONE
[2022-12-13] MEDS: Norepinephrine in D5W 8 MG/250 ML BAG 9.375 MG IV (08:53)
[2022-12-13 09:00] LABS: Troponin I < 50 ng/L (<or=60)
--- NOTE | 2022-12-13 09:14 | PGE_ITS ---
Date of Service Date of service: 12/13/22 Time of Service: 09:14 Assessment and Plan Assessment and plan (1) Shock: Status: Acute Assessment and plan: Multifactorial, due to possibly septic component (has a pneumonia on CXR), hypovolemic/hemorrhagic, possibly cardiogenic, distributive due to hypoalbuminemia. I cannot rule out an acute PE. Tx w/ norepinephrine, blood transfusion, abx, stress dose steroids. Cannot tolerate anticoagulation due to falling hemoglobin, bleeding from the wound/heme + stools, to the point of requiring transfusion today. Keep in the ICU. Monitor BP. (2) Infected venous access port: Status: Acute Assessment and plan: S/p port removal 12/11/22. Heparin gtt d/c'ed due to more bleeding from the excision site and falling hemoglobin. Qualifiers: Encounter type: subsequent encounter Qualified Code(s): T80.219D - Unspecified infection due to central venous catheter, subsequent encounter (3) DVT, bilateral lower limbs: Status: Acute Assessment and plan: Unable to tolerate heparin gtt. Discussed with daughter and the patient together. Decision was made not to go to a tertiary care center for an IVC filter, with the patient understanding that a PE might still be possible with an IVC filter in. I cannot tell if the DVTs happened prior to or since admission. The patient did come in with anemia requiring transfusion with hematest pending (the patient did have a BM overnight, but hematest was not done), and had refused mechanical DVT ppx (TEDs) ordered on this admission, as nursing had documented. She does have metastatic pancreatic cancer and COVID-19, both of which make her hypercoagulable. She has also been immobile. PE ruled out with a negative CTA on 12/10/22. Given hypotension today, it's not impossible that a PE did occur. Qualifiers: Affected thrombotic vein of extremity: unspecified vein of extremity Chronicity: acute Qualified Code(s): I82.403 - Acute embolism and thrombosis of unspecified deep veins of lower extremity, bilateral (4) Gram-positive cocci bacteremia: Status: Acute Assessment and plan: Positive blood cultures collected from the infusaport 12/09/22: Staph hominis and Enterococcus spp. Enterococcus is sensitive to vancomycin. Peripheral cultures w/ NGTD as are the repeat blood cultures. Port removed 12/11/22. Continue vancomcyin/cefepime. Echo w/o evidence of valvular disease. Will probably benefit from an ID consult once all the information is available. Catheter tip cultures were sent too. (5) Heme + stool: Status: Acute Assessment and plan: Switch H2 kirill to a PPI. (6) Fall: Status: Acute Assessment and plan: On 12/12/22. No physical injuries. CT head negative. I do not think that there actually was closed head injury. The patient is on fall precautions and on the camera (to which she consented). Qualifiers: Encounter type: subsequent encounter Qualified Code(s): W19.XXXD - Unspecified fall, subsequent encounter (7) Bilateral pleural effusion: Status: Acute Assessment and plan: Diuretics resumed, but I do not think the patient should get them today. Echo w/ LVEF of 60-65%, RVSP of 35 mmHg. No valvular issues. (8) A-fib: Status: Chronic Assessment and plan: Rates mildly elevated in setting of shock/hypovolemia. MOnitor post-transfusion. Holding cardizem due to BP issues today. (9) COVID-19: Status: Acute Assessment and plan: Continue remdesivir. CXR today does show a 2ndary bacterial pneumonia on CT - on vancomycin/cefepime. Encourage IS/Acapella. Antiemetics/antidiarrheals. PT. Palliative care consulted: the patient would like to continue treatment. (10) GERD (gastroesophageal reflux disease): Status: Chronic Assessment and plan: Changing H2 kirill to a PPI. (11) Pancreatic cancer: Status: Acute Assessment and plan: No longer on chemo. Infusaport taken out. Continue gabapentin. Continue prn oxycodone for cancer related pain. Provide antiemetics/antidiarrheals. F/u w/ Dr Suarez as outpatient if the patient survives this admission. (12) Hiccough: Status: Acute Assessment and plan: Frequently associated with COVID. Could trial baclofen should they recur. (13) Left shoulder pain: Status: Acute Assessment and plan: Continue PRN robaxin (14) Chest pain: Assessment and plan: Noncardiac and likely MSK. Resolved. Continue Lidoderm patch, oxycydone. PE ruled out. (15) Congestive heart failure: Assessment and plan: CHFpEF. Echocardiogram 8/28/23: LVEF of 60-65%. No evidence of valvular disease on repeat echo. 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 Holding off of further diuresis at this time. (16) Abdominal pain: Status: Acute Assessment and plan: in setting of pancreatic cancer. Continue oxycodone. (17) Hypokalemia: Status: Resolved Assessment and plan: Recheck in am. (18) Essential hypertension: Status: Chronic Assessment and plan: Required vasopressors today, so we are holding cardizem. (19) Pulmonary fibrosis: Assessment and plan: Not in acute exacerbation. Encourage pulmonary toilet. (20) Anemia: Status: Chronic Assessment and plan: Acute on chronic, worse, requiring 2 units pRBCs today. In setting of bleeding from the port removal site but also Heme + stools. Anticoagulation stopped. Monitor H/H. (21) Encephalopathy acute: Status: Acute Assessment and plan: ?Due to COVID-19 vs bacterial disease. Metastatic disease to the brain is also a possibility. No evidence of head trauma, CT head negative. UA negative, ammonia wnl. Monitor mental status. 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 Not tolerating anticoagulation. As above (23) Discharge planning issues: Status: Acute Assessment and plan: DNR/DNI. Transferred to the ICU. The patient and daughter elected against an IVC filter placement. The patient would like to continue medical management of her condition for now - ok with antibiotics, pressors, transfusions for now. Total Critical Care Time spent on care for patient is 100 minutes. Subjective Subjective Interval history since last seen: Ms Burger is hypotensive this morning. Her Hgb is down to 7.7. She denies dizziness, CP, SOB, n/v. Her L shoulder is painful. Her heparin gtt appears to have been stopped around 2:30 am. Started to desaturate to 87% on RA overnight and was placed on supplemental She had evidence of pulmonary edema on CXR and received 10 mg of IV furosemide. Since then the BPs have been getting lower, to the point that her BP this morning is 61/49. Went into rapid Afib with HR up to 160 briefly, has remained in 110s-130s. Had a BM. Heme +, C.diff negative. Bleeding through the dressing has stopped. Sarita and Eliza were on speaker phone when I was in the room, explaining the situation - that the heparin gtt had to be stopped, that there is a possibility of getting an [place] [facility] [place] if [place] what [place], but that it would still permit for some PEs to happen and that it is possible she already had a PE, given her new hypotension. We discussed the alternative of staying in the hospital and going on comfort measures. Eliza is on her way to the hospital to have this discussion with Ms Burger in person. She is expected to receive 2 units pRBCs and is now initiated on norepinephrine. I have also written for stress dose steroids. I discussed the findings of CXR with Dr Washington, who does not think that there is evidence of bleeding into mediastinum. Sarita is now formally transferred to the ICU. Exam Narrative Exam Narrative: General: tired appearing elderly female who is resting comfortably in bed, arousable to voice, A&Ox2, slightly confused, but is able to participate in the conversation, but is having difficulty phrasing questions this morning. She is on 0.5 L of O2 by NC. No dyspnea/tachypnea/cyanosis. Looks pale. HEENT: EOMI, MMM Heart: irregularly irregular rhythm, tachycardic, no m/r/g Lungs: Diminished breath sounds anteriorly Abdomen: soft, nontender,, nondistended Extremities: 1+ BLE edema, no c/c, 1+ pedal pulses B Objective Last Vital Signs Temp 37.2 C 12/13/22 07:41 Pulse 68 12/13/22 08:20 Resp 19 12/13/22 08:20 BP 73/34 L 12/13/22 08:20 Pulse Ox 94 12/13/22 07:45 Laboratory Results - last 24 hr 12/12/22 12/12/22 12/12/22 10:45 13:03 15:20 WBC RBC Hgb Hct MCV MCH MCHC RDW Plt Count MPV Immature Gran % Neutrophils % Lymphocytes % Monocytes % Eosinophils % Basophils % Nucleated RBC % Absolute Neutrophils Absolute Lymphocytes Absolute Monocytes Absolute Eosinophils Absolute Basophils PT INR APTT 97.0 H* D-Dimer VBG Lactate Sodium Potassium Chloride Carbon Dioxide Anion Gap BUN Creatinine Est GFR (CKD-EPI 2020) Glucose Calcium Magnesium Total Bilirubin Conjugated Bilirubin AST ALT Alkaline Phosphatase Ammonia Troponin I C-Reactive Protein Total Protein Albumin Urine Color Yellow Urine Clarity Sl Cloudy Urine pH 5.5 Ur Specific [place] 1.010 Urine Protein Negative Urine Ketones Negative Urine Blood Negative Urine Nitrite Negative Urine Bilirubin Negative Urine Urobilinogen 0.2 Ur Leukocyte Esterase Trace H Urine RBC 0-2 Urine WBC 3-5 Ur Epithelial Cells Few Urine Crystals Negative Urine Bacteria Rare Urine Casts 0-2 Fine Granular Urine Mucus Trace Urine Other Few Transitional Ur Culture Indicated? C&S Done As Ordered Urine Glucose Negative Stl C.difficile Tox PCR Add-On Test Request Patient ABO/Rh A Positive Antibody Screen NEGATIVE 12/12/22 12/12/22 12/12/22 15:20 15:20 19:10 WBC RBC Hgb 10.4 L Hct 31.5 L MCV MCH MCHC RDW Plt Count MPV Immature Gran % Neutrophils % Lymphocytes % Monocytes % Eosinophils % Basophils % Nucleated RBC % Absolute Neutrophils Absolute Lymphocytes Absolute Monocytes Absolute Eosinophils Absolute Basophils PT INR APTT D-Dimer VBG Lactate Sodium Potassium Chloride Carbon Dioxide Anion Gap BUN Creatinine Est GFR (CKD-EPI 2020) Glucose Calcium Magnesium Total Bilirubin Conjugated Bilirubin AST ALT Alkaline Phosphatase Ammonia 32 Troponin I C-Reactive Protein Total Protein Albumin Urine Color Urine Clarity Urine pH Ur Specific [place] Urine Protein Urine Ketones Urine Blood Urine Nitrite Urine Bilirubin Urine Urobilinogen Ur Leukocyte Esterase Urine RBC Urine WBC Ur Epithelial Cells Urine Crystals Urine Bacteria Urine Casts Urine Mucus Urine Other Ur Culture Indicated? Urine Glucose Stl C.difficile Tox PCR Negative Add-On Test Request Patient ABO/Rh Antibody Screen 12/12/22 12/13/22 12/13/22 19:45 01:45 04:36 WBC RBC Hgb Hct MCV MCH MCHC RDW Plt Count MPV Immature Gran % Neutrophils % Lymphocytes % Monocytes % Eosinophils % Basophils % Nucleated RBC % Absolute Neutrophils Absolute Lymphocytes Absolute Monocytes Absolute Eosinophils Absolute Basophils PT INR APTT 40.1 H > 155.0 H* Cancelled D-Dimer VBG Lactate Sodium Potassium Chloride Carbon Dioxide Anion Gap BUN Creatinine Est GFR (CKD-EPI 2020) Glucose Calcium Magnesium Total Bilirubin Conjugated Bilirubin AST ALT Alkaline Phosphatase Ammonia Troponin I C-Reactive Protein Total Protein Albumin Urine Color Urine Clarity Urine pH Ur Specific [place] Urine Protein Urine Ketones Urine Blood Urine Nitrite Urine Bilirubin Urine Urobilinogen Ur Leukocyte Esterase Urine RBC Urine WBC Ur Epithelial Cells Urine Crystals Urine Bacteria Urine Casts Urine Mucus Urine Other Ur Culture Indicated? Urine Glucose Stl C.difficile Tox PCR Add-On Test Request Patient ABO/Rh Antibody Screen 12/13/22 12/13/22 12/13/22 04:50 04:50 04:50 WBC 6.61 RBC 2.54 L Hgb 7.7 L D Hct 23.4 L MCV 92 MCH 30.3 MCHC 32.9 RDW 17.6 H Plt Count 140 MPV 10.1 Immature Gran % 0.9 Neutrophils % 94.1 Lymphocytes % 3.3 Monocytes % 0.6 Eosinophils % 0.8 Basophils % 0.3 Nucleated RBC % 0.0 Absolute Neutrophils 6.22 Absolute Lymphocytes 0.22 L Absolute Monocytes 0.04 L Absolute Eosinophils 0.05 Absolute Basophils 0.02 PT 17.2 H INR 1.7 H APTT D-Dimer 5044 H VBG Lactate Sodium 137 Potassium 3.5 Chloride 106 Carbon Dioxide 19.1 L Anion Gap 11.9 H BUN 15 Creatinine 0.8 Est GFR (CKD-EPI 2020) 73.98 Glucose 79 Calcium 7.9 L Magnesium 1.7 L Total Bilirubin 0.7 Conjugated Bilirubin 0.3 H AST 22 ALT 8 L Alkaline Phosphatase 125 H Ammonia Troponin I C-Reactive Protein 10.80 H Total Protein 4.9 L Albumin 2.5 L Urine Color Urine Clarity Urine pH Ur Specific [place] Urine Protein Urine Ketones Urine Blood Urine Nitrite Urine Bilirubin Urine Urobilinogen Ur Leukocyte Esterase Urine RBC Urine WBC Ur Epithelial Cells Urine Crystals Urine Bacteria Urine Casts Urine Mucus Urine Other Ur Culture Indicated? Urine Glucose Stl C.difficile Tox PCR Add-On Test Request Patient ABO/Rh Antibody Screen 12/13/22 12/13/22 12/13/22 04:50 04:50 04:50 WBC RBC Hgb Hct MCV MCH MCHC RDW Plt Count MPV Immature Gran % Neutrophils % Lymphocytes % Monocytes % Eosinophils % Basophils % Nucleated RBC % Absolute Neutrophils Absolute Lymphocytes Absolute Monocytes Absolute Eosinophils Absolute Basophils PT INR APTT 86.2 H* D-Dimer VBG Lactate Sodium Potassium Chloride Carbon Dioxide Anion Gap BUN Creatinine Est GFR (CKD-EPI 2020) Glucose Calcium Magnesium Total Bilirubin Conjugated Bilirubin AST ALT Alkaline Phosphatase Ammonia Troponin I < 50 C-Reactive Protein Total Protein Albumin Urine Color Urine Clarity Urine pH Ur Specific [place] Urine Protein Urine Ketones Urine Blood Urine Nitrite Urine Bilirubin Urine Urobilinogen Ur Leukocyte Esterase Urine RBC Urine WBC Ur Epithelial Cells Urine Crystals Urine Bacteria Urine Casts Urine Mucus Urine Other Ur Culture Indicated? Urine Glucose Stl C.difficile Tox PCR Add-On Test Request DONE Patient ABO/Rh Antibody Screen 12/13/22 08:10 WBC RBC Hgb Hct MCV MCH MCHC RDW Plt Count MPV Immature Gran % Neutrophils % Lymphocytes % Monocytes % Eosinophils % Basophils % Nucleated RBC % Absolute Neutrophils Absolute Lymphocytes Absolute Monocytes Absolute Eosinophils Absolute Basophils PT INR APTT D-Dimer VBG Lactate 1.6 H Sodium Potassium Chloride Carbon Dioxide Anion Gap BUN Creatinine Est GFR (CKD-EPI 2020) Glucose Calcium Magnesium Total Bilirubin Conjugated Bilirubin AST ALT Alkaline Phosphatase Ammonia Troponin I C-Reactive Protein Total Protein Albumin Urine Color Urine Clarity Urine pH Ur Specific [place] Urine Protein Urine Ketones Urine Blood Urine Nitrite Urine Bilirubin Urine Urobilinogen Ur Leukocyte Esterase Urine RBC Urine WBC Ur Epithelial Cells Urine Crystals Urine Bacteria Urine Casts Urine Mucus Urine Other Ur Culture Indicated? Urine Glucose Stl C.difficile Tox PCR Add-On Test Request Patient ABO/Rh Antibody Screen Objective Narrative Objective Narrative: CXR: 1. Bilateral pulmonary opacities which may represent pulmonary edema or pneumonia. 2. Masslike opacity in the right upper lobe.? This may represent a pneumonia.? No mass is seen on this area on the CT scan from 3 days prior.? Focal consolidation secondary to pneumonia or compressive atelectasis is suspected. 3. Small left pleural effusion. EKG: Afib, HR 97, Nonspecific ST-T changes Time Spent with Patient Time Spent with Patient: >50 minutes Time was spent: preparing to see the patient(eg.review tests), obtaining and/or reviewing separately otained hiistory, ordering medications,tests, procedures, referring, communicating with other health healthcare liaison, indepentently interpreting results, counseling the patient and care coordination
[2022-12-13] MEDS: MAGNESIUM SULFATE 2 GM/50 ML BAG IVPB (09:15)
[2022-12-13] MEDS: Hydrocortisone SOD SUC. 100 MG VIAL IVP (09:20)
[2022-12-13] MEDS: MORPHine 4 MG/ML SYR IVP (10:07)
--- NOTE | 2022-12-13 10:40 | W.PM.PROGNOT ---
Date of Service Date of service: 12/13/22 Time of Service: 10:40 Assessment and Plan Assessment and plan (1) Hypotension: Status: Acute Assessment and plan: Multifactorial due to blood loss from the blood thinners, and patient was aggressively diuresed last p.m. The blood thinners are off and patient is receiving blood. She also has had a recent NSTEMI and drug-induced cardiomyopathy so there is probably some degree of cardiogenic involvement she also has COVID-19 she also has grade positive bacteremia due to the infected port so there may be degree component of sepsis. -She is also receiving albumin to try to pull some of the fluid intravascular. She has pretty significant protein calorie malnutrition. -Unfortunately at this time patient is actively dying. She does have COVID-19. She has had a recent NSTEMI and chemo-induced cardiomyopathy. She has multiple thrombosis from cancer induced hypercoagulation. She is very weak and malnourished/cancer cachexia. She has had significant problems with dysphagia and nutrition has been challenging. She has recurrent metastatic pancreatic cancer with mets to the liver and cancer associated pain. She has hypotension and respiratory failure. The patient is a DNR and DNI at this time. She is receiving blood and blood pressure is being maintained on her epi. Her daughter is with her currently. I did discuss the case with nursing and with Dr. Garg. 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 (5) Infected venous access port: Status: Acute Assessment and plan: s/p removal no active bleeding Qualifiers: Encounter type: subsequent encounter Qualified Code(s): T80.219D - Unspecified infection due to central venous catheter, subsequent encounter (6) Dysphagia: Status: Acute (7) A-fib: Status: Chronic (8) Renal cell cancer: Status: Acute (9) Malignant neoplasm of pancreas metastatic to liver: Status: Acute (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 (11) Hiatal hernia: Status: Chronic (12) Protein-calorie malnutrition, mild: Status: Acute (13) Gram-positive cocci bacteremia: Status: Acute (14) Bilateral pleural effusion: Status: Acute (15) DVT, bilateral lower limbs: Status: Acute Qualifiers: Affected thrombotic vein of extremity: unspecified vein of extremity Chronicity: acute Qualified Code(s): I82.403 - Acute embolism and thrombosis of unspecified deep veins of lower extremity, bilateral (16) COVID-19: Status: Acute (17) Anemia: Status: Chronic (18) GERD (gastroesophageal reflux disease): Status: Chronic (19) Palliative care patient: (20) Essential hypertension: Status: Chronic (21) Pancreatic cancer: Status: Acute Subjective Subjective Interval history since last seen: Patient's heparin has been off since approximately 2:30 AM. Her hemoglobin is down to 7. She has been experiencing hypotension and confusion. Chest x-ray does not show any signs of bleeding into the chest. There is are some changes consistent with operative changes from port removal. But no signs of active bleeding. It does show signs pulmonary edema/fluid overload. the surgical site does not show any active bleeding. Objective Last Vital Signs Temp 37.1 C 12/13/22 10:09 Pulse 72 12/13/22 10:16 Resp 18 12/13/22 10:16 BP 89/58 L 12/13/22 10:16 Pulse Ox 96 12/13/22 10:16 Laboratory Results - last 24 hr 12/12/22 12/12/22 12/12/22 10:45 13:03 15:20 WBC RBC Hgb Hct MCV MCH MCHC RDW Plt Count MPV Immature Gran % Neutrophils % Lymphocytes % Monocytes % Eosinophils % Basophils % Nucleated RBC % Absolute Neutrophils Absolute Lymphocytes Absolute Monocytes Absolute Eosinophils Absolute Basophils PT INR APTT 97.0 H* D-Dimer VBG Lactate Sodium Potassium Chloride Carbon Dioxide Anion Gap BUN Creatinine Est GFR (CKD-EPI 2020) Glucose Calcium Magnesium Total Bilirubin Conjugated Bilirubin AST ALT Alkaline Phosphatase Ammonia Troponin I C-Reactive Protein Total Protein Albumin Urine Color Yellow Urine Clarity Sl Cloudy Urine pH 5.5 Ur Specific [place] 1.010 Urine Protein Negative Urine Ketones Negative Urine Blood Negative Urine Nitrite Negative Urine Bilirubin Negative Urine Urobilinogen 0.2 Ur Leukocyte Esterase Trace H Urine RBC 0-2 Urine WBC 3-5 Ur Epithelial Cells Few Urine Crystals Negative Urine Bacteria Rare Urine Casts 0-2 Fine Granular Urine Mucus Trace Urine Other Few Transitional Ur Culture Indicated? C&S Done As Ordered Urine Glucose Negative Stl C.difficile Tox PCR Add-On Test Request Patient ABO/Rh A Positive Antibody Screen NEGATIVE Crossmatch See Detail 12/12/22 12/12/22 12/12/22 15:20 15:20 19:10 WBC RBC Hgb 10.4 L Hct 31.5 L MCV MCH MCHC RDW Plt Count MPV Immature Gran % Neutrophils % Lymphocytes % Monocytes % Eosinophils % Basophils % Nucleated RBC % Absolute Neutrophils Absolute Lymphocytes Absolute Monocytes Absolute Eosinophils Absolute Basophils PT INR APTT D-Dimer VBG Lactate Sodium Potassium Chloride Carbon Dioxide Anion Gap BUN Creatinine Est GFR (CKD-EPI 2020) Glucose Calcium Magnesium Total Bilirubin Conjugated Bilirubin AST ALT Alkaline Phosphatase Ammonia 32 Troponin I C-Reactive Protein Total Protein Albumin Urine Color Urine Clarity Urine pH Ur Specific [place] Urine Protein Urine Ketones Urine Blood Urine Nitrite Urine Bilirubin Urine Urobilinogen Ur Leukocyte Esterase Urine RBC Urine WBC Ur Epithelial Cells Urine Crystals Urine Bacteria Urine Casts Urine Mucus Urine Other Ur Culture Indicated? Urine Glucose Stl C.difficile Tox PCR Negative Add-On Test Request Patient ABO/Rh Antibody Screen Crossmatch 12/12/22 12/13/22 12/13/22 19:45 01:45 04:36 WBC RBC Hgb Hct MCV MCH MCHC RDW Plt Count MPV Immature Gran % Neutrophils % Lymphocytes % Monocytes % Eosinophils % Basophils % Nucleated RBC % Absolute Neutrophils Absolute Lymphocytes Absolute Monocytes Absolute Eosinophils Absolute Basophils PT INR APTT 40.1 H > 155.0 H* Cancelled D-Dimer VBG Lactate Sodium Potassium Chloride Carbon Dioxide Anion Gap BUN Creatinine Est GFR (CKD-EPI 2020) Glucose Calcium Magnesium Total Bilirubin Conjugated Bilirubin AST ALT Alkaline Phosphatase Ammonia Troponin I C-Reactive Protein Total Protein Albumin Urine Color Urine Clarity Urine pH Ur Specific [place] Urine Protein Urine Ketones Urine Blood Urine Nitrite Urine Bilirubin Urine Urobilinogen Ur Leukocyte Esterase Urine RBC Urine WBC Ur Epithelial Cells Urine Crystals Urine Bacteria Urine Casts Urine Mucus Urine Other Ur Culture Indicated? Urine Glucose Stl C.difficile Tox PCR Add-On Test Request Patient ABO/Rh Antibody Screen Crossmatch 12/13/22 12/13/22 12/13/22 04:50 04:50 04:50 WBC 6.61 RBC 2.54 L Hgb 7.7 L D Hct 23.4 L MCV 92 MCH 30.3 MCHC 32.9 RDW 17.6 H Plt Count 140 MPV 10.1 Immature Gran % 0.9 Neutrophils % 94.1 Lymphocytes % 3.3 Monocytes % 0.6 Eosinophils % 0.8 Basophils % 0.3 Nucleated RBC % 0.0 Absolute Neutrophils 6.22 Absolute Lymphocytes 0.22 L Absolute Monocytes 0.04 L Absolute Eosinophils 0.05 Absolute Basophils 0.02 PT 17.2 H INR 1.7 H APTT D-Dimer 5044 H VBG Lactate Sodium 137 Potassium 3.5 Chloride 106 Carbon Dioxide 19.1 L Anion Gap 11.9 H BUN 15 Creatinine 0.8 Est GFR (CKD-EPI 2020) 73.98 Glucose 79 Calcium 7.9 L Magnesium 1.7 L Total Bilirubin 0.7 Conjugated Bilirubin 0.3 H AST 22 ALT 8 L Alkaline Phosphatase 125 H Ammonia Troponin I C-Reactive Protein 10.80 H Total Protein 4.9 L Albumin 2.5 L Urine Color Urine Clarity Urine pH Ur Specific [place] Urine Protein Urine Ketones Urine Blood Urine Nitrite Urine Bilirubin Urine Urobilinogen Ur Leukocyte Esterase Urine RBC Urine WBC Ur Epithelial Cells Urine Crystals Urine Bacteria Urine Casts Urine Mucus Urine Other Ur Culture Indicated? Urine Glucose Stl C.difficile Tox PCR Add-On Test Request Patient ABO/Rh Antibody Screen Crossmatch 12/13/22 12/13/22 12/13/22 04:50 04:50 04:50 WBC RBC Hgb Hct MCV MCH MCHC RDW Plt Count MPV Immature Gran % Neutrophils % Lymphocytes % Monocytes % Eosinophils % Basophils % Nucleated RBC % Absolute Neutrophils Absolute Lymphocytes Absolute Monocytes Absolute Eosinophils Absolute Basophils PT INR APTT 86.2 H* D-Dimer VBG Lactate Sodium Potassium Chloride Carbon Dioxide Anion Gap BUN Creatinine Est GFR (CKD-EPI 2020) Glucose Calcium Magnesium Total Bilirubin Conjugated Bilirubin AST ALT Alkaline Phosphatase Ammonia Troponin I < 50 C-Reactive Protein Total Protein Albumin Urine Color Urine Clarity Urine pH Ur Specific [place] Urine Protein Urine Ketones Urine Blood Urine Nitrite Urine Bilirubin Urine Urobilinogen Ur Leukocyte Esterase Urine RBC Urine WBC Ur Epithelial Cells Urine Crystals Urine Bacteria Urine Casts Urine Mucus Urine Other Ur Culture Indicated? Urine Glucose Stl C.difficile Tox PCR Add-On Test Request DONE Patient ABO/Rh Antibody Screen Crossmatch 12/13/22 08:10 WBC RBC Hgb Hct MCV MCH MCHC RDW Plt Count MPV Immature Gran % Neutrophils % Lymphocytes % Monocytes % Eosinophils % Basophils % Nucleated RBC % Absolute Neutrophils Absolute Lymphocytes Absolute Monocytes Absolute Eosinophils Absolute Basophils PT INR APTT D-Dimer VBG Lactate 1.6 H Sodium Potassium Chloride Carbon Dioxide Anion Gap BUN Creatinine Est GFR (CKD-EPI 2020) Glucose Calcium Magnesium Total Bilirubin Conjugated Bilirubin AST ALT Alkaline Phosphatase Ammonia Troponin I C-Reactive Protein Total Protein Albumin Urine Color Urine Clarity Urine pH Ur Specific [place] Urine Protein Urine Ketones Urine Blood Urine Nitrite Urine Bilirubin Urine Urobilinogen Ur Leukocyte Esterase Urine RBC Urine WBC Ur Epithelial Cells Urine Crystals Urine Bacteria Urine Casts Urine Mucus Urine Other Ur Culture Indicated? Urine Glucose Stl C.difficile Tox PCR Add-On Test Request Patient ABO/Rh Antibody Screen Crossmatch Time Spent with Patient Time Spent with Patient: >50 minutes Time was spent: preparing to see the patient(eg.review tests), ordering medications,tests, procedures, referring, communicating with other health sub acute care nurse, indepentently interpreting results and care coordination
[2022-12-13] MEDS: Lidocaine 5% Patch 1 PATCH TP ×2 (10:42→10:43)
[2022-12-13] MEDS: Hydrocortisone SOD SUC. 100 MG VIAL 50 MG IVP ×2 (14:18→19:52)
[2022-12-13] MEDS: Pantoprazole 40 MG VIAL IVP (16:58)
[2022-12-13] MEDS: guaiFENesin/D-METHORPHAN HB 5 ML CUP PO (16:59)
[2022-12-13] MEDS: Benzonatate 100 MG CAP PO (16:59)
[2022-12-13] MEDS: Lidocaine Patch Removal 1 EACH TP ×2 (19:52)
[2022-12-13] MEDS: REMDESIVIR 100 MG in Normal Saline 250 ML 250 MG IVPB (19:53)
[2022-12-14] VITALS (77 sets, daily range): BP systolic 88–146; BP diastolic 41–94; PULSE 44–100; RESP 0–28; TEMP 36.5–36.9; O2SAT 86–97
[2022-12-14] MEDS: CEFEPIME 2 GM in Normal Saline 100 ML IVPB ×2 (02:40→13:26)
[2022-12-14] MEDS: Pantoprazole 40 MG VIAL IVP ×2 (02:40→20:50)
[2022-12-14] MEDS: Hydrocortisone SOD SUC. 100 MG VIAL 50 MG IVP ×3 (02:40→13:32)
[2022-12-14] MEDS: VANCOMYCIN/WATER (PEG) 750 MG/150 ML BAG 150 MG IVPB ×2 (05:00→20:50)
[2022-12-14 05:50] LABS: Abs Immature Grans 0.53 10^3/uL (0.0-0.06); Absolute Basophil Count 0.11 10^3/uL (0.0-0.2); Basophils % 0.4; Eosinophils % 0.2; HCT 35.3 % (36.0-46.0); Lymphocytes % 3.5; MCH 29.1 pg (27.0-33.0); MCV 86 fL (80-95); MPV 9.6 fL (8.0-11.0); Monocytes % 1.8; Neutrophils % 92.1; Platelet Count 203 10^3/uL (130-400); RBC 4.12 10^6/uL (3.93-5.22); RDW 18.8 % (11.7-14.6); RDW-SD 58.2 fL
[2022-12-14 06:14] LABS: Absolute Eosinophil Count 0.05 10^3/uL (0.0-0.7); Absolute Lymphocyte Count 0.92 10^3/uL (1.2-3.4); Absolute Monocyte Count 0.48 10^3/uL (0.1-0.8); Absolute Neutrophil Count 24.32 10^3/uL (1.2-6.7); WBC 26.41 10^3/uL (4.4-10.8)
[2022-12-14 06:32] LABS: INR 1.5 (0.9-1.1); Prothrombin Time 15.4 sec (9.3-11.0)
[2022-12-14 06:33] LABS: D-Dimer 2851 ng/mlFEU (<500); Procalcitonin 5.2 ng/mL
--- NOTE | 2022-12-14 06:48 | W.PULMCC ---
General Date of Service Date of service: 12/14/22 Time of Service: 06:49 Reason for Admission to ICU: Hypotension Recommendations I&O: Intake & Output 12/11/22 12/12/22 12/13/22 12/14/22 23:59 23:59 23:59 23:59 Intake Total 1677.916 / 2383.037 7078.416 / 3077.416 1534.053 / 1534.053 250 / 250 Output Total 1450 / 1450 1850 / 1850 1575 / 1575 450 / 450 Balance 227.916 / 171.101 6595.416 / 1227.416 -40.947 / -40.947 -200 / -200 Weight 70.1 kg Date of Last Bowel Movement: 12/13/22 Code Status: Resuscitation Status DNR/DNI Subjective Critical and life-threatening events over the past 24 hours: This is an 82 yo with metastatic pancreatic cancer admitted to [facility] on 11/13/22 for CHF and chest pains. She had a recent cath with no obstructing lesions completed at [facility]. She has been found to have COVID, gram positive bacteremia (s/p port removal), bilateral DVT and is now admitted to the ICU for shock. This is thought to be somewhat septic, possibly cardiogenic or hypovolemic in nature. She is being treated with levophed, blood transfusions, antibiotics and stress dose steroids. Despite bilateral DVT she is not receiving heparin due to a falling hemoglobin. Exam Narrative Exam Narrative: Gen: NAD, normal respiratory effort, well-nourished HENT: PERRL, nasal turbinates normal without erythema or inflammation, moist oral mucosa, Mallampati 2, No LAD or JVD Chest: No respiratory distress, normal appearance of chest, clear to auscultation bilaterally, no crackles or wheezes, normal inspiratory effort Heart: regular rate and rhythym, no murmurs, rubs or gallops Abdomen: Non-distended, soft, non tender Extremities: No clubbing, edema, cyanosis, rashes Neuro: AAOx3 , non focal Psych: cooperative, appropriate mental affect Most Recent VS/Results Last Vital Signs Temp 36.9 C 12/14/22 03:00 Pulse 59 L 12/14/22 06:02 Resp 14 12/14/22 06:02 BP 132/59 L 12/14/22 06:02 Pulse Ox 94 12/14/22 06:02 Laboratory Results - last 24 hr 12/12/22 12/13/22 12/13/22 13:03 04:50 04:50 D-Dimer VBG Lactate Troponin I < 50 Procalcitonin Add-On Test Request DONE Patient ABO/Rh A Positive Antibody Screen NEGATIVE Crossmatch See Detail 12/13/22 12/14/22 12/14/22 08:10 05:20 05:20 D-Dimer 2851 H VBG Lactate 1.6 H Troponin I Procalcitonin 5.2 Add-On Test Request Patient ABO/Rh Antibody Screen Crossmatch Review of Systems All systems reviewed & are unremarkable except as noted in HPI and below
[2022-12-14 06:50] LABS: Anion Gap 14.2 mmol/L (3-11); BUN 19 mg/dL (7-18); C-Reactive Protein 15.08 mg/dL (0.0-0.3); CO2 17.8 mmol/L (21.0-32.0); CREATININE 0.8 mg/dL (0.55-1.02); Chloride 106 mmol/L (98-107); Estimated GFR 73.98 (mL/min/1.73m2); Ferritin 1665 ng/mL (8-252); Glucose 139 mg/dL (74-106); Magnesium 2.2 mg/dL (1.8-2.4); Potassium 3.3 mmol/L (3.5-5.1); Sodium 138 mmol/L (136-145)
[2022-12-14 07:19] LABS: Burr Cells (echinocyte) 2+; Diff Comment Diff Reviewed
--- NOTE | 2022-12-14 08:16 | OT.INDS ---
Occupational Therapy Notes 12/14/22 Pt recently had a decline in her medical status which required transition to the ICU. D/t this OT will need a new referral for skilled Occupational Therapy services if MD feels that services are appropriate at this time. Mariia Lopez, OTR/L
--- NOTE | 2022-12-14 09:10 | W.PALPGNOTE ---
Date of service: 12/14/22 Time of Service: 07:00 Assessment and Plan Assessment and plan (1) Malignant neoplasm of pancreas metastatic to liver: Status: Acute (2) Drug-induced cardiomyopathy: Status: Acute (3) Septic shock: Status: Acute (4) Encephalopathy acute: Status: Acute Assessment and plan: Spoke with Eliza. Questions about transfer to [facility] [place] [facility] [place]. Daughter declined this. We discussed comfort care. Will try to get with both Eliza and Sarita and discuss the plan. Sarita has told me that Eliza should make all decisions and trusts her to make good decisions. Spoke with Dr Hicks. Sarita is still interested in pursuing treatment. She was clear(although repeated herself regularly) that she was better, didn't really know how to be this sick and is hoping to continue to improve. She said multiple times that she needs to know what is causing her illness. She is convinced that COVID has tipped her over the scales. She is not interested in discussing her metastatic pancreatic cancer. At 1 point she became upset with me for wanting to discuss her goals of care. Within the next few sentences she was very thankful that I cared enough to come to visit her. Addendum I spent nearly 45 minutes with this still in the morning. I did come back in the afternoon when Eliza was in the room. At that time Sarita's breathing had changed. Uncertain if she was sleeping heavily versus having more work of breathing although her O2 sat stayed at 95%. She did have a few seconds of apnea. She had a very furloughed brow towards the end of our conversation. Sarita looks like she is moving into actively dying. She has such a hard time coming to the conclusion that she is dying and keeps wanting something to be wrong that can be fixed. The deck is stacking up against her. Eliza would like to talk with her mom to determine how her mom feels about going on comfort care. I have had 3 such conversations and they do not go well. I do not know if is still is actually capable of choosing this. She is a very very strong woman and has had control her whole life. Unfortunately many times we do not have control over our dying and . Again I communicated with Dr. Hicks about our conversations. Together we went through some of her medications such as vitamin C, calcium, etc. and stopped nonessential medications. She is not taking p.o. so she was not getting them anyways. Subjective Subjective Interval history since last seen: I am meeting with is still in the ICU. She has had a very busy weekend. She had a GI bleed was on blood thinners, got blood transfusions, became hypoxic and had very low blood pressure. She is now on an epi drip. She states she feels much better than she did over the weekend. She is in hopes that she improves and can get out of the ICU. Exam Narrative Exam Narrative: Very sick 82-year-old woman cachectic, hardly able to lift her head off the pillow. She is edematous. Her heart was regular. I did watch the monitors during our conversation and her blood pressure was maintained at the upper limits of normal. She had the nasal cannula, only 1 prong in her nose, and her O2 sats were 95 to 97% despite long conversations. Objective Last Vital Signs Temp 98.4 F 12/14/22 03:00 Pulse 66 12/14/22 07:31 Resp 21 12/14/22 07:31 BP 124/94 H 12/14/22 07:31 Pulse Ox 93 12/14/22 08:34 Laboratory Results - last 24 hr 12/12/22 12/13/22 12/14/22 13:03 04:50 05:20 WBC RBC Hgb Hct MCV MCH MCHC RDW Plt Count MPV Immature Gran % Neutrophils % Lymphocytes % Monocytes % Eosinophils % Basophils % Nucleated RBC % Absolute Neutrophils Absolute Lymphocytes Absolute Monocytes Absolute Eosinophils Absolute Basophils RBC Morphology Noel Cells/Echinocytes PT INR D-Dimer Sodium 138 Potassium 3.3 L Chloride 106 Carbon Dioxide 17.8 L Anion Gap 14.2 H BUN 19 H Creatinine 0.8 Est GFR (CKD-EPI 2020) 73.98 Glucose 139 H Calcium 8.0 L Magnesium 2.2 Ferritin 1665 H Troponin I < 50 C-Reactive Protein 15.08 H Procalcitonin Patient ABO/Rh A Positive Antibody Screen NEGATIVE Crossmatch See Detail 12/14/22 12/14/22 12/14/22 05:20 05:20 05:20 WBC 26.41 H* RBC 4.12 Hgb 12.0 D Hct 35.3 L MCV 86 D MCH 29.1 MCHC 34.0 RDW 18.8 H Plt Count 203 MPV 9.6 Immature Gran % 2.0 Neutrophils % 92.1 Lymphocytes % 3.5 Monocytes % 1.8 Eosinophils % 0.2 Basophils % 0.4 Nucleated RBC % 0.0 Absolute Neutrophils 24.32 H Absolute Lymphocytes 0.92 L Absolute Monocytes 0.48 Absolute Eosinophils 0.05 Absolute Basophils 0.11 RBC Morphology See Below Neol Cells/Echinocytes 2+ PT 15.4 H INR 1.5 H D-Dimer 2851 H Sodium Potassium Chloride Carbon Dioxide Anion Gap BUN Creatinine Est GFR (CKD-EPI 2020) Glucose Calcium Magnesium Ferritin Troponin I C-Reactive Protein Procalcitonin 5.2 Patient ABO/Rh Antibody Screen Crossmatch
[2022-12-14] MEDS: Protein Nutritional Supplement 16 GM 1 OUNCE PACKET PO ×2 (09:14→13:30)
[2022-12-14] MEDS: Lidocaine 5% Patch 1 PATCH TP ×2 (09:15→09:16)
[2022-12-14] MEDS: guaiFENesin 600 MG TABCR PO (09:17)
[2022-12-14] MEDS: Gabapentin 300 MG CAP PO ×2 (09:17→13:31)
[2022-12-14] MEDS: Midodrine 2.5 MG TAB 10 MG PO ×2 (09:17→13:30)
[2022-12-14] MEDS: Benzonatate 100 MG CAP PO ×2 (09:17→13:31)
[2022-12-14] MEDS: Normal Saline Flush 10 ML SYR IVP ×4 (09:19→20:51)
[2022-12-14] MEDS: Cholecalciferol (Vitamin D3) 1,000 UNIT TAB 2000 UNITS PO (09:27)
[2022-12-14] MEDS: Magnesium Chloride 64 MG TABCR PO (09:28)
[2022-12-14] MEDS: Ascorbic Acid 500 MG TAB PO (09:28)
[2022-12-14] MEDS: Zinc Sulfate 220 MG TAB PO (09:29)
--- NOTE | 2022-12-14 10:14 | PDOC.CMPRO ---
Date of service: 12/14/22 Time of Service: 10:14 Care Management Progress Note Progress Note Text Progress Note Text: S/O: Sarita remains on Covid precautions, therefore CM did not visit with her today. CM attempted to meet with Sarita's daughter, who was visiting, but she was on the phone with Dr. Gallagher, Palliative care. Sarita is being closely monitored at ICU level of care. CM will continue to follow. A: Sarita is an 82 year old woman admitted on 11/28/22 with metastatic pancreatic cancer P: Sarita has changed her code status to DNR/DNI. A COLST form has been initiated but not as yet finalized; it requires the signature of a provider. The plan was to transition Sarita to SB-1 status, although the onset of Covid has necessitated that be delayed. Sarita's final discharge plan will be determined by her progress. CM will continue to support Sarita and her discharge planning needs.
--- NOTE | 2022-12-14 10:58 | NUR.NOTE ---
Nursing Note: Patient's daughter, Eliza, has arrived to visit. She gowned up appropriately with PPI prior to entering room.
[2022-12-14] MEDS: Cholestyramine/Aspartame PKT 1 EACH PO (12:14)
--- NOTE | 2022-12-14 14:06 | NUR.NOTE ---
Nursing Note: When giving patient her medications this afternoon, patient was teary stating I hate this. Patient's daughter was in room at the time supporting her mother.
--- NOTE | 2022-12-14 14:40 | W.PM.PROGNOT ---
Date of Service Date of service: 12/14/22 Time of Service: 14:40 Assessment and Plan Assessment and plan (1) Shock: Status: Acute Assessment and plan: Multifactorial, due to possibly septic component (has a pneumonia on CXR), hypovolemic/hemorrhagic, possibly cardiogenic, distributive due to hypoalbuminemia; cannot rule out an acute PE. Has bilateral DVTs. Tx w/ norepinephrine, blood transfusion, abx, stress dose steroids. Added midodrine and weaning off norepinephrine. Cannot tolerate anticoagulation due to falling hemoglobin, bleeding from the wound/heme + stools, to the point of requiring transfusion today. Keep in the ICU. Monitor BP. (2) Infected venous access port: Status: Acute Assessment and plan: S/p port removal 12/11/22. Heparin gtt d/c'ed due to more bleeding from the excision site and falling hemoglobin. Qualifiers: Encounter type: subsequent encounter Qualified Code(s): T80.219D - Unspecified infection due to central venous catheter, subsequent encounter (3) DVT, bilateral lower limbs: Status: Acute Assessment and plan: Unable to tolerate heparin gtt. Discussed with daughter and the patient together. Decision was made not to go to a tertiary care center for an IVC filter, with the patient understanding that a PE might still be possible with an IVC filter in. I cannot tell if the DVTs happened prior to or since admission. The patient did come in with anemia requiring transfusion with hematest pending (the patient did have a BM overnight, but hematest was not done), and had refused mechanical DVT ppx (TEDs) ordered on this admission, as nursing had documented. She does have metastatic pancreatic cancer and COVID-19, both of which make her hypercoagulable. She has also been immobile. PE ruled out with a negative CTA on 12/10/22. Given hypotension today, it's not impossible that a PE did occur. Qualifiers: Affected thrombotic vein of extremity: unspecified vein of extremity Chronicity: acute Qualified Code(s): I82.403 - Acute embolism and thrombosis of unspecified deep veins of lower extremity, bilateral (4) Gram-positive cocci bacteremia: Status: Acute Assessment and plan: Positive blood cultures collected from the infusaport 12/09/22: Staph hominis and Enterococcus spp. Enterococcus is sensitive to vancomycin. Peripheral cultures w/ NGTD as are the repeat blood cultures. Port removed 12/11/22. Continue cefepime. and vancomycin. Echo w/o evidence of valvular disease. Consider ID consult once all the information is available. Catheter tip cultures were sent too. (5) Heme + stool: Status: Acute Assessment and plan: Switch H2 kirill to a PPI. (6) Fall: Status: Acute Assessment and plan: On 12/12/22. No physical injuries. CT head negative. Likely no closed head injury. Pt denies strikin head. The patient is on fall precautions and on the camera (to which she consented). Qualifiers: Encounter type: subsequent encounter Qualified Code(s): W19.XXXD - Unspecified fall, subsequent encounter (7) Bilateral pleural effusion: Status: Acute Assessment and plan: Diuretics had been resumed but on hold again today (as well as yesterday). Echo w/ LVEF of 60-65%, RVSP of 35 mmHg. No valvular issues. (8) A-fib: Status: Chronic Assessment and plan: Rates mildly elevated in setting of shock/hypovolemia. Monitor post-transfusion. Holding cardizem due to BP issues today. (9) COVID-19: Status: Acute Assessment and plan: Continue remdesivir. CXR today does show a 2ndary bacterial pneumonia on CT - on vancomycin/cefepime. Encourage IS/Acapella. Antiemetics/antidiarrheals. PT. Palliative care consulted: the patient would like to continue treatment. (10) GERD (gastroesophageal reflux disease): Status: Chronic Assessment and plan: Changing H2 kirill to a PPI. (11) Pancreatic cancer: Status: Acute Assessment and plan: No longer on chemo. Infusaport taken out. Continue gabapentin. Continue prn oxycodone for cancer related pain. Provide antiemetics/antidiarrheals. F/u w/ Dr Suarez as outpatient if the patient survives this admission. (12) Hiccough: Status: Acute Assessment and plan: Frequently associated with COVID. Could trial baclofen should they recur. (13) Left shoulder pain: Status: Acute Assessment and plan: Continue PRN robaxin (14) Chest pain: Assessment and plan: Noncardiac and likely MSK. Resolved. Continue Lidoderm patch, oxycydone. PE ruled out. (15) Congestive heart failure: Assessment and plan: HFpEF. Echocardiogram 11/16/22: LVEF of 60-65%. No evidence of valvular disease on repeat echo. 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 Holding off of further diuresis at this time. (16) Abdominal pain: Status: Acute Assessment and plan: in setting of pancreatic cancer. Continue oxycodone. (17) Hypokalemia: Status: Resolved Assessment and plan: K 3.3 today Oral repletion and monitor. (18) Essential hypertension: Status: Chronic Assessment and plan: Has required vasopressor so BP meds held. Monitor. (19) Pulmonary fibrosis: Assessment and plan: Not in acute exacerbation. Encourage pulmonary toilet. (20) Anemia: Status: Chronic Assessment and plan: Acute on chronic, worse, requiring 2 units pRBCs on 12/13. In setting of bleeding from the port removal site but also Heme + stools. Anticoagulation stopped. Monitor H/H. (21) Encephalopathy acute: Status: Acute Assessment and plan: ?Due to COVID-19 vs bacterial disease. Metastatic disease to the brain is also a possibility. No evidence of head trauma, CT head negative. UA negative, ammonia wnl. Monitor mental status. 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 Not tolerating anticoagulation. As above (23) Discharge planning issues: Status: Acute Assessment and plan: DNR/DNI. Now in the ICU. The patient and daughter elected against an IVC filter placement. The patient would like to continue medical management of her condition for now - ok with antibiotics, pressors, transfusions for now. Subjective Subjective Patient reports: afebrile; denies feels better, diarrhea, vomiting or shortness of breath Interval history since last seen: Pt has been more confused today per daughter and nursing staff. Exam Narrative Exam Narrative: General: tired appearing elderly female who is resting comfortably in bed, arousable to voice, keeps eyes closed and communicates in short sentences. Mildly confused HEENT: EOMI, MMM Heart: irregularly irregular rhythm, tachycardic in the low 90's, no m/r/g Lungs: Diminished breath sounds anteriorly. Nonlabored breathing. Abdomen: soft, nontender,, nondistended Extremities: 1+ BLE edema, no calf tenderness. Objective Last Vital Signs Temp 36.7 C 12/14/22 12:41 Pulse 60 12/14/22 14:31 Resp 17 12/14/22 14:31 BP 98/46 L 12/14/22 14:31 Pulse Ox 94 12/14/22 14:31 Laboratory Results - last 24 hr 12/14/22 12/14/22 12/14/22 05:20 05:20 05:20 WBC 26.41 H* RBC 4.12 Hgb 12.0 D Hct 35.3 L MCV 86 D MCH 29.1 MCHC 34.0 RDW 18.8 H Plt Count 203 MPV 9.6 Immature Gran % 2.0 Neutrophils % 92.1 Lymphocytes % 3.5 Monocytes % 1.8 Eosinophils % 0.2 Basophils % 0.4 Nucleated RBC % 0.0 Absolute Neutrophils 24.32 H Absolute Lymphocytes 0.92 L Absolute Monocytes 0.48 Absolute Eosinophils 0.05 Absolute Basophils 0.11 RBC Morphology See Below Monarch Cells/Echinocytes 2+ PT INR D-Dimer Sodium 138 Potassium 3.3 L Chloride 106 Carbon Dioxide 17.8 L Anion Gap 14.2 H BUN 19 H Creatinine 0.8 Est GFR (CKD-EPI 2020) 73.98 Glucose 139 H Calcium 8.0 L Magnesium 2.2 Ferritin 1665 H C-Reactive Protein 15.08 H Procalcitonin 5.2 12/14/22 05:20 WBC RBC Hgb Hct MCV MCH MCHC RDW Plt Count MPV Immature Gran % Neutrophils % Lymphocytes % Monocytes % Eosinophils % Basophils % Nucleated RBC % Absolute Neutrophils Absolute Lymphocytes Absolute Monocytes Absolute Eosinophils Absolute Basophils RBC Morphology Monarch Cells/Echinocytes PT 15.4 H INR 1.5 H D-Dimer 2851 H Sodium Potassium Chloride Carbon Dioxide Anion Gap BUN Creatinine Est GFR (CKD-EPI 2020) Glucose Calcium Magnesium Ferritin C-Reactive Protein Procalcitonin Time Spent with Patient Time Spent with Patient: 35-49 minutes Time was spent: preparing to see the patient(eg.review tests), obtaining and/or reviewing separately otained hiistory, ordering medications,tests, procedures, referring, communicating with other health healthcare advisory services manager, indepentently interpreting results, counseling the patient and care coordination
[2022-12-14 14:41] LABS: Source Nasal/Nares
[2022-12-14 15:12] LABS: COVID-19 PCR POSITIVE (Negative)
[2022-12-14] MEDS: MORPHine 4 MG/ML SYR IVP ×3 (17:10→23:17)
[2022-12-14 17:45] LABS: Type of Draw Not Given; Vancomycin Trough 17.7 ug/mL (10.0-20.0)
[2022-12-14] MEDS: Lidocaine Patch Removal 1 EACH TP ×2 (21:04→21:22)
[2022-12-15] VITALS (14 sets, daily range): BP systolic 89–127; BP diastolic 49–60; PULSE 52–92; RESP 9–18; TEMP 36–36.9; O2SAT 92–96
[2022-12-15] MEDS: MORPHine 4 MG/ML SYR IVP ×3 (02:27→09:11)
[2022-12-15] MEDS: CEFEPIME 2 GM in Normal Saline 100 ML IVPB (02:27)
[2022-12-15] MEDS: Normal Saline Flush 10 ML SYR IVP ×4 (04:10→09:10)
--- NOTE | 2022-12-15 08:30 | PDOC.CMPRO ---
Date of service: 12/15/22 Time of Service: 08:30 Care Management Progress Note Progress Note Text Progress Note Text: S/O: Sarita remains on modified Covid precautions. RADHA was able to meet with her daughter Eliza this morning. Sarita has not been doing well over the last few days. She has become confused and is in a lot more pain than she had been. Eliza made the decision this morning to transition Sarita to comfort measures and a Dilaudid drip was started. When RADHA met with her, Sarita was asleep and Eliza asked that she not be woken up. A: Sarita is an 82 year old woman admitted on 11/28/22 with metastatic pancreatic cancer P: Sarita has changed her code status to DNR/DNI. A COLST form has been initiated but not as yet finalized; it requires the signature of a provider. The plan was to transition Sarita to SB-1 status, although the onset of Covid has necessitated that be delayed. Sarita's final discharge plan will be determined by her progress. CM will continue to support Sarita and her discharge planning needs.
[2022-12-15] MEDS: Pantoprazole 40 MG VIAL IVP ×2 (09:10→20:17)
[2022-12-15] MEDS: HYDROmorphone 100 MG in Normal Saline 240 ML IV (10:00)
[2022-12-15 10:05] LABS: Abs Immature Grans 0.31 10^3/uL (0.0-0.06); Absolute Monocyte Count 0.59 10^3/uL (0.1-0.8); Basophils % 0.3; HCT 37.7 % (36.0-46.0); HGB 12.6 g/dL (11.2-15.7); Immature Grans % 1.6; MCH 29.3 pg (27.0-33.0); MCHC 33.4 % (32.0-36.0); MCV 88 fL (80-95); Neutrophils % 92.1; Platelet Count 130 10^3/uL (130-400); RDW 19.9 % (11.7-14.6); RDW-SD 61.9 fL; WBC 19.76 10^3/uL (4.4-10.8)
[2022-12-15 10:10] LABS: Absolute Basophil Count 0.06 10^3/uL (0.0-0.2); Absolute Lymphocyte Count 0.59 10^3/uL (1.2-3.4)
[2022-12-15 10:11] LABS: Anion Gap 11.3 mmol/L (3-11); BUN 25 mg/dL (7-18); CO2 19.7 mmol/L (21.0-32.0); CREATININE 0.9 mg/dL (0.55-1.02); Calcium 8.6 mg/dL (8.5-10.1); Chloride 109 mmol/L (98-107); Estimated GFR 64.23 (mL/min/1.73m2); Glucose 138 mg/dL (74-106); Potassium 3.3 mmol/L (3.5-5.1); Sodium 140 mmol/L (136-145)
[2022-12-15] MEDS: ACETAMINOPHEN 1,000 MG/100 ML BTL 400 MG IVPB ×2 (10:24→18:40)
[2022-12-15] MEDS: Scopolamine 1 MG/3 DAYS PATCH TD (10:25)
[2022-12-15] MEDS: Lidocaine 5% Patch 1 PATCH TP ×2 (10:25)
[2022-12-15] MEDS: LORazepam 2 MG/ML VIAL 0.5 MG IVP (11:22)
--- NOTE | 2022-12-15 16:16 | PGE_ITS ---
Date of Service Date of service: 12/15/22 Time of Service: 16:17 Assessment and Plan Assessment and plan (1) Shock: Status: Acute Assessment and plan: Resolved. Multifactorial, due to possibly septic component (has a pneumonia on CXR), hypovolemic/hemorrhagic, possibly cardiogenic, distributive due to hypoalbuminemia; cannot rule out an acute PE. Has bilateral DVTs. Tx w/ norepinephrine, blood transfusion, abx, stress dose steroids. Added midodrine and weaning off norepinephrine. Cannot tolerate anticoagulation due to falling hemoglobin, bleeding from the wound/heme + stools, to the point of requiring transfusion today. . (2) Infected venous access port: Status: Acute Assessment and plan: S/p port removal 12/11/22. Heparin gtt d/c'ed due to more bleeding from the excision site and falling hemoglobin. Qualifiers: Encounter type: subsequent encounter Qualified Code(s): T80.219D - Unspecified infection due to central venous catheter, subsequent encounter (3) DVT, bilateral lower limbs: Status: Acute Assessment and plan: Unable to tolerate heparin gtt. Discussed with daughter and the patient together. Decision was made not to go to a tertiary care center for an IVC filter, with the patient understanding that a PE might still be possible with an IVC filter in. I cannot tell if the DVTs happened prior to or since admission. The patient did come in with anemia requiring transfusion with hematest pending (the patient did have a BM overnight, but hematest was not done), and had refused mechanical DVT ppx (TEDs) ordered on this admission, as nursing had documented. She does have metastatic pancreatic cancer and COVID-19, both of which make her hypercoagulable. She has also been immobile. PE ruled out with a negative CTA on 12/10/22. Given hypotension today, it's not impossible that a PE did occur. Qualifiers: Affected thrombotic vein of extremity: unspecified vein of extremity Chronicity: acute Qualified Code(s): I82.403 - Acute embolism and thrombosis of unspecified deep veins of lower extremity, bilateral (4) Gram-positive cocci bacteremia: Status: Acute Assessment and plan: Positive blood cultures collected from the infusaport 12/09/22: Staph hominis and Enterococcus spp. Enterococcus is sensitive to vancomycin. Peripheral cultures w/ NGTD as are the repeat blood cultures. Port removed 12/11/22. Continued cefepime. and vancomycin. Echo w/o evidence of valvular disease. Now OPEN CLAIMS REPRESENTATIVE. (5) Heme + stool: Status: Acute Assessment and plan: OPEN CLAIMS REPRESENTATIVE (6) Fall: Status: Acute Assessment and plan: On 12/12/22. No physical injuries. CT head negative. Likely no closed head injury. Pt denies strikin head. Qualifiers: Encounter type: subsequent encounter Qualified Code(s): W19.XXXD - Unspecified fall, subsequent encounter (7) Bilateral pleural effusion: Status: Acute Assessment and plan: Echo w/ LVEF of 60-65%, RVSP of 35 mmHg. No valvular issues. (8) A-fib: Status: Chronic Assessment and plan: Now off telemetry. (9) COVID-19: Status: Acute Assessment and plan: Now 12 days out from initial + test. OPEN CLAIMS REPRESENTATIVE status. (10) GERD (gastroesophageal reflux disease): Status: Chronic Assessment and plan: PPI was initially helpful with relieving most of her swallowing globus sensation. Now OPEN CLAIMS REPRESENTATIVE (11) Pancreatic cancer: Status: Acute Assessment and plan: No longer on chemo. Infusaport taken out. Despite efforts, it is apparent that her metastatic disease along with COVID has resulted in a progressive decline. OPEN CLAIMS REPRESENTATIVE (12) Congestive heart failure: Assessment and plan: HFpEF. Echocardiogram 11/16/22: LVEF of 60-65%. No evidence of valvular disease on repeat echo. 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 (13) Hypokalemia: Status: Resolved Assessment and plan: Had been repleting as needed. No longer monitoring. (14) Pulmonary fibrosis: Assessment and plan: Not in acute exacerbation. (15) Anemia: Status: Chronic Assessment and plan: Acute on chronic requiring 2 units pRBCs on 12/13. In setting of bleeding from the port removal site but also Heme + stools. Anticoagulation stopped. (16) Superior mesenteric vein thrombosis: Status: Chronic Assessment and plan: Chronic, known, present prior to admission. Not tolerating anticoagulation. As above (17) Discharge planning issues: Status: Acute Assessment and plan: DNR/DNI. Her disease state has progressed and is now OPEN CLAIMS REPRESENTATIVE. Daughter, BRITTNEE, in agreement. Subjective Subjective Patient reports: afebrile; denies diarrhea, vomiting or shortness of breath Interval history since last seen: Pt is less interactive. More confused. Having pain in her right buttock. Exam Narrative Exam Narrative: Gen: fatigued appearing but restless with pain. Objective Last Vital Signs Temp 36.9 C 12/15/22 07:30 Pulse 56 L 12/15/22 08:01 Resp 18 12/15/22 08:01 BP 89/54 L 12/15/22 08:01 Pulse Ox 93 12/15/22 13:00 Laboratory Results - last 24 hr 12/13/22 12/14/22 12/14/22 18:08 14:33 14:36 WBC RBC Hgb Hct MCV MCH MCHC RDW Plt Count MPV Immature Gran % Neutrophils % Lymphocytes % Monocytes % Eosinophils % Basophils % Nucleated RBC % Absolute Neutrophils Absolute Lymphocytes Absolute Monocytes Absolute Eosinophils Absolute Basophils Sodium Potassium Chloride Carbon Dioxide Anion Gap BUN Creatinine Est GFR (CKD-EPI 2020) Glucose Calcium Vancomycin Draw Type Not Given Vancomycin Trough 17.7 COVID-19 Source Cancelled Cancelled SARS-CoV-2 (PCR) Cancelled Cancelled 12/15/22 12/15/22 09:45 09:45 WBC 19.76 H RBC 4.30 Hgb 12.6 Hct 37.7 MCV 88 MCH 29.3 MCHC 33.4 RDW 19.9 H Plt Count 130 MPV 9.0 Immature Gran % 1.6 Neutrophils % 92.1 Lymphocytes % 3.0 Monocytes % 3.0 Eosinophils % 0.0 Basophils % 0.3 Nucleated RBC % 0.0 Absolute Neutrophils 18.20 H Absolute Lymphocytes 0.59 L Absolute Monocytes 0.59 Absolute Eosinophils 0.00 Absolute Basophils 0.06 Sodium 140 Potassium 3.3 L Chloride 109 H Carbon Dioxide 19.7 L Anion Gap 11.3 H BUN 25 H Creatinine 0.9 Est GFR (CKD-EPI 2020) 64.23 Glucose 138 H Calcium 8.6 Vancomycin Draw Type Vancomycin Trough COVID-19 Source SARS-CoV-2 (PCR) Time Spent with Patient Time Spent with Patient: 35-49 minutes Time was spent: preparing to see the patient(eg.review tests), obtaining and/or reviewing separately otained hiistory, referring, communicating with other health child care coordinator, indepentently interpreting results, counseling the patient and care coordination
--- NOTE | 2022-12-15 17:30 | CHAPLAIN ---
Sarita was sleeping when I visited this afternoon, but I met with Sarita's daughter, Eliza. Sarita's confusion, pain and condition has worsened over the past couple days according to clinical and care management notes. Eliza told me that she knows in the past her mother has always wanted everything done to treat her. Sarita has pancreatic cancer and other health issues. A decision was made by Eliza, to turn toward comfort measures instead of more aggressive treatments. Sarita lived in [place], working in [employer], and was very independent, according to Eliza. Sarita moved to [place] last year to be closer to Eliza. There is another daughter who lives in [place]. I let Eliza know that airplane flight attendant support is available 12/10. I will continue to visit.
[2022-12-16] MEDS: ACETAMINOPHEN 1,000 MG/100 ML BTL 400 MG IVPB ×3 (02:37→18:30)
[2022-12-16 02:42] VITALS: TEMP 36.4
[2022-12-16] MEDS: Normal Saline Flush 10 ML SYR IVP ×2 (02:42→21:40)
--- NOTE | 2022-12-16 08:27 | CMPROGNOTE_ITS ---
Date of service: 12/16/22 Time of Service: 08:27 Care Management Progress Note Progress Note Text Progress Note Text: S/O: Sarita remains on comfort care. She is now unresponsive. Eliza has been by her side all day and feels Sarita is comfortable. Eliza also expressed her appreciation for the wonderful care her mother has received. A: Sarita is an 82 year old woman admitted on 11/28/22 with metastatic pancreatic cancer P: Sarita is now on comfort care. She is on a dilaudid drip and will remain at [facility] for end of life care. The family has chosen to make final arrangements with [employer]..
--- NOTE | 2022-12-16 11:05 | NUR.NOTE ---
Nursing Note: 1050 This nurse went in room to reposition patient. Daughter, Eliza, in room. This nurse brought bed to flat position then to slightly trendelenburg position to assist with repositioning, patient began coughing. The daughter Eliza became upset and immediately wanted the bed brought back to semi fowlers position. Then nurse brought bed to semi fowlers position and attempted to suction patient. There was nothing to suction in the back of her throat or mouth. This nurse explained to elis Kay the secretions are in her chest and we not able to suction that deep. Dr. Hicks aware of the situation.
[2022-12-16] MEDS: Glycopyrrolate 0.2 MG/1 ML VIAL IVP (11:29)
[2022-12-16] MEDS: Atropine 1% Ophth Sol. 2 ML BTL SL (13:04)
--- NOTE | 2022-12-16 16:04 | CHAPLAIN ---
Sarita is not responsive at this point. She appears to be comfortable. I spoke with her daughter, Eliza. Eliza's was with her. Sarita's breathing changed a bit while we were talking and I mentioned how that was likely to happen, and the space between breaths is likely to increase, which is all normal. It sounds like Sarita has some secretions. Sarita's health has change dramatically since she first was admitted and this has been a lot for Eliza to deal with. She has a sister in [place] and that sister was able to have some conversations with Sarita up to a few days ago when Sarita began to sleep more. I encouraged Eliza to continue to talk to Sarita as her voice is comforting to Zaina, and even hearing Eliza's conversations with her are likely comforting to Sarita. I will continue to visit.
[2022-12-16] MEDS: Glycopyrrolate 0.2 MG/1 ML VIAL 0.1 MG IVP ×2 (16:05→21:39)
[2022-12-16] MEDS: LORazepam 2 MG/ML VIAL 0.5 MG IVP ×2 (18:30→21:39)
[2022-12-16] MEDS: Pantoprazole 40 MG VIAL IVP (21:40)
[2022-12-17] MEDS: LORazepam 2 MG/ML VIAL 0.5 MG IVP ×3 (00:29→13:00)
[2022-12-17] MEDS: Glycopyrrolate 0.2 MG/1 ML VIAL 0.1 MG IVP ×4 (00:30→13:01)
[2022-12-17] MEDS: Normal Saline Flush 10 ML SYR IVP ×2 (00:32→13:01)
[2022-12-17] MEDS: ACETAMINOPHEN 1,000 MG/100 ML BTL 400 MG IVPB (01:55)
--- NOTE | 2022-12-17 08:45 | CMPROGNOTE_ITS ---
Date of service: 12/17/22 Time of Service: 08:45 Care Management Progress Note Progress Note Text Progress Note Text: S/O: Sarita peacefully at 3:15 this afternoon. Her daughter Eliza had just left moments before to go home briefly, planning to return within the hour. Eliza verbalized to that she believed her mother might pass when she left. When met with Eliza earlier, she again expressed her gratitude for the kind and compassionate care her mother received at [facility] and how happy she was that Sarita was able to remain here for end of life care. A: Sarita is an 82 year old woman admitted on 11/28/22 with metastatic pancreatic cancer P: Sarita is now on comfort care. She is on a dilaudid drip and will remain at [facility] for end of life care. The family has chosen to make final arrangements with [employer]. cc:
--- NOTE | 2022-12-17 15:24 | CHAPLAIN ---
Sarita about 3:15pm, shortly after her daughter, Eliza, left to return home briefly. She was called and notified that Sarita had . Eliza had brought in clothes for her mom and asked that she be washed and dressed in those clothes before being transported by the cremation agency. Eliza said she would be returning. This morning I had a conversation with Eliza about signs and symptoms of . Sarita was unresponsive for the third or fourth day, but continued to seem comfortable.
--- NOTE | 2022-12-17 16:16 | EXPE_ITS ---
Date of service: 12/17/22 Time of Service: 16:16 Discharge Plan Disposition Patient Disposition: Condition: Stable Discharge Details Reason For Visit: Metastatic Pancreatic Cancer, Chest Pain Admit Date/Time: 11/30/22 12:49 Admit Provider: Aj Hicks Attending Provider: Aj Hicks Primary Care Provider: Gibran Hinkle Hospital Course Hospital Course: This is an 82 yo female with recurrent pancreatic cancer with mets, NSTEMI, CHF, HTN, pulmonary fibrosis.? She presented with CP that began at appx 6 AM on the morning of admission.? She is s/p an NSTEMI after presented to [facility] initially then being transferred to [facility] on 11/03/22.? Cardiac catheterization showed no obstructive lesions.? TTE at that time showed apical hypokinesis consistent with stress induced cardiomyopathy likely due to her chemotherapy.? Since her last admission here, oncology has informed her that there is no further treatments to offer.? She does endorse abd discomfort but no fever/chills.? No shortness of air/cough.? Initial troponin neg.? EKG nondiagnostic.? Normal WBC count.? Hgb 10.9.? Na 137. K 3.2. BUN 23. Creatinine 1.1. Mg 1.8. Total bilirubin 1.1 (previously normal). AST and ALT normal.? Lipase < 10. NTProBNP 5466. UA unremarkable. CT chest/abd/pelvis:??1. ? Multiple small low-attenuation areas in the liver may represent metastatic disease. For example 15 mm in the right lobe of the liver series 4, image 45. 2 cm in the lateral aspect of the right lobe of the liver. Enhancing central component. Series 4, image 48 12 mm nodule more posteriorly in the right lobe of the liver series 4, image 50 additional smaller areas in the liver. These are thought to represent hepatic metastasis. . 2. ? Ill-defined low-attenuation mass in the pancreas has increased in size since October 01. It measures 4.6 x 3.5 cm series 4, image 56 and may represent recurrent pancreatic cancer.. 3. ? No evidence of pulmonary embolus to the segmental level. 4. ? No aneurysm of the aorta. 5. ? No dissection of the aorta. 6. ? Dilatation of the entire esophagus. It is dilated 3.6 cm and has an air-fluid level. There is slowed motility in the distal esophagus..? Recommend further evaluation for esophageal pathology if clinically indicated 7? 10 mm nodule anterior right kidney 36 Hounsfield units.Recommend MR without and with contrast or CT without and with contrast. MR is preferred for masses under 1.5 cm. She was given IV fluids in the ED initially.? Admitted for further evaluation and palliative care consult. See Diagnosis Home Meds and New Rx's Prescriptions: No Action amlodipine 5 mg tablet 5 mg PO PRN PRN Patient Comments: TAKE ONE TABLET BY MOUTH EVERY DAY tramadol 50 mg tablet 50 mg PO DAILY Patient Comments: TAKE 1 TABLET BY MOUTH EVERY 6 HOURS PAIN potassium chloride 20 mEq tablet,ER particles/crystals 20 meq PO DAILY Patient Comments: TAKE ONE TABLET BY MOUTH EVERY DAY gabapentin 300 mg capsule 300 mg PO TID PRN PRN Patient Comments: TAKE ONE CAPSULE BY MOUTH THREE TIMES DAILY hydrochlorothiazide 25 mg tablet 25 mg PO DAILY Patient Comments: TAKE 1 TABLET BY MOUTH DAILY losartan 100 mg tablet 100 mg PO DAILY Patient Comments: TAKE ONE TABLET BY MOUTH EVERY DAY metoprolol succinate 25 mg tablet extended release 24 hr 25 mg PO 1XD cholestyramine (with sugar) 4 gram powder in packet 1 packet PO 3XD Patient Comments: TAKE 1 PACKET BY MOUTH THREE TIMES A DAY WITH MEALS Creon 24,000-76,000 -120,000 unit capsule,delayed release(DR/EC) PO Rx Instructions: 24,000 each tab, take 2 tabs every meals and PRN for snacks. lidocaine 5 % Adhesive Patch,Medicated 1 patch topical Q24H Qty: 10 0RF furosemide [Lasix] 20 mg tablet 20 mg PO DAILY Qty: 30 0RF Discharge Data Cause of : Carcinoma of pancreas Discharge Date/Time-TO BE ENTERED AT DEPARTURE: 12/17/22 15:15 Discharge Sum: Prov Provider Admitting clinician: Aj Hicks Attending physician on admission: Aj Hicks Consults: 11/28/22 14:37 Palliative Care Consult [CONS] Routine Consultation Status:: Contact made by Clarification:: Manage/follow per spec. Reason for consult:: Goals of care. REcurrent and metastatic pancreatic cancer 11/28/22 16:32 Speech Therapy Consult [CONS] Routine Consulting Provider: [facility] Speech Langauge Pathology Type of Consult: Swallow Check all that apply: High Risk choke/asp/PNA 11/30/22 08:27 Physical Therapy Consult [CONS] Routine Consulting Provider: Linsey Banks Priority: Non-Urgent 11/30/22 08:28 Occupational Therapy Consult [CONS] Routine Consulting Provider: Mariia Lopez Priority: Non-Urgent 12/03/22 19:37 Respiratory Therapy Consult [CONS] Routine Consultation Status:: Follow-up needed Clarification:: Manage/follow per spec. Reason for consult:: Covid + 12/10/22 15:57 Surgical Consult [CONS] Routine Consulting Provider: Ariana Washington Consultation Status:: Contact made by Clarification:: Manage/follow per spec. Reason for consult:: Bacteremia, infected infusaport (GPCs in clusters) 12/11/22 15:11 PICC Consult [CONS] Routine Comment: Consultation Status:: Follow-up needed Clarification:: Manage/follow per spec. Reason for consult:: PT HAS COVID Pronouncing clinician: Aj Hicsk Discharge Sum: Diag PCOD Cause of : Carcinoma of pancreas Contributing Factors (1) Malignant neoplasm of pancreas metastatic to liver: Contributing factors: Progressive. She had undergone radiation and chemotx. As this progressed, oncology had no further options of treatment. (2) Shock: Contributing factors: Multifactorial, due to possibly septic component (has a pneumonia on CXR), hyp ovolemic/hemorrhagic, possibly cardiogenic, distributive due to hypoalbuminemia.Could not rule out an acute PE but did find bilateral lower extremity dvts. Tx w/ norepinephrine, blood transfusion, abx, stress dose steroids. Could tolerate anticoagulation due to falling hemoglobin, bleeding from the wound/heme + stools, to the point of requiring transfusion. 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 . (3) COVID-19: Contributing factors: Treated with remdesivir. (4) Infected venous access port: Contributing factors: Port removed. Cultured tip w/o growth. (5) DVT, bilateral lower limbs: Contributing factors: Not anticoagulated d/t significant anemia. (6) Gram-positive cocci bacteremia: Contributing factors: Positive blood cultures collected from the infusaport 12/09/22: Staph hominis and Enterococcus spp. Enterococcus; sensitive to vancomycin. Peripheral cultures w/ NGTD as are the repeat blood cultures. Port removed 12/11/22 and culture w/o growth. Continued cefepime. and vancomycin until transitioned to EXPERIENCE DESIGN DIRECTOR status. Echo w/o evidence of valvular disease. (7) Heme + stool: Contributing factors: See anemia (8) Fall: Contributing factors: No fractures noted. (9) Bilateral pleural effusion: Contributing factors: This did not result in hypoxia. Echo w/ LVEF of 60-65%, RVSP of 35 mmHg. No valvular issues. (10) A-fib: Contributing factors: Rate controlled. Not on AC (11) Pulmonary fibrosis: Contributing factors: Chronic/stable w/o exacerbation. Not requiring supplemental O2. (12) Anemia: Contributing factors: Acute on chronic requiring 2 units pRBCs on 12/13. In setting of bleeding from the port removal site but also Heme + stools. Anticoagulation stopped. 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 Not tolerating anticoagulation. Discharge Sum: Summary Date and Time Admission Date: 11/28/2308/11/23 12:49 Date of : 12/17/22 Time of : 15:15 Additional Data Confirmation of as documented by pronouncing clinician: no pulse, no respirations and no heart sounds Family: contacted Additional persons at bedside: other (nurse) Attending/PCP notified?: Yes Attending Physician: Aj Hicks MD, jA Was code activated?: No Autopsy requested?: No forensic medical examiner notified?: No Organ bank notified?: Yes Advance directives: Yes Hospice patient?: No
== END 2022-12-17 15:15 | disposition expired | DRG 205 ==
LOC: ER 14:41 → MS 15:16 → ICU 12-12 16:44
PROVIDERS: Family Medicine; Internal Medicine; Nurse Practitioner Family; Surgery; Admitting Provider Family Medicine; Emergency Provider Emergency Medicine; PCP Family Medicine; Visit Provider Family Medicine
PROC: 0JPT0WZ Removal of Totally Implantable Vascular Access Device from Trunk Subcutaneous Tissue and Fascia, Open Approach (ICD-10-PCS; CPT 36590; principal; 2022-12-11 13:00)
DX: M94.0 Chondrocostal junction syndrome [Tietze] (principal); A41.9 Sepsis, unspecified organism; T80.219A Unspecified infection due to central venous catheter, initial encounter; I21.4 Non-ST elevation (NSTEMI) myocardial infarction; R65.21 Severe sepsis with septic shock; U07.1 COVID-19; K55.059 Acute (reversible) ischemia of intestine, part and extent unspecified; J15.9 Unspecified bacterial pneumonia; J96.01 Acute respiratory failure with hypoxia; I42.7 Cardiomyopathy due to drug and external agent; C78.7 Secondary malignant neoplasm of liver and intrahepatic bile duct; E44.1 Mild protein-calorie malnutrition; G93.40 Encephalopathy, unspecified; C25.0 Malignant neoplasm of head of pancreas; I51.81 Takotsubo syndrome; C64.1 Malignant neoplasm of right kidney, except renal pelvis; J90 Pleural effusion, not elsewhere classified; D68.69 Other thrombophilia; I97.131 Postprocedural heart failure following other surgery; I50.1 Left ventricular failure, unspecified; I82.411 Acute embolism and thrombosis of right femoral vein; I82.441 Acute embolism and thrombosis of right tibial vein; I82.432 Acute embolism and thrombosis of left popliteal vein; I82.442 Acute embolism and thrombosis of left tibial vein; I50.9 Heart failure, unspecified; R10.9 Unspecified abdominal pain; G89.3 Neoplasm related pain (acute) (chronic); I48.91 Unspecified atrial fibrillation; K21.9 Gastro-esophageal reflux disease without esophagitis; M25.512 Pain in left shoulder; I95.9 Hypotension, unspecified; K22.89 Other specified disease of esophagus; T45.1X5A Adverse effect of antineoplastic and immunosuppressive drugs, initial encounter; I10 Essential (primary) hypertension; E86.0 Dehydration; R13.10 Dysphagia, unspecified; Z66 Do not resuscitate; M62.838 Other muscle spasm; D64.9 Anemia, unspecified; W06.XXXA Fall from bed, initial encounter; Y92.230 Patient room in hospital as the place of occurrence of the external cause; R19.5 Other fecal abnormalities
CPT/HCPCS: 36590; 36410; 36415; 36430; 36592; 71275; 73521; 73552; 80048; 80053; 80076; 82306; 83690; 84145; 85027; 86850; 86900; 86901; 86920; 87040; 87077; 87493; 87635; 92610; 93005; 93306; 93308; 96361; 96374; 96375; 97110; 97112; 97116; 97162; 97166; 97530; 97535; 99222; 99285; 70450; 71045; 74174; 80202; 81003; 81015; 82040; 82140; 82728; 83605; 83735; 83880; 84484; 85014; 85018; 85025; 85379; 85610; 85730; 86140; 87070; 87086; 87186; 93010; 93970; 94667; 94668; 99223; 99232; 99233; 99291; G0378; J0131; J0248; J0780; J1170; J1644; J1720; J1885; J1941; J2060; J2270; J2405; J3010; J3480; J3490; P9016